=== PATIENT | female | born 1975 | race Caucasian/White ===

== ENCOUNTER 2017-07-26 05:29 | Inpatient (IN) | payer OTHER ==
[2017-07-16 10:21] VITALS: BMI 42.0
--- NOTE | 2017-07-16 11:17 | PAT Medication Instructions ---
Service Date Jul 16, 2017. Current Home Medication List Alprazolam (Xanax), 0.5 MG PO PRN Bupropion Hcl (Wellbutrin Sr), 150 MG PO BID Dicyclomine HCl (Dicyclomine HCl), 10 MG PO QID PRN for prn Gabapentin (Neurontin), 600 MG PO BID Hydrocodone/Acetaminophen 5MG/325MG ([place] 5MG/325MG), 1-2 TABLET PO Q6H PRN for Pain Infliximab (Remicade), 1 DOSE INJ Q8WK Insulin Aspart (novoLOG INSULIN PUMP ), 1 EA N/A UD Lactulose (Lactulose), 30-60 MG PO DAILY PRN for Constipation Levothyroxine Sodium (Synthroid), 300 MCG PO QAM Lisinopril (Prinivil), 5 MG PO QAM Medroxyprogesterone Acetate (C (Depo-Provera Contraceptiv), 150 MG PO Q3MO Metformin Hcl (Glucophage Ext Rel), 1,000 MG PO QAM Omeprazole (Prilosec), 40 MG PO QAM Ondansetron Hcl (Zofran), 8 MG PO PRN Quetiapine Fumarate (Seroquel), 200 MG PO BID Trazodone Hcl (Trazodone), 300 MG PO HS Verapamil Sust Rel (Calan Sr Ext Rel), 240 MG PO QAM Medication Instructions For Your Scheduled Surgery - Check with surgeon/stabilizer operator for instructions: Infliximab (Remicade), 1 DOSE INJ Q8WK - Hold the following medications 48 hours prior to surgery: Metformin Hcl (Glucophage Ext Rel), 1,000 MG PO QAM - Hold the following medications the morning of surgery: Lisinopril (Prinivil), 5 MG PO QAM Lactulose (Lactulose), 30-60 MG PO DAILY PRN for Constipation Dicyclomine HCl (Dicyclomine HCl), 10 MG PO QID PRN for prn - Take the following medications the morning of surgery with a sip of water: Verapamil Sust Rel (Calan Sr Ext Rel), 240 MG PO QAM Ondansetron Hcl (Zofran), 8 MG PO PRN Quetiapine Fumarate (Seroquel), 200 MG PO BID Omeprazole (Prilosec), 40 MG PO QAM Levothyroxine Sodium (Synthroid), 300 MCG PO QAM Hydrocodone/Acetaminophen 5MG/325MG ([place] 5MG/325MG), 1-2 TABLET PO Q6H PRN for Pain (okay to take up to 4 hours prior to surgery if needed) Gabapentin (Neurontin), 600 MG PO BID Bupropion Hcl (Wellbutrin Sr), 150 MG PO BID Alprazolam (Xanax), 0.5 MG PO PRN (if needed) - Take the following medications as scheduled the night before surgery: Trazodone Hcl (Trazodone), 300 MG PO HS Ondansetron Hcl (Zofran), 8 MG PO PRN (if needed) Quetiapine Fumarate (Seroquel), 200 MG PO BID Lactulose (Lactulose), 30-60 MG PO DAILY PRN for Constipation (if needed) Hydrocodone/Acetaminophen 5MG/325MG ([place] 5MG/325MG), 1-2 TABLET PO Q6H PRN for Pain (if needed) Gabapentin (Neurontin), 600 MG PO BID Dicyclomine HCl (Dicyclomine HCl), 10 MG PO QID PRN for prn (if needed) Bupropion Hcl (Wellbutrin Sr), 150 MG PO BID Alprazolam (Xanax), 0.5 MG PO PRN (if needed) - For Insulin Dependent Diabetic patients: Test blood sugar A.M. of surgery. - Insulin Aspart (novoLOG INSULIN PUMP ), set to basal setting for AM day of surgery If you have any questions please call us at [phone] or [phone] or [phone]
--- NOTE | 2017-07-16 11:46 | DIAGNOSTIC IMAGING REPORT ---
CHEST 2 VIEWS ROUTINE CLINICAL HISTORY: Preoperative evaluation. COMPARISON STUDY: Chest radiograph and chest CT January 15, 2015. FINDINGS: Lung volumes are normal. No pneumothorax or pleural effusion is present. No consolidation is identified. Cardiomediastinal silhouette is normal. There is no evidence of pulmonary edema. IMPRESSION: No acute cardiopulmonary findings. Electronically signed by: Rk Mccauley M.D. 07/16/2017 11:45 AM Dictated Date/Time: 07/16/2017 11:45 AM
[2017-07-16 12:12] LABS: BASO % 0.3 %; BASO ABS # 0.01 K/uL (0-0.2); COMPLETE YES; EOS % 1.8 %; HEMATOCRIT 41.1 % (37-47); LYMPH % 32.1 %; LYMPH ABS # 1.25 K/uL (1.2-3.4); MEAN CELL VOLUME 96.9 fL (80-100); MEAN CORPUSCULAR HEMOGLOBIN 32.5 pg (25-34); MEAN CORPUSCULAR HGB CONC 33.6 g/dl (32-36); MEAN PLATELET VOLUME 10.4 fL (7.4-10.4); MONO % 6.7 %; NEUT % 59.1 %; PLATELET COUNT 104 K/uL (130-400); RED BLOOD COUNT 4.24 M/uL (4.2-5.4); URINE APPEARANCE CLEAR (CLEAR); URINE BILIRUBIN NEG (NEG); URINE COLOR DK YELLOW; URINE NITRITE NEG (NEG); URINE SPECIFIC GRAVITY 1.019 (1.000-1.030); UROBILINOGEN NEG (NEG)
[2017-07-16 12:15] LABS: MANUAL MICROSCOPIC REQUIRED? NO; REVIEW REQ? NO
[2017-07-16 12:26] LABS: PROTHROMBIN TIME (PATIENT) 10.7 SECONDS (9.0-12.0)
[2017-07-16 13:28] LABS: CALCIUM 9.3 mg/dl (8.5-10.1); CREATININE 0.9 mg/dl (0.60-1.20); POTASSIUM 4.5 mmol/L (3.5-5.1)
--- NOTE | 2017-07-25 13:38 | HISTORY & PHYSICAL EXAMINATION ---
DATE OF ADMISSION: 07/26/2017 CHIEF COMPLAINT: Back pain, lower extremity difficulty. Working diagnosis of disc herniation lumbar spine. HISTORY OF PRESENT ILLNESS: Lacey is delightful. She has done her best. She had a recurrent disc herniation lumbar spine L4-L5. I state recurrent, she had a fusion at L5-S1 and did well for a period of time, unfortunate had a fall injury leading to the painful process and disc protrusion. We are also worried about the instability pattern up in the L4-L5 region. PAST MEDICAL HISTORY: Positive for hypertension, obesity, anxiety, diabetes on insulin and an insulin pump, spine low back difficulties, acid reflux and cirrhosis. SOCIAL HISTORY: Smoking is also positive. No alcohol intake. PAST SURGICAL HISTORY: Includes small bowel resection, cholecystectomy, hysterectomy, fusion. ALLERGIES: KEFLEX, SULFA, HUMIRA. MEDICATIONS: NovoLog, metformin, Prilosec, Wellbutrin, Neurontin, Prinivil, Synthroid, Calan, Microzide. REVIEW OF SYSTEMS: She denies any blurred vision, double vision, tinnitus or vertigo, no chest pain, angina. No shortness of breath. No nausea, vomiting, urgency, frequency, dysuria. Her pain is mostly back and lower extremity, sciatica and associated weakness. OBJECTIVE: GENERAL: She is 5'6. She is 260 pounds. VITAL SIGNS: Blood pressure 130/80, pulse of 80, respiration rate 16, temperature 97.4, afebrile. HEAD, EYES, EARS, NOSE, AND THROAT: Pupils react to light and accommodation. Ear, nose and throat clear. ABDOMEN: Soft, nontender, bowel sounds present. HEART: Normal S1, S2, no S3. LUNGS: Clear to auscultation. NEUROLOGIC: Weak in dorsiflexion and plantarflexion right foot, profound pain with straight leg raising, marked gait abnormality. IMPRESSION: Disc herniation, lumbar spine L4-L5 above a prior fusion. DISPOSITION: Includes surgery, at the very least a posterior lumbar decompression, laminectomy L4-L5 and possible Globus instrumentation and interbody fusion L4-L5.
[~2017-07-26] VITALS: Ht 170.2 cm; Wt 121.8 kg
[2017-07-26] VITALS (10 sets, daily range): BP systolic 106–143; BP diastolic 60–82; PULSE 70–101; TEMP 36.2–37.7; O2SAT 94–100; Ht 170.2 cm; Wt 121.8 kg
[~2017-07-26 05:29] MED LIST: ALPR-411 PO; BNT/10 PO; GABA-113 PO; HYDR-5688 PO; INSPMPNVLG; LCTL45 PO; LEVO300T2 PO; LISI-729 PO; METF1TAB53 PO; OMEP40CA PO; ONDA4TAB65 PO; QUET-205 PO; RMCI INJ; TRAZ100T29 PO; VERA240T20 PO; WLLSR/150 PO
[2017-07-26] MEDS ORDERED: CLINDAMYCIN 600 MG/54 ML D5W 54 ML IV SCH (06:00)
[2017-07-26] MEDS ORDERED: LACTATED RINGER'S 1000ML IV SCH (06:00)
[2017-07-26] MEDS ORDERED: THROMBIN FOR SOLN 20000 UNIT KIT ONE (06:54)
[2017-07-26] MEDS ORDERED: GELATIN SPONGE SZ 100 ONE (06:54)
[2017-07-26] MEDS ORDERED: VANCOMYCIN HCL 1000MG/20ML VIAL ONE (06:55)
[2017-07-26] MEDS ORDERED: BACITRACIN 50000 UNIT VIAL ONE (06:55)
[2017-07-26] MEDS ORDERED: BUPIVACAINE/EPINEPHRINE 0.5% MPF 1:200,000 10 ML VIAL ONE ×2 (06:55→07:03)
[2017-07-26] MEDS ORDERED: FENTANYL CITRATE INJ 50 MCG/1 ML 2 ML VIAL ONE (06:56)
[2017-07-26] MEDS ORDERED: MIDAZOLAM HCL 1 MG/ML 2ML VIAL ONE (06:56)
--- NOTE | 2017-07-26 07:15 | History & Physical Bridge Note ---
H&P Re-Evaluation Bridge Note: I have examined the patient, reviewed the History & Physical and in the interval since the performance of the History & Physical I have noted the following changes of clinical significance: No changes noted
[2017-07-26] MEDS ORDERED: PHENYLEPHRINE 100MCG/ML 5ML SYR IV PRN (08:00)
[2017-07-26] MEDS ORDERED: EpHEDrine SULFATE INJ 50 MG/ML AMP IV PRN (08:00)
[2017-07-26] MEDS ORDERED: ATROPINE SULFATE 0.1 MG/ML 5ML SYR IV PRN (08:00)
[2017-07-26] MEDS ORDERED: ONDANSETRON INJ 2 MG/ML 2 ML VIAL IV PRN ×2 (08:00→10:15)
[2017-07-26] MEDS ORDERED: PROPOFOL IV EMULSION 10 MG/ML 20 ML VIAL IV ONE (08:07)
[2017-07-26] MEDS ORDERED: LIDOCAINE HCL 2% 2 ML VIAL (20MG/ML) ONE (08:07)
[2017-07-26] MEDS ORDERED: GLYCOPYRROLATE INJ 0.2 MG/ML VIAL ONE (08:07)
[2017-07-26] MEDS ORDERED: ONDANSETRON INJ 2 MG/ML 2 ML VIAL ONE (08:07)
[2017-07-26] MEDS ORDERED: LARYING-O-JET KIT (LTA) ONE ×2 (08:07)
[2017-07-26] MEDS ORDERED: NEOSTIGMINE METHYLSULFATE 5 MG/5 ML SYR ONE (08:07)
[2017-07-26] MEDS ORDERED: ROCURONIUM BROMIDE 10 MG/ML 5 ML VIAL IV ONE (08:07)
[2017-07-26] MEDS ORDERED: HYDROmorphone INJ 2 MG/ML SYR/VIAL ONE (08:08)
[2017-07-26] MEDS: SODIUM CHLORIDE 0.9% 1000ML 1,000 ML IV SCH (10:13)
[2017-07-26] MEDS ORDERED: NovoLOG INSULIN PUMP SCH (10:15)
[2017-07-26] MEDS ORDERED: LORAZEPAM INJ 1 MG in SYRINGE 0 ML IV PRN (10:15)
[2017-07-26] MEDS ORDERED: PROMETHAZINE HCL INJ 12.5 MG in SODIUM CHLORIDE 0.9% 50ML 50 ML IV PRN (10:15)
[2017-07-26] MEDS ORDERED: NALOXONE HCL 0.4 MG/1 ML VIAL/CARP IV PRN (10:15)
[2017-07-26] MEDS ORDERED: ALPRAZOLAM 0.5 MG TAB PO SCH (10:15)
[2017-07-26] MEDS ORDERED: DICYCLOMINE HCL 10 MG CAP PO PRN (10:15)
[2017-07-26] MEDS ORDERED: MAGNESIUM HYDROXIDE SUSP 30 ML UDC PO PRN (10:15)
[2017-07-26] MEDS ORDERED: DC PCA PRN (10:15)
[2017-07-26] MEDS ORDERED: LORAZEPAM 1 MG TAB PO PRN (10:15)
[2017-07-26] MEDS ORDERED: METOCLOPRAMIDE HCL INJ 5 MG/ML 2 ML VIAL IV PRN (10:15)
[2017-07-26] MEDS ORDERED: ACETAMINOPHEN 325 MG TAB PO PRN (10:15)
--- NOTE | 2017-07-26 10:18 | [facility] Operative Report ---
Operative Report Operative Date Jul 26, 2017. Pre-Operative Diagnosis Disc herniation, lumbar spine L4-L5 above a prior fusion Post-Operative Diagnosis Disc herniation, lumbar spine L4-L5 above a prior fusion Procedure(s) Performed L4-L5 Discectomy; L4-L5 Posterior Lumbar Interbody Fusion; L5-S1 Hardware Removal Surgeon Dr. Emory Byrd Senior [employer] Soa Developer Surgeon(s) Mario Pond PA-C Estimated Blood Loss 200ML Findings Disc herniation and instability lumbar 4-5 of the spine Specimens A. Explanted Hardware - back Complication(s) None Disposition Recovery Room / PACU Indications Disc herniation lumbar 4-lumbar 5 and instability lumbar 4-5 Description of Procedure Description of procedure She was taken to the operating room a general intubated anesthetic provided the patient is prone prepped draped sterile. A skin incision fascial incision dissected out over the old fusion area put in a deep self-retaining retractor. Dissected the neural elements L4 5 foraminotomies partial facetectomies. He discectomy on the left side and the right side. And also remove the old implants which was a wanted to know tamara L5 to the sacrum. We are able to safely Jolly interbody device L4 5 bilaterally. This is by the Veebeam and locked down the construct with a longitudinal tamara. Bone grafted out over the transverse processes L4 5 lumbar spine. This completed the 360 fusion. We then irrigated thoroughly with approximately 5-600 mL of fluid post fascia fascia over Hemovac drain and vancomycin powder. This was closed with 1 Vicryl suture. He subcuticular layer closed with 2-0 Vicryl suture. Skin closed with 3-0 nylon suture dressings applied. She returned to recovery room satisfactory and stable no apparent complications thank you I attest to the content of the Intraoperative Record and any orders documented therein. Any exceptions are noted below.
[2017-07-26] MEDS ORDERED: HYDROmorphone HCL 0.5MG/ML 50 ML CASSETTE ONE (10:25)
--- NOTE | 2017-07-26 10:33 | DIAGNOSTIC IMAGING REPORT ---
SPINE ONE VIEW, ANY LEVEL CLINICAL HISTORY: L4-L5 discectomy. Possible fusion. COMPARISON STUDY: Lumbar spine CT July 02, 2017. Fluoroscopy time: 7.4 seconds. FINDINGS: These 2 fluoroscopic images demonstrate an interval L4-L5 discectomy with interbody spacer placement. There has been interval placement of 2 pedicle screws at the L4 level. Preexisting L5-S1 discectomy fusion is noted. IMPRESSION: Interval L4-L5 discectomy and pedicle screw fusion. Electronically signed by: Rk Mccauley M.D. 07/26/2017 10:32 AM Dictated Date/Time: 07/26/2017 10:31 AM
[2017-07-26] MEDS: HYDROmorphone INJ 2 MG/ML SYR/VIAL IV PRN ×2 (10:37→10:53)
--- NOTE | 2017-07-26 11:26 | Anesthesiology Progress Note ---
Anesthesia Post Op Note Date & Time Jul 26, 2017 at 11:26 Vital Signs Pain Intensity: 5 Vital Signs Past 12 Hours Date Time Temp Pulse Resp B/P (MAP) Pulse Ox O2 Delivery O2 Flow Rate FiO2 07/26/17 10:56 36.4 75 16 112/73 (78) 96 Mask 4 07/26/17 10:43 74 13 07/26/17 10:43 73 13 99 07/26/17 10:42 92/63 07/26/17 10:41 77/55 07/26/17 10:38 79 16 07/26/17 10:38 79 16 98 07/26/17 10:36 102/66 07/26/17 10:33 86 12 07/26/17 10:33 84 12 95 07/26/17 10:31 110/61 07/26/17 10:28 79 20 07/26/17 10:28 79 20 96 07/26/17 10:26 104/83 07/26/17 10:23 77 16 94 07/26/17 10:23 77 16 07/26/17 10:20 90/56 07/26/17 10:18 77 10 07/26/17 10:18 36.2 79 12 90/56 95 Mask 10 07/26/17 10:18 77 10 95 07/26/17 06:10 37.2 83 20 129/77 95 Room Air Notes Mental Status: alert / awake / arousable, participated in evaluation Pt Amnestic to Procedure: Yes Nausea / Vomiting: adequately controlled Pain: adequately controlled Airway Patency, RR, SpO2: stable & adequate BP & HR: stable & adequate Hydration State: stable & adequate Anesthetic Complications: no major complications apparent
[2017-07-26] MEDS ORDERED: SODIUM CHLORIDE 0.9% 1000ML 1,000 ML IV SCH (12:00)
[2017-07-26] MEDS ORDERED: GLUCOSE 40% GEL 15 GM TUBE PO PRN (12:15)
[2017-07-26] MEDS ORDERED: DEXTROSE 50% 50 ML SYR IV PRN (12:15)
[2017-07-26] MEDS ORDERED: GLUCOSE 10 TABS/TUBE PO PRN (12:15)
[2017-07-26] MEDS ORDERED: GLUCAGON FOR INJ 1 MG VIAL SQ PRN (12:15)
[2017-07-26] MEDS ORDERED: INSULIN ASPART 100 UNITS/ML VIAL SC PRN (12:15)
[2017-07-26 13:19] LABS: HEMATOCRIT 40.1 % (37-47)
[2017-07-26] MEDS: LACTOBACILLUS ACIDOPHILUS (FLORANEX) TAB PO SCH ×2 (13:20→17:56)
[2017-07-26] MEDS ORDERED: LACTULOSE SYRUP 30 GM/45 ML UDP PO PRN (13:30)
--- NOTE | 2017-07-26 13:56 | Medical Consult ---
Consultation Date of Consultation: Jul 26, 2017. Attending Physician: Emory Byrd DO Reason for Consultation: Medical Management History of Present Illness Ms. Christianson is a 41 y/o female with PMHx of HTN, T2DM, Cirrhosis, Hypothyroidism , Crohn's S/P Resection, Obesity, and Tobacco Use who is S/P L4-L5 Discectomy and Fusion by Dr. Byrd on 07/26. Patient is currently complaining of back pain but is utilizing Dilaudid POSITION CLASSIFICATION MANAGER pump. Patient is drowsy and intermittently closes her eyes during exam. She is easily awoken and answers questions and follows commands appropriately. She reports minimal flairs with her Crohns since starting Remicade. She does report some looser stools over the past few days that she relates to her irritable bowel and anxiety. She maintains her own insulin pump with basal rates and boluses as necessary. Following are her basals : midnight-3 AM is 2 units; 3AM-10AM is 2.4 units; and 10AM-Midnight is 2.3 units. She also utilizes metformin. Past Medical/Surgical History 1. T2DM 2. HTN 3. Anxiety 4. GERD 5. Cirrhosis 6. Hypothyroidism 7. Crohn's Disease S/P Bowel Resection Family History Gallbladder disease Seizures Social History Smoking Status: Current Every Day Smoker Drug Use: none Marital Status: Housing Status: lives with family Occupation Status: employed Allergies Coded Allergies: Cephalexin (Verified Allergy, Severe, SWELLING OF LIPS,EYES,FACE, 07/26/17) Sulfa Antibiotics (Verified Allergy, Severe, N/V, SWELLING OF FACE AND LIPS, 07/26/17) Vedolizumab (Verified Allergy, Severe, SHORTNESS OF BREATH AND CHEST PAIN , 07/26/17) Adalimumab (Verified Allergy, Unknown, drug induced lupus SYMPTOMS, ) Current Inpatient Medications Current Inpatient Medications Medications (Trade) Dose Ordered Sig/Mio Route Start Time Stop Time Status Last Admin Dose Admin Lactated Ringer's 1,000 ml @ 60 mls/hr [id number] IV 07/26/17 06:00 07/26/17 22:39 Clindamycin Phosphate 54 ml @ 100 mls/hr PREOP IV 07/26/17 06:00 07/26/17 18:00 07/26/17 07:35 100 MLS/HR Diphenhydramine HCl (Benadryl Cap) 25 mg Q6H PRN PO 07/26/17 10:15 08/25/17 10:14 Magnesium Hydroxide (Milk Of Magnesia Susp) 30 ml DAILY PRN PO 07/26/17 10:15 08/25/17 10:14 Bisacodyl (Dulcolax Supp) 10 mg DAILY PRN CO 07/27/17 06:00 08/26/17 05:59 Bisacodyl (Dulcolax Tab) 5 mg DAILY PRN PO 07/27/17 06:00 08/26/17 05:59 Polyethylene (Miralax Powder Packet) 17 gm DAILY PO 07/27/17 09:00 08/26/17 08:59 Lorazepam 1 mg/ Syringe 0.5 ml @ 1 mls/min Q6H PRN IV 07/26/17 10:15 08/25/17 10:14 Lorazepam (Ativan Tab) 1 mg Q6H PRN PO 07/26/17 10:15 08/25/17 10:14 Metoclopramide HCl (Reglan Inj) 10 mg Q6H PRN IV 07/26/17 10:15 08/25/17 10:14 Ondansetron HCl (Zofran Inj) 4 mg Q6H PRN IV 07/26/17 10:15 08/25/17 10:14 Promethazine HCl 12.5 mg/Sodium Chloride 50.5 ml @ 202 mls/hr Q6H PRN IV 07/26/17 10:15 08/25/17 10:14 Hydromorphone HCl (Dilaudid Inj) 1.5 mg Q3H PRN IV 07/27/17 08:00 08/10/17 07:59 Oxycodone/ Acetaminophen (Percocet 5-325mg Tab) 2 tab Q4H PRN PO 07/27/17 08:00 08/10/17 07:59 Hydromorphone HCl (Dilaudid Inj) 1 mg Q3H PRN IV 07/27/17 08:00 08/10/17 07:59 Oxycodone/ Acetaminophen (Percocet 5-325mg Tab) 1 tab Q4H PRN PO 07/27/17 08:00 08/10/17 07:59 Miscellaneous Information (Discontinue POSITION CLASSIFICATION MANAGER) 1 ea DIRECTED PRN N/A 07/26/17 10:15 07/27/17 08:00 Acetaminophen (Tylenol Tab) 650 mg Q6H PRN PO 07/26/17 10:15 08/25/17 10:14 Clindamycin Phosphate 600 mg/ Dextrose 54 ml @ 100 mls/hr Q8H IV 07/26/17 18:00 07/27/17 02:33 Bupropion HCl (Wellbutrin-Sr Tab) 150 mg BID PO 07/26/17 21:00 08/25/17 20:59 Dicyclomine HCl (Bentyl Cap) 10 mg QID PRN PO 07/26/17 10:15 08/25/17 10:14 Gabapentin (Neurontin Cap) 600 mg BID PO 07/26/17 21:00 08/25/17 20:59 Levothyroxine Sodium (Synthroid Tab) 300 mcg DAILYBB PO 07/27/17 06:00 08/26/17 05:59 Lisinopril (Zestril Tab) 5 mg QAM PO 07/27/17 09:00 08/26/17 08:59 Metformin HCl (Glucophage Extended Rel Tab) 1,000 mg QDB PO 07/27/17 08:30 08/26/17 08:29 Quetiapine Fumarate (seroQUEL TAB) 200 mg BID PO 07/26/17 21:00 08/25/17 20:59 Trazodone HCl (Desyrel Tab) 300 mg HS PO 07/26/17 21:00 08/25/17 20:59 Verapamil HCl (Calan-Sr Tab) 240 mg QAM PO 07/27/17 09:00 08/26/17 08:59 Pantoprazole Sodium (Protonix Tab) 40 mg QAM PO 07/27/17 09:00 08/26/17 08:59 Naloxone HCl (Narcan Inj) 0.1 mg Q5M PRN IV 07/26/17 10:15 07/27/17 08:00 Hydromorphone HCl (Dilaudid Kindergarten Instructional Assistant) 0.25 mg PRN PRN IV 07/26/17 10:15 07/27/17 08:00 Sodium Chloride 1,000 ml @ 15 mls/hr Q24H IV 07/26/17 10:13 07/27/17 08:00 Lactobacillus Acidophilus (Floranex Tab) 4 tab TIDM PO 07/26/17 12:30 08/25/17 12:29 07/26/17 13:20 4 TAB Insulin Aspart (novoLOG INSULIN PUMP) 1 ea ACHS N/A 07/26/17 17:15 08/25/17 17:14 Insulin Aspart (novoLOG ASPART) SLIDING SCALE PRN PRN SC 07/26/17 12:15 08/25/17 12:14 Glucose (Glucose 40% Gel) UD PRN PO 07/26/17 12:15 08/25/17 12:14 Glucose (Glucose Chew Tab) 1 tabs UD PRN PO 07/26/17 12:15 08/25/17 12:14 Glucagon (Glucagon Inj) 1 mg UD PRN SQ 07/26/17 12:15 08/25/17 12:14 Dextrose (Dextrose 50% 50ML Syringe) 50 ml UD PRN IV 07/26/17 12:15 08/25/17 12:14 Lactulose (Chronulac Syrup) 30 gm DAILY PRN PO 07/26/17 13:30 08/25/17 13:29 Review of Systems Constitutional: No fever, No chills ENT: No nasal symptoms, No sore throat, No trouble swallowing Respiratory: No cough, No shortness of breath Cardiovascular: No chest pain, No palpitations Abdomen: + diarrhea, No pain, No nausea, No vomiting, No constipation Musculoskeletal: + problem reported (back pain), No swelling, No calf pain Genitourinary - Female: No dysuria Neurologic: No numbness/tingling Psychiatric: + anxiety Hematologic / Lymphatic: No abnormal bleeding/bruising, No clotting problems Integumentary: No rash Physical Exam Date Time Temp Pulse Resp B/P (MAP) Pulse Ox O2 Delivery O2 Flow Rate FiO2 07/26/17 12:43 36.4 72 18 113/73 (86) 99 Room Air 4.0 07/26/17 12:14 36.4 70 19 111/69 (83) 99 Nasal Cannula 4.0 07/26/17 12:01 99 Nasal Cannula 4.0 07/26/17 12:00 Nasal Cannula 4.0 07/26/17 11:40 36.6 75 18 106/60 (75) 97 Nasal Cannula 4.0 07/26/17 10:56 36.4 75 16 112/73 (78) 96 Mask 4 07/26/17 10:43 74 13 07/26/17 10:43 73 13 99 07/26/17 10:42 92/63 07/26/17 10:41 77/55 07/26/17 10:38 79 16 07/26/17 10:38 79 16 98 07/26/17 10:36 102/66 07/26/17 10:33 86 12 07/26/17 10:33 84 12 95 07/26/17 10:31 110/61 07/26/17 10:28 79 20 07/26/17 10:28 79 20 96 07/26/17 10:26 104/83 07/26/17 10:23 77 16 94 07/26/17 10:23 77 16 07/26/17 10:20 90/56 07/26/17 10:18 77 10 07/26/17 10:18 36.2 79 12 90/56 95 Mask 10 07/26/17 10:18 77 10 95 07/26/17 06:10 37.2 83 20 129/77 95 Room Air General Appearance: WD/WN, no apparent distress, + obese Head: normocephalic, atraumatic Eyes: sclerae normal ENT: hearing grossly normal Neck: supple, no JVD, trachea midline Respiratory/Chest: lungs clear, normal breath sounds, no respiratory distress, no accessory muscle use Cardiovascular: regular rate, rhythm, no gallop, no murmur Abdomen/GI: normal bowel sounds, non tender, soft Extremities/Musculoskelatal: no calf tenderness, no pedal edema Neurologic/Psych: alert, oriented x 3, + pertinent finding (drowsy) Skin: normal color, warm/dry Laboratory Results Last 24 Hours Test 07/26/17 06:02 07/26/17 09:10 07/26/17 10:18 07/26/17 12:17 Bedside Glucose 91 mg/dl 96 mg/dl 122 mg/dl 99 mg/dl Test 07/26/17 13:07 Hemoglobin 12.7 g/dL Hematocrit 40.1 % Assessment & Plan Ms. Christianson is a 41 y/o female with PMHx of HTN, T2DM, Cirrhosis, Hypothyroidism , Crohn's S/P Resection, Obesity, and Tobacco Use who is S/P L4-L5 Discectomy and Fusion by Dr. Byrd on 07/26. S/P L4-L5 Discectomy and Fusion on 07/26: - Pain Management, IVF, DVT Prophylaxis, PT/OT per primary T2DM with Neuropathy: - May continue self-management of insulin pump and Metformin XL 1000 mg daily - continue to monitor kidney function - Gabapentin 600 mg BID HTN: - Lisinopril 5 mg daily and Verapamil XL 240 mg daily Cirrhosis: - Drowsiness likely 2/2 Dilaudid but if continues an ammonia level could be warranted - Lactulose 30 g daily PRN Hypothyroidism: - Synthroid 300 mcg daily Anxiety/Insomnia: - Wellbutrin 150 mg BID and Ativan PRN - Seroquel 200 mg BID and Trazodone 300 mg daily Crohn's/IBD: STABLE - Remicade Q8W - reports good control with this medication - not due for dosing x 6 weeks - Bentyl 10 mg QID PRN Thank you for the consultation. Hospitalists will follow. Attending Addendum: I have physically seen and examined this patient, have directed the physician assistants medical activities, and agree with the H&P as noted above with the following exceptions as noted. The patient is awake, but drowsy, well-developed and well-nourished, normocephalic and atraumatic, lying in bed and in no acute distress. HEENT--PERRL, EOMI, mucous membranes and oropharynx dry. Neck--supple, no JVD or bruits, thyroid normal, trachea midline, no adenopathy. Heart--normal S1 and S2, no extra beats, no murmurs, rubs or gallops. Lungs--clear bilaterally with good air movement, no respiratory distress, no accessory muscle use. Abdomen--normal bowel sounds and soft, nontender and nondistended, no hernias or masses, no organomegaly, and obese. Extremities--no cyanosis, clubbing or edema. There are good distal pulses b/l. Dermatologic--normal skin turgor, normal color, warm and dry, no abnormal lymph nodes, no rash. Neurologic--cranial nerves II through XII grossly intact, motor and sensory examination normal. Rheumatologic--normal range of motion, nontender, muscles and joints. Psychiatric--drowsy Assessment and Plan: 1. Status post L4- 5 discectomy and fusion--the patient is seen postoperatively and is medically stable but drowsy. 2. Diabetes mellitus/GPN--continue self-management of insulin pump. Continue metformin XL 1000 mg by mouth daily. Continue gabapentin 600 mg by mouth twice a day. 3. Hypertension--continue lisinopril 5 mg by mouth daily and verapamil XL 240 mg by mouth daily. 4. Cirrhosis--continue lactulose 30 g daily when necessary. 5. Hypothyroidism--continue Synthroid 300 g by mouth daily. 6. Anxiety/insomnia--Wellbutrin 150 mg by mouth twice a day. Seroquel 200 mg by mouth twice a day. Trazodone 300 mg by mouth at bedtime. Ativan when necessary
[2017-07-26] MEDS: HYDROmorphone HCL 0.5MG/ML 50 ML CASSETTE IV PRN ×2 (14:56→22:59)
[2017-07-26] MEDS: NovoLOG INSULIN PUMP SCH ×2 (17:15→20:58)
[2017-07-26] MEDS: CLINDAMYCIN IV 600 MG in DEXTROSE 5% 50ML 50 ML IV SCH (17:56)
[2017-07-26] MEDS: GABAPENTIN 300 MG CAP PO SCH (21:00)
[2017-07-26] MEDS: BuPROPion SR 150 MG TABCR PO SCH (21:00)
[2017-07-26] MEDS: TRAZODONE HCL 100 MG TAB PO SCH (21:00)
[2017-07-26] MEDS: QUETIAPINE FUMARATE 200 MG TAB PO SCH (21:00)
[2017-07-27] MEDS: SODIUM CHLORIDE 0.9% 1000ML 1,000 ML IV SCH (00:33)
[2017-07-27] MEDS: CLINDAMYCIN IV 600 MG in DEXTROSE 5% 50ML 50 ML IV SCH (01:57)
[2017-07-27 03:13] VITALS: BP 134/66; PULSE 118; TEMP 37.3; O2SAT 91
[2017-07-27] MEDS: LEVOTHYROXINE 100 MCG TAB PO SCH (05:51)
[2017-07-27] MEDS ORDERED: BISACODYL 10 MG SUPP PR PRN (06:00)
[2017-07-27] MEDS ORDERED: BISACODYL 5 MG TABEC PO PRN (06:00)
[2017-07-27 06:27] LABS: BUN/CREATININE RATIO 6.6 (10-20); CALCIUM 8.6 mg/dl (8.5-10.1); POTASSIUM 4.1 mmol/L (3.5-5.1)
[2017-07-27] MEDS: HYDROmorphone HCL 0.5MG/ML 50 ML CASSETTE IV PRN (07:00)
[2017-07-27 07:29] VITALS: BP 103/71; PULSE 100; TEMP 38.4; O2SAT 92
--- NOTE | 2017-07-27 07:55 | Discharge Instructions ---
Discharge Instructions Date of Service Jul 27, 2017. Admission Reason for Admission: Lumbar Disc Herniation L4-L5 Discharge Discharge Diagnosis / Problem: above and instability l4-5 Discharge Goals Goal(s): Improve function Activity Recommendations Activity Limitations: as noted below Lifting Limitations: until after follow-up appointment Exercise/Sports Limitations: until after follow-up appointment May Resume Sexual Activity: after follow-up appointment Shower/Bathe: keep incision dry . Instructions / Follow-Up Instructions / Follow-Up MEDICATIONS: Please take your prescriptions as instructed at your pre-op appointment. SPECIAL CARE: The following information is intended to answer some of the common questions and concerns regarding your surgery. Each patient is an individual and receives individual counselling throughout the course of treatment, from diagnosis to surgery all the way through recovery. What follows is not an exhaustive list, but should be a useful guide to some of the common questions and concerns patients have regarding their surgeries. These are not provided to keep you from calling us; rather, they give you something accurate and concrete to reference as you recover from your procedure. If you need us, we are available to you. As always, if you are not sure about something, call us at [phone]. MEDICAL EMERGENCIES: For these conditions, call 911 or go to your local hospital-based Emergency Department - not [facility] or equivalent. * Paralysis * Severe chest pain or difficulty breathing * Swelling or redness of either leg Spine procedures can be rather complex and though complications are rare, they do occur. In such cases, effective advice regarding emergency situations cannot always be addressed over the telephone. You may be referred to the emergency department for more effective management of your problem. Activity Limitations: It is important to give your body time to heal, so please limit your activities : * In general, don't do anything that moves your spine too much. You should avoid contact sports, twisting or heavy lifting while you recover. * 5-10 pounds is all you should attempt to lift. * You should not plan on driving for approximately 3 weeks and you should avoid traveling more than 30-45 minutes at a time. Longer trips should be broken down with walking breaks spaced appropriately. * Physical therapy is not usually required. * Walking and good posture practices will help you recover and regain your function. * Avoid straining or sudden changes in position. * In general, the goal is to take it easy and recover. Don't cause any new problems. Just relax. Showers: * Do not take a bath, use a Jacuzzi or hot tub or otherwise submerge your incision. * It is usually safe to take a shower 4-5 days after your surgery. * Your incision does not require any special creams or ointments. * Simply clean it with soap and water, dry and re-dress with a clean bandage afterwards. Incision: * Keep incision clean, dry and protected until your first follow-up appointment. * Some amount of drainage and redness is normal. Any drainage should be fairly clear and not have a foul odor. * If you feel anything is wrong or you have excessive drainage, please call us. * Your stitches and ragini will be removed 10-14 days after your surgery. At the time of your first post-op visit. * Neck surgeries are typically closed with a suture underneath the skin. The steri-strips over the incision should be maintained until we see you in the office. Bracing: * You may be provided with a back or neck brace to encourage good posture and prevent injury. It will remind you not to do too much as you heal and will alert others to the fact that you have had a surgery. * Back braces may be removed for showers and when you are resting at home. They must be worn when you are walking around for any period of time or for travel. * For neck surgery, you will likely be provided with two cervical collars. The soft collar (Horseheads or foam rubber) is worn most commonly throughout the day and while sleeping. The plastic collar (provided at the hospital) is for showering/bathing. * Except while eating, collars should remain in place. More specifically, bracing is provided for a purpose and should be worn. * Please obtain your brace or collars prior to your operation and bring them to the hospital with you on the day of surgery. * You should also bring your collars to your post-op appointment with Dr. Byrd. You should always take good care of your body and practice healthy habits, especially following surgery. You should: * Follow your doctor's treatment plan * Sit and stand properly with good posture (ears over shoulders, shoulders over hips) Don't slouch * Learn to lift correctly * Exercise regularly (low-impact aerobic exercise is especially good, but check with your doctor first) * Generally, be up and walking for 5-10 minutes at a time at least 3-4 times per day from the day you get home * Increasing walking to tolerance until you can walk for 20-30 minutes at a time * Attain and maintain a healthy body weight * Eat healthy foods ( a well-balanced, low-fat diet rich in fruits and vegetables) and get enough calcium * Avoid excessive use of alcohol When to call our office - If you notice any of the following: * Increased pain not relieve by pain medicine * Fevers greater then 100 degrees F, chills or flu symptoms * Increased redness around incision * Drainage from the incision that is not clear * Any foul smelling drainage * Swelling or fluid collection beneath the skin Miscellaneous: * In the hospital, you may be given a walker or cane for support while walking. These are temporary needs and are intended to prevent injuries due to falls. You may discontinue them when you feel strong and steady enough on your feet. * Sleep in a comfortable position. We find that many patients find a lounge chair or recliner with several pillows to be beneficial in the early post-operative period. * The support stockings should be used for 7-10 days and may be discontinued when you are back to walking more and conducting usual household activities. No problem is insignificant. We are here to help you and get you well. Contact us at [phone]. Definitions: Foraminotomy: If part of the disc or a bone spur (osteophyte) is pressing on a nerve as it leaves the vertebra (through an exit called the foramen), a foraminotomy may be done. Otomy means "to make an opening." A foraminotomy is making the opening of the foramen larger, so the nerve can exit without being compressed. Laminotomy: Similar to the foraminotomy, a laminotomy makes a larger opening, this time in your bony plate protecting your spinal canal and spinal cord (the lamina). The lamina may be pressing on your nerve, so the surgeon may make more room for the nerves using a laminotomy. Laminectomy: Sometimes, a laminotomy is not sufficient. The surgeon may need to remove all or part of the lamina. This procedure is called a laminectomy. This can often be done at many levels without any harmful effects. Current Hospital Diet Patient's current hospital diet: Diabetes Type 2 Diet Discharge Diet Recommended Diet: Diabetes Type 2 Diet Procedures Procedures Performed: L4-L5 Discectomy; L4-L5 Posterior Lumbar Interbody Fusion; L5-S1 Hardware Removal Pending Studies Studies pending at discharge: no Medical Emergencies . Who to Call and When: Medical Emergencies: If at any time you feel your situation is an emergency, please call 911 immediately. . Non-Emergent Contact Non-Emergency issues call your: Surgeon . "Provider Documentation" section prepared by Emory Byrd. . VTE Core Measure Inpt VTE Proph given/why not?: Treatment not indicated
--- NOTE | 2017-07-27 07:59 | PROGRESS NOTE ---
DATE: 07/27/2017 SUBJECTIVE: She is improved, stable, able to sit, minimal standing. No nausea or vomiting, no shortness of breath. OBJECTIVE: Vital signs stable. 37.3 temperature. White count 3.9, glucose 108. ASSESSMENT: Status post major reconstructive spine surgery and fusion L4-L5. DISPOSITION: Have her ambulatory today. Come off with IV fluids. Pain control. Jaime catheter will be discontinued. Hopefully, discharge home within 24 hours.
[2017-07-27] MEDS ORDERED: OXYCODONE/ACETAMINOPHEN 5-325 TAB PO PRN (08:00)
[2017-07-27] MEDS ORDERED: HYDROmorphone INJ 1 MG/ML SYR IV PRN (08:00)
[2017-07-27] MEDS: QUETIAPINE FUMARATE 200 MG TAB PO SCH ×2 (08:12→20:17)
[2017-07-27] MEDS: OXYCODONE/ACETAMINOPHEN 5-325 TAB PO PRN ×4 (08:12→22:32)
[2017-07-27] MEDS: LACTOBACILLUS ACIDOPHILUS (FLORANEX) TAB PO SCH ×3 (08:12→18:17)
[2017-07-27] MEDS: VERAPAMIL HCL 240 MG TABCR PO SCH (08:13)
[2017-07-27] MEDS: GABAPENTIN 300 MG CAP PO SCH ×2 (08:13→20:16)
[2017-07-27] MEDS: BuPROPion SR 150 MG TABCR PO SCH ×2 (08:13→20:17)
[2017-07-27] MEDS: PANTOprazole SOD 40 MG TAB PO SCH (08:14)
[2017-07-27] MEDS: LISINOPRIL 5 MG TAB PO SCH (08:14)
[2017-07-27] MEDS: METFORMIN HCL 500 MG TABCR PO SCH (08:15)
[2017-07-27] MEDS: POLYETHYLENE (MIRALAX) 17 GM PACK PO SCH (08:15)
--- NOTE | 2017-07-27 08:42 | Anesthesiology Progress Note ---
Anesthesia Post Op Note Date & Time Jul 27, 2017 at 08:42 Vital Signs Vital Signs Past 12 Hours Date Time Temp Pulse Resp B/P (MAP) Pulse Ox O2 Delivery O2 Flow Rate FiO2 07/27/17 07:29 38.4 100 18 103/71 (82) 92 Room Air 07/27/17 03:13 37.3 118 16 134/66 (88) 91 Nasal Cannula 2.0 07/26/17 23:15 Room Air 07/26/17 22:50 37.4 101 16 110/68 (82) 96 Room Air Notes Mental Status: alert / awake / arousable, participated in evaluation Pt Amnestic to Procedure: Yes Nausea / Vomiting: adequately controlled Pain: adequately controlled Airway Patency, RR, SpO2: stable & adequate BP & HR: stable & adequate Hydration State: stable & adequate Anesthetic Complications: no major complications apparent
[2017-07-27] MEDS: HYDROmorphone INJ 1 MG/ML SYR IV PRN ×3 (09:22→20:11)
[2017-07-27] MEDS: NovoLOG INSULIN PUMP SCH ×4 (09:30→21:00)
[2017-07-27 10:00] VITALS: TEMP 37
--- NOTE | 2017-07-27 10:15 | Hospitalist Progress Note ---
Hospitalist Progress Note Date of Service Jul 27, 2017. (Symone Kelly PA-C) Subjective Pt evaluation today including: conversation w/ patient, physical exam, chart review, lab review, review of studies Pain: Low back soreness PO Intake: Good Voiding: underwood catheter in place The patient was seen and examined this morning. Pt reports doing fairly well. She was up ambulating this morning but feels she may have overdone it currently as her pain is slightly worse. She is not passing gas nor had a BM yet. Constitutional: No fever, No chills, No sweats ENT: No nasal symptoms, No trouble swallowing Respiratory: No shortness of breath, No dyspnea on exertion, No dyspnea at rest Cardiovascular: No chest pain, No edema Abdomen: No pain, No nausea, No vomiting, No diarrhea Musculoskeletal: No joint pain, No muscle pain Neurologic: No weakness, No numbness/tingling Skin: No rash, No itch (Symone Kelly PA-C) Objective Vital Signs Date Time Temp Pulse Resp B/P (MAP) Pulse Ox O2 Delivery O2 Flow Rate FiO2 07/27/17 07:29 38.4 100 18 103/71 (82) 92 Room Air 07/27/17 03:13 37.3 118 16 134/66 (88) 91 Nasal Cannula 2.0 07/26/17 23:15 Room Air 07/26/17 22:50 37.4 101 16 110/68 (82) 96 Room Air 07/26/17 19:18 37.7 98 17 108/69 (82) 94 Room Air 07/26/17 15:35 36.6 75 17 118/81 (93) 100 Room Air 07/26/17 15:15 Nasal Cannula 2.0 07/26/17 14:43 36.2 74 18 143/82 (102) 100 Nasal Cannula 4.0 07/26/17 13:44 36.6 79 19 116/76 (89) 100 Nasal Cannula 4.0 07/26/17 12:43 36.4 72 18 113/73 (86) 99 Room Air 4.0 07/26/17 12:14 36.4 70 19 111/69 (83) 99 Nasal Cannula 4.0 07/26/17 12:01 99 Nasal Cannula 4.0 07/26/17 12:00 Nasal Cannula 4.0 07/26/17 11:40 36.6 75 18 106/60 (75) 97 Nasal Cannula 4.0 07/26/17 10:56 36.4 75 16 112/73 (78) 96 Mask 4 07/26/17 10:43 74 13 07/26/17 10:43 73 13 99 07/26/17 10:42 92/63 07/26/17 10:41 77/55 07/26/17 10:38 79 16 07/26/17 10:38 79 16 98 07/26/17 10:36 102/66 07/26/17 10:33 86 12 07/26/17 10:33 84 12 95 07/26/17 10:31 110/61 07/26/17 10:28 79 20 07/26/17 10:28 79 20 96 07/26/17 10:26 104/83 07/26/17 10:23 77 16 94 07/26/17 10:23 77 16 07/26/17 10:20 90/56 07/26/17 10:18 77 10 07/26/17 10:18 36.2 79 12 90/56 95 Mask 10 07/26/17 10:18 77 10 95 (Symone Kelly PA-C) Physical Exam General Appearance: WD/WN, no apparent distress, + obese Eyes: PERRL, EOMI ENT: hearing grossly normal, pharynx normal Neck: no adenopathy, no JVD Respiratory/Chest: lungs clear, no respiratory distress, no accessory muscle use Cardiovascular: regular rate, rhythm, no murmur Abdomen: normal bowel sounds, soft, + pertinent finding Extremities: non-tender, no pedal edema Neurologic/Psychiatric: no motor/sensory deficits, alert, oriented x 3 ( slightly tender in lower abdomen, likely referred back pain) Skin: normal color, warm/dry (Symone Kelly PA-C) Laboratory Results Last 24 Hours Test 07/26/17 10:18 07/26/17 12:17 07/26/17 13:07 07/26/17 17:24 Bedside Glucose 122 mg/dl 99 mg/dl 107 mg/dl Hemoglobin 12.7 g/dL Hematocrit 40.1 % Test 07/26/17 20:57 07/27/17 05:38 07/27/17 08:12 Bedside Glucose 108 mg/dl 127 mg/dl Sodium Level 137 mmol/L Potassium Level 4.1 mmol/L Chloride Level 103 mmol/L Carbon Dioxide Level 28 mmol/L Anion Gap 6.0 mmol/L Blood Urea Nitrogen 7 mg/dl Creatinine 1.00 mg/dl Est Creatinine Clear Calc Drug Dose 100.1 ml/min Estimated GFR () 81.0 Estimated GFR (Non- 69.9 BUN/Creatinine Ratio 6.6 Random Glucose 101 mg/dl Calcium Level 8.6 mg/dl (Symone Kelly, SANDY) Assessment and Plan Ms. Christianson is a 41 y/o female with PMHx of HTN, T2DM, Cirrhosis, Hypothyroidism , Crohn's S/P Resection, Obesity, and Tobacco Use who is S/P L4-L5 Discectomy and Fusion by Dr. Byrd on 07/26. S/P L4-L5 Discectomy and Fusion on 07/26: - Pain Management, IVF, DVT Prophylaxis, PT/OT per primary T2DM with Neuropathy: - May continue self-management of insulin pump and Metformin XL 1000 mg daily - continue to monitor kidney function - Gabapentin 600 mg BID HTN: - Lisinopril 5 mg daily and Verapamil XL 240 mg daily Cirrhosis: - Drowsiness is improved today, she still is slightly drowsy but she is asking for more pain medication. Will not change current regimen. - Lactulose 30 g daily PRN, if develops AMS consider hepatic encephalopathy and check ammonia level. Hypothyroidism: - Synthroid 300 mcg daily Anxiety/Insomnia: - Wellbutrin 150 mg BID and Ativan PRN - Seroquel 200 mg BID and Trazodone 300 mg daily Crohn's/IBD: STABLE - Remicade Q8W - reports good control with this medication - not due for dosing x 6 weeks - Bentyl 10 mg QID PRN CODE STATUS: FULL CODE Disposition: From home, d/c per primary team likely within 1 day. (Symone Kelly PA-C) MICKEY Physician Supervision Note: I interviewed and examined the patient. Discussed with Symone Kelly PAC and agree with findings and plan as documented in the note. Any exceptions or clarifications are listed here: None Patient underwent an L4 5 discectomy she is doing fair postoperatively with pain control next Her medical problems are in reasonable condition with diabetes hypertension hypothyroidism. There is a listing of cirrhosis in her record which is cautious with the use of metformin for diabetes. We'll continue this cautiously with sliding scale. Her Crohn's has been stable Documented By: Donato Srivastava (Donato Srivastava M.D.)
[2017-07-27 16:00] VITALS: BP 105/71; PULSE 103; TEMP 37.4; O2SAT 95
[2017-07-27] MEDS: TRAZODONE HCL 100 MG TAB PO SCH (20:18)
[2017-07-27 22:59] VITALS: BP 105/70; PULSE 91; TEMP 37.1; O2SAT 90
[2017-07-28] MEDS: OXYCODONE/ACETAMINOPHEN 5-325 TAB PO PRN ×2 (04:44→10:00)
[2017-07-28] MEDS: LEVOTHYROXINE 100 MCG TAB PO SCH (06:00)
[2017-07-28 06:18] VITALS: BP 131/74; PULSE 112; TEMP 37.1; O2SAT 90
[2017-07-28] MEDS: HYDROmorphone INJ 1 MG/ML SYR IV PRN (07:34)
[2017-07-28] MEDS ORDERED: OXYC-106 PO (07:36)
[2017-07-28] MEDS: POLYETHYLENE (MIRALAX) 17 GM PACK PO SCH (07:41)
[2017-07-28] MEDS: QUETIAPINE FUMARATE 200 MG TAB PO SCH (07:43)
[2017-07-28] MEDS: LISINOPRIL 5 MG TAB PO SCH (07:43)
[2017-07-28] MEDS: BuPROPion SR 150 MG TABCR PO SCH (07:44)
[2017-07-28] MEDS: METFORMIN HCL 500 MG TABCR PO SCH (07:44)
[2017-07-28] MEDS: PANTOprazole SOD 40 MG TAB PO SCH (07:44)
[2017-07-28] MEDS: LACTOBACILLUS ACIDOPHILUS (FLORANEX) TAB PO SCH (07:45)
[2017-07-28] MEDS: GABAPENTIN 300 MG CAP PO SCH (07:45)
[2017-07-28] MEDS: VERAPAMIL HCL 240 MG TABCR PO SCH (07:46)
[2017-07-28 09:47] VITALS: BP 131/74; PULSE 112; TEMP 37.1; O2SAT 90
--- NOTE | 2017-07-28 10:53 | Hospitalist Progress Note ---
Hospitalist Progress Note Date of Service Jul 28, 2017. (Symone Kelly PA-C) unfortunately patient was discharged and left before I see her. I reviewed vitals and chart I agree with mentioned assessment and plan I did not meet the patient face to face and did not perform physical exam on the patient (Kendrick Noble MD) Subjective Pt evaluation today including: conversation w/ patient, physical exam, chart review, lab review, review of studies Pain: improving PO Intake: good Voiding: no voiding problems The patient was seen and examined this morning. Patient reports feeling well. She is anticipating going home today. She reports she has family coming in from out of town for the weekend, and they will be able to help her around the house. Patient states she is still slightly sore, but that she has been up walking with PT/OT this morning and did well. She is moving gas but has not yet had a bowel movement. Additional Comments: Constitutional: No fever, sweats or chills Eyes: No diplopia, no worsening or blurred vision ENT: normal hearing, no trouble swallowing Respiratory: No cough, sputum, dyspnea at rest or on exertion Cardiovascular: No chest pain, tightness or palpitations Abdomen: No pain, nausea, vomiting, diarrhea or constipation Musculoskeletal: No joint pain, calf pain, swelling Neurologic: No weakness, numbness/tingling, or balance problems Psychiatric: No anxiety or depression Skin: No rash or itch (Symone Kelly PA-C) Objective Vital Signs Date Time Temp Pulse Resp B/P (MAP) Pulse Ox O2 Delivery O2 Flow Rate FiO2 07/28/17 09:47 37.1 112 16 90 Room Air 07/28/17 07:52 Room Air 07/28/17 06:18 37.1 112 16 131/74 (93) 90 Room Air 07/27/17 23:45 Room Air 07/27/17 22:59 37.1 91 16 105/70 (82) 90 Room Air 07/27/17 16:00 37.4 103 18 105/71 (82) 95 Room Air (Symone Kelly PA-C) Physical Exam Notes: General Appearance: WD/WN, no apparent distress, + obese Eyes: PERRL, EOMI ENT: hearing grossly normal, pharynx normal Neck: no adenopathy, no JVD Respiratory/Chest: lungs clear, no respiratory distress, no accessory muscle use Cardiovascular: regular rate, rhythm, no murmur Abdomen: normal bowel sounds, soft, + pertinent finding Extremities: non-tender, no pedal edema Neurologic/Psychiatric: no motor/sensory deficits, alert, oriented x 3 ( slightly tender in lower abdomen, likely referred back pain) Skin: normal color, warm/dry (Symone Kelly PA-C) Laboratory Results Last 24 Hours Test 07/27/17 12:27 07/27/17 18:15 07/27/17 20:58 07/28/17 06:16 Bedside Glucose 105 mg/dl 123 mg/dl 109 mg/dl 113 mg/dl (Symone Kelly PA-C) Assessment and Plan Ms. Christianson is a 41 y/o female with PMHx of HTN, T2DM, Cirrhosis, Hypothyroidism , Crohn's S/P Resection, Obesity, and Tobacco Use who is S/P L4-L5 Discectomy and Fusion by Dr. Byrd on 07/26. S/P L4-L5 Discectomy and Fusion on 07/26: - Pain Management, IVF, DVT Prophylaxis, PT/OT per primary T2DM with Neuropathy: - May continue self-management of insulin pump and Metformin XL 1000 mg daily - continue to monitor kidney function - Gabapentin 600 mg BID HTN: - Lisinopril 5 mg daily and Verapamil XL 240 mg daily Cirrhosis: - Drowsiness is improved today, she still is slightly drowsy but she is asking for more pain medication. Will not change current regimen. - Lactulose 30 g daily PRN, if develops AMS consider hepatic encephalopathy and check ammonia level. Hypothyroidism: - Synthroid 300 mcg daily Anxiety/Insomnia: - Wellbutrin 150 mg BID and Ativan PRN - Seroquel 200 mg BID and Trazodone 300 mg daily Crohn's/IBD: STABLE - Remicade Q8W - reports good control with this medication - not due for dosing x 6 weeks - Bentyl 10 mg QID PRN CODE STATUS: FULL CODE Disposition: From home, d/c today per primary team (Symone Kelly, SANDY)
--- NOTE | 2017-07-29 06:27 | DISCHARGE SUMMARY ---
SUBJECTIVE: Moderate complaints of pain and soreness. No confusion, shortness of breath or chest pain. OBJECTIVE: Vital signs stable, afebrile. Moves all extremities. Neurologically intact. Wound clean. DISPOSITION: We will discharge her home later on this morning. She has a prescription for Percocet on her chart. She has basically home resting, recovering. She has appropriate equipment; a walker with wheels at home and followup examination in approximately 12 days. Careful with bending, stooping, and lifting. She really just home resting and recovering.
[2017-09-07] MEDS ORDERED: HYDR-4383 PO (19:03)
== END 2017-07-28 10:15 | disposition home or self-care (01) | DRG 460 ==
LOC: C.ACU 05:29 → C.3E 07:14 → ENRESERV 11:20
PROVIDERS: ADMIT Orthopaedic Surgery Orthopaedic Surgery of the Spine; ATTEND Orthopaedic Surgery Orthopaedic Surgery of the Spine
PROC: 0ST20ZZ Resection of Lumbar Vertebral Disc, Open Approach (ICD-10-PCS; principal; 2017-07-26 07:30)
PROC: 0SG00A1 (ICD-10-PCS; principal; 2017-07-26 07:30)
PROC: 0SP30JZ Removal of Synthetic Substitute from Lumbosacral Joint, Open Approach (ICD-10-PCS; principal; 2017-07-26 07:30)
DX: M51.26 Other intervertebral disc displacement, lumbar region (principal); Z68.41 Body mass index [BMI] 40.0-44.9, adult; I10 Essential (primary) hypertension; E66.9 Obesity, unspecified; F41.9 Anxiety disorder, unspecified; K21.9 Gastro-esophageal reflux disease without esophagitis; E03.9 Hypothyroidism, unspecified; K74.60 Unspecified cirrhosis of liver; G47.00 Insomnia, unspecified; E11.40 Type 2 diabetes mellitus with diabetic neuropathy, unspecified; Z79.4 Long term (current) use of insulin; Z79.84 Long term (current) use of oral hypoglycemic drugs; Z79.899 Other long term (current) drug therapy; Z98.1 Arthrodesis status; Z96.41 Presence of insulin pump (external) (internal)

== ENCOUNTER 2017-09-10 08:46 | Inpatient (IN) | payer OTHER ==
[2017-09-07 18:47] VITALS: BMI 41.0
[2017-09-10] VITALS (8 sets, daily range): BP systolic 91–138; BP diastolic 58–87; PULSE 98–112; TEMP 36.4–37; O2SAT 95–100; Ht 170.2 cm; Wt 119.4 kg
[~2017-09-10] VITALS: Ht 170.2 cm; Wt 119.4 kg
--- NOTE | 2017-09-10 08:10 | HISTORY & PHYSICAL EXAMINATION ---
DATE OF ADMISSION: 09/10/2017 She is being preoped for a revision posterior lumbar interbody fusion at L4-L5. She has back and lower extremity difficulty. Actually, she is doing fairly well. She had some posterior migration of the implant giving her some discomfort but not profound discomfort. I felt in the interest of her cauda equina that it was better to revise the implant versus to let it go and have a catastrophic event. So the decision with the patient was made to revise the implant. We will be either taking out or trying to get it further advanced. MEDICAL HISTORY: Positive for anxiety; diabetes, on insulin; positive stress test; arthritis; spine problems; upper back problems; cirrhosis; obesity; cigarette smoking. SURGICAL HISTORY: x2, fusions lumbar spine x2, small-bowel resection, cholecystectomy, hysterectomy. ALLERGIES: KEFLEX, SULFA, HUMIRA. MEDICATIONS: On her list. They are numerous. I have reviewed them. They are on her inquiry, I am not dictating those of the length of the amount of medications. REVIEW OF SYSTEMS: Denies any fevers, sweats, chills. Denies any ear, nose and throat complaints. No chest pain, angina, palpitations. No shortness of breath, no wheezing. PHYSICAL EXAMINATION: ABDOMEN: Soft, nontender, albeit obese. EXTREMITIES: Intact x4, appropriate length. No true weakness. Sensory intact. GENERAL: She is 5 feet 7 inches and she is 240 pounds. She is in no terrible distress. She is alert, oriented. Mentation normal. VITAL SIGNS: Blood pressure 130/80, pulse 80, respiratory rate 16, temperature 97.4. HEENT: Pupils react to light and accommodation. Ear, nose and throat clear. CARDIAC: Normal S1 and S2. No S3. LUNGS: Clear to auscultation. No rales, rhonchi or wheezing. NEUROLOGIC: Intact, 5/5 strength, good sensation and motor ability. IMAGES: Reviewed. IMPRESSION: Posterior migration of a spinal implant at L4-L5. DISPOSITION AND TREATMENT: Revision of the spinal implant, revision posterior lumbar interbody fusion at ____ L5-S1.
[~2017-09-10 08:46] MED LIST changes: +ATROPINE SULFATE 0.1 MG/ML 5ML SYR IV PRN; +CLINDAMYCIN 600 MG/54 ML D5W 54 ML IV SCH; +EpHEDrine SULFATE INJ 50 MG/ML AMP IV PRN; +FENTANYL CITRATE INJ 50 MCG/1 ML 2 ML VIAL IV PRN; +HYDR-4383 PO; -HYDR-5688 PO; +HYDROmorphone INJ 1 MG/ML SYR IV PRN; +LABETALOL HCL IV 5 MG/ML 20ML IV PRN; +NSS 1000ML IV SCH; +ONDANSETRON INJ 2 MG/ML 2 ML VIAL IV PRN; +PHENYLEPHRINE 100MCG/ML 5ML SYR IV PRN; +PROMETHAZINE HCL INJ 12.5 MG in SODIUM CHLORIDE 0.9% 50ML 50 ML IV PRN
[2017-09-10] MEDS ORDERED: MIDAZOLAM HCL 1 MG/ML 2ML VIAL ONE (09:40)
[2017-09-10] MEDS ORDERED: FENTANYL CITRATE INJ 50 MCG/1 ML 2 ML VIAL ONE ×3 (09:40→14:17)
--- NOTE | 2017-09-10 11:46 | History & Physical Bridge Note ---
H&P Re-Evaluation Bridge Note: I have examined the patient, reviewed the History & Physical and in the interval since the performance of the History & Physical I have noted the following changes of clinical significance: CHANGES; REVISION L4-5 RATHER THAN L5-1
[2017-09-10] MEDS ORDERED: GELATIN SPONGE SZ 100 ONE (11:47)
[2017-09-10] MEDS ORDERED: BACITRACIN 50000 UNIT VIAL ONE (11:47)
[2017-09-10] MEDS ORDERED: THROMBIN FOR SOLN 20000 UNIT KIT ONE (11:47)
[2017-09-10] MEDS ORDERED: VANCOMYCIN HCL 1000MG/20ML VIAL ONE (11:47)
[2017-09-10] MEDS ORDERED: BUPIVACAINE/EPINEPHRINE 0.5% MPF 1:200,000 30 ML VIAL ONE (11:48)
[2017-09-10] MEDS ORDERED: HYDROmorphone INJ 2 MG/ML SYR/VIAL ONE (12:25)
[2017-09-10] MEDS ORDERED: ONDANSETRON INJ 2 MG/ML 2 ML VIAL ONE (13:04)
[2017-09-10] MEDS ORDERED: ROCURONIUM BROMIDE 10 MG/ML 5 ML VIAL IV ONE (13:04)
[2017-09-10] MEDS ORDERED: PROPOFOL IV EMULSION 10 MG/ML 20 ML VIAL IV ONE (13:04)
[2017-09-10] MEDS ORDERED: LIDOCAINE HCL 2% 2 ML VIAL (20MG/ML) ONE (13:04)
[2017-09-10] MEDS ORDERED: DURASEAL DURAL SEALANT 5ML TOP ONE (14:00)
--- NOTE | 2017-09-10 14:02 | DIAGNOSTIC IMAGING REPORT ---
INTRAOPERATIVE LUMBAR SPINE SINGLE VIEW CLINICAL HISTORY: L4-5 fusion revision. COMPARISON STUDY: 07/26/2017 FINDINGS: There are postsurgical changes of discectomies and interbody fusions at the 4-5 and L5-S1 levels. There are L3, L4 and L5 pedicle screws with adjoining spinal rods. 2 fluoroscopic spot images were acquired. 15 seconds of fluoroscopic time was utilized. IMPRESSION: Intraoperative fluoroscopic spot images as described above. Electronically signed by: Varinder Quach M.D. 09/10/2017 2:01 PM Dictated Date/Time: 09/10/2017 1:59 PM
[2017-09-10] MEDS ORDERED: SODIUM CHLORIDE 0.9% 1000ML 1,000 ML IV SCH (14:29)
[2017-09-10] MEDS ORDERED: METOCLOPRAMIDE HCL INJ 5 MG/ML 2 ML VIAL IV PRN (14:30)
[2017-09-10] MEDS ORDERED: MAGNESIUM HYDROXIDE SUSP 30 ML UDC PO PRN (14:30)
[2017-09-10] MEDS ORDERED: DICYCLOMINE HCL 10 MG CAP PO PRN (14:30)
[2017-09-10] MEDS ORDERED: LORAZEPAM INJ 1 MG in SYRINGE 0 ML IV PRN (14:30)
[2017-09-10] MEDS ORDERED: LORAZEPAM 1 MG TAB PO PRN (14:30)
[2017-09-10] MEDS ORDERED: NALOXONE HCL 0.4 MG/1 ML VIAL/CARP IV PRN (14:30)
[2017-09-10] MEDS ORDERED: ONDANSETRON 4 MG TAB PO PRN (14:30)
[2017-09-10] MEDS ORDERED: PROMETHAZINE HCL INJ 12.5 MG in SODIUM CHLORIDE 0.9% 50ML 50 ML IV PRN (14:30)
[2017-09-10] MEDS ORDERED: ACETAMINOPHEN 325 MG TAB PO PRN (14:30)
[2017-09-10] MEDS ORDERED: ALPRAZOLAM 0.5 MG TAB PO SCH (14:30)
--- NOTE | 2017-09-10 14:32 | [facility] Post Operative Brief Note ---
Immediate Operative Summary Operative Date Sep 10, 2017. Pre-Operative Diagnosis Failure spinal implants, migration of cage L4-L5 Post-Operative Diagnosis Failure spinal implants, migration of cage L4-L5 Procedure(s) Performed Revision posterior lumbar interbody fusion L4-L5, with application of duraseal Surgeon Dr. Byrd Surgery Consultant Surgeon(s) MICKEY Lipscomb Estimated Blood Loss 200ml Findings pull out of pedicle screw. posterior cage migration Specimens A) Explanted Lumbar Hardware Complication(s) None Disposition Recovery Room / PACU
[2017-09-10] MEDS ORDERED: HYDROmorphone HCL 0.5MG/ML 50 ML CASSETTE ONE (14:48)
[2017-09-10 15:31] LABS: HEMATOCRIT 35.9 % (37-47)
--- NOTE | 2017-09-10 15:35 | Anesthesiology Progress Note ---
Anesthesia Post Op Note Date & Time Sep 10, 2017 at 15:35 Vital Signs Pain Intensity: 0 Vital Signs Past 12 Hours Date Time Temp Pulse Resp B/P (MAP) Pulse Ox O2 Delivery O2 Flow Rate FiO2 09/10/17 15:25 36.2 95 16 126/66 98 Nasal Cannula 4 09/10/17 15:15 99 16 134/91 98 Nasal Cannula 4 09/10/17 15:05 108 16 150/76 98 Nasal Cannula 4 09/10/17 14:55 93 16 132/79 95 Oxymask 10 09/10/17 14:45 91 16 162/96 96 Oxymask 10 09/10/17 14:38 36.4 98 12 137/80 98 Oxymask 10 09/10/17 09:03 36.7 98 20 114/82 98 Room Air Notes Mental Status: alert / awake / arousable, participated in evaluation Pt Amnestic to Procedure: Yes Nausea / Vomiting: adequately controlled Pain: adequately controlled Airway Patency, RR, SpO2: stable & adequate BP & HR: stable & adequate Hydration State: stable & adequate Anesthetic Complications: no major complications apparent
[2017-09-10] MEDS: HYDROmorphone HCL 0.5MG/ML 50 ML CASSETTE IV PRN ×2 (15:49→23:05)
[2017-09-10] MEDS: SODIUM CHLORIDE 0.9% 1000ML 1,000 ML IV SCH (15:58)
[2017-09-10] MEDS ORDERED: GLUCOSE 10 TABS/TUBE PO PRN (16:15)
[2017-09-10] MEDS ORDERED: GLUCAGON FOR INJ 1 MG VIAL SQ PRN (16:15)
[2017-09-10] MEDS ORDERED: GLUCOSE 40% GEL 15 GM TUBE PO PRN (16:15)
[2017-09-10] MEDS ORDERED: DEXTROSE 50% 50 ML SYR IV PRN (16:15)
--- NOTE | 2017-09-10 16:16 | OPERATIVE REPORT ---
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 POSTOPERATIVE DIAGNOSES: Posterior migration of interbody cage at L4-L5, dislodgement and/or loosening of the L4 pedicle screw. PROCEDURE: 1. Revision transforaminal lumbar interbody fusion procedure, L5-S1. 2. Specifically, removal of the posterior migration of the cage at L4-L5. 3. Repositioning of an L4 pedicle screw. INDICATIONS: Potential cauda equina syndrome. My opinion was that the patient had significant migration of the one interbody device placed approximately 5 weeks ago. The irony was she was asymptomatic. We were to apple picker on the posterior migration in the area of the cauda equina on a routine postop radiograph, again relatively asymptomatic, the patient making a good recovery. I felt that if the cage migrate any further posteriorly, she would knock out her cauda equina and nerve roots to bowel, bladder and associated leg function. We agreed for the revision. At surgery, it seemed to me that the L4 pedicle screw, possibly because of the fall when the patient had a small fall a few weeks earlier. She might have actually broken out the pedicle screw at the very least loosened it out. This may have led to the posterior migration of the interbody device, I am not absolutely sure that this is the sequence but it made some sense to me at time of surgery. DESCRIPTION OF PROCEDURE: The patient was taken to the operating room, a general intubated anesthetic provided to the patient. She is placed prone on the Salo table, scrubbed with Betadine, prepped with ChloraPrep. We made a skin incision essentially using her old incision, dissecting the soft tissue, the same plane, putting a deep self-retaining retractor. She was fairly obese individual. We were able to remove quite easily the prior bolts and nuts from the pedicle screw construct. We actually left all the screws intact except for the 4 screws on the left hand side. This had become loose possibly because of her fall. This screw was removed. We then had difficulty finding which side the implant had backed out into. We were able to apple picker the fact it was on the left hand side. We carefully retracted the dura in a medial direction. The nerve root was exposed, the dura technically not torn, but eroded. I believe eroded from the implant. We also worked on the right hand side as well, retracting the dura over and we were able to take the implant with an impactor and move it approximately 1 cm more anterior. We then were able to work hard on finding a new location of the L4 pedicle. I debated going up to the L3 pedicle, I did not see that would gave her any more stability. With relative to these, we were able to find the L4 pedicle very good fixation, I was pleased with that. We locked down the construct, placed it under some compression. X-rays were more than satisfactory. We then bone grafted out over the transverse processes from 4 and 5, irrigated thoroughly, placed some Gelfoam over the dural structures, preceded by DuraSeal. We also then closed fascia to fascia over vancomycin powder with #1 Vicryl suture, water tight fashion. Two was closed with 2-0 Vicryl suture water tight fashion. The skin was closed with 3-0 nylon. Sterile dressings applied. The patient returned supine. Jaime catheter administered. She was then brought safely to recovery room satisfactory and stable. No apparent interoperative complications. Estimated blood loss 200 mL. Sponge and needle count correct. I attest to the content of the Intraoperative Record and any orders documented therein. Any exception s are noted below.
[2017-09-10] MEDS ORDERED: INSULIN ASPART 100 UNITS/ML VIAL SC PRN (16:30)
--- NOTE | 2017-09-10 16:37 | Progress Note ---
Progress Note Date of Service Sep 10, 2017. Progress Note med consult dictated #[id number]
--- NOTE | 2017-09-10 17:10 | CONSULTATION REPORT ---
DATE OF CONSULTATION: 09/10/2017 REASON FOR CONSULTATION: Perioperative diabetic and hypertensive management. HISTORY OF PRESENT ILLNESS: Ms. Christianson is a 41-year-old female who was discharged from our facility on the 28 of July after she underwent lumbar spinal surgery. Since that time, she revisited with Dr. Byrd and he felt that she had some migration of her hardware with posterior migration of her implant with some increased discomfort. She returned to the operating room today to attempt to revise this. She is currently fairly sedated postoperatively. Her is at the bedside. She is wearing her insulin pump in her right abdomen. PAST MEDICAL HISTORY: For type 2 diabetes, now controlled with insulin; hypertension; previous history of cirrhosis; hypothyroidism; Crohn's, status post bowel resection; morbid obesity; previous tobacco use. SOCIAL HISTORY: The patient previously has been an everyday smoker. She is and lives with her spouse. FAMILY HISTORY: For gallbladder disease and seizures. MEDICATIONS: On presentation is her insulin pump as mentioned. She also takes Remicade, which has been held, lactulose as needed for constipation, Wellbutrin-SR 150 b.i.d., trazodone 300 at bedtime, Seroquel 200 b.i.d. For her hypertension, lisinopril 5, verapamil 240, gabapentin 600 b.i.d. Bentyl p.r.n., Synthroid 200 mcg a day, omeprazole 40 a day, Zofran as needed. REVIEW OF SYSTEMS: Unable to obtain due to the patient's postoperative sedation. PHYSICAL EXAMINATION: GENERAL: The patient does arouse to voice and speaks. VITAL SIGNS: Temperature is 36.7, pulse is 98, respiration rate 16, BP 125/58. O2 sat 98 on 4 liters. HEENT: Pupils are small but reactive. Her extraocular muscles are intact. HEART: Regular with a systolic murmur at the left sternal border. LUNGS: Have decreased breath sounds bilaterally with good air movement when she is awake. ABDOMEN: With hypoactive bowel sounds, soft. There is an insulin pump in the right lower abdomen. EXTREMITIES: Her distal extremities are warm to touch. Good capillary refill. She can wiggle her toes bilaterally. LABORATORY DATA: H&H of 11 and 35, glucose of 91. ASSESSMENT: A 41-year-old female with migration of hardware with revision of her lumbar spinal fusion. PLAN: Dr. Byrd is managing her in the perioperative period with regard to pain control and ambulation. With regard to her insulin requiring diabetes with neuropathy, we will continue her insulin pump at basal rate metformin 1000 mg a day; however, we will use insulin sliding scale until she is awake enough to augment her pump. We will then record the augmentation, pharmacy has been notified of this. With regard to her hypertension, we will maintain her verapamil 240; hold her lisinopril and restart this on the lisinopril may be for diabetic renal protective effects. Regarding her history of cirrhosis, we will use her lactulose if she becomes constipated or check ammonia if she remains overly drowsy. With regard to her hypothyroidism, it is difficult to assess clinically at this point in time, we will maintain her Synthroid at 100 mcg b.i.d. Regarding her anxiety and insomnia, Wellbutrin 150 b.i.d. will be continued, her Seroquel and trazodone will be used; however, these will be held if she is drowsy. Regarding her Crohn's disease, her Remicade is only done as an outpatient every 8 weeks. This is currently on hold. Her Bentyl will be used for symptom relief. For DVT prevention given her recent back surgery, we will use mechanical means at this time.
[2017-09-10] MEDS: NovoLOG INSULIN PUMP SCH ×2 (17:15→21:00)
[2017-09-10] MEDS: INSULIN ASPART 100 UNITS/ML 3 ML PEN SC SCH ×2 (17:15→21:00)
[2017-09-10] MEDS: ONDANSETRON INJ 2 MG/ML 2 ML VIAL IV PRN (17:40)
[2017-09-10] MEDS: CLINDAMYCIN IV 600 MG in DEXTROSE 5% 50ML 50 ML IV SCH (19:57)
[2017-09-10] MEDS: BuPROPion SR 150 MG TABCR PO SCH (21:02)
[2017-09-10] MEDS: TRAZODONE HCL 100 MG TAB PO SCH (21:02)
[2017-09-10] MEDS: QUETIAPINE FUMARATE 200 MG TAB PO SCH (21:02)
[2017-09-10] MEDS: GABAPENTIN 300 MG CAP PO SCH (21:02)
[2017-09-10] MEDS: ACETAMINOPHEN IV 1,000 MG in EMPTY BAG 0 ML IV SCH (21:37)
[2017-09-11 03:08] VITALS: BP 111/74; PULSE 98; TEMP 36.8; O2SAT 99
[2017-09-11] MEDS: SODIUM CHLORIDE 0.9% 1000ML 1,000 ML IV SCH (03:21)
[2017-09-11] MEDS: CLINDAMYCIN IV 600 MG in DEXTROSE 5% 50ML 50 ML IV SCH (03:22)
[2017-09-11] MEDS: ONDANSETRON INJ 2 MG/ML 2 ML VIAL IV PRN ×2 (03:34→19:23)
[2017-09-11] MEDS: LEVOTHYROXINE 100 MCG TAB PO SCH (05:39)
[2017-09-11] MEDS: ACETAMINOPHEN IV 1,000 MG in EMPTY BAG 0 ML IV SCH ×3 (05:39→21:51)
[2017-09-11] MEDS ORDERED: BISACODYL 5 MG TABEC PO PRN (06:00)
[2017-09-11] MEDS ORDERED: BISACODYL 10 MG SUPP PR PRN (06:00)
[2017-09-11 07:08] VITALS: BP 124/74; PULSE 91; TEMP 36.5; O2SAT 93
[2017-09-11] MEDS: HYDROmorphone HCL 0.5MG/ML 50 ML CASSETTE IV PRN (07:09)
[2017-09-11] MEDS: NovoLOG INSULIN PUMP SCH ×4 (08:00→21:00)
[2017-09-11] MEDS: INSULIN ASPART 100 UNITS/ML 3 ML PEN SC SCH ×4 (08:00→21:00)
[2017-09-11] MEDS ORDERED: HYDROmorphone INJ 1 MG/ML SYR IV PRN (08:00)
[2017-09-11] MEDS ORDERED: OXYCODONE/ACETAMINOPHEN 5-325 TAB PO PRN (08:00)
[2017-09-11] MEDS ORDERED: DC PCA ONE (08:00)
--- NOTE | 2017-09-11 08:27 | ORTHOPEDICS PROGRESS NOTE ---
DATE: 09/11/2017 DATE: 09/08/2017 SUBJECTIVE: Sleeping on rounds this morning, I did not arouse the patient. Blood pressure stable, vital signs stable. Moves all extremities. Has been up ambulatory, taking p.o. ASSESSMENT: Status post major reconstructive spine surgery and revision, doing well in the short run. DISPOSITION: Includes up and ambulatory slowly today. Tentative discharge home Sunday or .
[2017-09-11] MEDS: VERAPAMIL HCL 240 MG TABCR PO SCH (08:59)
[2017-09-11] MEDS: METFORMIN HCL 500 MG TABCR PO SCH (09:00)
[2017-09-11] MEDS: POLYETHYLENE (MIRALAX) 17 GM PACK PO SCH (09:00)
[2017-09-11] MEDS ORDERED: LISINOPRIL 5 MG TAB PO SCH (09:00)
[2017-09-11] MEDS: QUETIAPINE FUMARATE 200 MG TAB PO SCH ×2 (09:01→21:35)
[2017-09-11] MEDS: PANTOprazole SOD 40 MG TAB PO SCH (09:01)
[2017-09-11] MEDS: BuPROPion SR 150 MG TABCR PO SCH ×2 (09:01→21:35)
[2017-09-11] MEDS: GABAPENTIN 300 MG CAP PO SCH ×2 (09:01→21:35)
[2017-09-11] MEDS: OXYCODONE/ACETAMINOPHEN 5-325 TAB PO PRN ×2 (09:08→21:48)
[2017-09-11] MEDS ORDERED: HYDROmorphone INJ 0.5 MG/0.5 ML SYR ONE (11:26)
[2017-09-11] MEDS ORDERED: NURSING VERBAL MED ORDER ONE ×3 (11:30→16:15)
[2017-09-11 13:02] VITALS: BP 125/83; PULSE 96; TEMP 36.4; O2SAT 97
[2017-09-11] MEDS: HYDROmorphone INJ 2 MG/ML SYR/VIAL IV PRN ×4 (13:25→23:16)
--- NOTE | 2017-09-11 14:37 | Hospitalist Progress Note ---
Hospitalist Progress Note Date of Service Sep 11, 2017. (Prisca Price ., PA-C) Subjective Pt evaluation today including: conversation w/ patient, physical exam, lab review, review of studies, review of inpatient medication list Voiding: no voiding problems Patient sitting in bedside chair. States she is feeling OK today. Pain is currently 8/10- instructed RN to given additional 0.5 mg x1 of Dilaudid. Decreased appetite. No BM postop, passing flatus. +nausea- Zofran PRN available She has been up and ambulatory a minimal amount today. Using walker. Denies any bowel/bladder incontinence. Patient denies any fever, chills, sweats, lightheadedness, dizziness, vision changes, CP, palpitations, edema, SOB, wheezing, cough, abdominal pain, vomiting , diarrhea, urinary symptoms, melena, numbness/tingling, weakness, anxiety/ depression, active bleeding, or new skin discoloration/changes. (Prisca Price ., PA-C) Medications Current Inpatient Medications Medications (Trade) Dose Ordered Sig/Mio Route Start Time Stop Time Status Last Admin Dose Admin Diphenhydramine HCl (Benadryl Cap) 25 mg Q6H PRN PO 09/10/17 14:30 10/10/17 14:29 Magnesium Hydroxide (Milk Of Magnesia Susp) 30 ml DAILY PRN PO 09/10/17 14:30 10/10/17 14:29 Bisacodyl (Dulcolax Supp) 10 mg DAILY PRN VA 09/11/17 06:00 10/11/17 05:59 Bisacodyl (Dulcolax Tab) 5 mg DAILY PRN PO 09/11/17 06:00 10/11/17 05:59 Polyethylene (Miralax Powder Packet) 17 gm DAILY PO 09/11/17 09:00 10/11/17 08:59 09/11/17 09:00 17 GM Lorazepam 1 mg/ Syringe 0.5 ml @ 1 mls/min Q6H PRN IV 09/10/17 14:30 10/10/17 14:29 Lorazepam (Ativan Tab) 1 mg Q6H PRN PO 09/10/17 14:30 10/10/17 14:29 Metoclopramide HCl (Reglan Inj) 10 mg Q6H PRN IV 09/10/17 14:30 10/10/17 14:29 Ondansetron HCl (Zofran Inj) 4 mg Q6H PRN IV 09/10/17 14:30 10/10/17 14:29 09/11/17 03:34 4 MG Promethazine HCl 12.5 mg/Sodium Chloride 50.5 ml @ 202 mls/hr Q6H PRN IV 09/10/17 14:30 10/10/17 14:29 Hydromorphone HCl (Dilaudid Inj) 1.5 mg Q3H PRN IV 09/11/17 08:00 09/25/17 07:59 09/11/17 13:25 1.5 MG Oxycodone/ Acetaminophen (Percocet 5-325mg Tab) 2 tab Q4H PRN PO 09/11/17 08:00 09/25/17 07:59 09/11/17 09:08 2 TAB Hydromorphone HCl (Dilaudid Inj) 1 mg Q3H PRN IV 09/11/17 08:00 09/25/17 07:59 09/11/17 10:26 1 MG Oxycodone/ Acetaminophen (Percocet 5-325mg Tab) 1 tab Q4H PRN PO 09/11/17 08:00 09/25/17 07:59 Acetaminophen (Tylenol Tab) 650 mg Q6H PRN PO 09/10/17 14:30 10/10/17 14:29 Future Hold Bupropion HCl (Wellbutrin-Sr Tab) 150 mg BID PO 09/10/17 21:00 10/10/17 20:59 09/11/17 09:01 150 MG Dicyclomine HCl (Bentyl Cap) 10 mg QID PRN PO 09/10/17 14:30 10/10/17 14:29 Gabapentin (Neurontin Cap) 600 mg BID PO 09/10/17 21:00 10/10/17 20:59 09/11/17 09:01 600 MG Insulin Aspart (novoLOG INSULIN PUMP) 1 ea ACHS N/A 09/10/17 17:15 10/10/17 17:14 Levothyroxine Sodium (Synthroid Tab) 300 mcg DAILYBB PO 09/11/17 06:00 10/11/17 05:59 09/11/17 05:39 300 MCG Metformin HCl (Glucophage Extended Rel Tab) 1,000 mg QAM PO 09/11/17 09:00 10/11/17 08:59 09/11/17 09:00 1,000 MG Ondansetron HCl (Zofran Tab) 8 mg Q8H PRN PO 09/10/17 14:30 10/10/17 14:29 Quetiapine Fumarate (seroQUEL TAB) 200 mg BID PO 09/10/17 21:00 10/10/17 20:59 09/11/17 09:01 200 MG Trazodone HCl (Desyrel Tab) 300 mg HS PO 09/10/17 21:00 10/10/17 20:59 09/10/17 21:02 300 MG Verapamil HCl (Calan-Sr Tab) 240 mg QAM PO 09/11/17 09:00 10/11/17 08:59 09/11/17 08:59 240 MG Pantoprazole Sodium (Protonix Tab) 40 mg QAM PO 09/11/17 09:00 10/11/17 08:59 09/11/17 09:01 40 MG Glucose (Glucose 40% Gel) UD PRN PO 09/10/17 16:15 10/10/17 16:14 Glucose (Glucose Chew Tab) 1 tabs UD PRN PO 09/10/17 16:15 10/10/17 16:14 Glucagon (Glucagon Inj) 1 mg UD PRN SQ 09/10/17 16:15 10/10/17 16:14 Dextrose (Dextrose 50% 50ML Syringe) 50 ml UD PRN IV 09/10/17 16:15 10/10/17 16:14 Lisinopril (Zestril Tab) 5 mg QAM PO 09/12/17 09:00 10/11/17 08:59 Insulin Aspart (novoLOG ASPART) SLIDING SCALE PARAMETER ACHS SC 09/10/17 17:15 10/10/17 17:14 Acetaminophen 1000 mg/Empty Bag 100 ml @ 400 mls/hr Q8 IV 09/10/17 22:00 10/10/17 21:59 09/11/17 13:26 400 MLS/HR (Prisca Price, MICKEY-C) Objective Vital Signs Date Time Temp Pulse Resp B/P (MAP) Pulse Ox O2 Delivery O2 Flow Rate FiO2 09/11/17 13:02 36.4 96 19 125/83 (97) 97 Room Air 09/11/17 10:18 Room Air 09/11/17 07:08 36.5 91 15 124/74 (91) 93 Room Air 09/11/17 03:08 36.8 98 16 111/74 (86) 99 Nasal Cannula 4.0 09/10/17 23:45 Nasal Cannula 4.0 09/10/17 22:59 37.0 103 15 99/65 (76) 99 Nasal Cannula 4.0 09/10/17 19:53 36.7 101 18 93/62 (72) 100 Nasal Cannula 4.0 09/10/17 19:26 112 106/74 (85) 09/10/17 18:50 36.6 105 16 91/63 (72) 97 Nasal Cannula 4.0 09/10/17 18:08 36.6 101 18 130/87 (101) 95 Nasal Cannula 4.0 09/10/17 17:50 Nasal Cannula 4.0 09/10/17 16:50 36.4 100 18 138/81 (100) 99 Nasal Cannula 4.0 09/10/17 16:20 36.7 98 16 125/58 (80) 98 Nasal Cannula 4.0 09/10/17 15:50 Nasal Cannula 4.0 09/10/17 15:25 36.2 95 16 126/66 98 Nasal Cannula 4 09/10/17 15:15 99 16 134/91 98 Nasal Cannula 4 09/10/17 15:05 108 16 150/76 98 Nasal Cannula 4 09/10/17 14:55 93 16 132/79 95 Oxymask 10 09/10/17 14:45 91 16 162/96 96 Oxymask 10 09/10/17 14:38 36.4 98 12 137/80 98 Oxymask 10 (Prisca Price, PA-C) Physical Exam General Appearance: no apparent distress, + obese Eyes: normal inspection, PERRL ENT: hearing grossly normal Neck: supple Respiratory/Chest: lungs clear, no respiratory distress, no accessory muscle use Cardiovascular: regular rate, rhythm Abdomen: normal bowel sounds, non tender, soft Extremities: no pedal edema, no calf tenderness, + pertinent finding (hemovac w / minimal bloody output ) Neurologic/Psychiatric: no motor/sensory deficits, alert, normal mood/affect, oriented x 3 Skin: normal color, warm/dry, no rash (Prisca Price, SANDY) Laboratory Results Last 24 Hours Test 09/10/17 14:42 09/10/17 14:52 09/10/17 17:18 09/10/17 20:22 Bedside Glucose 91 mg/dl 126 mg/dl 141 mg/dl Hemoglobin 11.6 g/dL Hematocrit 35.9 % Test 09/11/17 03:32 09/11/17 07:59 09/11/17 11:52 Bedside Glucose 101 mg/dl 121 mg/dl 187 mg/dl (Prisca Price PA-C) Assessment and Plan A 41-year-old female with migration of hardware with revision of her lumbar spinal fusion. s/p lumbar spinal surgery on 07/[address] 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 We will continue to follow. (Prisca Priec PA-C) Reviewed: Pt Seen/Exam by Me (Love De Paz MD) History Physician Supervision Note: I interviewed and examined the patient. Discussed with MICKEY Price and agree with findings and plan as documented in the note. Any exceptions or clarifications are listed here: No BM in 3 days, usually takes lactulose as has LING-induced cirrhosis,sees Hepatology. Is anxious about having ACE drain pulled out today because it caused a lot of pain last time. Last A1C 7.5% she thinks. I asked about her Synthroid and she states she takes it with all of her other pills at the same time. Was not aware she should take it on an empty stomach. Vitals reviewed Obese, NAD AAOx3 RRR no mgr CTAB no wcr Abd +BS soft NT ND obese Ext no edema Pt is a 41 yo female with a h/o DMII, obesity, LING-induced cirrhosis, Crohn's dz, hypothyroidism, depression and anxiety, here for revision of lumbar fusion and h/o cauda equina. -Give one dose lactulose now for constipation in setting of cirrhosis to prevent hepatic encephalopathy -Advised to start taking Synthroid first thing in AM on empty stomach and have TSH checked again 4-6 weeks -glucose controlled, continue metformin and insulin pump -SCDs Dispo- to home in 1-2 days Documented By: Love De Paz (Love De Paz MD)
[2017-09-11 16:12] VITALS: BP 125/81; PULSE 93; TEMP 37; O2SAT 95
[2017-09-11] MEDS ORDERED: LACTULOSE SYRUP 30 GM/45 ML UDP PO ONE (17:15)
[2017-09-11] MEDS: OXYCODONE HCL IR 5 MG TAB (IMMEDIATE RELEASE) PO PRN (18:19)
[2017-09-11] MEDS: TRAZODONE HCL 100 MG TAB PO SCH (21:48)
[2017-09-11 23:46] VITALS: BP 109/75; PULSE 92; TEMP 37; O2SAT 90
[2017-09-12] MEDS: HYDROmorphone INJ 2 MG/ML SYR/VIAL IV PRN ×4 (02:32→15:32)
[2017-09-12] MEDS: ACETAMINOPHEN IV 1,000 MG in EMPTY BAG 0 ML IV SCH ×2 (05:09→13:38)
[2017-09-12] MEDS: LEVOTHYROXINE 100 MCG TAB PO SCH (05:10)
[2017-09-12 05:40] LABS: HEMATOCRIT 35.3 % (37-47); MEAN CELL VOLUME 93.6 fL (80-100); MEAN CORPUSCULAR HEMOGLOBIN 29.7 pg (25-34); MEAN CORPUSCULAR HGB CONC 31.7 g/dl (32-36); RED BLOOD COUNT 3.77 M/uL (4.2-5.4); WHITE BLOOD COUNT 4.74 K/uL (4.8-10.8)
[2017-09-12 06:05] LABS: BUN/CREATININE RATIO 7.5 (10-20); CALCIUM 8.4 mg/dl (8.5-10.1); CREATININE 0.73 mg/dl (0.60-1.20); POTASSIUM 3.8 mmol/L (3.5-5.1)
[2017-09-12 06:24] LABS: MEAN PLATELET VOLUME 10.4 fL (7.4-10.4); PLATELET COUNT 93 K/uL (130-400)
[2017-09-12 06:26] LABS: PLT ESTIMATE DECREASED
[2017-09-12 07:06] VITALS: BP 95/64; PULSE 100; TEMP 37.1; O2SAT 90
[2017-09-12] MEDS: OXYCODONE/ACETAMINOPHEN 5-325 TAB PO PRN (07:30)
[2017-09-12] MEDS: INSULIN ASPART 100 UNITS/ML 3 ML PEN SC SCH ×2 (08:00→12:00)
[2017-09-12] MEDS: NovoLOG INSULIN PUMP SCH ×2 (08:00→12:00)
[2017-09-12] MEDS: VERAPAMIL HCL 240 MG TABCR PO SCH (08:22)
[2017-09-12] MEDS: METFORMIN HCL 500 MG TABCR PO SCH (08:23)
[2017-09-12] MEDS: POLYETHYLENE (MIRALAX) 17 GM PACK PO SCH (08:23)
[2017-09-12] MEDS: PANTOprazole SOD 40 MG TAB PO SCH (08:24)
[2017-09-12] MEDS: QUETIAPINE FUMARATE 200 MG TAB PO SCH (08:56)
[2017-09-12] MEDS: GABAPENTIN 300 MG CAP PO SCH (08:56)
[2017-09-12] MEDS: BuPROPion SR 150 MG TABCR PO SCH (08:56)
[2017-09-12] MEDS ORDERED: LISINOPRIL 5 MG TAB PO SCH (09:00)
--- NOTE | 2017-09-12 11:38 | Discharge Instructions ---
Discharge Instructions Date of Service Sep 12, 2017. Admission Reason for Admission: Hardware Failure Discharge Discharge Diagnosis / Problem: same Discharge Goals Goal(s): Improve function Activity Recommendations Activity Limitations: as noted below Lifting Limitations: until after follow-up appointment Exercise/Sports Limitations: until after follow-up appointment May Resume Sexual Activity: after follow-up appointment Shower/Bathe: keep incision dry Home, rest, recover. Home health to check on patient , check glucose very 48 hours. Suture removal 12 to 14 days after her surgery on Sunday . Instructions / Follow-Up Instructions / Follow-Up MEDICATIONS: Please take your prescriptions as instructed at your pre-op appointment. SPECIAL CARE: The following information is intended to answer some of the common questions and concerns regarding your surgery. Each patient is an individual and receives individual counselling throughout the course of treatment, from diagnosis to surgery all the way through recovery. What follows is not an exhaustive list, but should be a useful guide to some of the common questions and concerns patients have regarding their surgeries. These are not provided to keep you from calling us; rather, they give you something accurate and concrete to reference as you recover from your procedure. If you need us, we are available to you. As always, if you are not sure about something, call us at [phone]. MEDICAL EMERGENCIES: For these conditions, call 911 or go to your local hospital-based Emergency Department - not [facility] or equivalent. * Paralysis * Severe chest pain or difficulty breathing * Swelling or redness of either leg Spine procedures can be rather complex and though complications are rare, they do occur. In such cases, effective advice regarding emergency situations cannot always be addressed over the telephone. You may be referred to the emergency department for more effective management of your problem. Activity Limitations: It is important to give your body time to heal, so please limit your activities : * In general, don't do anything that moves your spine too much. You should avoid contact sports, twisting or heavy lifting while you recover. * 5-10 pounds is all you should attempt to lift. * You should not plan on driving for approximately 3 weeks and you should avoid traveling more than 30-45 minutes at a time. Longer trips should be broken down with walking breaks spaced appropriately. * Physical therapy is not usually required. * Walking and good posture practices will help you recover and regain your function. * Avoid straining or sudden changes in position. * In general, the goal is to take it easy and recover. Don't cause any new problems. Just relax. Showers: * Do not take a bath, use a Jacuzzi or hot tub or otherwise submerge your incision. * It is usually safe to take a shower 4-5 days after your surgery. * Your incision does not require any special creams or ointments. * Simply clean it with soap and water, dry and re-dress with a clean bandage afterwards. Incision: * Keep incision clean, dry and protected until your first follow-up appointment. * Some amount of drainage and redness is normal. Any drainage should be fairly clear and not have a foul odor. * If you feel anything is wrong or you have excessive drainage, please call us. * Your stitches and ragini will be removed 10-14 days after your surgery. At the time of your first post-op visit. * Neck surgeries are typically closed with a suture underneath the skin. The steri-strips over the incision should be maintained until we see you in the office. Bracing: * You may be provided with a back or neck brace to encourage good posture and prevent injury. It will remind you not to do too much as you heal and will alert others to the fact that you have had a surgery. * Back braces may be removed for showers and when you are resting at home. They must be worn when you are walking around for any period of time or for travel. * For neck surgery, you will likely be provided with two cervical collars. The soft collar (Lookout or foam rubber) is worn most commonly throughout the day and while sleeping. The plastic collar (provided at the hospital) is for showering/bathing. * Except while eating, collars should remain in place. More specifically, bracing is provided for a purpose and should be worn. * Please obtain your brace or collars prior to your operation and bring them to the hospital with you on the day of surgery. * You should also bring your collars to your post-op appointment with Dr. Byrd. You should always take good care of your body and practice healthy habits, especially following surgery. You should: * Follow your doctor's treatment plan * Sit and stand properly with good posture (ears over shoulders, shoulders over hips) Don't slouch * Learn to lift correctly * Exercise regularly (low-impact aerobic exercise is especially good, but check with your doctor first) * Generally, be up and walking for 5-10 minutes at a time at least 3-4 times per day from the day you get home * Increasing walking to tolerance until you can walk for 20-30 minutes at a time * Attain and maintain a healthy body weight * Eat healthy foods ( a well-balanced, low-fat diet rich in fruits and vegetables) and get enough calcium * Avoid excessive use of alcohol When to call our office - If you notice any of the following: * Increased pain not relieve by pain medicine * Fevers greater then 100 degrees F, chills or flu symptoms * Increased redness around incision * Drainage from the incision that is not clear * Any foul smelling drainage * Swelling or fluid collection beneath the skin Miscellaneous: * In the hospital, you may be given a walker or cane for support while walking. These are temporary needs and are intended to prevent injuries due to falls. You may discontinue them when you feel strong and steady enough on your feet. * Sleep in a comfortable position. We find that many patients find a lounge chair or recliner with several pillows to be beneficial in the early post-operative period. * The support stockings should be used for 7-10 days and may be discontinued when you are back to walking more and conducting usual household activities. No problem is insignificant. We are here to help you and get you well. Contact us at [phone]. Definitions: Foraminotomy: If part of the disc or a bone spur (osteophyte) is pressing on a nerve as it leaves the vertebra (through an exit called the foramen), a foraminotomy may be done. Otomy means "to make an opening." A foraminotomy is making the opening of the foramen larger, so the nerve can exit without being compressed. Laminotomy: Similar to the foraminotomy, a laminotomy makes a larger opening, this time in your bony plate protecting your spinal canal and spinal cord (the lamina). The lamina may be pressing on your nerve, so the surgeon may make more room for the nerves using a laminotomy. Laminectomy: Sometimes, a laminotomy is not sufficient. The surgeon may need to remove all or part of the lamina. This procedure is called a laminectomy. This can often be done at many levels without any harmful effects. Current Hospital Diet Patient's current hospital diet: Diabetes Type 2 Diet Discharge Diet Recommended Diet: Regular Diet, Diabetes Type 2 Diet Procedures Procedures Performed: Revision posterior lumbar interbody fusion L4-L5, with application of duraseal Pending Studies Studies pending at discharge: no Medical Emergencies . Who to Call and When: Medical Emergencies: If at any time you feel your situation is an emergency, please call 911 immediately. . Non-Emergent Contact Non-Emergency issues call your: Surgeon . "Provider Documentation" section prepared by Emory Byrd. . VTE Core Measure Inpt VTE Proph given/why not?: Treatment not indicated
--- NOTE | 2017-09-12 13:38 | Hospitalist Progress Note ---
Hospitalist Progress Note Date of Service Sep 12, 2017. (Prisca Price ., SARIC) Subjective Pt evaluation today including: conversation w/ patient, physical exam, lab review, review of studies, review of inpatient medication list Voiding: no voiding problems Patient states she is feeling well. Pain is well controlled. Eating and drinking OK. Nausea resolved. +Constipation- given Lactulose x1 dose yesterday, will give additional dose today. Passing flatus. Patient denies any fever, chills, sweats, lightheadedness, dizziness, vision changes, CP, palpitations, edema, SOB, wheezing, cough, abdominal pain, nausea, vomiting, diarrhea, urinary symptoms, melena, numbness/tingling, weakness, anxiety/depression, active bleeding, or new skin discoloration/changes. (Prisca Price ., MICKEY-C) Medications Current Inpatient Medications Medications (Trade) Dose Ordered Sig/Mio Route Start Time Stop Time Status Last Admin Dose Admin Diphenhydramine HCl (Benadryl Cap) 25 mg Q6H PRN PO 09/10/17 14:30 10/10/17 14:29 Magnesium Hydroxide (Milk Of Magnesia Susp) 30 ml DAILY PRN PO 09/10/17 14:30 10/10/17 14:29 Bisacodyl (Dulcolax Supp) 10 mg DAILY PRN HI 09/11/17 06:00 10/11/17 05:59 Bisacodyl (Dulcolax Tab) 5 mg DAILY PRN PO 09/11/17 06:00 10/11/17 05:59 Polyethylene (Miralax Powder Packet) 17 gm DAILY PO 09/11/17 09:00 10/11/17 08:59 09/11/17 09:00 17 GM Lorazepam 1 mg/ Syringe 0.5 ml @ 1 mls/min Q6H PRN IV 09/10/17 14:30 10/10/17 14:29 Lorazepam (Ativan Tab) 1 mg Q6H PRN PO 09/10/17 14:30 10/10/17 14:29 09/12/17 10:59 1 MG Metoclopramide HCl (Reglan Inj) 10 mg Q6H PRN IV 09/10/17 14:30 10/10/17 14:29 Ondansetron HCl (Zofran Inj) 4 mg Q6H PRN IV 09/10/17 14:30 10/10/17 14:29 09/11/17 19:23 4 MG Promethazine HCl 12.5 mg/Sodium Chloride 50.5 ml @ 202 mls/hr Q6H PRN IV 09/10/17 14:30 10/10/17 14:29 Hydromorphone HCl (Dilaudid Inj) 1.5 mg Q3H PRN IV 09/11/17 08:00 09/25/17 07:59 09/12/17 09:21 1.5 MG Oxycodone/ Acetaminophen (Percocet 5-325mg Tab) 2 tab Q4H PRN PO 09/11/17 08:00 09/25/17 07:59 09/12/17 07:30 2 TAB Hydromorphone HCl (Dilaudid Inj) 1 mg Q3H PRN IV 09/11/17 08:00 09/25/17 07:59 09/11/17 10:26 1 MG Oxycodone/ Acetaminophen (Percocet 5-325mg Tab) 1 tab Q4H PRN PO 09/11/17 08:00 09/25/17 07:59 Acetaminophen (Tylenol Tab) 650 mg Q6H PRN PO 09/10/17 14:30 10/10/17 14:29 Future Hold Bupropion HCl (Wellbutrin-Sr Tab) 150 mg BID PO 09/10/17 21:00 10/10/17 20:59 09/12/17 08:56 150 MG Dicyclomine HCl (Bentyl Cap) 10 mg QID PRN PO 09/10/17 14:30 10/10/17 14:29 Gabapentin (Neurontin Cap) 600 mg BID PO 09/10/17 21:00 10/10/17 20:59 09/12/17 08:56 600 MG Insulin Aspart (novoLOG INSULIN PUMP) 1 ea ACHS N/A 09/10/17 17:15 10/10/17 17:14 09/11/17 21:00 1 EA Levothyroxine Sodium (Synthroid Tab) 300 mcg DAILYBB PO 09/11/17 06:00 10/11/17 05:59 09/12/17 05:10 300 MCG Metformin HCl (Glucophage Extended Rel Tab) 1,000 mg QAM PO 09/11/17 09:00 10/11/17 08:59 09/12/17 08:23 1,000 MG Ondansetron HCl (Zofran Tab) 8 mg Q8H PRN PO 09/10/17 14:30 10/10/17 14:29 Quetiapine Fumarate (seroQUEL TAB) 200 mg BID PO 09/10/17 21:00 10/10/17 20:59 09/12/17 08:56 200 MG Trazodone HCl (Desyrel Tab) 300 mg HS PO 09/10/17 21:00 10/10/17 20:59 09/11/17 21:48 300 MG Verapamil HCl (Calan-Sr Tab) 240 mg QAM PO 09/11/17 09:00 10/11/17 08:59 09/11/17 08:59 240 MG Pantoprazole Sodium (Protonix Tab) 40 mg QAM PO 09/11/17 09:00 10/11/17 08:59 09/12/17 08:24 40 MG Glucose (Glucose 40% Gel) UD PRN PO 09/10/17 16:15 10/10/17 16:14 Glucose (Glucose Chew Tab) 1 tabs UD PRN PO 09/10/17 16:15 10/10/17 16:14 Glucagon (Glucagon Inj) 1 mg UD PRN SQ 09/10/17 16:15 10/10/17 16:14 Dextrose (Dextrose 50% 50ML Syringe) 50 ml UD PRN IV 09/10/17 16:15 10/10/17 16:14 Lisinopril (Zestril Tab) 5 mg QAM PO 09/12/17 09:00 10/11/17 08:59 Insulin Aspart (novoLOG ASPART) SLIDING SCALE PARAMETER ACHS SC 09/10/17 17:15 10/10/17 17:14 Acetaminophen 1000 mg/Empty Bag 100 ml @ 400 mls/hr Q8 IV 09/10/17 22:00 10/10/17 21:59 09/11/17 13:26 400 MLS/HR Oxycodone HCl (Roxicodone Immediate Rel Tab) `1-2 tabs for pain 1 tab ... Q6H PRN PO 09/11/17 16:30 09/25/17 16:29 09/11/17 18:19 10 MG (Prisca Price, SARIC) Objective Vital Signs Date Time Temp Pulse Resp B/P (MAP) Pulse Ox O2 Delivery O2 Flow Rate FiO2 09/12/17 09:03 Room Air 09/12/17 07:06 37.1 100 16 95/64 (74) 90 Room Air 09/11/17 23:46 37.0 92 17 109/75 (86) 90 Nasal Cannula 2.0 09/11/17 23:45 Room Air 09/11/17 16:12 37.0 93 16 125/81 (96) 95 Room Air 09/11/17 15:30 Room Air (Prisca Price, MICKEY-C) Physical Exam General Appearance: no apparent distress, + obese Eyes: normal inspection, PERRL ENT: hearing grossly normal Neck: supple Respiratory/Chest: lungs clear, no respiratory distress, no accessory muscle use Cardiovascular: regular rate, rhythm Abdomen: normal bowel sounds, non tender, soft Extremities: no pedal edema, no calf tenderness Neurologic/Psychiatric: alert, normal mood/affect, oriented x 3 Skin: normal color, warm/dry, no rash (Prisca Price, MICKEY-C) Laboratory Results Last 24 Hours Test 09/11/17 17:04 09/11/17 20:37 09/12/17 05:20 09/12/17 08:04 Bedside Glucose 107 mg/dl 94 mg/dl 104 mg/dl White Blood Count 4.74 K/uL Red Blood Count 3.77 M/uL Hemoglobin 11.2 g/dL Hematocrit 35.3 % Mean Corpuscular Volume 93.6 fL Mean Corpuscular Hemoglobin 29.7 pg Mean Corpuscular Hemoglobin Concent 31.7 g/dl RDW Standard Deviation 57.8 fL RDW Coefficient of Variation 16.8 % Platelet Count 93 K/uL Mean Platelet Volume 10.4 fL Platelet Estimate DECREASED Sodium Level 137 mmol/L Potassium Level 3.8 mmol/L Chloride Level 101 mmol/L Carbon Dioxide Level 29 mmol/L Anion Gap 7.0 mmol/L Blood Urea Nitrogen 5 mg/dl Creatinine 0.73 mg/dl Est Creatinine Clear Calc Drug Dose 135.7 ml/min Estimated GFR () 118.6 Estimated GFR (Non- 102.3 BUN/Creatinine Ratio 7.5 Random Glucose 93 mg/dl Calcium Level 8.4 mg/dl Test 09/12/17 11:48 Bedside Glucose 106 mg/dl (Prisca Price PA-C) Assessment and Plan A 41-year-old female with migration of hardware with revision of her lumbar spinal fusion. s/p lumbar spinal surgery on 07/[address] 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: - Lactulose PRN- given 1 dose on 09/11 and 1 dose on 09/12- recommend patient continue PRN daily use until constipation resolved Hypothyroidism: - Synthroid 300 mcg daily - Discuss compliance/proper medication administration w/ patient Anxiety, insomnia: Wellbutrin 150 BID, Seroquel 200 mg BID, Trazodone 300 mg HS Crohn's disease: - Remicade is only done as an outpatient every 8 weeks- currently on hold - Continue Bentyl 10 mg QID PRN GI prophylaxis: Protonix 40 mg daily DVT prophylaxis: As per surgical team Code Status: LEVEL I, FULL Dispo: As per primary team- stable for discharge from medical standpoint (Prisca Price PA-C) Reviewed: Pt Seen/Exam by Me (Love De Paz MD) History Physician Supervision Note: I interviewed and examined the patient. Discussed with MICKEY Price and agree with findings and plan as documented in the note. Any exceptions or clarifications are listed here: Still no BM, but pt declining lactulose and Miralax. Also declined her BP meds this AM but BPs have been low normal. Is being discharged today. Had drain pulled. Vitals reviewed Obese, NAD AAOx3 RRR no mgr CTAB no wcr Abd +BS soft NT ND obese Ext no edema Pt is a 41 yo female with a h/o DMII, obesity, LING-induced cirrhosis, Crohn's dz, hypothyroidism, depression and anxiety, here for revision of lumbar fusion and h/o cauda equina. -she will take lactulose at home for constipation in setting of cirrhosis to prevent hepatic encephalopathy -Advised to start taking Synthroid first thing in AM on empty stomach and have TSH checked again 4-6 weeks -glucose controlled, continue metformin and insulin pump -Thrombocytopenia-mild, secondary to cirrhosis, plts 93k on day of dc----> advised f/u CBC with PCP -SCDs Dispo- to home today Documented By: Love De Paz (Love De Paz MD)
[2017-09-12] MEDS: OXYCODONE HCL IR 5 MG TAB (IMMEDIATE RELEASE) PO PRN (13:39)
[2017-09-12] MEDS ORDERED: LACTULOSE SYRUP 30 GM/45 ML UDP PO ONE (14:00)
[2017-09-12 14:33] VITALS: BP 95/64; PULSE 100; TEMP 37.1; O2SAT 90
[2017-09-12 15:15] VITALS: BP 119/81; PULSE 96; TEMP 37.1; O2SAT 97
--- NOTE | 2017-09-12 16:09 | DISCHARGE SUMMARY ---
HISTORY AND HOSPITAL COURSE: She is alert and stable, had rigorous surgery just 48 hours ago. She has done well. PHYSICAL EXAMINATION: Wound clean, dry. Afebrile, alert, oriented and answers all questions. IMAGING DATA: Images not indicated. ASSESSMENT: Delightful young lady with revision lumbar spine surgery, doing well on the very short run. DISPOSITION: She has a back brace for support. We will let her go home. Instructions, precautions warnings. Careful with bending, stooping, lifting. We are arranging for suture removal at home to saber a trip back to the office which is 90 minutes away. I took prescription for [place] on her chart. We have given her instructions in the office and instructions in the hospital setting as well. She is to call if problems should arise.
== END 2017-09-12 16:00 | disposition home health service (06) | DRG 496 ==
LOC: C.ACU 08:46 → C.3E 11:30 → ENRESERV 15:29
PROVIDERS: ADMIT Orthopaedic Surgery Orthopaedic Surgery of the Spine; ATTEND Orthopaedic Surgery Orthopaedic Surgery of the Spine
PROC: 0QP004Z Removal of Internal Fixation Device from Lumbar Vertebra, Open Approach (ICD-10-PCS; principal; 2017-09-10 11:00)
PROC: 0QW004Z Revision of Internal Fixation Device in Lumbar Vertebra, Open Approach (ICD-10-PCS; principal; 2017-09-10 11:00)
DX: T84.428A Displacement of other internal orthopedic devices, implants and grafts, initial encounter (principal); G83.4 Cauda equina syndrome; K50.90 Crohn's disease, unspecified, without complications; G97.41 Accidental puncture or laceration of dura during a procedure; Z68.41 Body mass index [BMI] 40.0-44.9, adult; F17.210 Nicotine dependence, cigarettes, uncomplicated; F41.9 Anxiety disorder, unspecified; Z96.41 Presence of insulin pump (external) (internal); E11.40 Type 2 diabetes mellitus with diabetic neuropathy, unspecified; K74.60 Unspecified cirrhosis of liver; E03.9 Hypothyroidism, unspecified; I10 Essential (primary) hypertension; G47.00 Insomnia, unspecified; E66.9 Obesity, unspecified; Z90.49 Acquired absence of other specified parts of digestive tract; Z90.710 Acquired absence of both cervix and uterus; Z79.4 Long term (current) use of insulin

== ENCOUNTER 2017-09-17 20:54 | Inpatient (IN) | payer OTHER ==
[~2017-09-17] VITALS: Ht 170.2 cm; Wt 119.0 kg
[~2017-09-17 20:54] MED LIST changes: -ATROPINE SULFATE 0.1 MG/ML 5ML SYR IV PRN; -CLINDAMYCIN 600 MG/54 ML D5W 54 ML IV SCH; -EpHEDrine SULFATE INJ 50 MG/ML AMP IV PRN; -FENTANYL CITRATE INJ 50 MCG/1 ML 2 ML VIAL IV PRN; -HYDROmorphone INJ 1 MG/ML SYR IV PRN; -LABETALOL HCL IV 5 MG/ML 20ML IV PRN; -NSS 1000ML IV SCH; -ONDANSETRON INJ 2 MG/ML 2 ML VIAL IV PRN; -PHENYLEPHRINE 100MCG/ML 5ML SYR IV PRN; -PROMETHAZINE HCL INJ 12.5 MG in SODIUM CHLORIDE 0.9% 50ML 50 ML IV PRN
[2017-09-17] MEDS ORDERED: NURSING VERBAL MED ORDER ONE ×2 (23:00→23:45)
[2017-09-17 23:28] VITALS: BP 149/94; PULSE 81; TEMP 36.8; O2SAT 97; BMI 41.1
[2017-09-18] MEDS ORDERED: INSULIN GLARGINE SOLOSTAR 100 UNITS/ML 3 ML PEN SC ONE (00:15)
[2017-09-18] MEDS ORDERED: GLUCOSE 10 TABS/TUBE PO PRN (00:15)
[2017-09-18] MEDS ORDERED: DEXTROSE 50% 50 ML SYR IV PRN (00:15)
[2017-09-18] MEDS ORDERED: GLUCAGON FOR INJ 1 MG VIAL SQ PRN (00:15)
[2017-09-18] MEDS ORDERED: DEXAMETHASONE INJ 6 MG in SYRINGE 0 ML IV ONE (00:15)
[2017-09-18] MEDS ORDERED: GLUCOSE 40% GEL 15 GM TUBE PO PRN (00:15)
[2017-09-18] MEDS ORDERED: KETOROLAC TROMETHAMINE 15 MG/ML VIAL IV. ONE (00:30)
[2017-09-18] MEDS ORDERED: QUETIAPINE FUMARATE 200 MG TAB PO ONE (00:30)
[2017-09-18] MEDS ORDERED: TRAZODONE HCL 100 MG TAB PO ONE (00:30)
[2017-09-18] MEDS ORDERED: GABAPENTIN 600 MG TAB PO ONE (00:30)
[2017-09-18] MEDS ORDERED: BuPROPion SR 150 MG TABCR PO ONE (00:30)
[2017-09-18] MEDS ORDERED: PHARMACY GLYCEMIC MGMT CONSULT PRN (00:30)
[2017-09-18] MEDS: SODIUM CHLORIDE 0.9% 1000ML 1,000 ML IV SCH ×3 (00:37→18:47)
[2017-09-18] MEDS ORDERED: INFLUENZA VIRUS QUAD VACCINE 0.5 ML SYR IM. ONE (00:45)
[2017-09-18] MEDS ORDERED: INFLUENZA ADMINISTRATION CHARGE ONE (00:45)
[2017-09-18] MEDS ORDERED: ALPRAZOLAM 0.5 MG TAB PO PRN (01:00)
[2017-09-18] MEDS ORDERED: DICYCLOMINE HCL 10 MG CAP PO PRN (01:00)
[2017-09-18] MEDS ORDERED: LACTULOSE SYRUP 20 GM/30 ML UDC PO PRN (01:00)
[2017-09-18] MEDS ORDERED: ONDANSETRON 8 MG TAB PO PRN (01:15)
[2017-09-18] MEDS: HYDROmorphone INJ 2 MG/ML SYR/VIAL IV PRN ×5 (01:22→18:47)
--- NOTE | 2017-09-18 03:00 | Medical Consult ---
Consultation Date of Consultation: Sep 18, 2017. Attending Physician: Emory Byrd DO Reason for Consultation: headache History of Present Illness 41 y/o F DM II, HTN, Crohns, Hypothyroidism, anxiety. Pt had revision of lumbar fusion surgery 07/11 due to hardware movement. Since DC 07/13 she states she has had an intractable headache. She describes this as pounding at her occipital region which is improved by lying flat and worsens when she stands up. She is mildly photophobic, denies nausea and vomiting, has not had fevers. Past Medical/Surgical History 1) DM II 2) Lumbar stenosis - post lumbar fusion 3) HTN 4) Obese 5) Tobacco abuse 6) Hypothyroidism 7) Crohns disease 8) Anxiety disorder Family History Gallbladder disease Seizures Mother due to complicated cholecystitis Social History Smokes 1/2 pack daily Smoking Status: Current Every Day Smoker Drug Use: none Marital Status: Housing Status: lives with family Occupation Status: employed Allergies Coded Allergies: Cephalexin (Verified Allergy, Severe, SWELLING OF LIPS,EYES,FACE, 07/26/17) Sulfa Antibiotics (Verified Allergy, Severe, N/V, SWELLING OF FACE AND LIPS, 07/26/17) Vedolizumab (Verified Allergy, Severe, SHORTNESS OF BREATH AND CHEST PAIN , 07/26/17) Adalimumab (Verified Allergy, Unknown, drug induced lupus SYMPTOMS, ) Current Inpatient Medications Current Inpatient Medications Medications (Trade) Dose Ordered Sig/Mio Route Start Time Stop Time Status Last Admin Dose Admin Miscellaneous Information (Consult Glycemic Management Pharmacy) 1 ea UD PRN N/A 09/18/17 00:30 10/18/17 00:29 Glucose (Glucose 40% Gel) 15-30 GRAMS 15 GRAMS... UD PRN PO 09/18/17 00:15 10/18/17 00:14 Glucose (Glucose Chew Tab) 4-8 Tablets 4 Tabl... UD PRN PO 09/18/17 00:15 10/18/17 00:14 Dextrose (Dextrose 50% 50ML Syringe) 25-50ML OF 50% DW IV FOR... UD PRN IV 09/18/17 00:15 10/18/17 00:14 Glucagon (Glucagon Inj) 1 mg UD PRN SQ 09/18/17 00:15 10/18/17 00:14 Sodium Chloride 1,000 ml @ 100 mls/hr Q10H IV 09/18/17 00:15 10/18/17 00:14 09/18/17 00:37 100 MLS/HR Dexamethasone Sodium Phosphate 6 mg/Syringe 1.5 ml @ 1 mls/min Q6 IV 09/18/17 06:00 10/18/17 05:59 Ketorolac Tromethamine (Toradol Inj) 15 mg Q6 IV. 09/18/17 06:00 09/23/17 05:59 Hydromorphone HCl (Dilaudid Inj) 2 mg Q4H PRN IV 09/18/17 00:30 10/02/17 00:29 09/18/17 01:22 2 MG Bupropion HCl (Wellbutrin-Sr Tab) 150 mg BID PO 09/18/17 09:00 10/18/17 08:59 Gabapentin (Neurontin Tab) 600 mg BID PO 09/18/17 09:00 10/18/17 08:59 Quetiapine Fumarate (seroQUEL TAB) 200 mg BID PO 09/18/17 09:00 10/18/17 08:59 Trazodone HCl (Desyrel Tab) 300 mg HS PO 09/18/17 21:00 10/18/17 20:59 Alprazolam (Xanax Tab) 0.5 mg TID PRN PO 09/18/17 01:00 10/18/17 00:59 Dicyclomine HCl (Bentyl Cap) 10 mg QID PRN PO 09/18/17 01:00 10/18/17 00:59 Lactulose (Chronulac Syrup) 30 TO 60ML PRN FOR CONSTIPATION DAILY PRN PO 09/18/17 01:00 10/18/17 00:59 Levothyroxine Sodium (Synthroid Tab) 300 mcg DAILYBB PO 09/18/17 06:00 10/18/17 05:59 Lisinopril (Zestril Tab) 5 mg DAILY PO 09/18/17 09:00 10/18/17 08:59 Pantoprazole Sodium (Protonix Tab) 40 mg QAM PO 09/18/17 09:00 10/18/17 08:59 Ondansetron HCl (Zofran Tab) 8 mg Q8H PRN PO 09/18/17 01:15 10/18/17 01:14 Metformin HCl (Glucophage Tab) 1,000 mg QAM PO 09/18/17 09:00 10/18/17 08:59 Verapamil HCl (Calan-Sr Tab) 240 mg DAILY PO 09/18/17 09:00 10/18/17 08:59 Insulin Aspart (novoLOG ASPART) SLIDING SCALE ACHS SC 09/18/17 08:00 10/18/17 07:59 Review of Systems Constitutional: No fever, No chills, No sweats Eyes: No worsening of vision, No diplopia ENT: No hearing loss, No nasal symptoms Respiratory: No cough, No sputum, No wheezing Cardiovascular: No chest pain Abdomen: No pain, No nausea, No vomiting Musculoskeletal: + joint pain (Back pain) Genitourinary - Female: No dysuria, No urinary frequency, No urinary urgency Neurologic: + problem reported (Posterior headache as above), No memory loss, No paralysis, No weakness Psychiatric: No depression symptoms Endocrine: No fatigue Hematologic / Lymphatic: No abnormal bleeding/bruising Integumentary: No rash Allergic / Immunologic: No environmental allergies, No seasonal allergies Physical Exam Date Time Temp Pulse Resp B/P (MAP) Pulse Ox O2 Delivery O2 Flow Rate FiO2 09/17/17 23:28 36.8 81 18 149/94 97 Room Air General Appearance: WD/WN, no apparent distress Head: normocephalic Eyes: normal inspection, PERRL, EOMI ENT: normal ENT inspection, pharynx normal Neck: supple, no JVD Respiratory/Chest: chest non-tender, lungs clear, normal breath sounds, no respiratory distress, no accessory muscle use Cardiovascular: regular rate, rhythm, no edema, no gallop Abdomen/GI: normal bowel sounds, non tender, soft Back: normal inspection, no CVA tenderness, no muscle spasm, normal range of motion Extremities/Musculoskelatal: normal inspection, no calf tenderness, normal capillary refill Neurologic/Psych: mds rn II-XII nml as tested, no motor/sensory deficits, alert, normal mood/affect, normal reflexes, oriented x 3 Skin: normal color, warm/dry, no rash Assessment & Plan 41 y/o F DM II, HTN, Crohns, Hypothyroidism, anxiety. Pt had revision of lumbar fusion surgery 07/11 due to hardware movement. Since DC 08/18 she states she has had an intractable headache. She describes this as pounding at her occipital region which is improved by lying flat and worsens when she stands up. She is mildly photophobic, denies nausea and vomiting, has not had fevers. 1) Headache - post spinal surgery - Pt to be evaluated by orthopedist AM. IVF provided - Dexamethasone, Ketorolac, Dilaudid provided by orthopedics. 2) DM - normally wears a pump - held in favor of SS while in hospital 3) HTN - Cont Verapamil and Lisinopril AM - BP is well-controlled on admission and unlikely to be a contributing factor therefore. 4) Hypothyroidism - Cont Synthroid 5) Crohns - pt normally on Remicade - held due to recent procedure - does not c/ o active symptoms at present Total time for this consult including review of recent records, labs - discussion with pt - 31 min
[2017-09-18] MEDS: LEVOTHYROXINE 150 MCG TAB PO SCH (06:08)
[2017-09-18] MEDS: DEXAMETHASONE INJ 6 MG in SYRINGE 0 ML IV SCH ×3 (06:09→18:34)
[2017-09-18] MEDS: KETOROLAC TROMETHAMINE 15 MG/ML VIAL IV. SCH ×3 (06:09→18:34)
[2017-09-18 07:39] VITALS: BP 139/90; PULSE 72; TEMP 36.6; O2SAT 95
[2017-09-18] MEDS: BuPROPion SR 150 MG TABCR PO SCH ×2 (08:40→21:31)
[2017-09-18] MEDS: VERAPAMIL HCL 240 MG TABCR PO SCH (08:40)
[2017-09-18] MEDS: LISINOPRIL 5 MG TAB PO SCH (08:40)
[2017-09-18] MEDS: PANTOprazole SOD 40 MG TAB PO SCH (08:41)
[2017-09-18] MEDS: QUETIAPINE FUMARATE 200 MG TAB PO SCH ×2 (08:41→21:32)
[2017-09-18] MEDS: INSULIN ASPART 100 UNITS/ML 3 ML PEN SC SCH ×4 (08:47→21:35)
[2017-09-18 08:53] LABS: COMPLETE YES; EOS % 0.4 %; HEMATOCRIT 37.5 % (37-47); LYMPH ABS # 0.54 K/uL (1.2-3.4); MEAN CELL VOLUME 91.2 fL (80-100); MEAN CORPUSCULAR HEMOGLOBIN 30.2 pg (25-34); MEAN CORPUSCULAR HGB CONC 33.1 g/dl (32-36); MEAN PLATELET VOLUME 9.8 fL (7.4-10.4); NEUT % 77.6 %; PLATELET COUNT 137 K/uL (130-400); RED BLOOD COUNT 4.11 M/uL (4.2-5.4); WHITE BLOOD COUNT 2.46 K/uL (4.8-10.8)
[2017-09-18] MEDS ORDERED: GABAPENTIN 600 MG TAB PO SCH (09:00)
[2017-09-18] MEDS ORDERED: METFORMIN HCL 500 MG TAB PO SCH (09:00)
[2017-09-18] MEDS ORDERED: NURSING VERBAL MED ORDER ONE ×2 (09:00→13:15)
[2017-09-18 09:01] LABS: PARTIAL THROMBOPLASTIN RATIO 1.1; PROTHROMBIN TIME (PATIENT) 11.1 SECONDS (9.0-12.0)
[2017-09-18 09:19] LABS: BUN/CREATININE RATIO 9.6 (10-20); CALCIUM 9.3 mg/dl (8.5-10.1); CREATININE 1.02 mg/dl (0.60-1.20); MAGNESIUM 2.2 mg/dl (1.8-2.4); POTASSIUM 4.7 mmol/L (3.5-5.1)
--- NOTE | 2017-09-18 09:21 | Pharmacy Progress Note ---
Glycemic Control Intl Consult Date of Service Sep 18, 2017. Scope Glycemic Pharmacist consulted by Dr Byrd on 09/17/17 for glycemic control and to write orders per [facility] inpatient glycemic control protocol. Objective Weight (Kilograms): 119.000 Accuchecks BSG (last 24hrs): Test 09/18/17 07:50 09/18/17 08:42 Bedside Glucose 184 mg/dl (70-90) Laboratory Data (last 24hrs) Test 09/18/17 08:42 09/18/17 08:58 White Blood Count 2.46 K/uL Red Blood Count 4.11 M/uL Hemoglobin 12.4 g/dL Hematocrit 37.5 % Mean Corpuscular Volume 91.2 fL Mean Corpuscular Hemoglobin 30.2 pg Mean Corpuscular Hemoglobin Concent 33.1 g/dl Platelet Count 137 K/uL Mean Platelet Volume 9.8 fL Neutrophils (%) (Auto) 77.6 % Lymphocytes (%) (Auto) 22.0 % Monocytes (%) (Auto) 0.0 % Eosinophils (%) (Auto) 0.4 % Basophils (%) (Auto) 0.0 % Neutrophils # (Auto) 1.91 K/uL Lymphocytes # (Auto) 0.54 K/uL Monocytes # (Auto) 0.00 K/uL Eosinophils # (Auto) 0.01 K/uL Basophils # (Auto) 0.00 K/uL Recent Pertinent Medications Outpatient Anti-diabetic Regimen: * Metformin 1gm PO QAM * Novolog insulin pump, basal rate: * 2098-7438 --> 2 units/hr * 0287-6430 --> 2.4 units/hr * 6219-1250 --> 2.3 units/hr * 55 units/day * A1c = pending Risk Factors for Insulin Resistance: * Steroids: DXM 6mg IV q6h * IVF: NS @ 100mL/hr * Diet: Type 2 diabetic diet Assessment & Plan ASSESSMENT: * Ms Christianson is a 41yo Type 2 diabetic female who manages her diabetes w/ an insulin pump as an outpatient. * Patient is admitted for spinal headache s/p spinal surgery in June. * Due to the addition of high dose steroids on admission, the decision was made to hold her insulin pump and utilize basal/bolus insulin. * If BSGs become difficult to manage, would have a very low threshold for adding an IV insulin infusion. PLAN FOR INPATIENT GLYCEMIC CONTROL: * Holding outpatient oral diabetes medications * Will consider re-starting once ortho has evaluated patient and plan for admission is clear * Basal insulin with LANTUS 15 units SQ BID * Correctional Insulin with NOVOLOG / REGULAR per scale ACHS or Q6hrs while NPO * Goal Range: Low 110 mg/dL - High 140 mg/dL * Correction Factor: 20 mg/dL/unit * Nutritional / Prandial insulin per carb ratio of 1 unit per 7 grams CHO consumed * Please note that the plan above was derived based on current level of insulin resistance and hospital stress. These recommendations are appropriate for inpatient admission only. Plan of care upon discharge will need to be reassessed to avoid potential outpatient hypo/hyperglycemia. Thank you.
--- NOTE | 2017-09-18 09:59 | HISTORY & PHYSICAL EXAMINATION ---
DATE OF ADMISSION: 09/17/2017 CHIEF COMPLAINT: Headache. ADMITTING DIAGNOSIS: Spinal headache. HISTORY OF PRESENT ILLNESS: Lacey is a delightful patient. I have followed her for 2-3 years, performed fairly elaborate surgery on her just a few days ago. She had an interbody device that moved posteriorly on the L4-L5 area of the lumbar spine with a potential cauda equina. We are able to retrieve the cage that moved posteriorly. It was fairly uneventful surgery. I did not detect a spinal fluid leaking at this time. She actually did quite well early last week, went home and had increasing headaches upon discharge. I actually called her on Sunday and she seemed to be okay, asked to go to bed rest. As of Sunday, which was yesterday, the , she had some nausea. Evidently, the headache and nausea got out of control and then she went to [facility]. I got called on her about 8:30 last evening. I had her transferred to [facility] [address] for evaluation and treatment. Seeing her this morning, she's slightly better than she was late last night. She is in moderate distress with her headaches and nausea. She has no leg pain. Medical history is just dictated from a week ago and then surgical past history. PHYSICAL EXAMINATION: GENERAL: She is alert, oriented and communicates well. HEENT: Pupils react to light and accommodation. Grossly neurologically intact. The wound is clean and dry. IMPRESSION: Postoperative spinal headache, doubtful if any type of meningitis. She also has a white cell count of only 2.46. DISPOSITION: Right now, I ordered an MRI scan of the lumbar spine to look for any type of spinal fluid leak. I am sure there is going to be something to be found. We are going to hydrate her and keep her at bed rest. Commonly, these can resolve. Next step would possibly be a blood patch, which she was fearful of and I do not blame her. If we could actually explore her wound and re-patch the lumbar spine area at the L4-L5 interval, that would take approximately 60 minutes and probably the best course of action if her headache does not resolve. I am going to give this approximately 24-48 hours to resolve without surgical intervention. JAXSON
[2017-09-18] MEDS: INSULIN GLARGINE SOLOSTAR 100 UNITS/ML 3 ML PEN SC SCH ×2 (10:28→21:35)
[2017-09-18] MEDS ORDERED: HYDROmorphone INJ 1 MG/ML SYR IV SCH (10:30)
--- NOTE | 2017-09-18 10:40 | Hospitalist Progress Note ---
Hospitalist Progress Note Date of Service Sep 18, 2017. (Miri Alva CRNP) Subjective Pt evaluation today including: conversation w/ patient, physical exam, chart review, lab review, review of studies, review of inpatient medication list Pain: 8/10 stabbing headache with photophobia Voiding: no voiding problems (refused underwood catheter) Ms. Christianson is in quite a bit of pain today with her headache from which she had minor relief with dilaudid administered two hours ago. She otherwise has no other symptoms Constitutional: No fever, No chills Respiratory: No shortness of breath Abdomen: No nausea, No vomiting Female : No dysuria All Other Systems: Reviewed and Negative (Miri Alva CRNP) Medications Medications Administered Medications (Trade) Dose Ordered Sig/Mio Route Start Time Stop Time Status Last Admin Dose Admin Insulin Glargine (Lantus Solostar Pen) 10 units ONE ONCE SC 09/18/17 00:15 09/18/17 00:16 DC 09/18/17 00:57 10 UNITS Sodium Chloride 1,000 ml @ 120 mls/hr Q8H20M IV 09/18/17 00:15 10/18/17 00:14 09/18/17 08:41 100 MLS/HR Dexamethasone Sodium Phosphate 6 mg/Syringe 1.5 ml @ 1 mls/min Q6 IV 09/18/17 06:00 10/18/17 05:59 09/18/17 06:09 1 MLS/MIN Dexamethasone Sodium Phosphate 6 mg/Syringe 1.5 ml @ 1 mls/min ONE ONCE IV 09/18/17 00:15 09/18/17 00:16 DC 09/18/17 00:38 1 MLS/MIN Ketorolac Tromethamine (Toradol Inj) 15 mg Q6 IV. 09/18/17 06:00 09/23/17 05:59 09/18/17 06:09 15 MG Ketorolac Tromethamine (Toradol Inj) 15 mg ONE ONCE IV. 09/18/17 00:30 09/18/17 00:31 DC 09/18/17 00:38 15 MG Hydromorphone HCl (Dilaudid Inj) 2 mg Q4H PRN IV 09/18/17 00:30 10/02/17 00:29 09/18/17 08:33 2 MG Bupropion HCl (Wellbutrin-Sr Tab) 150 mg BID PO 09/18/17 09:00 10/18/17 08:59 09/18/17 08:40 150 MG Bupropion HCl (Wellbutrin-Sr Tab) 150 mg ONE ONCE PO 09/18/17 00:30 09/18/17 00:31 DC 09/18/17 01:00 150 MG Gabapentin (Neurontin Tab) 600 mg BID PO 09/18/17 09:00 09/18/17 09:07 DC 09/18/17 08:39 600 MG Quetiapine Fumarate (seroQUEL TAB) 200 mg BID PO 09/18/17 09:00 10/18/17 08:59 09/18/17 08:41 200 MG Quetiapine Fumarate (seroQUEL TAB) 200 mg ONE ONCE PO 09/18/17 00:30 09/18/17 00:31 DC 09/18/17 01:00 200 MG Levothyroxine Sodium (Synthroid Tab) 300 mcg DAILYBB PO 09/18/17 06:00 10/18/17 05:59 09/18/17 06:08 300 MCG Lisinopril (Zestril Tab) 5 mg DAILY PO 09/18/17 09:00 10/18/17 08:59 09/18/17 08:40 5 MG Pantoprazole Sodium (Protonix Tab) 40 mg QAM PO 09/18/17 09:00 10/18/17 08:59 09/18/17 08:41 40 MG Verapamil HCl (Calan-Sr Tab) 240 mg DAILY PO 09/18/17 09:00 10/18/17 08:59 09/18/17 08:40 240 MG Insulin Aspart (novoLOG ASPART) SLIDING SCALE ACHS SC 09/18/17 08:00 10/18/17 07:59 09/18/17 08:47 2 UNITS Insulin Glargine (Lantus Solostar Pen) 15 units BID SC 09/18/17 09:15 10/18/17 09:14 09/18/17 10:28 15 UNITS (Miri Alva CRNP) Objective Vital Signs Date Time Temp Pulse Resp B/P (MAP) Pulse Ox O2 Delivery O2 Flow Rate FiO2 09/18/17 08:05 Room Air 09/18/17 07:39 36.6 72 17 139/90 (106) 95 Room Air 09/18/17 00:35 Room Air 09/17/17 23:28 36.8 81 18 149/94 97 Room Air (Miri Alva CRNP) Physical Exam Notes: General: no distress Eyes: normal inspection, PERLL Respiratory: chest non tender, clear to auscultation, normal breath sounds, no respiratory distress, no accessory muscle use Cardiac: regular rate and rhythm, no rub or gallop, no murmur, no edema, no jvd GI/: active bowel sounds, no abd pain or tenderness, soft, non distended Extremities: normal range of motion, normal strength, non tender Neuro/Psych: alert and oriented x 3, normal mood and affect Skin: normal color, dry (Miri Alva CRNP) Laboratory Results Last 24 Hours Test 09/18/17 07:50 09/18/17 08:06 09/18/17 08:42 09/18/17 08:58 Bedside Glucose 184 mg/dl White Blood Count 2.46 K/uL Red Blood Count 4.11 M/uL Hemoglobin 12.4 g/dL Hematocrit 37.5 % Mean Corpuscular Volume 91.2 fL Mean Corpuscular Hemoglobin 30.2 pg Mean Corpuscular Hemoglobin Concent 33.1 g/dl Platelet Count 137 K/uL Mean Platelet Volume 9.8 fL Neutrophils (%) (Auto) 77.6 % Lymphocytes (%) (Auto) 22.0 % Monocytes (%) (Auto) 0.0 % Eosinophils (%) (Auto) 0.4 % Basophils (%) (Auto) 0.0 % Neutrophils # (Auto) 1.91 K/uL Lymphocytes # (Auto) 0.54 K/uL Monocytes # (Auto) 0.00 K/uL Eosinophils # (Auto) 0.01 K/uL Basophils # (Auto) 0.00 K/uL RDW Standard Deviation 55.6 fL RDW Coefficient of Variation 16.7 % Immature Granulocyte % (Auto) 0.0 % Immature Granulocyte # (Auto) 0.00 K/uL Prothrombin Time 11.1 SECONDS Prothromb Time International Ratio 1.0 Activated Partial Thromboplast Time 28.1 SECONDS Partial Thromboplastin Ratio 1.1 Sodium Level 135 mmol/L Potassium Level 4.7 mmol/L Chloride Level 102 mmol/L Carbon Dioxide Level 25 mmol/L Anion Gap 8.0 mmol/L Blood Urea Nitrogen 10 mg/dl Creatinine 1.02 mg/dl Est Creatinine Clear Calc Drug Dose 96.9 ml/min Estimated GFR () 79.1 Estimated GFR (Non- 68.3 BUN/Creatinine Ratio 9.6 Random Glucose 236 mg/dl Calcium Level 9.3 mg/dl Magnesium Level 2.2 mg/dl (Miri Alva CRNP) Assessment and Plan 41 y/o F DM II, HTN, Crohns, Hypothyroidism, anxiety. Pt had revision of lumbar fusion surgery 07/11 due to hardware movement. Since DC 07/13 she states she has had an intractable headache. 1) Headache - post spinal surgery - Pt to be evaluated by orthopedist AM. IVF provided - Dexamethasone, Ketorolac, Dilaudid provided by orthopedics. 1 mg Dilaudid x1 dose ordered for severe pain now. 2) DM - normally wears a pump - held in favor of SS while in hospital 3) HTN - Cont Verapamil and Lisinopril AM - BP stable. 4) Hypothyroidism - Cont Synthroid 5) Crohns - pt normally on Remicade - held due to recent procedure - does not c/ o active symptoms at present 6) DVT prophylaxis - added SCDs, anticoagulation per primary team (Miri Alva CRNP) Attending Attestation & Consult Note: Pt seen/examined, chart reviewed, care plan d/w CARLA Alva. I agree w/ the thrasher components of her documentation. During my visit the pt was comfortable. As long as she does not move her headache is controlled. She also complained of an uncontrollable movement in her "whole body" but worse in her legs. It interferes w/ sleep. no fever last few days but had low-grade temp of 100.4 on Sunday of this past weekend. VSS no fever gen - obese, NAD eyes - PERRL neck - no JVD heart - RRR lungs - CTA b/l abd - soft, NT, ND, BS+ ext - no edema neuro - strength x 4 extremities 5/5 cbc - mild leukopenia, mild thrombocytopenia bmp and mag - wnl coags normal A/P: 1. presumed spinal headache in setting of recent revision of lumbar fusion procedure - management per Dr. Byrd's team Await MRI of l-spine Pain control, bedrest (pt understands she should remain flat in the bed), etc 2. c/o restless legs - check iron studies as low Iron is associated with restless legs; treat as necessary with iron and mirapex 3. leukopenia/thrombocytopenia - uncertain cause - b12/folate levels 4. hypothyroidism - check TSH to ensure euthyroid state 5. crohn's disease - controlled 6. T2DM - glycemic consult has been requested by primary orthopedic team Anaid NICHOLSON MD (Jamil Nicholson MD)
[2017-09-18 11:11] VITALS: BP 147/93; PULSE 86; TEMP 36.6; O2SAT 95
[2017-09-18 13:38] LABS: ESTIMATED AVERAGE GLUCOSE 123 mg/dl; HA1C FLAG Normal (Normal)
[2017-09-18] MEDS: GABAPENTIN 300 MG CAP PO SCH ×2 (14:23→21:31)
[2017-09-18 14:57] VITALS: BP 101/68; PULSE 78; TEMP 36.6; O2SAT 93
[2017-09-18 15:03] VITALS: Ht 170.2 cm; Wt 119.0 kg
[2017-09-18 18:03] LABS: FERRITIN 14.6 ng/ml (8.0-388.0); THYROID STIMULATING HORMONE 0.329 uIu/ml (0.300-4.500)
[2017-09-18] MEDS: FERROUS SULFATE 325 MG TAB PO SCH (20:19)
[2017-09-18] MEDS: PRAMIPEXOLE DIHYDROCHLORIDE 0.5 MG TAB PO SCH (21:30)
[2017-09-18] MEDS: TRAZODONE HCL 100 MG TAB PO SCH (21:33)
--- NOTE | 2017-09-18 21:51 | DIAGNOSTIC IMAGING REPORT ---
LUMBAR SPINE MRI HISTORY: Lumbar back pain. SPINAL HEADACHE TECHNIQUE: Multiplanar multisequence MRI of the lumbar spine was performed without the use of contrast. COMPARISON: Outside hospital lumbar spine CT 07/02/2017. FINDINGS: For the purpose of the report the L5-S1 disc space will be located on axial image 34 of 42. Alignment and curvature are intact. No fractures or subluxation. The conus terminates at the L1-L2 disc space level. There is posterior decompression and fusion from L4 through S1 with pedicle screws and rods. There are disc spacers at L4-5 and L5-S1. Endplate edema at the L4-L5 level is nonspecific. Mild disc desiccation at L3-L4. Large fluid collection at the laminectomy sites which extends into the subcutaneous soft tissues. This measures approximately 13 x 9 x 7 cm. This results in mild mass effect along the thecal sac at the L4 and L5 levels. This surrounds the pedicle screw heads. The visualized retroperitoneal soft tissues are unremarkable. L1-L2: No significant central canal or neural foraminal narrowing. L2-L3: Tiny focal central disc protrusion without significant central canal or neural foraminal narrowing. L3-L4: Small focal central disc protrusion without significant central canal or neural foraminal narrowing. L4-L5: Moderate sized focal central disc protrusion with mild mass effect along the posterior thecal sac due to the large fluid collection. This results in mild central canal narrowing. No significant neural foraminal narrowing. L5-S1: Small broad-based posterior disc bulge without significant central canal narrowing. There is mild bilateral neural foraminal narrowing. IMPRESSION: 1. L4-S1 posterior decompression and fusion with pedicle screws and rods. There is a large fluid collection at the laminectomy sites which extends into the subcutaneous soft tissues. This measures approximately 13 x 9 x 7 cm. This is nonspecific and could be due to a postoperative seroma or possibly a pseudomeningocele. 2. There appears to be a persistent moderate size central disc protrusion at L4-L5. In conjunction with the mild mass effect from the large fluid collection there is mild central canal narrowing at this level. 3. Small focal central disc protrusions at L2-L3 and L3-L4 without significant central canal narrowing. 4. Nonspecific marrow edema at the L4-L5 endplates. This could be due to the recent postoperative change. There are no erosive changes at this time to suggest a discitis/osteomyelitis. Electronically signed by: Az Samuels M.D. 09/18/2017 9:50 PM Dictated Date/Time: 09/18/2017 9:30 PM
[2017-09-18 23:12] VITALS: BP 141/85; PULSE 86; TEMP 36.6; O2SAT 94
[2017-09-19] MEDS: KETOROLAC TROMETHAMINE 15 MG/ML VIAL IV. SCH ×3 (00:20→11:29)
[2017-09-19] MEDS: DEXAMETHASONE INJ 6 MG in SYRINGE 0 ML IV SCH ×4 (00:20→18:50)
[2017-09-19] MEDS: INSULIN ASPART 100 UNITS/ML 3 ML PEN SC SCH ×6 (00:22→20:56)
[2017-09-19] MEDS: HYDROmorphone INJ 2 MG/ML SYR/VIAL IV PRN ×6 (00:45→18:39)
[2017-09-19] MEDS: SODIUM CHLORIDE 0.9% 1000ML 1,000 ML IV SCH ×3 (02:30→19:21)
[2017-09-19] MEDS: LEVOTHYROXINE 150 MCG TAB PO SCH (05:49)
[2017-09-19 06:06] LABS: HEMATOCRIT 34.2 % (37-47); MEAN CELL VOLUME 91.2 fL (80-100); MEAN CORPUSCULAR HEMOGLOBIN 29.1 pg (25-34); MEAN CORPUSCULAR HGB CONC 31.9 g/dl (32-36); MEAN PLATELET VOLUME 9.8 fL (7.4-10.4); PLATELET COUNT 144 K/uL (130-400); RED BLOOD COUNT 3.75 M/uL (4.2-5.4); WHITE BLOOD COUNT 5.36 K/uL (4.8-10.8)
[2017-09-19 06:34] LABS: BUN/CREATININE RATIO 14.2 (10-20); CALCIUM 8.6 mg/dl (8.5-10.1); CREATININE 0.83 mg/dl (0.60-1.20); POTASSIUM 4.6 mmol/L (3.5-5.1)
[2017-09-19 08:12] VITALS: BP 152/87; PULSE 66; TEMP 36.4; O2SAT 95
--- NOTE | 2017-09-19 08:13 | ORTHOPEDICS PROGRESS NOTE ---
DATE: 09/19/2017 SUBJECTIVE: She is alert, oriented, still some headaches still some back pain, seems to be recovering. She is definitely healing from her admission date 30 hours ago. OBJECTIVE: Wound clean, dry. Neurologically intact. Taking p.o. Alert, oriented. ASSESSMENT: Status post postoperative spinal headache improving in the short run. DISPOSITION: We will keep her hydrated today, transition her from IV to p.o. meds, hopefully later on today we can discharge her home or would be appropriate as well.
[2017-09-19] MEDS: GABAPENTIN 300 MG CAP PO SCH ×3 (09:14→20:45)
[2017-09-19] MEDS: PANTOprazole SOD 40 MG TAB PO SCH (09:15)
[2017-09-19] MEDS: FERROUS SULFATE 325 MG TAB PO SCH ×2 (09:15→18:50)
[2017-09-19] MEDS: BuPROPion SR 150 MG TABCR PO SCH ×2 (09:15→20:45)
[2017-09-19] MEDS: QUETIAPINE FUMARATE 200 MG TAB PO SCH ×2 (09:15→20:46)
[2017-09-19] MEDS: VERAPAMIL HCL 240 MG TABCR PO SCH (09:16)
[2017-09-19] MEDS: LISINOPRIL 5 MG TAB PO SCH (09:16)
[2017-09-19] MEDS: INSULIN GLARGINE SOLOSTAR 100 UNITS/ML 3 ML PEN SC SCH ×2 (09:20→20:57)
--- NOTE | 2017-09-19 11:40 | Pharmacy Progress Note ---
Glycemic: Assessment & Plan Date of Service Sep 19, 2017. Assessment & Plan Outpatient Anti-diabetic Regimen: * Metformin 1gm PO QAM * Novolog insulin pump, basal rate: * 6524-4058 --> 2 units/hr * 5495-7937 --> 2.4 units/hr * 3827-0911 --> 2.3 units/hr * 55 units/day * A1c = 5.9% (09/18/17) ASSESSMENT: * Ms Christianson is a 41yo Type 2 diabetic female who manages her diabetes w/ an insulin pump as an outpatient. * Patient is admitted for spinal headache s/p spinal surgery in June. * Due to the addition of high dose steroids on admission, the decision was made to hold her insulin pump and utilize basal/bolus insulin. * BSGs remain elevated today. Will increase insulin regimen to provide additional coverage. Will resume Metformin, as pt is eating and it seems that there is no plan to take pt to OR. PLAN FOR INPATIENT GLYCEMIC CONTROL: * Resume outpatient oral diabetes medications * Increase basal insulin: LANTUS 20 units SQ BID * Correctional Insulin with NOVOLOG / REGULAR per scale ACHS or Q6hrs while NPO * Goal Range: Low 110 mg/dL - High 140 mg/dL * Correction Factor: 18 mg/dL/unit * Nutritional / Prandial insulin per carb ratio of 1 unit per 6 grams CHO consumed PLAN FOR DISCHARGE: * Given current A1c 5.9%, it appears that patient's current outpatient regimen is adequate and should be resumed on discharge. * If patient will be discharged on steroids (clotilde high-dose), she may require adjustments to provide additional insulin while on steroids. * Please note that the plan above was derived based on current level of insulin resistance and hospital stress. These recommendations are appropriate for inpatient admission only. Plan of care upon discharge will need to be reassessed to avoid potential outpatient hypo/hyperglycemia. Thank you.
--- NOTE | 2017-09-19 12:10 | Hospitalist Progress Note ---
Hospitalist Progress Note Date of Service Sep 19, 2017. (Miri Alva CRNP) Subjective Pt evaluation today including: conversation w/ patient, physical exam, chart review, lab review, review of studies, review of inpatient medication list Voiding: no voiding problems Ms. Christianson is feeling better today but is nervous about discharge fearing a return of her head pain. She did take a shower without too much pain whereas yesterday her headache was excruciating after getting out of bed. Constitutional: No fever, No chills Abdomen: No nausea, No vomiting Neurologic: + see HPI, No weakness All Other Systems: Reviewed and Negative (Miri Alva CRNP) Medications Medications Administered Medications (Trade) Dose Ordered Sig/Mio Route Start Time Stop Time Status Last Admin Dose Admin Insulin Glargine (Lantus Solostar Pen) 10 units ONE ONCE SC 09/18/17 00:15 09/18/17 00:16 DC 09/18/17 00:57 10 UNITS Sodium Chloride 1,000 ml @ 120 mls/hr Q8H20M IV 09/18/17 00:15 10/18/17 00:14 09/19/17 11:27 120 MLS/HR Dexamethasone Sodium Phosphate 6 mg/Syringe 1.5 ml @ 1 mls/min Q6 IV 09/18/17 06:00 10/18/17 05:59 09/19/17 11:28 1 MLS/MIN Dexamethasone Sodium Phosphate 6 mg/Syringe 1.5 ml @ 1 mls/min ONE ONCE IV 09/18/17 00:15 09/18/17 00:16 DC 09/18/17 00:38 1 MLS/MIN Ketorolac Tromethamine (Toradol Inj) 15 mg Q6 IV. 09/18/17 06:00 09/23/17 05:59 09/19/17 11:29 15 MG Ketorolac Tromethamine (Toradol Inj) 15 mg ONE ONCE IV. 09/18/17 00:30 09/18/17 00:31 DC 09/18/17 00:38 15 MG Hydromorphone HCl (Dilaudid Inj) 2 mg Q4H PRN IV 09/18/17 00:30 09/18/17 13:18 DC 09/18/17 08:33 2 MG Bupropion HCl (Wellbutrin-Sr Tab) 150 mg BID PO 09/18/17 09:00 10/18/17 08:59 09/19/17 09:15 150 MG Bupropion HCl (Wellbutrin-Sr Tab) 150 mg ONE ONCE PO 09/18/17 00:30 09/18/17 00:31 DC 09/18/17 01:00 150 MG Gabapentin (Neurontin Tab) 600 mg BID PO 09/18/17 09:00 09/18/17 09:07 DC 09/18/17 08:39 600 MG Quetiapine Fumarate (seroQUEL TAB) 200 mg BID PO 09/18/17 09:00 10/18/17 08:59 09/19/17 09:15 200 MG Quetiapine Fumarate (seroQUEL TAB) 200 mg ONE ONCE PO 09/18/17 00:30 09/18/17 00:31 DC 09/18/17 01:00 200 MG Trazodone HCl (Desyrel Tab) 300 mg HS PO 09/18/17 21:00 10/18/17 20:59 09/18/17 21:33 300 MG Influenza Virus Vaccine Quadrival (Flucelvax Quad Vaccine) 0.5 ml ONCE ONCE IM. 09/18/17 00:45 09/18/17 01:02 DC 09/18/17 10:36 0.5 ML Alprazolam (Xanax Tab) 0.5 mg TID PRN PO 09/18/17 01:00 10/18/17 00:59 09/18/17 19:54 0.5 MG Levothyroxine Sodium (Synthroid Tab) 300 mcg DAILYBB PO 09/18/17 06:00 10/18/17 05:59 09/19/17 05:49 300 MCG Lisinopril (Zestril Tab) 5 mg DAILY PO 09/18/17 09:00 10/18/17 08:59 09/19/17 09:16 5 MG Pantoprazole Sodium (Protonix Tab) 40 mg QAM PO 09/18/17 09:00 10/18/17 08:59 09/19/17 09:15 40 MG Ondansetron HCl (Zofran Tab) 8 mg Q8H PRN PO 09/18/17 01:15 10/18/17 01:14 09/18/17 14:20 8 MG Verapamil HCl (Calan-Sr Tab) 240 mg DAILY PO 09/18/17 09:00 10/18/17 08:59 09/19/17 09:16 240 MG Insulin Aspart (novoLOG ASPART) SLIDING SCALE ACHS SC 09/18/17 08:00 10/18/17 07:59 09/19/17 09:19 13 UNITS Insulin Glargine (Lantus Solostar Pen) 15 units BID SC 09/18/17 09:15 09/19/17 08:39 DC 09/18/17 21:35 15 UNITS Gabapentin (Neurontin Cap) 300 mg TID PO 09/18/17 14:00 10/18/17 13:59 09/19/17 09:14 300 MG Hydromorphone HCl (Dilaudid Inj) 1 mg TODAY@1030 IV 09/18/17 10:30 09/18/17 12:00 DC 09/18/17 10:55 1 MG Hydromorphone HCl (Dilaudid Inj) 2 mg Q2H PRN IV 09/18/17 13:30 10/02/17 00:29 09/19/17 10:53 2 MG Insulin Aspart (novoLOG ASPART) SLIDING SCALE 0000,0400 SC 09/19/17 00:00 10/19/17 00:00 09/19/17 04:09 3 UNITS Ferrous Sulfate (Feosol Tab) 325 mg BIDM PO 09/18/17 20:00 10/18/17 19:59 09/19/17 09:15 325 MG Pramipexole Dihydrochloride (miraPEX TAB) 0.5 mg HS PO 09/18/17 21:00 10/18/17 20:59 09/18/17 21:30 0.5 MG Insulin Glargine (Lantus Solostar Pen) 20 units BID SC 09/19/17 09:00 10/19/17 08:59 09/19/17 09:20 20 UNITS (Miri Alva, CARLA) Objective Vital Signs Date Time Temp Pulse Resp B/P (MAP) Pulse Ox O2 Delivery O2 Flow Rate FiO2 09/19/17 08:12 36.4 66 16 152/87 (108) 95 Room Air 09/19/17 07:45 Room Air 09/19/17 00:30 Room Air 09/18/17 23:12 36.6 86 16 141/85 (103) 94 Room Air 09/18/17 15:35 Room Air 09/18/17 14:57 36.6 78 18 101/68 (79) 93 Room Air (Miri Alva CRNP) Physical Exam Notes: General: no distress Eyes: normal inspection, PERLL Respiratory: chest non tender, clear to auscultation, normal breath sounds, no respiratory distress, no accessory muscle use Cardiac: regular rate and rhythm, no rub or gallop, no murmur, no edema, no jvd GI/: active bowel sounds, no abd pain or tenderness, soft, non distended Extremities: normal range of motion, normal strength, non tender Neuro/Psych: drowsy and oriented x 3, normal mood and affect Skin: normal color, dry (Miri Alva CRNP) Laboratory Results Last 24 Hours Test 09/18/17 16:51 09/18/17 16:56 09/18/17 20:31 09/19/17 00:00 Iron Level 33 mcg/dl Total Iron Binding Capacity 345 mcg/dl Transferrin 293 mg/dl Transferrin % Saturation 8 % Ferritin 14.6 ng/ml Vitamin B12 Level 659 pg/mL Folate > 24.00 ng/mL Thyroid Stimulating Hormone (TSH) 0.329 uIu/ml Bedside Glucose 195 mg/dl 231 mg/dl 208 mg/dl Test 09/19/17 04:04 09/19/17 05:33 09/19/17 08:12 Bedside Glucose 186 mg/dl 200 mg/dl White Blood Count 5.36 K/uL Red Blood Count 3.75 M/uL Hemoglobin 10.9 g/dL Hematocrit 34.2 % Mean Corpuscular Volume 91.2 fL Mean Corpuscular Hemoglobin 29.1 pg Mean Corpuscular Hemoglobin Concent 31.9 g/dl RDW Standard Deviation 54.9 fL RDW Coefficient of Variation 16.6 % Platelet Count 144 K/uL Mean Platelet Volume 9.8 fL Sodium Level 137 mmol/L Potassium Level 4.6 mmol/L Chloride Level 105 mmol/L Carbon Dioxide Level 24 mmol/L Anion Gap 8.0 mmol/L Blood Urea Nitrogen 12 mg/dl Creatinine 0.83 mg/dl Est Creatinine Clear Calc Drug Dose 119.1 ml/min Estimated GFR () 101.5 Estimated GFR (Non- 87.6 BUN/Creatinine Ratio 14.2 Random Glucose 192 mg/dl Calcium Level 8.6 mg/dl (Miri Alva CRNP) Assessment and Plan 41 y/o F DM II, HTN, Crohns, Hypothyroidism, anxiety. Pt had revision of lumbar fusion surgery 07/11 due to hardware movement. Since DC 07/13 she states she has had an intractable headache. 1) Headache - post spinal surgery - IVF provided - Dexamethasone, Ketorolac, Dilaudid provided by orthopedics. 2) DM - normally wears a pump - held in favor of SS while in hospital. Blood sugars running a little elevated in the low 200s likely due to dexamethasone administration. Lantus increased today per primary team. 3) HTN - Cont Verapamil and Lisinopril AM - BP stable. 4) Hypothyroidism - Cont Synthroid 5) Crohns - pt normally on Remicade - held due to recent procedure - does not c/ o active symptoms at present 6) DVT prophylaxis - added SCDs, anticoagulation per primary team (Miri Alva CRNP) [employer] Physician Supervision Note: I interviewed and examined the patient. Discussed with Miri Alva [employer] and agree with findings and plan as documented in the note. Any exceptions or clarifications are listed here: None Patient still has some headache no real back pain she is lying in bed with the room dark and she says she feels somewhat better although still requiring opiate pain control Vital signs are stable Neurologically she is awake alert appropriate cranial nerves are intact she has no focal loss of strength or sensation Possible spinal headache from orthopedic spine surgery. we'll continue with hydration rest and pain control anticipate discharge next few days Documented By: Donato Srivastava (Donato Srivastava M.D.)
[2017-09-19] MEDS: METFORMIN HCL 500 MG TABCR PO SCH (12:52)
[2017-09-19 15:08] VITALS: BP 132/85; PULSE 73; TEMP 36.5; O2SAT 96
[2017-09-19 15:15] VITALS: O2SAT 96
[2017-09-19] MEDS ORDERED: ALPRAZOLAM 0.5 MG TAB PO PRN (15:30)
[2017-09-19] MEDS: OXYCODONE HCL IR 5 MG TAB (IMMEDIATE RELEASE) PO PRN ×2 (15:34→22:13)
[2017-09-19] MEDS: PRAMIPEXOLE DIHYDROCHLORIDE 0.5 MG TAB PO SCH (20:45)
[2017-09-19] MEDS: TRAZODONE HCL 100 MG TAB PO SCH (20:45)
[2017-09-19] MEDS: ACETAMINOPHEN 500 MG TAB PO SCH (22:00)
[2017-09-19 22:51] VITALS: BP 150/89; PULSE 74; TEMP 36.7; O2SAT 96
[2017-09-20] MEDS: DEXAMETHASONE INJ 6 MG in SYRINGE 0 ML IV SCH ×3 (00:30→12:16)
[2017-09-20] MEDS: HYDROmorphone INJ 2 MG/ML SYR/VIAL IV PRN ×3 (00:30→08:57)
[2017-09-20] MEDS: INSULIN ASPART 100 UNITS/ML 3 ML PEN SC SCH ×4 (00:30→12:54)
[2017-09-20] MEDS: SODIUM CHLORIDE 0.9% 1000ML 1,000 ML IV SCH ×2 (03:54→12:16)
[2017-09-20] MEDS: OXYCODONE HCL IR 5 MG TAB (IMMEDIATE RELEASE) PO PRN ×2 (04:19→11:02)
[2017-09-20] MEDS: ACETAMINOPHEN 500 MG TAB PO SCH ×2 (05:45→13:46)
[2017-09-20] MEDS: LEVOTHYROXINE 150 MCG TAB PO SCH (05:46)
[2017-09-20 06:49] VITALS: BP 168/100; PULSE 96; TEMP 36.6; O2SAT 92
--- NOTE | 2017-09-20 08:11 | Discharge Instructions ---
Discharge Instructions Date of Service Sep 20, 2017. Admission Reason for Admission: Spinal Headache Discharge Discharge Diagnosis / Problem: same Discharge Goals Goal(s): Improve function Activity Recommendations Activity Limitations: as noted below home, rest, recover . Current Hospital Diet Patient's current hospital diet: Diabetes Type 2 Diet Discharge Diet Recommended Diet: Diabetes Type 2 Diet Pending Studies Studies pending at discharge: no Laboratory Results Hemoglobin A1c Test 09/18/17 08:42 Range/Units Estimated Average Glucose 123 mg/dl Hemoglobin A1c 5.9 H 4.5-5.6 % Medical Emergencies . Who to Call and When: Medical Emergencies: If at any time you feel your situation is an emergency, please call 911 immediately. . Non-Emergent Contact Non-Emergency issues call your: Surgeon Call Non-Emergent contact if: your pain is not controlled, you have any medication questions . "Provider Documentation" section prepared by Emory Byrd. . VTE Core Measure Inpt VTE Proph given/why not?: Treatment not indicated
[2017-09-20] MEDS: GABAPENTIN 300 MG CAP PO SCH ×2 (08:43→13:46)
[2017-09-20] MEDS: QUETIAPINE FUMARATE 200 MG TAB PO SCH (08:44)
[2017-09-20] MEDS: PANTOprazole SOD 40 MG TAB PO SCH (08:44)
[2017-09-20] MEDS: METFORMIN HCL 500 MG TABCR PO SCH (08:44)
[2017-09-20] MEDS: VERAPAMIL HCL 240 MG TABCR PO SCH (08:44)
[2017-09-20] MEDS: BuPROPion SR 150 MG TABCR PO SCH (08:45)
[2017-09-20] MEDS: LISINOPRIL 5 MG TAB PO SCH (08:45)
[2017-09-20] MEDS: FERROUS SULFATE 325 MG TAB PO SCH (08:46)
[2017-09-20] MEDS: INSULIN GLARGINE SOLOSTAR 100 UNITS/ML 3 ML PEN SC SCH (08:55)
[2017-09-20 11:21] VITALS: BP 162/94; PULSE 70; TEMP 36.8; O2SAT 96
[2017-09-20 13:35] VITALS: BP 162/94; PULSE 70; TEMP 36.8; O2SAT 96
--- NOTE | 2017-09-28 08:11 | DISCHARGE SUMMARY ---
SUBJECTIVE: Lacey is a delightful patient. She was discharged home in improved stable condition. Her wound was clean slight drainage, alert, oriented. No spinal headache. OBJECTIVE: Vital signs stable. Taking p.o., ambulatory. ASSESSMENT: Status post reconstructive spine surgery with spinal headache. DISPOSITION: We will get her up and ambulate at home. Discharge her home later today. Instructions and precautions provided. We will keep her sutures in place. We will see her back in the office in approximately 1 week and medication offered for pain and for headaches.
--- NOTE | 2017-10-26 06:07 | EDITING REQUIRED CODING QUERY ---
CODING QUERY To promote full compliance with coding requirements relating to patient care, provider participation is requested in all cases of ornament maker hand uncertainty. Please assist us with the question(s) below: Coding Question(s): Please clarify below, in your clinical opinion, regarding the status post reconstructive spine surgery with spinal headache. ( ) Spinal Headache is due to cerebrospinal fluid Leak from spinal puncture ( ) Spinal Headache is due to spinal fluid Loss (from puncture) ( ) Spinal Headache is due to other - Specify Physician's Response(s): Thank you Radha Quiroga Principal Diagnosis: "_that condition established after study, to be chiefly responsible for occasioning the admission of the patient to the hospital for care." Co-Existing Principal Diagnosis: "_when two or more diagnoses equally meet the criteria for principal diagnosis as determined by the circumstances of admission, diagnostic work up, and/or therapy provided, and the Alphabetic Index, Tabular List, or another coding guideline does not provide sequencing direction, any one of the diagnoses may be sequenced first." "When the physician has documented what appears to be a current diagnosis in the body of the record, but has not included the diagnosis in the final diagnostic statement, the physician should be asked whether the diagnosis should be added." (Source Coding [facility] 2 QTR90. p3-4)
--- NOTE | 2017-11-03 09:12 | HISTORY & PHYSICAL EXAMINATION ---
DATE OF ADMISSION: 09/17/2017 This is for the Radha cox, [facility] coding query. Clarifying her chart and medical record, her spinal headache was due to a cerebral spinal fluid leak from a small laceration in the dura.
== END 2017-09-20 15:10 | disposition home health service (06) | DRG 92 ==
LOC: C.3E 23:05
PROVIDERS: ADMIT Orthopaedic Surgery Orthopaedic Surgery of the Spine; ATTEND Orthopaedic Surgery Orthopaedic Surgery of the Spine
DX: G97.0 Cerebrospinal fluid leak from spinal puncture (principal); Z68.41 Body mass index [BMI] 40.0-44.9, adult; K50.90 Crohn's disease, unspecified, without complications; D69.6 Thrombocytopenia, unspecified; D72.819 Decreased white blood cell count, unspecified; E11.9 Type 2 diabetes mellitus without complications; I10 Essential (primary) hypertension; E03.9 Hypothyroidism, unspecified; F41.9 Anxiety disorder, unspecified; E66.9 Obesity, unspecified; F17.200 Nicotine dependence, unspecified, uncomplicated; Z79.899 Other long term (current) drug therapy; Z79.4 Long term (current) use of insulin; Z98.1 Arthrodesis status; Z87.19 Personal history of other diseases of the digestive system; Z83.79 Family history of other diseases of the digestive system; Y83.8 Other surgical procedures as the cause of abnormal reaction of the patient, or of later complication, without mention of misadventure at the time of the procedure

== ENCOUNTER 2017-09-24 15:02 | Inpatient (IN) | payer OTHER ==
[~2017-09-24] VITALS: Ht 170.2 cm; Wt 119.0 kg
[2017-09-24] MEDS ORDERED: HYDROmorphone INJ 2 MG/ML SYR/VIAL IV STA (16:29)
--- NOTE | 2017-09-24 16:30 | EMERGENCY ROOM VISIT NOTE ---
History First contact with patient: 15:45 Chief Complaint: INFECTION Stated Complaint: DRAINAGE FROM BACKSURGERY Nursing Triage Summary: area reddened. no active drainage noted at this time in triage through dressing. History of Present Illness The patient is a 41 year old female who presents to the Emergency Room with complaints of drainage from her previous back surgery incision. She had a fusion done in July for a herniated disk an then a revision on the [address] Byrd. She came to the emergency department today because her home nurse was meant to remove the stitches today, but she did not as she was concerned that the area was reddened, and draining. Ms. Christianson notes that she has been experiencing constant drainage, that has been worsening, especially on standing. She states the discharge is clear, and not bloody. She also notes that she has been feeling feverish, and has taken her temperature at home and found it to be elevated at 100.4. She is currently afebrile today. She denies chills, sweats, chest pain or shortness of breath. She was recently discharged from [facility] 4 days ago, and had been admitted due to a likely spinal leak. Upon discharge, she states she felt "alright." Review of Systems See HPI for pertinent positives & negatives. A total of 10 systems reviewed and were otherwise negative. Past Medical/Surgical History Medical Problems: (1) cerebral spinal fluid leak (2) Chronic Liver Dis Nec (3) Crohn's disease (4) Depression (5) Hyperlipidemia (6) Hypertension Nos (7) Hypothyroidism Nos (8) Lumbar stenosis (9) Ovarian Cyst Nec/Nos Family History Gallbladder disease Seizures Social History Smoking Status: Current Every Day Smoker Alcohol Use: none Drug Use: none Marital Status: Housing Status: lives with family Occupation Status: employed Current/Historical Medications Scheduled Bupropion Hcl (Wellbutrin Sr), 150 MG PO BID Gabapentin (Neurontin), 600 MG PO BID Infliximab (Remicade), 1 DOSE INJ Q8WK Insulin Aspart (novoLOG INSULIN PUMP ), 1 EA N/A UD Levothyroxine Sodium (Synthroid), 300 MCG PO QAM Lisinopril (Prinivil), 5 MG PO QAM Metformin Hcl (Glucophage Ext Rel), 1,000 MG PO QAM Omeprazole (Prilosec), 40 MG PO QAM Quetiapine Fumarate (Seroquel), 200 MG PO BID Trazodone Hcl (Trazodone), 300 MG PO HS Verapamil Sust Rel (Calan Sr Ext Rel), 240 MG PO QAM Scheduled PRN Alprazolam (Xanax), 0.5 MG PO TID PRN for Anxiety/Agitation Dicyclomine HCl (Dicyclomine HCl), 10 MG PO QID PRN for prn Lactulose (Lactulose), 30-60 MG PO DAILY PRN for Constipation Ondansetron Hcl (Zofran), 8 MG PO Q8 PRN for Nausea Miscellaneous Medications Hydrocodone/Acetaminophen (Kimberly 10/325 Tab), 1 TAB PO Physical Exam Vital Signs Date Time Temp Pulse Resp B/P (MAP) Pulse Ox O2 Delivery O2 Flow Rate FiO2 09/24/17 16:40 87 18 121/85 96 Room Air 09/24/17 15:15 37.3 105 22 118/82 98 Room Air Physical Exam General: The patient looks unwell and uncomfortable unless lying flat. HEENT: Head - normocephalic and atraumatic. Pupils are equal, round, and reactive to light. Extraocular eye muscles are intact and sclera are anicteric. Ears - bilaterally patent canals with noninjected tympanic membranes and no evidence of hemotympanum. Nose - moist nasal mucosa without discharge. Mouth - moist buccal mucosa. Oropharynx is nonerythematous and there is no tonsillar exudate or edema noted. Neck: Supple; no JVD, nuchal rigidity, cervical lymphadenopathy, or auscultated bruits. Heart: Regular rate and rhythm. There is a normal S1 and S2 with no murmurs, clicks, or gallops appreciated. Lungs: Clear to auscultation bilaterally with no wheezes, rales, or rhonchi. Abdomen: Soft, completely nontender, nondistended, with good bowel sounds. There are no palpable pulsatile masses or hepatosplenomegaly. There is no guarding, rigidity, or rebound noted. Back: Midline lesion over lumbar area, sutures in place. Area is erythematous, draining clear fluid, warm and tender to touch. Extremities: No evidence of cyanosis, clubbing, or edema. There are easily palpable peripheral pulses. Neuro:The patient is awake and alert, oriented to day, time, and place. Muscle strength is 5/5 in all 4 extremities. The patient has equal bell person strength and equal pedal push and pull. There are no cerebellar signs. Medical Decision & Procedures Laboratory Results Test 09/24/17 17:00 Medications Administered Medications (Trade) Dose Ordered Sig/Mio Route Start Time Stop Time Status Last Admin Dose Admin Hydromorphone HCl (Dilaudid Inj) 2 mg NOW STAT IV 09/24/17 16:29 09/24/17 16:30 DC 09/24/17 17:12 2 MG ED Course 15:48: The patient was seen and evaluated in room C7. 16:19: The case was discussed with Dr. Zhang and the patient was seen with him. Swab obtained of drainage and will be sent for culture. 16:30: 2mg of IV hydromorphone ordered for pain relief. 16:54: Discussed the case with Dr. Byrd, ortho spine who will evaluate her 17:15: Patient reassessed, states she is still in pain and requested more pain meds. 0.5mg IV hydromorphone ordered. 17:45: Discussed with Dr. Byrd who states that she will be admitted and will likely undergo surgery. Medical Decision The patient is a 41 year old female who presents to the Emergency Room with complaints of drainage from her previous back surgery incision. Differentials at this time include wound infection after surgery, sepsis/bacteremia, electrolyte imbalance. Dr. Byrd assessed the patient and stated that she needs to be admitted for infection and possible surgical intervention. Impression Primary Impression: Wound infection after surgery Departure Information Dispostion Admitted as an inpatient Referrals Tiburcio Ca M.D. (PCP) Patient Instructions My [facility] Resident Tracking Resident Involvement: Resident Care Provided Care Provided: Adult ED Problem Qualifiers Primary Impression: Wound infection after surgery Encounter type: initial encounter Qualified Codes: T81.4XXA - Infection following a procedure, initial encounter
[2017-09-24] MEDS ORDERED: HYDROmorphone INJ 0.5 MG/0.5 ML SYR IV STA (17:14)
[2017-09-24] MEDS ORDERED: DICYCLOMINE HCL 10 MG CAP PO PRN (17:15)
[2017-09-24] MEDS ORDERED: ACETAMINOPHEN 325 MG TAB PO PRN (17:15)
[2017-09-24] MEDS ORDERED: HYDROCODONE/ACETAMI 10/325 TAB PO PRN (17:15)
[2017-09-24] MEDS ORDERED: PROMETHAZINE HCL INJ 12.5 MG in SODIUM CHLORIDE 0.9% 50ML 50 ML IV PRN (17:15)
[2017-09-24] MEDS ORDERED: ONDANSETRON 4 MG TAB PO PRN (17:15)
[2017-09-24 17:55] LABS: COMPLETE YES; EOS % 4.4 %; HEMATOCRIT 39.3 % (37-47); IG% 0.1 %; LYMPH % 29.7 %; LYMPH ABS # 2.11 K/uL (1.2-3.4); MEAN CELL VOLUME 90.8 fL (80-100); MEAN CORPUSCULAR HEMOGLOBIN 29.1 pg (25-34); MEAN CORPUSCULAR HGB CONC 32.1 g/dl (32-36); MONO % 9.8 %; PLATELET COUNT 190 K/uL (130-400); RED BLOOD COUNT 4.33 M/uL (4.2-5.4); WHITE BLOOD COUNT 7.11 K/uL (4.8-10.8)
--- NOTE | 2017-09-24 18:01 | EMERGENCY ROOM VISIT NOTE ---
History Report prepared by Fede: Elpidio Caldwell Under the Supervision of: Dr. Donato Zhang M.D. First contact with patient: 15:44 Chief Complaint: INFECTION Stated Complaint: DRAINAGE FROM BACKSURGERY Nursing Triage Summary: area reddened. no active drainage noted at this time in triage through dressing. History of Present Illness The patient is a 41 year old female who presents to the Emergency Room with complaints of a worsening back infection detected earlier today at the site of previous back surgery that occurred last month. The patient states that she had back surgery done in July for a herniated disc, and was hospitalized on the 10 of September for a revision. The patient notes that she was then seen at [place] for worsened pain and a headache, and was then sent here to be hospitalized, which she was. She says that she is now here because her home nurse came in today to remove the stitches in her back, and the area was noted to be erythematous and was draining clear fluid. The patient was then told to come here for evaluation. The nurse has been checking up on the incision site regularly since the surgery. The patient notes that her back incision site has been draining fluid ever since the revision was done. She adds that she has been feeling feverish the past few days, and had a temperature of 100.4 yesterday. She denies any chills, urinary symptoms, sweats, or recent cold symptoms. The patient adds that her back pain is currently a 2 out of 10 in severity, and she says that her headaches have been slowly resolving. Source of History: patient Onset: After previous back surgery that occurred last month - worsened today Position: back Quality: other (surgical site noted to be erythematous and draining) Timing: worsening Associated Symptoms: + fevers, + headache, + back pain, No chills, No urinary symptoms Note: Associated symptoms: Denies sweats or recent cold symptoms. Review of Systems See HPI for pertinent positives & negatives. A total of 10 systems reviewed and were otherwise negative. Past Medical & Surgical Medical Problems: (1) cerebral spinal fluid leak (2) Chronic Liver Dis Nec (3) Crohn's disease (4) Depression (5) Hyperlipidemia (6) Hypertension Nos (7) Hypothyroidism Nos (8) Lumbar stenosis (9) Ovarian Cyst Nec/Nos Family History Gallbladder disease Seizures Social History Smoking Status: Current Every Day Smoker Alcohol Use: none Drug Use: none Marital Status: Housing Status: lives with family Occupation Status: employed Current/Historical Medications Scheduled Bupropion Hcl (Wellbutrin Sr), 150 MG PO BID Gabapentin (Neurontin), 600 MG PO BID Infliximab (Remicade), 1 DOSE INJ Q8WK Insulin Aspart (novoLOG INSULIN PUMP ), 1 EA N/A UD Levothyroxine Sodium (Synthroid), 300 MCG PO QAM Lisinopril (Prinivil), 5 MG PO QAM Metformin Hcl (Glucophage Ext Rel), 1,000 MG PO QAM Omeprazole (Prilosec), 40 MG PO QAM Quetiapine Fumarate (Seroquel), 200 MG PO BID Trazodone Hcl (Trazodone), 300 MG PO HS Verapamil Sust Rel (Calan Sr Ext Rel), 240 MG PO QAM Scheduled PRN Alprazolam (Xanax), 0.5 MG PO TID PRN for Anxiety/Agitation Dicyclomine HCl (Dicyclomine HCl), 10 MG PO QID PRN for prn Lactulose (Lactulose), 30-60 MG PO DAILY PRN for Constipation Ondansetron Hcl (Zofran), 8 MG PO Q8 PRN for Nausea Miscellaneous Medications Hydrocodone/Acetaminophen (Blaine 10/325 Tab), 1 TAB PO Allergies Coded Allergies: Cephalexin (Verified Allergy, Severe, SWELLING OF LIPS,EYES,FACE, 07/26/17) Sulfa Antibiotics (Verified Allergy, Severe, N/V, SWELLING OF FACE AND LIPS, 07/26/17) Vedolizumab (Verified Allergy, Severe, SHORTNESS OF BREATH AND CHEST PAIN , 07/26/17) Adalimumab (Verified Allergy, Unknown, drug induced lupus SYMPTOMS, ) Physical Exam Vital Signs Date Time Temp Pulse Resp B/P (MAP) Pulse Ox O2 Delivery O2 Flow Rate FiO2 09/24/17 16:40 87 18 121/85 96 Room Air 09/24/17 15:15 37.3 105 22 118/82 98 Room Air Physical Exam Constitutional: Vital signs reviewed. Eyes: Pupils are equal round reactive to light. Conjunctiva are noninjected. ENT: Pharynx is clear without erythema or exudate. Mucous membranes are moist. Neck supple without meningeal signs. Respiratory: Clear to auscultation bilaterally. Breath sounds are equal bilaterally. Cardiovascular: Regular rate and rhythm. No rubs or gallops. GI: Soft, nondistended and nontender. Bowel sounds are present. Musculoskeletal: There is a vertical incision over the lumbar spine without dehiscence. Sutures are in place. There is a clear drainage from the mid-wound with mild erythema extending a centimeter from the wound on both sides with some right lateral tenderness. Integumentary: As above. Neurological: The patient is awake and alert. No focal deficits. Psychiatric: Normal affect. Medical Decision & Procedures Laboratory Results 09/24/17 17:00 Red Blood Count 4.33, Mean Corpuscular Volume 90.8, Mean Corpuscular Hemoglobin 29.1, Mean Corpuscular Hemoglobin Concent 32.1, Mean Platelet Volume 10.0, Neutrophils (%) (Auto) 56.0, Lymphocytes (%) (Auto) 29.7, Monocytes (%) (Auto) 9.8, Eosinophils (%) (Auto) 4.4, Basophils (%) (Auto) 0.0, Neutrophils # (Auto) 3.98, Lymphocytes # (Auto) 2.11, Monocytes # (Auto) 0.70, Eosinophils # (Auto) 0.31, Basophils # (Auto) 0.00 Test 09/24/17 17:00 White Blood Count 7.11 K/uL (4.8-10.8) Red Blood Count 4.33 M/uL (4.2-5.4) Hemoglobin 12.6 g/dL (12.0-16.0) Hematocrit 39.3 % (37-47) Mean Corpuscular Volume 90.8 fL (80-100) Mean Corpuscular Hemoglobin 29.1 pg (25-34) Mean Corpuscular Hemoglobin Concent 32.1 g/dl (32-36) Platelet Count 190 K/uL (130-400) Mean Platelet Volume 10.0 fL (7.4-10.4) Neutrophils (%) (Auto) 56.0 % Lymphocytes (%) (Auto) 29.7 % Monocytes (%) (Auto) 9.8 % Eosinophils (%) (Auto) 4.4 % Basophils (%) (Auto) 0.0 % Neutrophils # (Auto) 3.98 K/uL (1.4-6.5) Lymphocytes # (Auto) 2.11 K/uL (1.2-3.4) Monocytes # (Auto) 0.70 K/uL (0.11-0.59) Eosinophils # (Auto) 0.31 K/uL (0-0.5) Basophils # (Auto) 0.00 K/uL (0-0.2) RDW Standard Deviation 57.2 fL (36.4-46.3) RDW Coefficient of Variation 17.2 % (11.5-14.5) Immature Granulocyte % (Auto) 0.1 % Immature Granulocyte # (Auto) 0.01 K/uL (0.00-0.02) Laboratory results as reviewed by me. Medications Administered Medications (Trade) Dose Ordered Sig/Mio Route Start Time Stop Time Status Last Admin Dose Admin Hydromorphone HCl (Dilaudid Inj) 2 mg NOW STAT IV 09/24/17 16:29 09/24/17 16:30 DC 09/24/17 17:12 2 MG ED Course 1548: The patient was evaluated in room C7 by the resident, Dr. Cunningham. A complete history and physical exam was performed. 1619: The patient was evaluated in room C7 by myself. A complete history and physical exam was performed. 1629: Ordered Dilaudid Inj 2 mg IV. 1630: Ordered NSS 1000 ml @ 100 mls/hr IV. 1657: The patient was discussed with Dr. Byrd - [facility] - he will come down to evaluate the patient. 1710: Dr. Byrd will evaluate the patient for further treatment. The patient is agreeable with the plan. Medical Decision This is a 41-year-old female presents with wound drainage. Differential diagnosis includes wound infection, seroma, abscess, discitis. I did perform a limited focused review of portions of the patient's old chart on the electronic medical record. The patient was admitted on September 10 for revision of spinal surgery. She was admitted again on the for a headache. I did evaluate the patient as noted above. IV access was established. Wound cultures were obtained. The patient was treated with Dilaudid IV. I did order and review the patient's blood work as noted in the electronic medical record. The case was discussed with Dr. Byrd who evaluated the patient in the emergency department. He did hospitalize the patient for further management and likely operative repair. Resident Physician Supervision Note: I did evaluate and examine this patient myself. I did guide management for the patient. I agree with the resident's (Dr. Cunningham) assessment as discussed. Please see the resident's dictation for further details. Medication Reconcilliation Current Medication List: was personally reviewed by me Blood Pressure Screening Patient's blood pressure: Normal blood pressure Consults Time Called: 1649 Consulting Physician: Dr. Rochel[facility] Returned Call: [phone] The patient was discussed with Dr. Rochel[facility] - he will come down to evaluate the patient. Impression Primary Impression: Wound infection after surgery Scribe Attestation The scribe's documentation has been prepared under my direct and personally reviewed by me in its entirety. I confirm that the note above accurately reflects all work, treatment, procedures, and medical decision making performed by me. Departure Information Dispostion Being Evaluated By Surgeon Referrals Tiburcio Ca M.D. (PCP) Patient Instructions My [facility] Problem Qualifiers Primary Impression: Wound infection after surgery Encounter type: initial encounter Qualified Codes: T81.4XXA - Infection following a procedure, initial encounter
[2017-09-24 18:10] LABS: BUN/CREATININE RATIO 7.2 (10-20); CALCIUM 9.2 mg/dl (8.5-10.1); CREATININE 0.85 mg/dl (0.60-1.20); POTASSIUM 3.5 mmol/L (3.5-5.1)
[2017-09-24 18:13] LABS: ALB/GLOB RATIO 0.6 (0.9-2)
[2017-09-24 18:40] VITALS: BP 101/70; PULSE 97; TEMP 36.9; O2SAT 96; BMI 41.1
--- NOTE | 2017-09-24 18:56 | Anesthesiology Progress Note ---
Anesthesia Progress Note Date of Service Sep 24, 2017. Progress Notes Ms. Christianson had a revision of a posterior lumbar fusion on 09/10/[address] Byrd and represents to [facility] leroy and is scheduled for I and D lumbar spine on 09/25/17. Allergies to cephalexin, sulfa, vedolizumab, adalimumab. Multiple previous surgeries without anesthesia complications. PMH significant for HTN, HLD, GERD, cirrhosis (2/2 LING/humira), back pain, peripheral neuropathy, IDDM, hypothyroidism, obesity and current smoker. With surgery on 09/10/17 had MAC 3 with grade 2 view and 7.0ETT). Labs WNL. EKG NSR with HR of 70. Airway exam notable for MP 3. No significant change in her health since last surgery. Consented for GETA. All questions answered. Patient appears to be optimized for surgery.
[2017-09-24] MEDS: SODIUM CHLORIDE 0.9% 1000ML 1,000 ML IV SCH (19:02)
--- NOTE | 2017-09-24 19:03 | HISTORY & PHYSICAL EXAMINATION ---
DATE OF ADMISSION: 09/24/2017 TIME OF DICTATION: 06:00 p.m. CHIEF COMPLAINT: Back and lower extremity difficulty and spinal headache. HISTORY OF PRESENT ILLNESS: Lacey is a delightful patient, I have known her for several years, have performed surgery on her. She had spinal headache that seemed to resolve. She went home Sunday, the 22 of September and then over Sunday, she got worse and we got a call on the , which is today since she was having drainage from her wound and the nurse who was taking care of her was reluctant to take out the sutures. I had her immediately come to the Emergency Room. I am seeing her in the evening of the with her . Her condition is guarded. OBJECTIVE: GENERAL: She is alert, oriented and communicates well and fortunately, when she lies flat, she has no spinal headache. BACK: Her wound shows some drainage, it looks like spinal fluid, could be serosanguineous as well. NEUROLOGICALLY: She is intact, alert, oriented. Mentation normal, but certainly down in the dumps with her problem. LABORATORY DATA: White cell count is 7.11, hemoglobin 12.6. Wound reddened, some drainage. IMPRESSION: Spinal headache, possible cellulitis, diabetic female. Her condition remains guarded. DISPOSITION: We will be admitting her to my service for hydrating her and place her on some antibiotics. I have discussed the plan with the patient and the family. I am putting on a schedule to explore her wound tomorrow morning, more than likely it will be a exploration and repair of the dural laceration. I remember her case from 2 weeks ago, I do not perceive any obvious spinal fluid leak at that point in time. She did have exposed nerve root. She had revision surgery, I remember it being quite tedious. JAXSON
[2017-09-24] MEDS: OXYCODONE/ACETAMINOPHEN 5-325 TAB PO PRN (19:12)
[2017-09-24] MEDS ORDERED: INSULIN ASPART 100 UNITS/ML VIAL SC PRN (19:15)
[2017-09-24] MEDS ORDERED: GLUCOSE 10 TABS/TUBE PO PRN (19:15)
[2017-09-24] MEDS ORDERED: GLUCOSE 40% GEL 15 GM TUBE PO PRN (19:15)
[2017-09-24] MEDS ORDERED: DEXTROSE 50% 50 ML SYR IV PRN (19:15)
[2017-09-24] MEDS ORDERED: GLUCAGON FOR INJ 1 MG VIAL SQ PRN (19:15)
[2017-09-24] MEDS: NovoLOG INSULIN PUMP SCH ×2 (19:48→20:53)
[2017-09-24] MEDS: ACETAMINOPHEN IV 1,000 MG in EMPTY BAG 0 ML IV SCH (20:39)
[2017-09-24] MEDS: BuPROPion SR 150 MG TABCR PO SCH (20:40)
[2017-09-24] MEDS: DOCUSATE SODIUM 100 MG CAP PO SCH (20:40)
[2017-09-24] MEDS: QUETIAPINE FUMARATE 200 MG TAB PO SCH (20:41)
[2017-09-24] MEDS: TRAZODONE HCL 100 MG TAB PO SCH (20:41)
[2017-09-24] MEDS: GABAPENTIN 600 MG TAB PO SCH (20:41)
[2017-09-24 22:50] VITALS: BP_SYST 103; BP_SYST 86; BP_DIAS 58; BP_DIAS 69; PULSE 66; PULSE 68; TEMP 36.8; O2SAT 96
[2017-09-24] MEDS ORDERED: INFLUENZA VIRUS QUAD VACCINE 0.5 ML SYR IM. ONE (23:15)
[2017-09-24] MEDS ORDERED: INFLUENZA ADMINISTRATION CHARGE ONE (23:15)
[2017-09-24 23:53] VITALS: BP 90/61; PULSE 79; O2SAT 96
[2017-09-25] VITALS (10 sets, daily range): BP systolic 100–147; BP diastolic 66–92; PULSE 72–104; TEMP 36.5–37.1; O2SAT 90–97; Ht 170.2 cm; Wt 119.0 kg
[2017-09-25] MEDS: SODIUM CHLORIDE 0.9% 1000ML 1,000 ML IV SCH ×3 (03:37→20:14)
[2017-09-25] MEDS: ACETAMINOPHEN IV 1,000 MG in EMPTY BAG 0 ML IV SCH ×3 (03:37→20:00)
[2017-09-25] MEDS: LEVOTHYROXINE 100 MCG TAB PO SCH (05:38)
[2017-09-25] MEDS ORDERED: CLINDAMYCIN IV 900 MG in DEXTROSE 5% 50ML 44 ML IV SCH (06:00)
[2017-09-25] MEDS ORDERED: PHARMACY GLYCEMIC MGMT CONSULT PRN (06:21)
[2017-09-25] MEDS: OXYCODONE/ACETAMINOPHEN 5-325 TAB PO PRN ×2 (06:28→20:49)
[2017-09-25] MEDS: NovoLOG INSULIN PUMP SCH ×3 (07:36→20:24)
--- NOTE | 2017-09-25 08:43 | HISTORY & PHYSICAL EXAMINATION ---
DATE OF ADMISSION: 09/24/2017 HISTORY OF PRESENT ILLNESS: Lacey is a delightful patient. She is 41 years of age. She had revision spinal surgery I performed approximately 15 days ago. She had backing out of her spinal implants, specifically an interbody device putting pressure on the cauda equina. We took her to surgery for revision of the construct. She had a fairly uneventful few-day course. She went home and came back in with a spinal headache a few days ago. That also resolved. She had increasing headaches over the weekend; spinal fluid leak over the last 48 hours. We admitted urgently and place her on the schedule urgently for a repair of the dural tear, patching of the dura now to be performed today on 09/25/2017. PAST MEDICAL HISTORY: Stenosis, Crohn's disease, chronic liver disease, hypertension, hypothyroid, diabetes mellitus. MEDICATIONS: Numerous; they are in the inquiry. There are approximately 20 different medications. Surgery from a spinal standpoint Includes lumbar surgery x2. I did a posterior lumbar interbody fusion on her a couple years ago and then revision surgery a month or so earlier. REVIEW OF SYSTEMS: She denies any blurred vision, double vision. Does have significant headaches. She also has a feeling fatigued I feel is related. Denies chest pain, shortness of breath. As far as her headache is concerned it does resolve when she becomes supine or with her head elevated about 10 degrees. Abdomen is soft, nontender. Extremities are intact with no gross neurological deficit. OBJECTIVE: VITAL SIGNS: 36.5 temperature, 122/80 blood pressure, pulse 72, pulse ox 95. HEENT: Pupils were reactive to light and accommodation. Ear, nose and throat clear. CARDIAC: Normal S1, S2. LUNGS: Clear to auscultation. ABDOMEN: Soft, nontender. Her wound was examined. She has a small amount of fluid. She has significant redness to the wound itself. No warmth or erythema and no foul discharge. ASSESSMENT: Spinal fluid leak, CSF leak more than likely at the L4-5 interspace secondary to the extraction of a prior spinal implant. DISPOSITION: She was admitted to our service last evening. We have kept her n.p.o. Keep her n.p.o. today. She has surgery coming up at approximately 3:30 or 4:00 this afternoon for patching of the spinal canal and hopefully resolution of the spinal fluid leak.
[2017-09-25] MEDS: VERAPAMIL HCL 240 MG TABCR PO SCH (09:55)
[2017-09-25] MEDS: METFORMIN HCL 500 MG TABCR PO SCH (09:55)
[2017-09-25] MEDS: DOCUSATE SODIUM 100 MG CAP PO SCH ×2 (09:55→20:50)
[2017-09-25] MEDS: BuPROPion SR 150 MG TABCR PO SCH ×2 (09:56→20:50)
[2017-09-25] MEDS: QUETIAPINE FUMARATE 200 MG TAB PO SCH ×2 (09:56→20:51)
[2017-09-25] MEDS: GABAPENTIN 600 MG TAB PO SCH ×2 (09:56→20:50)
[2017-09-25] MEDS: LISINOPRIL 5 MG TAB PO SCH (09:56)
[2017-09-25] MEDS: HYDROmorphone INJ 2 MG/ML SYR/VIAL IV PRN ×2 (10:28→14:19)
--- NOTE | 2017-09-25 10:55 | Pharmacy Progress Note ---
Glycemic Control Intl Consult Date of Service Sep 25, 2017. Scope Glycemic Pharmacist consulted by Dr Byrd on 09/25/17 for glycemic control and to write orders per [facility] inpatient glycemic control protocol Objective Weight (Kilograms): 119.000 Accuchecks BSG (last 24hrs): Test 09/24/17 17:00 09/24/17 19:01 09/24/17 20:44 09/25/17 00:43 Random Glucose 71 mg/dl (70-99) Bedside Glucose 71 mg/dl (70-90) 87 mg/dl (70-90) 71 mg/dl (70-90) Test 09/25/17 02:10 09/25/17 04:02 09/25/17 06:04 Bedside Glucose 72 mg/dl (70-90) 73 mg/dl (70-90) 81 mg/dl (70-90) Laboratory Data (last 24hrs) Test 09/24/17 17:00 Anion Gap 8.0 mmol/L BUN/Creatinine Ratio 7.2 Blood Urea Nitrogen 6 mg/dl Creatinine 0.85 mg/dl Potassium Level 3.5 mmol/L Sodium Level 139 mmol/L White Blood Count 7.11 K/uL Red Blood Count 4.33 M/uL Hemoglobin 12.6 g/dL Hematocrit 39.3 % Mean Corpuscular Volume 90.8 fL Mean Corpuscular Hemoglobin 29.1 pg Mean Corpuscular Hemoglobin Concent 32.1 g/dl Platelet Count 190 K/uL Mean Platelet Volume 10.0 fL Neutrophils (%) (Auto) 56.0 % Lymphocytes (%) (Auto) 29.7 % Monocytes (%) (Auto) 9.8 % Eosinophils (%) (Auto) 4.4 % Basophils (%) (Auto) 0.0 % Neutrophils # (Auto) 3.98 K/uL Lymphocytes # (Auto) 2.11 K/uL Monocytes # (Auto) 0.70 K/uL Eosinophils # (Auto) 0.31 K/uL Basophils # (Auto) 0.00 K/uL Recent Pertinent Medications Outpatient Anti-diabetic Regimen: * Metformin 1gm PO QAM * Novolog insulin pump, basal rate: * 9730-4043 --> 2 units/hr * 9158-1072 --> 2.4 units/hr * 8244-0692 --> 2.3 units/hr * 55 units/day * A1c = 5.9% (09/18/17) Assessment & Plan ASSESSMENT: * 41yo T2DM female admitted for CSF leak. * She is managed on Novolog insulin pump as an outpatient. Good control evidenced by A1c of 5.9% * Patient's insulin pump was placed on hold overnight due to NPO status with BSG 's ranging from 71 - 87 mg/dL. * Taken to OR today for . * * Due to the addition of high dose steroids on admission, the decision was made to hold her insulin pump and utilize basal/bolus insulin. PLAN FOR INPATIENT GLYCEMIC CONTROL: * Holding Novolog pump and metformin * Basal insulin with LANTUS [] units SQ BID * Correctional Insulin with NOVOLOG per scale ACHS * Goal Range: Low [] mg/dL - High [] mg/dL * Correction Factor: [] mg/dL/unit * Nutritional / Prandial insulin per carb ratio of 1 unit per [] grams CHO consumed PLAN FOR DISCHARGE: * Adequate glycemic control evidenced by recent A1c of 5.9% (09/18/17). * Patient can likely resume Novolog pump at home settings on discharge. * Please note that the plan above was derived based on current level of insulin resistance and hospital stress. These recommendations are appropriate for inpatient admission only. Plan of care upon discharge will need to be reassessed to avoid potential outpatient hypo/hyperglycemia. Thank you.
--- NOTE | 2017-09-25 13:07 | History & Physical Bridge Note ---
H&P Re-Evaluation Bridge Note: I have examined the patient, reviewed the History & Physical and in the interval since the performance of the History & Physical I have noted the following changes of clinical significance: No changes noted; repair spinal fluid leak Lumbar spine
--- NOTE | 2017-09-25 15:45 | Pharmacy Progress Note ---
Glycemic Control Intl Consult Date of Service Sep 25, 2017. Scope Glycemic Pharmacist consulted by Dr Ribera on 09/25/17 for glycemic control and to write orders per [facility] inpatient glycemic control protocol Objective Weight (Kilograms): 119.000 Accuchecks BSG (last 24hrs): Test 09/24/17 17:00 09/24/17 19:01 09/24/17 20:44 09/25/17 00:43 Random Glucose 71 mg/dl (70-99) Bedside Glucose 71 mg/dl (70-90) 87 mg/dl (70-90) 71 mg/dl (70-90) Test 09/25/17 02:10 09/25/17 04:02 09/25/17 06:04 09/25/17 08:05 Bedside Glucose 72 mg/dl (70-90) 73 mg/dl (70-90) 81 mg/dl (70-90) 81 mg/dl (70-90) Test 09/25/17 09:59 09/25/17 12:07 09/25/17 14:43 Bedside Glucose 90 mg/dl (70-90) 83 mg/dl (70-90) 80 mg/dl (70-90) Laboratory Data (last 24hrs) Test 09/24/17 17:00 Anion Gap 8.0 mmol/L BUN/Creatinine Ratio 7.2 Blood Urea Nitrogen 6 mg/dl Creatinine 0.85 mg/dl Potassium Level 3.5 mmol/L Sodium Level 139 mmol/L White Blood Count 7.11 K/uL Red Blood Count 4.33 M/uL Hemoglobin 12.6 g/dL Hematocrit 39.3 % Mean Corpuscular Volume 90.8 fL Mean Corpuscular Hemoglobin 29.1 pg Mean Corpuscular Hemoglobin Concent 32.1 g/dl Platelet Count 190 K/uL Mean Platelet Volume 10.0 fL Neutrophils (%) (Auto) 56.0 % Lymphocytes (%) (Auto) 29.7 % Monocytes (%) (Auto) 9.8 % Eosinophils (%) (Auto) 4.4 % Basophils (%) (Auto) 0.0 % Neutrophils # (Auto) 3.98 K/uL Lymphocytes # (Auto) 2.11 K/uL Monocytes # (Auto) 0.70 K/uL Eosinophils # (Auto) 0.31 K/uL Basophils # (Auto) 0.00 K/uL Recent Pertinent Medications Outpatient Anti-diabetic Regimen: * Metformin 1gm PO QAM * Novolog insulin pump, basal rate: * 5937-2993 --> 2 units/hr * 1683-3835 --> 2.4 units/hr * 0649-2389 --> 2.3 units/hr * 55 units/day * A1c = 5.9% (09/18/17) Assessment & Plan ASSESSMENT: * 41yo T2DM female admitted for CSF leak. Pt underwent lumbar spinal fusion on . She was recently admitted for severe headache s/p spinal surgery and was treated with Dexamethasone IV. * She is managed on Novolog insulin pump as an outpatient. Good control evidenced by A1c of 5.9% * Patient's insulin pump was placed on hold overnight due to NPO status with BSG 's ranging from 71 - 87 mg/dL. * Plan for OR today for repair of CSF leak * Plan for inpatient glycemic control will depend on post-op orders: * If patient is started on high dose IV steroids post-operatively, I recommend continuing to hold her insulin pump and utilize basal/bolus insulin. * If patient is NOT started on steroids, she can resume her insulin pump at home settings. PLAN FOR INPATIENT GLYCEMIC CONTROL: * Holding Novolog pump and metformin for surgery today * If patient is ordered IV steroids post-op, initiate: * Lantus 20 units SQ BID * NOVOLOG per scale ACHS * Goal Range: Low 110 mg/dL - High 140 mg/dL * Correction Factor: 18 mg/dL/unit * Nutritional / Prandial insulin per carb ratio of 1 unit per 6 grams CHO consumed * If patient is NOT ordered IV steroids post-op, initiate: * Resume Novolog insulin pump at home settings * RN will have patient read and sign agreement [id number] Insulin Pump Therapy Patient Agreement. * RN will provide and explain form [id number] Flowsheet for Patient * Patient will document their insulin dose given on [id number] which is kept at the bedside, available to caregivers upon request, and which becomes part of the permanent medical record. PLAN FOR DISCHARGE: * Adequate glycemic control evidenced by recent A1c of 5.9% (09/18/17). * Patient can likely resume Novolog pump at home settings on discharge. * Please note that the plan above was derived based on current level of insulin resistance and hospital stress. These recommendations are appropriate for inpatient admission only. Plan of care upon discharge will need to be reassessed to avoid potential outpatient hypo/hyperglycemia. Thank you.
[2017-09-25] MEDS ORDERED: PROPOFOL IV EMULSION 10 MG/ML 20 ML VIAL IV ONE (16:26)
[2017-09-25] MEDS ORDERED: GLYCOPYRROLATE INJ 0.2 MG/ML VIAL ONE (16:26)
[2017-09-25] MEDS ORDERED: LARYING-O-JET KIT (LTA) ONE ×2 (16:26)
[2017-09-25] MEDS ORDERED: NEOSTIGMINE METHYLSULFATE 1 MG/ML 10ML VIAL ONE (16:26)
[2017-09-25] MEDS ORDERED: LIDOCAINE HCL 2% 2 ML VIAL (20MG/ML) ONE (16:26)
[2017-09-25] MEDS ORDERED: CISATRACURIUM BESYLATE IV SOLN 2 MG/ML 10 ML VIAL ONE (16:26)
[2017-09-25] MEDS ORDERED: ONDANSETRON INJ 2 MG/ML 2 ML VIAL ONE (16:26)
[2017-09-25] MEDS ORDERED: MIDAZOLAM HCL 1 MG/ML 2ML VIAL ONE (16:27)
[2017-09-25] MEDS ORDERED: FENTANYL CITRATE INJ 50 MCG/1 ML 2 ML VIAL ONE ×2 (16:27→17:52)
[2017-09-25] MEDS ORDERED: VANCOMYCIN HCL 1000MG/20ML VIAL ONE ×2 (16:37→18:03)
[2017-09-25] MEDS ORDERED: BACITRACIN 50000 UNIT VIAL ONE ×2 (16:37→17:24)
[2017-09-25] MEDS ORDERED: BUPIVACAINE/EPINEPHRINE 0.5% MPF 1:200,000 30 ML VIAL ONE ×2 (16:37→16:38)
[2017-09-25] MEDS ORDERED: GELATIN SPONGE SZ 100 ONE (16:38)
[2017-09-25] MEDS ORDERED: THROMBIN FOR SOLN 20000 UNIT KIT ONE (16:55)
[2017-09-25] MEDS ORDERED: FLUMAZENIL 0.1 MG/1 ML 10 ML VIAL IV PRN (17:30)
[2017-09-25] MEDS ORDERED: ATROPINE SULFATE 0.1 MG/ML 5ML SYR IV PRN (17:30)
[2017-09-25] MEDS ORDERED: ONDANSETRON INJ 2 MG/ML 2 ML VIAL IV PRN ×2 (17:30→18:45)
[2017-09-25] MEDS ORDERED: EpHEDrine SULFATE INJ 50 MG/ML AMP IV PRN (17:30)
[2017-09-25] MEDS ORDERED: NALOXONE HCL 0.4 MG/1 ML VIAL/CARP IV PRN (17:30)
[2017-09-25] MEDS ORDERED: LABETALOL HCL IV 5 MG/ML 20ML IV PRN (17:30)
[2017-09-25] MEDS ORDERED: HYDROmorphone INJ 2 MG/ML SYR/VIAL ONE (18:33)
--- NOTE | 2017-09-25 18:35 | [facility] Post Operative Brief Note ---
Immediate Operative Summary Operative Date Sep 25, 2017. Pre-Operative Diagnosis Spinal fluid leak Post-Operative Diagnosis Spinal fluid leak Procedure(s) Performed Lumbar Dural Tear Repair Surgeon Dr. Emory Byrd Museum Exhibit Technician Surgeon(s) Mario AREVALO Estimated Blood Loss 10ML Findings dural leak Specimens none per surgeon Complication(s) None Disposition Recovery Room / PACU
[2017-09-25] MEDS ORDERED: LORAZEPAM INJ 1 MG in SYRINGE 0 ML IV PRN (18:45)
[2017-09-25] MEDS ORDERED: LORAZEPAM 1 MG TAB PO PRN (18:45)
[2017-09-25] MEDS ORDERED: MAGNESIUM HYDROXIDE SUSP 30 ML UDC PO PRN (18:45)
[2017-09-25] MEDS ORDERED: PROMETHAZINE HCL INJ 12.5 MG in SODIUM CHLORIDE 0.9% 50ML 50 ML IV PRN ×2 (18:45→19:15)
[2017-09-25] MEDS ORDERED: HYDROmorphone INJ 1 MG/ML SYR IV PRN (18:45)
[2017-09-25] MEDS ORDERED: ACETAMINOPHEN 325 MG TAB PO PRN (18:45)
[2017-09-25] MEDS ORDERED: OXYCODONE/ACETAMINOPHEN 5-325 TAB PO PRN ×2 (18:45)
[2017-09-25] MEDS: HYDROmorphone INJ 1 MG/ML SYR IV PRN ×5 (18:48→19:18)
--- NOTE | 2017-09-25 18:55 | OPERATIVE REPORT ---
DATE OF OPERATION: 09/25/2017 PREOPERATIVE DIAGNOSIS: Spinal fluid leak lumbar spine. POSTOPERATIVE DIAGNOSIS: Same. PROCEDURES: Included irrigation of wound, surgical repair of dural laceration, and patching the dura with DuraSeal. SURGEON: Emory Byrd DO [employer] SALES MANAGER: Mario Pond PA-C. COMPLICATIONS: No apparent complications. ESTIMATED BLOOD LOSS: Less than 50. DESCRIPTION OF PROCEDURE: The patient had persistence spinal headache, had obvious spinal fluid leaking from her wound. We remember her index surgery quite nicely from about 2 weeks ago. I knew she had some thinning of the dura around the L5 nerve root on the left hand side. At that point in time, she was not leaking and we did not feel it needed repair and obviously incorrect judgment. At this time, we got to the dural tear. There is still almost no dura to repair, was at the shoulder aspect of the nerve root. I was fearful but I had put a suture into the nerve and precipitated significant radiculopathy. The patient was taken to the operating room, a general intubated anesthetic provided, Jaime catheter provided, placed prone, scrubbed, prepped and draped sterile. We made a Jeffery skin through her old skin incision dissecting the soft tissue, putting in deep self-retaining retractor. We were able to evacuate the hematoma and the Gelfoam in the old DuraSeal quite readily. We came down on to the dural leak quite readily. There really was minimal dura to repair. It had thinned out from her prior surgery, reminding each other that she had a migration posterior of one of the spinal implants which possibly injured the dura at that point in time as well. We irrigated thoroughly. I was able to put 2 sutures into the dura. I did slow down the amount of flow. We then used 3 containers of DuraSeal patching off the dura with a combination DuraSeal-Gelfoam in 3-layered fashion. I then went irrigated and then went right to #1 Vicryl suture closing over vancomycin powder watertight fashion. I used 2 packs of interrupted #1 Vicryl. I used a running #1 Vicryl suture, a 2-0 in the subcuticular layer, with #1 Prolene used on the skin. I felt that the wound approximated quite nicely. We irrigated, closed. Sterile dressings were applied. The patient then returned supine, extubated to PACU stable. No apparent complications as stated. Sponge and needle count correct at the close. I attest to the content of the Intraoperative Record and any orders documented therein. Any exception s are noted below.
[2017-09-25] MEDS ORDERED: PROMETHAZINE HCL INJ 12.5 MG in SODIUM CHLORIDE 0.9% 50ML 50 ML IV ONE (19:15)
--- NOTE | 2017-09-25 19:37 | Anesthesiology Progress Note ---
Anesthesia Post Op Note Date & Time Sep 25, 2017 at 19:36 Vital Signs Pain Intensity: 5 Vital Signs Past 12 Hours Date Time Temp Pulse Resp B/P (MAP) Pulse Ox O2 Delivery O2 Flow Rate FiO2 09/25/17 19:34 36.9 09/25/17 19:31 102 16 96 09/25/17 19:31 101 16 09/25/17 19:26 99 16 09/25/17 19:26 100 16 116/70 97 09/25/17 19:21 98 16 116/72 95 09/25/17 19:21 98 16 09/25/17 19:20 95 16 09/25/17 19:20 95 16 97 09/25/17 19:16 122/65 09/25/17 19:15 98 16 98 09/25/17 19:15 98 16 09/25/17 19:11 119/72 09/25/17 19:10 101 16 95 09/25/17 19:10 101 16 09/25/17 19:09 101 16 95 09/25/17 19:09 102 16 09/25/17 19:07 118/79 09/25/17 19:04 98 16 97 09/25/17 19:04 98 16 09/25/17 19:01 119/76 09/25/17 18:59 97 16 95 09/25/17 18:59 97 16 09/25/17 18:58 98 14 97 09/25/17 18:58 99 14 09/25/17 18:56 108/74 09/25/17 18:53 104 11 09/25/17 18:53 104 11 121/51 93 09/25/17 18:48 93 15 94 09/25/17 18:48 94 15 09/25/17 18:46 138/87 09/25/17 18:44 122/84 09/25/17 18:43 37.7 97 16 122/84 96 Oxymask 10 09/25/17 18:43 95 16 96 09/25/17 18:43 95 16 09/25/17 15:36 Room Air 09/25/17 15:28 36.9 80 18 116/78 (91) 95 Room Air 09/25/17 11:29 36.6 77 14 147/92 (110) 93 Room Air 09/25/17 08:05 Room Air 09/25/17 07:42 36.5 72 14 122/88 (99) 95 Room Air 09/25/17 07:40 95 Room Air Notes Mental Status: alert / awake / arousable, participated in evaluation Pt Amnestic to Procedure: Yes Nausea / Vomiting: adequately controlled Pain: adequately controlled Airway Patency, RR, SpO2: stable & adequate BP & HR: stable & adequate Hydration State: stable & adequate Anesthetic Complications: no major complications apparent
[2017-09-25] MEDS: DEXAMETHASONE INJ 10 MG in SYRINGE 0 ML IV SCH (20:16)
[2017-09-25] MEDS: TRAZODONE HCL 100 MG TAB PO SCH (20:50)
[2017-09-25] MEDS: INSULIN ASPART 100 UNITS/ML 3 ML PEN SC SCH (21:00)
[2017-09-25] MEDS: INSULIN GLARGINE SOLOSTAR 100 UNITS/ML 3 ML PEN SC SCH (21:14)
[2017-09-25] MEDS: CLINDAMYCIN IV 600 MG in DEXTROSE 5% 50ML 50 ML IV SCH (22:01)
[2017-09-25] MEDS: KETOROLAC TROMETHAMINE 30 MG/ML VIAL IV SCH (22:01)
--- NOTE | 2017-09-25 22:04 | Progress Note ---
Subjective Date of Service: Sep 25, 2017. Subjective Pt evaluation today including: conversation w/ patient, physical exam, chart review, lab review, review of inpatient medication list having pain - would like pain medication. discussed that she's confused about pain meds -- reviewed concept of using different meds for different severity/ acuity of pain. she also noted that she feels like meds don't always last as "long as they should" and notes that she was taking 2 norco q6 scheduled at home -- wonders why we can't do that here. discussed rationale for not scheduling sedating medications to mitigate sedation risk, but that multiple meds would be available. she noted that she was in pain and wanted something IV but didnt' think anything was available - i discussed with nursing and reviewed chart - toradol and dilauded both available - nursing noted that they would be getting patient dose of toradol no other acute complaints pharmacy consulted for glycemic control Problem List Medical Problems: (1) Wound infection after surgery Status: Acute Review of Systems all other ROS otherwise negative except for as above Objective Vital Signs Date Time Temp Pulse Resp B/P (MAP) Pulse Ox O2 Delivery O2 Flow Rate FiO2 09/25/17 21:06 36.9 85 18 100/67 (78) 96 Nasal Cannula 2.0 09/25/17 20:30 36.8 104 18 108/73 (85) 90 Nasal Cannula 2.0 09/25/17 20:00 37.1 100 14 102/66 (78) 93 Room Air 2.0 09/25/17 20:00 93 Nasal Cannula 2.0 09/25/17 19:47 99 16 09/25/17 19:47 99 16 96 09/25/17 19:46 128/74 09/25/17 19:42 98 16 95 09/25/17 19:42 99 16 09/25/17 19:41 124/79 09/25/17 19:37 103 16 09/25/17 19:37 103 16 109/71 94 09/25/17 19:34 36.9 09/25/17 19:32 101 16 09/25/17 19:32 101 16 95 09/25/17 19:31 102 16 96 09/25/17 19:31 101 16 09/25/17 19:26 99 16 09/25/17 19:26 100 16 116/70 97 09/25/17 19:21 98 16 116/72 95 09/25/17 19:21 98 16 09/25/17 19:20 95 16 09/25/17 19:20 95 16 97 09/25/17 19:16 122/65 09/25/17 19:15 98 16 98 09/25/17 19:15 98 16 09/25/17 19:11 119/72 09/25/17 19:10 101 16 95 09/25/17 19:10 101 16 09/25/17 19:09 101 16 95 09/25/17 19:09 102 16 09/25/17 19:07 118/79 09/25/17 19:04 98 16 97 09/25/17 19:04 98 16 09/25/17 19:01 119/76 09/25/17 18:59 97 16 95 09/25/17 18:59 97 16 09/25/17 18:58 98 14 97 09/25/17 18:58 99 14 09/25/17 18:56 108/74 09/25/17 18:53 104 11 09/25/17 18:53 104 11 121/51 93 09/25/17 18:48 93 15 94 09/25/17 18:48 94 15 09/25/17 18:46 138/87 09/25/17 18:44 122/84 09/25/17 18:43 37.7 97 16 122/84 96 Oxymask 10 09/25/17 18:43 95 16 96 09/25/17 18:43 95 16 09/25/17 15:36 Room Air 09/25/17 15:28 36.9 80 18 116/78 (91) 95 Room Air 09/25/17 11:29 36.6 77 14 147/92 (110) 93 Room Air 09/25/17 08:05 Room Air 09/25/17 07:42 36.5 72 14 122/88 (99) 95 Room Air 09/25/17 07:40 95 Room Air 09/25/17 07:32 36.5 72 14 122/88 (99) 95 Room Air 09/24/17 23:53 79 90/61 (71) 96 Room Air 09/24/17 23:45 Room Air 09/24/17 22:50 36.8 66 16 86/58 (67) 96 Room Air 68 103/69 (80) Physical Exam General Appearance: no apparent distress (fatigued and laying in bed, no severe distress) Eyes: EOMI ENT: hearing grossly normal Neck: trachea midline Respiratory/Chest: no respiratory distress, no accessory muscle use Neurologic/Psychiatric: gravel weigher II-XII nml as tested Skin: normal color Laboratory Results Last 24 Hours Test 09/25/17 00:43 09/25/17 02:10 09/25/17 04:02 09/25/17 06:04 Bedside Glucose 71 mg/dl 72 mg/dl 73 mg/dl 81 mg/dl Test 09/25/17 08:05 09/25/17 09:59 09/25/17 12:07 09/25/17 14:43 Bedside Glucose 81 mg/dl 90 mg/dl 83 mg/dl 80 mg/dl Test 09/25/17 16:01 09/25/17 16:21 09/25/17 18:46 09/25/17 20:36 Bedside Glucose 73 mg/dl 83 mg/dl 84 mg/dl 94 mg/dl Assessment and Plan back pain - meds ordered, multiple available, discussed with nursing. will be giving toradol shortly. added norco to her prn list - 5/325 moderate, 10/325 moderate/severe since she noted this was helping at home DM - glycemic control for insulin management HTN - Cont Verapamil and Lisinopril - follow BPs Hypothyroidism - Cont Synthroid Crohns - pt normally on Remicade - outpt f/u DVT prophylaxis - per ortho/spine
[2017-09-25] MEDS ORDERED: HYDROCODONE/ACETAMOPHEN 5/325MG TAB PO PRN (22:15)
[2017-09-26 01:04] VITALS: PULSE 72; O2SAT 94
[2017-09-26] MEDS: HYDROmorphone INJ 1 MG/ML SYR IV PRN ×6 (02:17→20:58)
[2017-09-26 03:16] VITALS: BP 130/84; PULSE 69; TEMP 36.6; O2SAT 92
[2017-09-26] MEDS: ACETAMINOPHEN IV 1,000 MG in EMPTY BAG 0 ML IV SCH ×3 (04:24→19:54)
[2017-09-26] MEDS: DEXAMETHASONE INJ 10 MG in SYRINGE 0 ML IV SCH ×3 (04:24→19:55)
[2017-09-26] MEDS: KETOROLAC TROMETHAMINE 30 MG/ML VIAL IV SCH ×4 (04:25→21:48)
[2017-09-26] MEDS ORDERED: BISACODYL 10 MG SUPP PR PRN (06:00)
[2017-09-26] MEDS: NovoLOG INSULIN PUMP SCH ×2 (06:00)
[2017-09-26] MEDS ORDERED: BISACODYL 5 MG TABEC PO PRN (06:00)
[2017-09-26] MEDS: LEVOTHYROXINE 100 MCG TAB PO SCH (06:12)
[2017-09-26] MEDS: CLINDAMYCIN IV 600 MG in DEXTROSE 5% 50ML 50 ML IV SCH (06:14)
[2017-09-26] MEDS: SODIUM CHLORIDE 0.9% 1000ML 1,000 ML IV SCH (07:11)
[2017-09-26] MEDS: QUETIAPINE FUMARATE 200 MG TAB PO SCH ×2 (07:25→21:40)
[2017-09-26] MEDS: VERAPAMIL HCL 240 MG TABCR PO SCH (07:26)
[2017-09-26] MEDS: LISINOPRIL 5 MG TAB PO SCH (07:26)
[2017-09-26] MEDS: BuPROPion SR 150 MG TABCR PO SCH ×2 (07:26→21:40)
[2017-09-26 07:27] VITALS: BP 153/93; PULSE 64; TEMP 36.7; O2SAT 94
[2017-09-26] MEDS: INSULIN ASPART 100 UNITS/ML 3 ML PEN SC SCH ×4 (09:16→21:45)
[2017-09-26] MEDS: POLYETHYLENE (MIRALAX) 17 GM PACK PO SCH (09:17)
[2017-09-26] MEDS: INSULIN GLARGINE SOLOSTAR 100 UNITS/ML 3 ML PEN SC SCH ×2 (09:17→21:44)
[2017-09-26] MEDS: PANTOprazole SOD 40 MG TAB PO SCH (09:17)
[2017-09-26] MEDS: GABAPENTIN 600 MG TAB PO SCH ×2 (09:18→21:41)
[2017-09-26] MEDS: DOCUSATE SODIUM 100 MG CAP PO SCH ×2 (09:18→21:39)
[2017-09-26] MEDS: METFORMIN HCL 500 MG TABCR PO SCH (09:18)
--- NOTE | 2017-09-26 09:19 | Anesthesiology Progress Note ---
Anesthesia Post Op Note Date & Time Sep 26, 2017 at 09:18 Vital Signs Pain Intensity: 10.0 Vital Signs Past 12 Hours Date Time Temp Pulse Resp B/P (MAP) Pulse Ox O2 Delivery O2 Flow Rate FiO2 09/26/17 07:27 36.7 64 16 153/93 (113) 94 Room Air 09/26/17 07:25 Room Air 09/26/17 03:16 36.6 69 16 130/84 (99) 92 Room Air 09/26/17 01:04 72 94 Room Air 09/26/17 00:55 Room Air 09/25/17 22:59 36.9 86 18 141/84 (103) 93 Nasal Cannula 2.0 09/25/17 22:03 37.1 86 18 130/82 (98) 97 Nasal Cannula 2.0 Notes Mental Status: alert / awake / arousable, participated in evaluation Pt Amnestic to Procedure: Yes Nausea / Vomiting: adequately controlled Pain: adequately controlled Airway Patency, RR, SpO2: stable & adequate BP & HR: stable & adequate Hydration State: stable & adequate Anesthetic Complications: no major complications apparent
[2017-09-26] MEDS: OXYCODONE/ACETAMINOPHEN 5-325 TAB PO PRN ×3 (11:46→18:39)
--- NOTE | 2017-09-26 12:19 | Hospitalist Progress Note ---
Hospitalist Progress Note Date of Service Sep 26, 2017. (Miri Alva, CARLA) Objective Vital Signs Date Time Temp Pulse Resp B/P (MAP) Pulse Ox O2 Delivery O2 Flow Rate FiO2 09/26/17 07:27 36.7 64 16 153/93 (113) 94 Room Air 09/26/17 07:25 Room Air 09/26/17 03:16 36.6 69 16 130/84 (99) 92 Room Air 09/26/17 01:04 72 94 Room Air 09/26/17 00:55 Room Air 09/25/17 22:59 36.9 86 18 141/84 (103) 93 Nasal Cannula 2.0 09/25/17 22:03 37.1 86 18 130/82 (98) 97 Nasal Cannula 2.0 09/25/17 21:06 36.9 85 18 100/67 (78) 96 Nasal Cannula 2.0 09/25/17 20:30 36.8 104 18 108/73 (85) 90 Nasal Cannula 2.0 09/25/17 20:00 37.1 100 14 102/66 (78) 93 Room Air 2.0 09/25/17 20:00 93 Nasal Cannula 2.0 09/25/17 19:47 99 16 09/25/17 19:47 99 16 96 09/25/17 19:46 128/74 09/25/17 19:42 98 16 95 09/25/17 19:42 99 16 09/25/17 19:41 124/79 09/25/17 19:37 103 16 09/25/17 19:37 103 16 109/71 94 09/25/17 19:34 36.9 09/25/17 19:32 101 16 09/25/17 19:32 101 16 95 09/25/17 19:31 102 16 96 09/25/17 19:31 101 16 09/25/17 19:26 99 16 09/25/17 19:26 100 16 116/70 97 09/25/17 19:21 98 16 116/72 95 09/25/17 19:21 98 16 09/25/17 19:20 95 16 09/25/17 19:20 95 16 97 09/25/17 19:16 122/65 09/25/17 19:15 98 16 98 09/25/17 19:15 98 16 09/25/17 19:11 119/72 09/25/17 19:10 101 16 95 09/25/17 19:10 101 16 09/25/17 19:09 101 16 95 09/25/17 19:09 102 16 09/25/17 19:07 118/79 09/25/17 19:04 98 16 97 09/25/17 19:04 98 16 09/25/17 19:01 119/76 09/25/17 18:59 97 16 95 09/25/17 18:59 97 16 09/25/17 18:58 98 14 97 09/25/17 18:58 99 14 09/25/17 18:56 108/74 09/25/17 18:53 104 11 09/25/17 18:53 104 11 121/51 93 09/25/17 18:48 93 15 94 09/25/17 18:48 94 15 09/25/17 18:46 138/87 09/25/17 18:44 122/84 09/25/17 18:43 37.7 97 16 122/84 96 Oxymask 10 09/25/17 18:43 95 16 96 09/25/17 18:43 95 16 09/25/17 15:36 Room Air 09/25/17 15:28 36.9 80 18 116/78 (91) 95 Room Air (Miri Alva CRNP) Laboratory Results Last 24 Hours Test 09/25/17 12:07 09/25/17 14:43 09/25/17 16:01 09/25/17 16:21 Bedside Glucose 83 mg/dl 80 mg/dl 73 mg/dl 83 mg/dl Test 09/25/17 18:46 09/25/17 20:36 Bedside Glucose 84 mg/dl 94 mg/dl (Miri Alva CRNP) Assessment and Plan 41 y/o F DM II, HTN, Crohns, Hypothyroidism, anxiety. Pt had revision of lumbar fusion surgery 07/11 due to hardware movement. Since DC 07/13 she states she has had an intractable headache. She was recently here for medical management of her CSF leak which resolved, however her headaches returned so she has returned for irrigation of lumbar surgical wound, surgical repair of dural laceration, and patching the dura with DuraSeal 09/24. Post surgical repair of CSF leak - pain management per ortho - cbc in the morning to monitor for blood loss Group B strep, corynebacteria positive lumbar drainage culture - Has a headache but otherwise does not have meningitis symptoms, afebrile - Vancomycin - cbc DM - normally uses insulin pump, off for now - ss insulin HTN - Cont Verapamil and Lisinopril - follow BPs Hypothyroidism - Cont Synthroid Crohns - pt normally on Remicade - outpt f/u DVT prophylaxis - per ortho/spine (Miri Alva ., [employer]IG[employer] ELASTIC ATTACHER)
[2017-09-26 12:24] VITALS: BP 94/63; PULSE 73; TEMP 36.9; O2SAT 95
[2017-09-26] MEDS ORDERED: VANCOMYCIN CONSULT ACTIVE PRN (12:30)
[2017-09-26] MEDS ORDERED: VANCOMYCIN INJ 2,500 MG in SODIUM CHLORIDE 0.9% 500ML 500 ML IV ONE (12:30)
--- NOTE | 2017-09-26 13:31 | Hospitalist Progress Note ---
Hospitalist Progress Note Date of Service Sep 26, 2017. (Miri Alva .CARLA) Subjective Pt evaluation today including: conversation w/ patient, conversation w/ family , physical exam, chart review, lab review, conversation w/ polymer materials consultant, review of inpatient medication list Voiding: no voiding problems Ms. Christianson continues to have an occipital headache and mild photophobia but feels that the headache has improved. ROS Constitutional: no chills, aches, sweats or fever Respiratory: no sob,cough, sputum, or wheezing Cardiac: no chest pain, palpitations, edema, orthopnea or lightheadedness GI: no abdominal pain, nausea, vomiting, diarrhea or constipation : no dysuria or hesitancy Extremities: no joint pain or weakness Skin: no rash (Miri Alva CRNP) Medications Medications (Trade) Dose Ordered Sig/Mio Route Start Time Stop Time Status Last Admin Dose Admin Bupivacaine HCl/ Epinephrine Bitart (Sensorcaine/ Epinephrine 0.5% Mpf 1:200,000) 30 ml STK-MED ONCE .ROUTE 09/25/17 16:37 09/25/17 16:38 DC 09/25/17 16:37 30 ML Vancomycin HCl (Vancomycin Inj) 50 mg STK-MED ONCE .ROUTE 09/25/17 16:37 09/25/17 16:38 DC 09/25/17 16:37 50 MG Bacitracin (Bacitracin Inj) 50,000 units STK-MED ONCE .ROUTE 09/25/17 16:37 09/25/17 16:38 DC 09/25/17 16:37 50,000 UNITS Gelatin (Surgifoam Sponge 100 (LARGE)) 1 ea STK-MED ONCE .ROUTE 09/25/17 16:38 09/25/17 16:39 DC 09/25/17 16:38 1 EA Bupivacaine HCl/ Epinephrine Bitart (Sensorcaine/ Epinephrine 0.5% Mpf 1:200,000) 30 ml STK-MED ONCE .ROUTE 09/25/17 16:38 09/25/17 16:39 DC 09/25/17 16:38 30 ML Thrombin (Recothrom Kit) 20,000 units STK-MED ONCE .ROUTE 09/25/17 16:55 09/25/17 16:56 DC 09/25/17 16:55 9,000 UNITS Hydromorphone HCl (Dilaudid Inj) 0.25 mg Q5M PRN IV 09/25/17 17:30 09/25/17 22:00 DC 09/25/17 19:18 0.25 MG Bacitracin (Bacitracin Inj) 50,000 units STK-MED ONCE .ROUTE 09/25/17 17:24 09/25/17 17:25 DC 09/25/17 17:24 50,000 UNITS Vancomycin HCl (Vancomycin Inj) 50 mg STK-MED ONCE .ROUTE 09/25/17 18:03 09/25/17 18:04 DC 09/25/17 18:06 25 MG Hydromorphone HCl (Dilaudid Inj) 1 mg Q3H PRN IV 09/25/17 18:45 10/09/17 18:44 09/26/17 10:31 1 MG Ketorolac Tromethamine (Toradol Inj) 30 mg Q6H IV 09/25/17 22:00 09/26/17 22:01 09/26/17 09:22 30 MG Polyethylene (Miralax Powder Packet) 17 gm DAILY PO 09/26/17 09:00 10/26/17 08:59 09/26/17 09:17 17 GM Clindamycin Phosphate 600 mg/ Dextrose 54 ml @ 100 mls/hr Q8H IV 09/25/17 22:00 09/26/17 06:33 DC 09/26/17 06:14 100 MLS/HR Dexamethasone Sodium Phosphate 10 mg/Syringe 2.5 ml @ 1 mls/min Q8H IV 09/25/17 20:00 09/27/17 04:03 09/26/17 11:45 1 MLS/MIN Sodium Chloride 1,000 ml @ 80 mls/hr [id number] IV 09/25/17 18:34 10/25/17 18:33 09/26/17 07:11 80 MLS/HR Pantoprazole Sodium (Protonix Tab) 40 mg QAM PO 09/26/17 09:00 10/26/17 08:59 09/26/17 09:17 40 MG Promethazine HCl 12.5 mg/Sodium Chloride 50.5 ml @ 202 mls/hr TODAY@1915 ONCE IV 09/25/17 19:15 09/25/17 19:29 DC 09/25/17 19:24 202 MLS/HR Insulin Glargine (Lantus Solostar Pen) 20 units BID SC 09/25/17 21:00 10/25/17 20:59 09/26/17 09:17 20 UNITS Insulin Aspart (novoLOG ASPART) SLIDING SCALE ACHS SC 09/25/17 21:00 10/25/17 20:59 09/26/17 13:01 12 UNITS Vancomycin HCl 2500 mg/Sodium Chloride 550 ml @ 200 mls/hr TODAY@1230 ONCE IV 09/26/17 12:30 09/26/17 15:14 09/26/17 12:57 200 MLS/HR (Miri Alva, CARLA) Objective Vital Signs Date Time Temp Pulse Resp B/P (MAP) Pulse Ox O2 Delivery O2 Flow Rate FiO2 09/26/17 12:24 36.9 73 16 94/63 (73) 95 Room Air 09/26/17 07:27 36.7 64 16 153/93 (113) 94 Room Air 09/26/17 07:25 Room Air 09/26/17 03:16 36.6 69 16 130/84 (99) 92 Room Air 09/26/17 01:04 72 94 Room Air 09/26/17 00:55 Room Air 09/25/17 22:59 36.9 86 18 141/84 (103) 93 Nasal Cannula 2.0 09/25/17 22:03 37.1 86 18 130/82 (98) 97 Nasal Cannula 2.0 09/25/17 21:06 36.9 85 18 100/67 (78) 96 Nasal Cannula 2.0 09/25/17 20:30 36.8 104 18 108/73 (85) 90 Nasal Cannula 2.0 09/25/17 20:00 37.1 100 14 102/66 (78) 93 Room Air 2.0 09/25/17 20:00 93 Nasal Cannula 2.0 09/25/17 19:47 99 16 09/25/17 19:47 99 16 96 09/25/17 19:46 128/74 09/25/17 19:42 98 16 95 09/25/17 19:42 99 16 09/25/17 19:41 124/79 09/25/17 19:37 103 16 09/25/17 19:37 103 16 109/71 94 09/25/17 19:34 36.9 09/25/17 19:32 101 16 09/25/17 19:32 101 16 95 09/25/17 19:31 102 16 96 09/25/17 19:31 101 16 09/25/17 19:26 99 16 09/25/17 19:26 100 16 116/70 97 09/25/17 19:21 98 16 116/72 95 09/25/17 19:21 98 16 09/25/17 19:20 95 16 09/25/17 19:20 95 16 97 09/25/17 19:16 122/65 09/25/17 19:15 98 16 98 09/25/17 19:15 98 16 09/25/17 19:11 119/72 09/25/17 19:10 101 16 95 09/25/17 19:10 101 16 09/25/17 19:09 101 16 95 09/25/17 19:09 102 16 09/25/17 19:07 118/79 09/25/17 19:04 98 16 97 09/25/17 19:04 98 16 09/25/17 19:01 119/76 09/25/17 18:59 97 16 95 09/25/17 18:59 97 16 09/25/17 18:58 98 14 97 09/25/17 18:58 99 14 09/25/17 18:56 108/74 09/25/17 18:53 104 11 09/25/17 18:53 104 11 121/51 93 09/25/17 18:48 93 15 94 09/25/17 18:48 94 15 09/25/17 18:46 138/87 09/25/17 18:44 122/84 09/25/17 18:43 37.7 97 16 122/84 96 Oxymask 10 09/25/17 18:43 95 16 96 09/25/17 18:43 95 16 09/25/17 15:36 Room Air 09/25/17 15:28 36.9 80 18 116/78 (91) 95 Room Air (Miri Alva CRNP) Physical Exam Notes: General: no distress Eyes: normal inspection, PERLL Respiratory: chest non tender, clear to auscultation, normal breath sounds, no respiratory distress, no accessory muscle use Cardiac: regular rate and rhythm, no rub or gallop, no murmur, no edema, no jvd GI/: active bowel sounds, no abd pain or tenderness, soft, non distended Extremities: normal range of motion, normal strength, non tender Neuro/Psych: alert and oriented x 3, normal mood and affect Skin: normal color, dry (Miri Alva CRNP) Laboratory Results Last 24 Hours Test 09/25/17 14:43 09/25/17 16:01 09/25/17 16:21 09/25/17 18:46 Bedside Glucose 80 mg/dl 73 mg/dl 83 mg/dl 84 mg/dl Test 09/25/17 20:36 Bedside Glucose 94 mg/dl (Miri Alva CRNP) Assessment and Plan 41 y/o F DM II, HTN, Crohns, Hypothyroidism, anxiety. Pt had revision of lumbar fusion surgery 07/11 due to hardware movement. Since DC 07/13 she states she has had an intractable headache. She was recently here for medical management of her CSF leak which resolved, however her headaches returned so she has returned for irrigation of lumbar surgical wound, surgical repair of dural laceration, and patching the dura with DuraSeal 09/24. Post surgical repair of CSF leak - pain management per ortho - cbc in the morning to monitor for blood loss Group B strep, corynebacteria positive lumbar drainage culture - Has a headache but otherwise does not have meningitis symptoms, afebrile - Vancomycin - cbc - consult ID DM - normally uses insulin pump, off for now - ss insulin HTN - Cont Verapamil and Lisinopril - follow BPs Hypothyroidism - Cont Synthroid Crohns - pt normally on Remicade - outpt f/u DVT prophylaxis - per ortho/spine (Miri Alva CRNP) Attending Note & Attestation: Pt seen/examined, chart reviewed, care plan d/w WAREHOUSE HANDLERJAMES Alva. I agree w/ the thrasher components of her documentation. Pt w/ ongoing headache and photophobia Also w/ ongoing restless legs type symptoms Very nervous about everything going on right now VSS no fever gen - nad, tearful mouth - MMM neck - no JVD heart - RRR lungs - CTA b/l abd - soft, NT ext - no edema A/P: 1. spinal headache 2nd to dural tear in midst of recent lumbar back surgery - s /p dural repair by Dr. Byrd 2. ongoing headache - migraine? tension? low-grade meningitis given the + culture with group B strep and corynebacterium? patient without fever, leukocytosis, or meningismus signs otherwise. 3. concern of infectious component in back - start IV vancomycin for GBS and corynebacterium; ID consult requested 4. RLS - mirapex; will need IV iron in future to correct iron deficiency ( ferritin level <30 last week) will follow Anaid NICHOLSON MD (Jamil Nicholson MD)
[2017-09-26] MEDS: ONDANSETRON INJ 2 MG/ML 2 ML VIAL IV PRN (13:53)
--- NOTE | 2017-09-26 14:06 | Pharmacy Progress Note ---
Pharmacy Antibiotic Consult Date of Service: Sep 26, 2017. Pharmacy Dosing Scope Pharmacy is consulted to initiate Vancomycin IV dosing therapy, order appropriate labs and adjust drug dose/frequency. Subjective The patient is a 41 year old female admitted on Sep 24, 2017 at 17:05. Objective Height (Feet): 5 Height (Inches): 7.00 Weight (Kilograms): 119.000 Lab Results (24hrs): Test 09/25/17 18:46 09/25/17 20:36 Bedside Glucose 84 mg/dl (70-90) 94 mg/dl (70-90) Micro Results: Item Value Date Time Blood Culture - Preliminary Resulted 09/24/17 1700 Blood NO GROWTH TO DATE. Blood Culture - Preliminary Resulted 09/24/17 1656 Blood NO GROWTH TO DATE. Gram Stain - Final Resulted 09/24/17 1630 Drainage - Surface Back Group B Beta Strep Corynebacterium sp. Assessment & Plan ASSESSMENT: * Ms Christianson is a 41yo patient admitted with spinal headache. * Pt had revision of lumbar fusion surgery in June 2016, d/t hardware mvmt. Pt complains of constant headache since discharge. * Recent admission for CSF leak. Patient is now s/p irrigation of lumbar surgical wound and repair of dural laceration w/ dural patching. * Lumbar drainage culture positive for Group B Strep and Corynebacterium sp. * Pt is afebrile and does not appear to have s/s of meningitis, other than NAJERA. * ID consult in place. * Vancomycin initiated. PLAN: Vancomycin * Loading dose: Vancomycin 2500 mg (~21mg/kg) IV x1 dose then: * Vanc 1750 mg (~14.7mg/kg) IV every 10 hours. * Dosed somewhat conservatively d/t the likelihood of vanc accumulation in the obese pt population (BMI 41.1 kg/m2) * Goal trough level estimate: between 15 - 20 mcg/mL. * Trough level has been ordered for: 09/28 @ 0330, prior to the 4th maintenance dose Pharmacy will continue to follow and will adjust dose/frequency as necessary. Thank you
--- NOTE | 2017-09-26 14:40 | Progress Note ---
Progress Note Date of Service Sep 26, 2017. Progress Note ID Consult Dictated #[id number] A/P: 1. CSF Leak post op -Continue vanco for now, follow final culture results -Will likely require intermediate abx -Will follow, thank you
--- NOTE | 2017-09-26 15:01 | Pharmacy Progress Note ---
Glycemic Control Progress Note Date of Service Sep 26, 2017. Scope Glycemic Pharmacist consulted for glycemic control to write orders per [facility] inpatient glycemic control protocol. Objective Accuchecks BSG (last 24hrs): Test 09/25/17 16:01 09/25/17 16:21 09/25/17 18:46 09/25/17 20:36 Bedside Glucose 73 mg/dl (70-90) 83 mg/dl (70-90) 84 mg/dl (70-90) 94 mg/dl (70-90) Recent Pertinent Medications The patient is currently receiving: * Basal insulin: Lantus 20 units every 12 hours * Correctional Insulin: Novolog Correction per scale ACHS Goal Range: Low 140 mg/dL - High 180 mg/dL Correction Factor: 18 mg/dL/unit * Prandial insulin: Per carb ratio of 1 unit per 6 grams CHO consumed Outpatient Anti-Diabetic Meds Metformin 1 gm PO BID + Novolog pump Assessment & Plan ASSESSMENT: * See progress note from 09/25/17 for more background info, in short: * Pt receiving SQ basal bolus insulin regimen for hyperglycemia secondary to baseline DM (outpatient regimen on hold), infection, POD 1 for lumbar dural tear repair, and currently receiving dexamethasone 10 mg IV q10 hours. * Patient has currently received 43 of insulin today * 20 units of basal insulin * 23 units of prandial/correctional insulin * BSGs ranging 249 - 250 mg/dl over the past 24hrs * Changes needed to insulin regimen: * AM Fasting BSG = 249 mg/dl. This is slightly above goal range for patient based on inpatient targets and co-morbidities. Will provide a sliding scale of Lantus this evening with weight based stress of 2 and 3 as options. This is comfortable has home basal rate is 55 units/day. * Post-prandial BSGs have remained steady yet elevated. Reduced goal range and tightened slightly to reflect more appropriate coverage * Total daily dose = ~80-90 units. Coverage has been adjusted to reflect this. PLAN FOR INPATIENT GLYCEMIC CONTROL: * STARTING Lantus 20-30 units SQ BID * TIGHTENING correction factor to 15 mg/dl/unit * TIGHTENING carb ratio to 1 unit per 5 grams CHO consumed * LOWERING goal range to Low 110 mg/dL - High 140 mg/dL RECOMMENDATIONS FOR DISCHARGE: * Can continue same regimen at home as long as no hypoglycemic Thank you.
--- NOTE | 2017-09-26 15:03 | INFECT. DISEASE CONSULTATION ---
DATE OF CONSULTATION: 09/26/2017 HISTORY OF PRESENT ILLNESS: This is a 41-year-old female who was admitted electively after she had worsening headache post-spinal surgery. She did have her initial surgery approximately 2 weeks ago. She did have some difficulty with her spinal implants putting pressure onto the cauda equina and she did have a reconstruction of this. She was again discharged home, but did suffer a complication of headache. She was seen and was admitted to the hospital as it was noted that there was evidence of spinal fluid leak. She did go to the operating room on the and underwent repair of this. Cultures were obtained surface wound culture, but appeared to be cerebrospinal fluid. This is growing corynebacterium and group B strep. Sensitivities are pending. She was placed initially on vancomycin and she remains on this. SHE DOES HAVE ALLERGIES TO BACTRIM AND KEFLEX, WHICH SHE STATES CAUSE SWELLING ALL OVER HER BODY. She appears tolerating vancomycin well. She continues to have headache, but overall feels it is improving. She has some pain at her incision site, but states this is controlled with pain medication. She does feel that she has continued leaking of fluid. She denies any visual changes. She has no nuchal rigidity. She denies any fevers or chills. She is eating well. She has no nausea, vomiting, diarrhea or abdominal pain. All remaining review of systems reviewed and are unremarkable. PAST MEDICAL HISTORY: Significant for Crohn's disease, history of liver disease, hypertension, hypothyroidism, and diabetes. PAST SURGICAL HISTORY: Significant for above-mentioned spinal surgeries. ALLERGIES: SHE HAS ALLERGIES TO SULFA AND KEFLEX. CURRENT MEDICATIONS: Include vancomycin, MiraLax, Protonix, Dulcolax, Percocet, Toradol, dexamethasone, Dilaudid, Reglan, lorazepam, milk of magnesia, Benadryl, metformin, lisinopril, verapamil, Synthroid, Wellbutrin, Colace, Neurontin, trazodone, Tylenol, Ativan, Xanax and Bentyl. FAMILY HISTORY: Noncontributory. PHYSICAL EXAMINATION: VITAL SIGNS: Current temperature is 36.9. She had a 1-time low grade temperature on the of 37.7, but otherwise has been afebrile. Pulse 73, respiratory rate 16, and blood pressure is 94/63, but was 153/93 this morning. She has had an oxygen saturation of 95% on room air. GENERAL: She is awake, alert and oriented x3. She is in no acute distress. HEENT: Mucous membranes are moist. Extraocular muscles are intact. There is no nuchal rigidity. HEART: Regular. LUNGS: Clear bilaterally. ABDOMEN: Soft and nondistended. EXTREMITIES: There is no edema. SKIN: Without rash. LABORATORY STUDIES: CBC on the reveals a white blood cell count of 7.1, hemoglobin 12.6, and platelets are 190. Chemistry panel on admission reveals a sodium of 139, potassium 3.5, chloride 105, bicarb 26, BUN 6, creatinine 0.8, and glucose was 71. LFTs are within normal limits. Her current glucose is 94. Blood cultures from the are no growth to date x2 sets. Her wound culture is growing group B strep. Sensitivities are pending. She has not had any imaging from this admission. ASSESSMENT AND PLAN: Spinal leak, status post lumbar surgery. She will remain on vancomycin pending the results of her cultures. Her final sensitivities are pending and antibiotics will be adjusted when available; however, SHE IS ALLERGIC TO CEPHALOSPORINS WELL SULFA and she may ultimately remain on vancomycin. She will likely need a prolonged course of antibiotics due to retained hardware. We will follow along with you. Thank you for this consultation. JAXSON
[2017-09-26 15:44] VITALS: BP 108/75; PULSE 76; TEMP 37; O2SAT 95
[2017-09-26] MEDS: METOCLOPRAMIDE HCL INJ 5 MG/ML 2 ML VIAL IV PRN (17:32)
[2017-09-26] MEDS: PRAMIPEXOLE DIHYDROCHLORIDE 0.5 MG TAB PO SCH (21:38)
[2017-09-26] MEDS: TRAZODONE HCL 100 MG TAB PO SCH (21:39)
[2017-09-26] MEDS: VANCOMYCIN INJ 1,750 MG in SODIUM CHLORIDE 0.9% 500ML 500 ML IV SCH (21:47)
[2017-09-26] MEDS ORDERED: NURSING VERBAL MED ORDER ONE (22:00)
[2017-09-26 22:55] VITALS: BP 145/80; PULSE 67; TEMP 36.7; O2SAT 97
[2017-09-27] MEDS: OXYCODONE/ACETAMINOPHEN 5-325 TAB PO PRN ×4 (00:04→19:53)
[2017-09-27] MEDS: METOCLOPRAMIDE HCL INJ 5 MG/ML 2 ML VIAL IV PRN (00:04)
[2017-09-27] MEDS: ACETAMINOPHEN IV 1,000 MG in EMPTY BAG 0 ML IV SCH ×3 (04:00→11:51)
[2017-09-27] MEDS: DEXAMETHASONE INJ 10 MG in SYRINGE 0 ML IV SCH (04:07)
[2017-09-27] MEDS: LEVOTHYROXINE 100 MCG TAB PO SCH (05:42)
[2017-09-27 07:31] VITALS: BP 159/84; PULSE 66; TEMP 36.8; O2SAT 96
[2017-09-27 07:34] LABS: CREATININE 0.88 mg/dl (0.60-1.20)
[2017-09-27] MEDS: VANCOMYCIN INJ 1,750 MG in SODIUM CHLORIDE 0.9% 500ML 500 ML IV SCH ×2 (08:35→18:31)
[2017-09-27] MEDS: HYDROmorphone INJ 1 MG/ML SYR IV PRN ×2 (08:36→17:40)
[2017-09-27 08:37] LABS: COMPLETE YES; HEMATOCRIT 34.9 % (37-47); IG% 0.2 %; LYMPH % 10.6 %; LYMPH ABS # 0.93 K/uL (1.2-3.4); MEAN CELL VOLUME 89.7 fL (80-100); MEAN CORPUSCULAR HGB CONC 32.4 g/dl (32-36); MONO % 4.3 %; NEUT % 84.9 %; PLATELET COUNT 190 K/uL (130-400); RED BLOOD COUNT 3.89 M/uL (4.2-5.4); WHITE BLOOD COUNT 8.81 K/uL (4.8-10.8)
--- NOTE | 2017-09-27 08:42 | Pharmacy Progress Note ---
Glycemic Control Progress Note Date of Service Sep 27, 2017. Scope Glycemic Pharmacist consulted for glycemic control to write orders per [facility] inpatient glycemic control protocol. Objective Accuchecks BSG (last 24hrs): Test 09/26/17 08:43 09/26/17 11:55 09/26/17 16:55 09/26/17 20:47 Bedside Glucose 249 mg/dl (70-90) 250 mg/dl (70-90) 221 mg/dl (70-90) 199 mg/dl (70-90) Test 09/27/17 08:04 Bedside Glucose 255 mg/dl (70-90) Recent Pertinent Medications The patient is currently receiving: * Basal insulin: Lantus 20 units every 12 hours * Correctional Insulin: Novolog Correction per scale ACHS Goal Range: Low 110 mg/dL - High 140 mg/dL Correction Factor: 15 mg/dL/unit * Prandial insulin: Per carb ratio of 1 unit per 5 grams CHO consumed Outpatient Anti-Diabetic Meds Metformin 1000 mg PO QAM plus Novolog pump (basal around 55 units/day) Assessment & Plan ASSESSMENT: * See progress note from 09/25/17 for more background info, in short: * Pt receiving SQ basal bolus insulin regimen for hyperglycemia secondary to baseline DM (outpatient regimen on hold), infection, POD 2 for lumbar dural tear repair, and currently receiving dexamethasone 10 mg IV q10 hours (last dose around 0400 this morning). * Patient has currently received 81 of insulin today * 40 units of basal insulin * 41 units of prandial/correctional insulin * BSGs ranging 199-250 mg/dl over the past 24hrs * Changes needed to insulin regimen: * AM Fasting BSG = 255 mg/dl. This is slightly above goal range for patient based on inpatient targets and co-morbidities. The patient's fasting blood sugar is similar to yesterday's fasting. Will increase Lantus to weight based stress of 3 this morning then provide scale for this evening. Expect dexamethasone effects to decrease by tomorrow morning. * Post-prandial BSGs have remained steady yet elevated. Continue tightened effects as this did trend downwards throughout the evening. * Total daily dose = ~80-90 units. Coverage has been adjusted to reflect this. PLAN FOR INPATIENT GLYCEMIC CONTROL: * STARTING Lantus 30 units SQ x 1 then LANTUS 20-30 units SQ BID * Continuing correction factor of 15 mg/dl/unit * Continuing carb ratio of 1 unit per 5 grams CHO consumed * Continuing goal range of Low 110 mg/dL - High 140 mg/dL RECOMMENDATIONS FOR DISCHARGE: * Can continue same regimen at home as long as no hypoglycemic Thank you.
[2017-09-27] MEDS: LISINOPRIL 5 MG TAB PO SCH (08:43)
[2017-09-27] MEDS: PANTOprazole SOD 40 MG TAB PO SCH (08:43)
[2017-09-27] MEDS: POLYETHYLENE (MIRALAX) 17 GM PACK PO SCH (08:44)
[2017-09-27] MEDS: METFORMIN HCL 500 MG TABCR PO SCH (08:44)
[2017-09-27] MEDS: QUETIAPINE FUMARATE 200 MG TAB PO SCH ×2 (08:44→21:27)
[2017-09-27] MEDS: DOCUSATE SODIUM 100 MG CAP PO SCH ×2 (08:44→21:27)
[2017-09-27] MEDS: VERAPAMIL HCL 240 MG TABCR PO SCH (08:44)
[2017-09-27] MEDS: BuPROPion SR 150 MG TABCR PO SCH ×2 (08:44→21:27)
[2017-09-27] MEDS: INSULIN ASPART 100 UNITS/ML 3 ML PEN SC SCH ×4 (08:51→21:29)
[2017-09-27] MEDS: GABAPENTIN 600 MG TAB PO SCH ×2 (08:51→21:27)
[2017-09-27] MEDS ORDERED: INSULIN GLARGINE SOLOSTAR 100 UNITS/ML 3 ML PEN SC SCH (09:00)
[2017-09-27] MEDS: ALPRAZOLAM 0.5 MG TAB PO PRN (09:41)
[2017-09-27] MEDS ORDERED: NURSING DECISION MEDICATION ORDER SCH (10:30)
--- NOTE | 2017-09-27 13:48 | Hospitalist Progress Note ---
Hospitalist Progress Note Date of Service Sep 27, 2017. (Miri Alva CRNP) Subjective Pt evaluation today including: conversation w/ patient, physical exam, chart review, lab review, review of inpatient medication list Voiding: underwood catheter in place Ms. Christianson continues to have a headache but she believes it is persistent today as she has been trying to sit the head of her bed up farther per Dr. Byrd's instructions. She is currently able to tolerate 30 degrees. She was able to eat breakfast and is not experiencing any nausea. She denies aches or chills, she is better able to tolerate light today than yesterday. She does feel that her face is warm and flushed ROS Constitutional:see HPI Respiratory: no sob,cough, sputum, or wheezing Cardiac: no chest pain, palpitations, edema, orthopnea or lightheadedness GI: no abdominal pain, nausea, vomiting, diarrhea or constipation : no dysuria or hesitancy Extremities: no joint pain or weakness Skin: no rash (Miri Alva CRNP) Medications Medications Administered Medications (Trade) Dose Ordered Sig/Mio Route Start Time Stop Time Status Last Admin Dose Admin Hydromorphone HCl (Dilaudid Inj) 2 mg NOW STAT IV 09/24/17 16:29 09/24/17 16:30 DC 09/24/17 17:12 2 MG Sodium Chloride 1,000 ml @ 100 mls/hr Q10H IV 09/24/17 16:30 09/25/17 18:44 DC 09/25/17 13:01 100 MLS/HR Docusate Sodium (coLACE CAP) 100 mg BID PO 09/24/17 21:00 10/24/17 20:59 09/27/17 08:44 100 MG Ondansetron HCl (Zofran Inj) 4 mg Q6H PRN IV 09/24/17 17:15 10/24/17 17:14 09/26/17 13:53 4 MG Oxycodone/ Acetaminophen (Percocet 5-325mg Tab) Moderate to Severe sarah... Q4H PRN PO 09/24/17 17:15 10/08/17 17:14 09/27/17 10:27 2 TAB Alprazolam (Xanax Tab) 0.5 mg TID PRN PO 09/24/17 17:15 10/24/17 17:14 09/27/17 09:41 0.5 MG Bupropion HCl (Wellbutrin-Sr Tab) 150 mg BID PO 09/24/17 21:00 10/24/17 20:59 09/27/17 08:44 150 MG Dicyclomine HCl (Bentyl Cap) 10 mg QID PRN PO 09/24/17 17:15 10/24/17 17:14 09/27/17 04:39 10 MG Gabapentin (Neurontin Tab) 600 mg BID PO 09/24/17 21:00 10/24/17 20:59 09/27/17 08:51 600 MG Insulin Aspart (novoLOG INSULIN PUMP) 1 ea ACHS N/A 09/24/17 17:15 09/25/17 02:23 DC 09/24/17 20:53 1 EA Levothyroxine Sodium (Synthroid Tab) 300 mcg DAILYBB PO 09/25/17 06:00 10/25/17 05:59 09/27/17 05:42 300 MCG Lisinopril (Zestril Tab) 5 mg QAM PO 09/25/17 09:00 10/25/17 08:59 09/27/17 08:43 5 MG Metformin HCl (Glucophage Extended Rel Tab) 1,000 mg QAM PO 09/25/17 09:00 10/25/17 08:59 09/27/17 08:44 1,000 MG Quetiapine Fumarate (seroQUEL TAB) 200 mg BID PO 09/24/17 21:00 10/24/17 20:59 09/27/17 08:44 200 MG Trazodone HCl (Desyrel Tab) 300 mg HS PO 09/24/17 21:00 10/24/17 20:59 09/26/17 21:39 300 MG Verapamil HCl (Calan-Sr Tab) 240 mg QAM PO 09/25/17 09:00 10/25/17 08:59 09/27/17 08:44 240 MG Acetaminophen 1000 mg/Empty Bag 100 ml @ 400 mls/hr Q8H IV 09/24/17 20:00 10/24/17 19:59 09/26/17 04:24 400 MLS/HR Hydromorphone HCl (Dilaudid Inj) 2 mg Q4H PRN IV 09/25/17 09:45 09/25/17 18:52 DC 09/25/17 14:19 2 MG Bupivacaine HCl/ Epinephrine Bitart (Sensorcaine/ Epinephrine 0.5% Mpf 1:200,000) 30 ml STK-MED ONCE .ROUTE 09/25/17 16:37 09/25/17 16:38 DC 09/25/17 16:37 30 ML Vancomycin HCl (Vancomycin Inj) 50 mg STK-MED ONCE .ROUTE 09/25/17 16:37 09/25/17 16:38 DC 09/25/17 16:37 50 MG Bacitracin (Bacitracin Inj) 50,000 units STK-MED ONCE .ROUTE 09/25/17 16:37 09/25/17 16:38 DC 09/25/17 16:37 50,000 UNITS Gelatin (Surgifoam Sponge 100 (LARGE)) 1 ea STK-MED ONCE .ROUTE 09/25/17 16:38 09/25/17 16:39 DC 09/25/17 16:38 1 EA Bupivacaine HCl/ Epinephrine Bitart (Sensorcaine/ Epinephrine 0.5% Mpf 1:200,000) 30 ml STK-MED ONCE .ROUTE 09/25/17 16:38 09/25/17 16:39 DC 09/25/17 16:38 30 ML Thrombin (Recothrom Kit) 20,000 units STK-MED ONCE .ROUTE 09/25/17 16:55 09/25/17 16:56 DC 09/25/17 16:55 9,000 UNITS Hydromorphone HCl (Dilaudid Inj) 0.25 mg Q5M PRN IV 09/25/17 17:30 09/25/17 22:00 DC 09/25/17 19:18 0.25 MG Bacitracin (Bacitracin Inj) 50,000 units STK-MED ONCE .ROUTE 09/25/17 17:24 09/25/17 17:25 DC 09/25/17 17:24 50,000 UNITS Vancomycin HCl (Vancomycin Inj) 50 mg STK-MED ONCE .ROUTE 09/25/17 18:03 09/25/17 18:04 DC 09/25/17 18:06 25 MG Hydromorphone HCl (Dilaudid Inj) 1 mg Q3H PRN IV 09/25/17 18:45 10/09/17 18:44 09/27/17 08:36 1 MG Ketorolac Tromethamine (Toradol Inj) 30 mg Q6H IV 09/25/17 22:00 09/26/17 22:01 DC 09/26/17 21:48 30 MG Metoclopramide HCl (Reglan Inj) 10 mg Q6H PRN IV 09/25/17 18:45 10/25/17 18:44 09/27/17 00:04 10 MG Polyethylene (Miralax Powder Packet) 17 gm DAILY PO 09/26/17 09:00 10/26/17 08:59 09/27/17 08:44 17 GM Clindamycin Phosphate 600 mg/ Dextrose 54 ml @ 100 mls/hr Q8H IV 09/25/17 22:00 09/26/17 06:33 DC 09/26/17 06:14 100 MLS/HR Dexamethasone Sodium Phosphate 10 mg/Syringe 2.5 ml @ 1 mls/min Q8H IV 09/25/17 20:00 09/27/17 04:03 DC 09/27/17 04:07 1 MLS/MIN Sodium Chloride 1,000 ml @ 80 mls/hr [id number] IV 09/25/17 18:34 09/26/17 22:03 DC 09/26/17 07:11 80 MLS/HR Pantoprazole Sodium (Protonix Tab) 40 mg QAM PO 09/26/17 09:00 10/26/17 08:59 09/27/17 08:43 40 MG Promethazine HCl 12.5 mg/Sodium Chloride 50.5 ml @ 202 mls/hr TODAY@1915 ONCE IV 09/25/17 19:15 09/25/17 19:29 DC 09/25/17 19:24 202 MLS/HR Insulin Glargine (Lantus Solostar Pen) 20 units BID SC 09/25/17 21:00 09/27/17 08:16 DC 09/26/17 21:44 20 UNITS Insulin Aspart (novoLOG ASPART) SLIDING SCALE ACHS SC 09/25/17 21:00 10/25/17 20:59 09/27/17 13:09 19 UNITS Vancomycin HCl 2500 mg/Sodium Chloride 550 ml @ 200 mls/hr TODAY@1230 ONCE IV 09/26/17 12:30 09/26/17 15:14 DC 09/26/17 12:57 200 MLS/HR Vancomycin HCl 1750 mg/Sodium Chloride 535 ml @ 100 mls/hr Q10H IV 09/26/17 22:00 10/06/17 21:59 09/27/17 08:35 200 MLS/HR Pramipexole Dihydrochloride (miraPEX TAB) 0.5 mg HS PO 09/26/17 21:00 10/26/17 20:59 09/26/17 21:38 0.5 MG Insulin Glargine (Lantus Solostar Pen) 30 units BID SC 09/27/17 09:00 09/27/17 12:00 DC 09/27/17 08:46 30 UNITS (Miri Alva CRNP) Objective Vital Signs Date Time Temp Pulse Resp B/P (MAP) Pulse Ox O2 Delivery O2 Flow Rate FiO2 09/27/17 07:31 36.8 66 18 159/84 (109) 96 Room Air 09/27/17 07:30 Room Air 09/26/17 23:50 Room Air 09/26/17 22:55 36.7 67 16 145/80 (101) 97 Room Air 09/26/17 16:20 Room Air 09/26/17 15:44 37.0 76 16 108/75 (86) 95 Room Air (Miri Alva CRNP) Physical Exam Notes: General: no distress Eyes: normal inspection, PERLL Respiratory: chest non tender, clear to auscultation, normal breath sounds, no respiratory distress, no accessory muscle use Cardiac: regular rate and rhythm, no rub or gallop, no murmur, no edema, no jvd GI/: active bowel sounds, no abd pain or tenderness, soft, non distended Extremities: normal range of motion, normal strength, non tender Neuro/Psych: alert and oriented x 3, normal mood and affect Skin: flushed face and neck, warm to touch (Miri Alva CRNP) Laboratory Results Last 24 Hours Test 09/26/17 16:55 09/26/17 20:47 09/27/17 06:36 09/27/17 08:04 Bedside Glucose 221 mg/dl 199 mg/dl 255 mg/dl White Blood Count 8.81 K/uL Red Blood Count 3.89 M/uL Hemoglobin 11.3 g/dL Hematocrit 34.9 % Mean Corpuscular Volume 89.7 fL Mean Corpuscular Hemoglobin 29.0 pg Mean Corpuscular Hemoglobin Concent 32.4 g/dl Platelet Count 190 K/uL Mean Platelet Volume 10.0 fL Neutrophils (%) (Auto) 84.9 % Lymphocytes (%) (Auto) 10.6 % Monocytes (%) (Auto) 4.3 % Eosinophils (%) (Auto) 0.0 % Basophils (%) (Auto) 0.0 % Neutrophils # (Auto) 7.48 K/uL Lymphocytes # (Auto) 0.93 K/uL Monocytes # (Auto) 0.38 K/uL Eosinophils # (Auto) 0.00 K/uL Basophils # (Auto) 0.00 K/uL RDW Standard Deviation 55.9 fL RDW Coefficient of Variation 16.9 % Immature Granulocyte % (Auto) 0.2 % Immature Granulocyte # (Auto) 0.02 K/uL Creatinine 0.88 mg/dl Est Creatinine Clear Calc Drug Dose 112.3 ml/min Estimated GFR () 94.6 Estimated GFR (Non- 81.6 Test 09/27/17 11:54 Bedside Glucose 260 mg/dl (Miri Alva, CARLA) Assessment and Plan 41 y/o F DM II, HTN, Crohns, Hypothyroidism, anxiety. Pt had revision of lumbar fusion surgery 07/11 due to hardware movement. Since MT 07/13 she states she has had an intractable headache. She was recently here for medical management of her CSF leak which resolved, however her headaches returned so she has returned for irrigation of lumbar surgical wound, surgical repair of dural laceration, and patching the dura with DuraSeal 09/[address] Byrd. Post surgical repair of CSF leak - pain management per ortho - cbc in the morning to monitor for blood loss Group B strep, corynebacteria positive lumbar drainage culture - Has a headache but otherwise does not have meningitis symptoms, afebrile - Vancomycin - cbc - consult ID - Red man syndrome developed - reduced infusion rate by half - patient did not show any signs of anaphylaxis, no sob, hives, stridor. ?Migraine - Patient has history of migraine and her headache may be from migraine rather than persisting from CSF leak - Phenergan and toradol - consider triptan if phenergan/toradol does not abort migraine DM - normally uses insulin pump, off for now - ss insulin HTN - Cont Verapamil and Lisinopril - follow BPs Hypothyroidism - Cont Synthroid Crohns - pt normally on Remicade - outpt f/u DVT prophylaxis - per ortho/spine (Miri Alva ., CARLA) Attending Note & Attestation: Pt seen/examined, chart reviewed, care plan d/w CARLA Alva. I agree w/ the thrasher components of her documentation. Continues with headache, photophobia, phonophobia. Has h/o migraines - in fact saw neurologist several years ago and took topamax prophylaxis for about 2 years. Pain is worst on occiput but also in frontal areas. Nausea at times. VSS no fever gen - nad eyes - PERRL, mild photophobia with penlight exam mouth - MMM neck - no JVD heart - RRR lungs - CTA b/l abd - soft, NT ext - no edema A/P: 1. spinal headache 2nd to dural tear in midst of recent lumbar back surgery - s /p dural repair by Dr. Byrd 2. ongoing headache - migraine? tension? low-grade meningitis given the + culture with group B strep and corynebacterium? patient without fever, leukocytosis, or meningismus signs otherwise to suggest meningitis, however could have status migraine given her migraine history try toradol with phenergan - if this does not abort her headache then try sumatriptan 50mg po x 1 (as long as BP is reasonably controlled) she had been on high-dose IV steroids without any benefit to her headache if triptan is not helpful then ask neuro to see in the AM 3. concern of infectious component in back - day #2 IV vancomycin for GBS and corynebacterium; ID consult requested and appreciated 4. RLS - mirapex; will need IV iron in future to correct iron deficiency ( ferritin level <30 last week) will continue to follow case d/w Dr. Byrd as well Anaid NICHOLSON MD (Jamil Nicholson MD)
[2017-09-27] MEDS ORDERED: KETOROLAC TROMETHAMINE 30 MG/ML VIAL IV STA (14:03)
[2017-09-27] MEDS ORDERED: PROMETHAZINE HCL INJ 25 MG in SODIUM CHLORIDE 0.9% 50ML 50 ML IV STA (14:03)
[2017-09-27] MEDS ORDERED: ONDANSETRON INJ 2 MG/ML 2 ML VIAL IV STA (14:33)
[2017-09-27 14:57] VITALS: BP 137/89; PULSE 86; TEMP 36.9; O2SAT 97
--- NOTE | 2017-09-27 15:11 | Progress Note ---
Subjective Date of Service: Sep 27, 2017. Subjective final cultures pending. had flushing with vanco, infusion rate reduced. afebrile. blood cultures remain negative. Problem List Medical Problems: (1) Wound infection after surgery Status: Acute Objective Vital Signs Date Time Temp Pulse Resp B/P (MAP) Pulse Ox O2 Delivery O2 Flow Rate FiO2 09/27/17 14:57 36.9 86 18 137/89 (105) 97 Room Air 09/27/17 07:31 36.8 66 18 159/84 (109) 96 Room Air 09/27/17 07:30 Room Air 09/26/17 23:50 Room Air 09/26/17 22:55 36.7 67 16 145/80 (101) 97 Room Air 09/26/17 16:20 Room Air 09/26/17 15:44 37.0 76 16 108/75 (86) 95 Room Air Laboratory Results Item Value Date Time Blood Culture - Preliminary Resulted 09/24/17 1700 Blood NO GROWTH TO DATE. Blood Culture - Preliminary Resulted 09/24/17 1656 Blood NO GROWTH TO DATE. Gram Stain - Final Resulted 09/24/17 1630 Drainage - Surface Back Last 24 Hours Test 09/26/17 16:55 09/26/17 20:47 09/27/17 06:36 09/27/17 08:04 Bedside Glucose 221 mg/dl 199 mg/dl 255 mg/dl White Blood Count 8.81 K/uL Red Blood Count 3.89 M/uL Hemoglobin 11.3 g/dL Hematocrit 34.9 % Mean Corpuscular Volume 89.7 fL Mean Corpuscular Hemoglobin 29.0 pg Mean Corpuscular Hemoglobin Concent 32.4 g/dl Platelet Count 190 K/uL Mean Platelet Volume 10.0 fL Neutrophils (%) (Auto) 84.9 % Lymphocytes (%) (Auto) 10.6 % Monocytes (%) (Auto) 4.3 % Eosinophils (%) (Auto) 0.0 % Basophils (%) (Auto) 0.0 % Neutrophils # (Auto) 7.48 K/uL Lymphocytes # (Auto) 0.93 K/uL Monocytes # (Auto) 0.38 K/uL Eosinophils # (Auto) 0.00 K/uL Basophils # (Auto) 0.00 K/uL RDW Standard Deviation 55.9 fL RDW Coefficient of Variation 16.9 % Immature Granulocyte % (Auto) 0.2 % Immature Granulocyte # (Auto) 0.02 K/uL Creatinine 0.88 mg/dl Est Creatinine Clear Calc Drug Dose 112.3 ml/min Estimated GFR () 94.6 Estimated GFR (Non- 81.6 Test 09/27/17 11:54 Bedside Glucose 260 mg/dl Assessment and Plan (1) Wound infection after surgery Assessment & Plan: continue vanco, agree with slowing rate. await final sensitivities, will likely remain on vanco if she tolerates due to cephalosporin allergy. Problem Qualifiers (1) Wound infection after surgery: Encounter type: initial encounter Qualified Codes: T81.4XXA - Infection following a procedure, initial encounter
[2017-09-27] MEDS: LORAZEPAM 1 MG TAB PO PRN (16:20)
[2017-09-27] MEDS ORDERED: SUMATRIPTAN SUCCINATE 50 MG TAB PO STA (18:21)
[2017-09-27] MEDS: MICONAZOLE NITRATE POWDER 43 GM EXT SCH (21:23)
[2017-09-27] MEDS: PRAMIPEXOLE DIHYDROCHLORIDE 0.5 MG TAB PO SCH (21:27)
[2017-09-27] MEDS: TRAZODONE HCL 100 MG TAB PO SCH (21:27)
[2017-09-27] MEDS: INSULIN GLARGINE SOLOSTAR 100 UNITS/ML 3 ML PEN SC SCH (21:30)
[2017-09-27 22:59] VITALS: BP 153/95; PULSE 80; TEMP 36.8; O2SAT 97
[2017-09-28] MEDS ORDERED: INSULIN ASPART 100 UNITS/ML 3 ML PEN SC SCH (02:00)
[2017-09-28] MEDS ORDERED: VANCOMYCIN TROUGH SCH (03:30)
[2017-09-28] MEDS: VANCOMYCIN INJ 1,750 MG in SODIUM CHLORIDE 0.9% 500ML 500 ML IV SCH (04:28)
[2017-09-28 04:44] LABS: CREATININE 0.85 mg/dl (0.60-1.20)
[2017-09-28] MEDS: LORAZEPAM 1 MG TAB PO PRN (05:06)
[2017-09-28] MEDS: OXYCODONE/ACETAMINOPHEN 5-325 TAB PO PRN ×3 (05:07→16:01)
[2017-09-28] MEDS: LEVOTHYROXINE 100 MCG TAB PO SCH (05:43)
[2017-09-28 07:47] VITALS: BP 168/88; PULSE 72; TEMP 37; O2SAT 99
--- NOTE | 2017-09-28 08:01 | ORTHOPEDICS PROGRESS NOTE ---
DATE: 09/28/2017 SUBJECTIVE: She is alert, oriented, minimal complaints, some headaches, minimal lower extremity difficulty. Taking p.o. OBJECTIVE: Afebrile, blood pressure stable, pulse stable. ASSESSMENT: 1. Status post reconstructive spine surgery. 2. Spinal fluid leak that was repaired 2-1/2 days ago. 3. All other comorbidities include diabetes mellitus. DISPOSITION: Try to get her progressing today from bed to chair, bathroom would be appropriate. No really walking at this point in time. Hopefully, she will resolve and heal. I informed her of this and may we can get her home later on this weekend. Still very tedious situation and that was emphasized.
[2017-09-28 08:03] VITALS: O2SAT 99
[2017-09-28] MEDS: HYDROmorphone INJ 1 MG/ML SYR IV PRN ×4 (08:31→21:01)
[2017-09-28] MEDS: MICONAZOLE NITRATE POWDER 43 GM EXT SCH ×2 (08:34→21:04)
[2017-09-28] MEDS: GABAPENTIN 600 MG TAB PO SCH ×2 (08:35→21:49)
[2017-09-28] MEDS: DOCUSATE SODIUM 100 MG CAP PO SCH ×2 (08:35→21:49)
[2017-09-28] MEDS: PANTOprazole SOD 40 MG TAB PO SCH (08:35)
[2017-09-28] MEDS: LISINOPRIL 5 MG TAB PO SCH (08:36)
[2017-09-28] MEDS: VERAPAMIL HCL 240 MG TABCR PO SCH (08:36)
[2017-09-28] MEDS: QUETIAPINE FUMARATE 200 MG TAB PO SCH ×2 (08:36→22:37)
[2017-09-28] MEDS: POLYETHYLENE (MIRALAX) 17 GM PACK PO SCH (08:37)
[2017-09-28] MEDS: METFORMIN HCL 500 MG TABCR PO SCH (08:37)
[2017-09-28] MEDS: BuPROPion SR 150 MG TABCR PO SCH ×2 (09:43→21:49)
[2017-09-28] MEDS: INSULIN ASPART 100 UNITS/ML 3 ML PEN SC SCH ×4 (09:49→21:00)
[2017-09-28] MEDS: INSULIN GLARGINE SOLOSTAR 100 UNITS/ML 3 ML PEN SC SCH (09:50)
[2017-09-28 09:52] VITALS: BP 119/81
--- NOTE | 2017-09-28 10:27 | Pharmacy Progress Note ---
Pharmacy Abx Dose Short Note Date of Service Sep 28, 2017. Assessment & Plan Assessment 41 year old female receiving vancomycin for treatment of spinal headache 2nd to dural tear in midst of recent lumbar back surgery - s/p dural repair. Back wound drainage positive for for GBS and corynebacterium. Day # 3/10 of antimicrobial therapy. Plan Vancomycin * Trough level of 28 mcg/mL is supratherapeutic. * Change to 1750 mg IV every 14 hours. Vanco running at 100ml/hr due to Red Man syndrome. * Goal trough level for good CSF penetration: 15 to 20 mcg/mL * Trough or random level ordered for: 09/30 prior to 0100 dose. Pharmacy will continue to follow and will adjust dose/frequency as necessary. Thank you.
[2017-09-28 11:48] VITALS: BP 118/78; PULSE 83; TEMP 36.8; O2SAT 95
--- NOTE | 2017-09-28 12:00 | Progress Note ---
Subjective Date of Service: Sep 28, 2017. Subjective Pt evaluation today including: conversation w/ patient, physical exam, chart review, lab review pt seen in followup, doing better overall, tried to sit up in bed twice today, unable to do so do to pressure at dressing site, asking to have dressing changed more frequently. no f/c. no mcgowan. not eating well but denies n/v/d. no visual change. blood cultures remain negative, wound culture with gbs, sensitive to vanco, has cephalosporin allergy. All remaining ros reviewed and are negative. Problem List Medical Problems: (1) Wound infection after surgery Status: Acute Objective Vital Signs Date Time Temp Pulse Resp B/P (MAP) Pulse Ox O2 Delivery O2 Flow Rate FiO2 09/28/17 11:48 36.8 83 24 118/78 (91) 95 Room Air 09/28/17 09:52 119/81 (94) 09/28/17 08:15 Room Air 09/28/17 08:03 99 Room Air 09/28/17 07:47 37.0 72 22 168/88 (114) 99 Room Air 09/27/17 23:35 Room Air 09/27/17 22:59 36.8 80 16 153/95 (114) 97 Room Air 09/27/17 15:40 Room Air 09/27/17 14:57 36.9 86 18 137/89 (105) 97 Room Air Physical Exam General Appearance: WD/WN, no apparent distress Eyes: EOMI ENT: pharynx normal Neck: supple Respiratory/Chest: lungs clear, normal breath sounds, no respiratory distress Cardiovascular: regular rate, rhythm, no edema Abdomen: soft Extremities: non-tender, no pedal edema Neurologic/Psychiatric: alert, oriented x 3 Skin: normal color Laboratory Results Item Value Date Time Gram Stain - Final Complete 09/24/17 1630 Drainage - Surface Back Blood Culture - Preliminary Resulted 09/24/17 1656 Blood NO GROWTH TO DATE. Blood Culture - Preliminary Resulted 09/24/17 1700 Blood NO GROWTH TO DATE. Last 24 Hours Test 09/27/17 17:00 09/27/17 20:32 09/28/17 01:56 09/28/17 03:49 Bedside Glucose 87 mg/dl 135 mg/dl 107 mg/dl Creatinine 0.85 mg/dl Est Creatinine Clear Calc Drug Dose 116.3 ml/min Estimated GFR () 98.6 Estimated GFR (Non- 85.1 Vancomycin Level Trough 28.0 mcg/ml Test 09/28/17 08:23 Bedside Glucose 74 mg/dl Assessment and Plan (1) Wound infection after surgery Assessment & Plan: due to allergy, will continue with vanco. will need min 6 weeks with picc line, blood cultures negative, tentative stop date 11/05, will need weekly cbc, cmp, esr, vanco trough while on abx (maintain 15-20) Ok for d/c when otherwise stable and pain controlled. Can follow with ID post d/ c in office. Problem Qualifiers (1) Wound infection after surgery: Encounter type: initial encounter Qualified Codes: T81.4XXA - Infection following a procedure, initial encounter
--- NOTE | 2017-09-28 13:58 | Neurology Consultation ---
Neurology Consultation Date of Consultation: Sep 28, 2017. Attending Physician: Emory Byrd DO Primary Care Physician: Tiburcio Ca M.D. Reason for Consultation: Consultation for intractable headache History of Present Illness Source: patient, hospital records This is a 41-year-old female who has had an intractable headache since June. Believed to be secondary to a spinal tear and leak from recent spinal surgery. Had revision of the spinal surgery 2-1/2 days ago. She does report that her headaches are so definitely improved compared to when she first came in. When she first came in she was rating her headache pain as an 8/10 and currently today is rating it anywhere from 4-5/10. She is having some occasional low back pain where the revision is. There appears to have been wound infection for which ID is following her for. She denies any fevers In the hospital she was tried on Toradol which did not do anything. She denies any improvement of the headaches with steroids. Dilaudid will briefly improved pain. She reports significant improvement with Imitrex 50 mg tab which took the headache down to 1/10. She describes his current headaches as mostly in the left back portion of her head. She will get light and sound sensitivity. She is nauseous. She denies any throbbing quality. He describes quality is more sharp and pressure-type sensation. Sitting up does seem to make it worse. Laying flat does not take it completely away. Patient has a history of migraine headaches in her 20s and early 30s. She describes his headaches as getting an aura of wavy lines in her vision. She would get light and sound sensitivity. She'll get nauseous. She reports that she was on Topamax prophylaxis for a period of time which did help. She reports a long time since she's had a typical migraine headache although she does admit to some of the quality to these current headaches are similar CBC was unremarkable Past Medical/Surgical History Medical Problems: (1) Wound infection after surgery Status: Acute Past medical history severe for Crohn's disease, diabetes type 2 with insulin pump, hypertension, anxiety, migraine headaches, hypertension, restless leg with low ferritin, hypothyroid Family History Noncontributory Social History Patient is normally independent in her activities of daily living. Smoking Status: Current every day smoker Drug Use: none Marital Status: Housing Status: lives with family Occupation Status: employed Allergies Coded Allergies: Cephalexin (Verified Allergy, Severe, SWELLING OF LIPS,EYES,FACE, 07/26/17) Sulfa Antibiotics (Verified Allergy, Severe, N/V, SWELLING OF FACE AND LIPS, 07/26/17) Vedolizumab (Verified Allergy, Severe, SHORTNESS OF BREATH AND CHEST PAIN , 07/26/17) Adalimumab (Verified Allergy, Unknown, drug induced lupus SYMPTOMS, ) Current Inpatient Medications Current Inpatient Medications Medications (Trade) Dose Ordered Sig/Mio Route Start Time Stop Time Status Last Admin Dose Admin Acetaminophen (Tylenol Tab) 650 mg Q6H PRN PO 09/24/17 17:15 10/24/17 17:14 Future hold Docusate Sodium (coLACE CAP) 100 mg BID PO 09/24/17 21:00 10/24/17 20:59 09/28/17 08:35 100 MG Promethazine HCl 12.5 mg/Sodium Chloride 50.5 ml @ 202 mls/hr Q6H PRN IV 09/24/17 17:15 10/24/17 17:14 Ondansetron HCl (Zofran Inj) 4 mg Q6H PRN IV 09/24/17 17:15 10/24/17 17:14 09/26/17 13:53 4 MG Lorazepam (Ativan Tab) 1 mg Q6H PRN PO 09/24/17 17:15 10/24/17 17:14 09/28/17 05:06 1 MG Oxycodone/ Acetaminophen (Percocet 5-325mg Tab) Moderate to Severe sarah... Q4H PRN PO 09/24/17 17:15 10/08/17 17:14 09/28/17 10:33 2 TAB Alprazolam (Xanax Tab) 0.5 mg TID PRN PO 09/24/17 17:15 10/24/17 17:14 09/27/17 09:41 0.5 MG Bupropion HCl (Wellbutrin-Sr Tab) 150 mg BID PO 09/24/17 21:00 10/24/17 20:59 09/28/17 09:43 150 MG Dicyclomine HCl (Bentyl Cap) 10 mg QID PRN PO 09/24/17 17:15 10/24/17 17:14 09/27/17 04:39 10 MG Gabapentin (Neurontin Tab) 600 mg BID PO 09/24/17 21:00 10/24/17 20:59 09/28/17 08:35 600 MG Levothyroxine Sodium (Synthroid Tab) 300 mcg DAILYBB PO 09/25/17 06:00 10/25/17 05:59 09/28/17 05:43 300 MCG Lisinopril (Zestril Tab) 5 mg QAM PO 09/25/17 09:00 10/25/17 08:59 09/28/17 08:36 5 MG Metformin HCl (Glucophage Extended Rel Tab) 1,000 mg QAM PO 09/25/17 09:00 10/25/17 08:59 09/28/17 08:37 1,000 MG Ondansetron HCl (Zofran Tab) 8 mg Q8 PRN PO 09/24/17 17:15 10/24/17 17:14 Quetiapine Fumarate (seroQUEL TAB) 200 mg BID PO 09/24/17 21:00 10/24/17 20:59 09/28/17 08:36 200 MG Trazodone HCl (Desyrel Tab) 300 mg HS PO 09/24/17 21:00 10/24/17 20:59 09/27/17 21:27 300 MG Verapamil HCl (Calan-Sr Tab) 240 mg QAM PO 09/25/17 09:00 10/25/17 08:59 09/28/17 08:36 240 MG Insulin Aspart (novoLOG ASPART) SLIDING SCALE PRN PRN SC 09/24/17 19:15 10/24/17 19:14 Future Hold Glucose (Glucose 40% Gel) UD PRN PO 09/24/17 19:15 10/24/17 19:14 Glucose (Glucose Chew Tab) 1 tabs UD PRN PO 09/24/17 19:15 10/24/17 19:14 Glucagon (Glucagon Inj) 1 mg UD PRN SQ 09/24/17 19:15 10/24/17 19:14 Dextrose (Dextrose 50% 50ML Syringe) 50 ml UD PRN IV 09/24/17 19:15 10/24/17 19:14 Insulin Aspart (novoLOG INSULIN PUMP) 1 ea Q6 N/A 09/25/17 06:00 10/25/17 05:59 Future Hold Miscellaneous Information (Consult Glycemic Management Pharmacy) 1 ea DAILY PRN N/A 09/25/17 06:21 10/25/17 06:20 Hydromorphone HCl (Dilaudid Inj) 1 mg Q3H PRN IV 09/25/17 18:45 10/09/17 18:44 09/28/17 08:31 1 MG Hydromorphone HCl (Dilaudid Inj) 1.5 mg Q3H PRN IV 09/25/17 18:45 10/09/17 18:44 Metoclopramide HCl (Reglan Inj) 10 mg Q6H PRN IV 09/25/17 18:45 10/25/17 18:44 09/27/17 00:04 10 MG Lorazepam 1 mg/ Syringe 0.5 ml @ 1 mls/min Q6H PRN IV 09/25/17 18:45 10/25/17 18:44 Polyethylene (Miralax Powder Packet) 17 gm DAILY PO 09/26/17 09:00 10/26/17 08:59 09/28/17 08:37 17 GM Bisacodyl (Dulcolax Tab) 5 mg DAILY PRN PO 09/26/17 06:00 10/26/17 05:59 Bisacodyl (Dulcolax Supp) 10 mg DAILY PRN MT 09/26/17 06:00 10/26/17 05:59 Magnesium Hydroxide (Milk Of Magnesia Susp) 30 ml DAILY PRN PO 09/25/17 18:45 10/25/17 18:44 Diphenhydramine HCl (Benadryl Cap) 25 mg Q6H PRN PO 09/25/17 18:45 10/25/17 18:44 Pantoprazole Sodium (Protonix Tab) 40 mg QAM PO 09/26/17 09:00 10/26/17 08:59 09/28/17 08:35 40 MG Insulin Aspart (novoLOG ASPART) SLIDING SCALE ACHS SC 09/25/17 21:00 10/25/17 20:59 09/28/17 13:26 7 UNITS Acetaminophen/ Hydrocodone Bitart ([place] 5/325 Tab) 1 tab Q6 PRN PO 09/25/17 22:15 10/09/17 22:14 Acetaminophen/ Hydrocodone Bitart ([place] 10/325 Tab) 1 tab Q6 PRN PO 09/25/17 22:15 10/09/17 22:14 Vancomycin HCl (Consult) 1 ea UD PRN N/A 09/26/17 12:30 10/26/17 12:29 Pramipexole Dihydrochloride (miraPEX TAB) 0.5 mg HS PO 09/26/17 21:00 10/26/17 20:59 09/27/17 21:27 0.5 MG Insulin Glargine (Lantus Solostar Pen) SEE PROTOCOL TEXT BID SC 09/27/17 21:00 10/27/17 20:59 09/28/17 09:50 20 UNITS Miconazole Nitrate (Desenex Powder) 1 appln BID EXT 09/27/17 21:00 10/27/17 20:59 09/28/17 08:34 1 APPLN Vancomycin HCl 1750 mg/Sodium Chloride 535 ml @ 100 mls/hr Q14H IV 09/28/17 20:00 10/06/17 19:59 Review of Systems Complete review systems otherwise negative except for the above noted in history of present illness. No changes with her vision. No new numbness or weakness. No fevers Physical Exam Vital Signs (Past 24 Hrs): Date Time Temp Pulse Resp B/P (MAP) Pulse Ox O2 Delivery O2 Flow Rate FiO2 09/28/17 11:48 36.8 83 24 118/78 (91) 95 Room Air 09/28/17 09:52 119/81 (94) 09/28/17 08:15 Room Air 09/28/17 08:03 99 Room Air 09/28/17 07:47 37.0 72 22 168/88 (114) 99 Room Air 09/27/17 23:35 Room Air 09/27/17 22:59 36.8 80 16 153/95 (114) 97 Room Air 09/27/17 15:40 Room Air 09/27/17 14:57 36.9 86 18 137/89 (105) 97 Room Air Gen.: Patient is alert and lying in bed with her eyes closed, appears uncomfortable. HEENT: Normocephalic /atraumatic, no scleral icterus Heart: Regular rate and rhythm Extremities: No gross deformities or rashes noted Neurological examination: Mental status: Patient is alert and oriented x3. Attention and concentration normal for the situation. Good fund of knowledge. Remote and recent memory intact. Speech is fluent without any dysarthria or aphasia noted Cranial nerve: Funduscopic examination was unremarkable. No papilledema. Pupils equally round and reactive to light. Extraocular muscles intact without nystagmus. No facial asymmetry noted. Facial sensation intact. Tongue is midline. Good palatal elevation. Good shoulder shrug bilaterally. Hearing grossly intact to voice. Strength: 5/5 both proximal and distally in all extremities. There is no arm drift. Tone is normal. Sensation: Grossly intact to light touch in all extremities. Deep tendon reflexes: +1 in bilateral biceps, brachioradialis and patellar. Coordination: Patient had good finger to nose without dysmetria Station within the bed was normal Laboratory Results Past 24 Hours: 09/28/17 03:49 Test 09/28/17 03:49 09/28/17 12:05 Est Creatinine Clear Calc Drug Dose 116.3 ml/min Estimated GFR () 98.6 Estimated GFR (Non- 85.1 Vancomycin Level Trough 28.0 mcg/ml (SEE COMMENT) Bedside Glucose 65 mg/dl (70-90) Impression This is a 41-year-old female with intractable headaches likely secondary to intracranial hypotension from spinal leak status post repair 2 half days ago. Symptoms do seem to slowly be improving. Had this would be consistent as he can take average of 3 days for CSF fluid to regenerate. In addition the patient does have a history of migraine headaches which could contribute to intractable headaches from a spinal leak. Could consider differential diagnosis of chronic migraine versus a occipital neuralgia with migrainous features, but I think this is less likely at this time. Plan Recommend Imitrex 100 mg by mouth as needed for headache, may repeat once after 2 hours, max 2 doses in 1 day and max 3 days in a week Recommend Depakote IV 500 mg twice a day for 1-2 days to help treat intractable headaches In addition recommend IV Phenergan 25 mg standing every 8 hours for treatment of intractable headaches. This will also help her nausea. Anticipate that the patient will improve over the next day or 2. If no significant improvement in the next couple of days could consider starting Topamax 25 mg at night and titrating up to 25 mg twice a day after a week with neurology follow-up as an outpatient Thank you for allowing me to participate in this patient's care. If there is any questions or concerns, feel free to call/page me.
--- NOTE | 2017-09-28 13:59 | Hospitalist Progress Note ---
Hospitalist Progress Note Date of Service Sep 28, 2017. (Miri Alva CRNP) Subjective Pt evaluation today including: conversation w/ patient, physical exam, chart review, lab review, review of inpatient medication list Voiding: no voiding problems Ms. Christianson is feeling better today. Her headache is much improved. She is having back pain at the surgical site when sitting or standing. ROS Constitutional: no chills, aches, sweats or fever Respiratory: no sob,cough, sputum, or wheezing Cardiac: no chest pain, palpitations, edema, orthopnea or lightheadedness GI: no abdominal pain, nausea, vomiting, diarrhea or constipation : no dysuria or hesitancy Extremities: see HPI Skin: no rash (Miri Alva CRNP) Medications Medications Administered Medications (Trade) Dose Ordered Sig/Mio Route Start Time Stop Time Status Last Admin Dose Admin Hydromorphone HCl (Dilaudid Inj) 2 mg NOW STAT IV 09/24/17 16:29 09/24/17 16:30 DC 09/24/17 17:12 2 MG Sodium Chloride 1,000 ml @ 100 mls/hr Q10H IV 09/24/17 16:30 09/25/17 18:44 DC 09/25/17 13:01 100 MLS/HR Docusate Sodium (coLACE CAP) 100 mg BID PO 09/24/17 21:00 10/24/17 20:59 09/28/17 08:35 100 MG Ondansetron HCl (Zofran Inj) 4 mg Q6H PRN IV 09/24/17 17:15 10/24/17 17:14 09/26/17 13:53 4 MG Lorazepam (Ativan Tab) 1 mg Q6H PRN PO 09/24/17 17:15 10/24/17 17:14 09/28/17 05:06 1 MG Oxycodone/ Acetaminophen (Percocet 5-325mg Tab) Moderate to Severe sarah... Q4H PRN PO 09/24/17 17:15 10/08/17 17:14 09/28/17 10:33 2 TAB Alprazolam (Xanax Tab) 0.5 mg TID PRN PO 09/24/17 17:15 10/24/17 17:14 09/27/17 09:41 0.5 MG Bupropion HCl (Wellbutrin-Sr Tab) 150 mg BID PO 09/24/17 21:00 10/24/17 20:59 09/28/17 09:43 150 MG Dicyclomine HCl (Bentyl Cap) 10 mg QID PRN PO 09/24/17 17:15 10/24/17 17:14 09/27/17 04:39 10 MG Gabapentin (Neurontin Tab) 600 mg BID PO 09/24/17 21:00 10/24/17 20:59 09/28/17 08:35 600 MG Insulin Aspart (novoLOG INSULIN PUMP) 1 ea ACHS N/A 09/24/17 17:15 09/25/17 02:23 DC 09/24/17 20:53 1 EA Levothyroxine Sodium (Synthroid Tab) 300 mcg DAILYBB PO 09/25/17 06:00 10/25/17 05:59 09/28/17 05:43 300 MCG Lisinopril (Zestril Tab) 5 mg QAM PO 09/25/17 09:00 10/25/17 08:59 09/28/17 08:36 5 MG Metformin HCl (Glucophage Extended Rel Tab) 1,000 mg QAM PO 09/25/17 09:00 10/25/17 08:59 09/28/17 08:37 1,000 MG Quetiapine Fumarate (seroQUEL TAB) 200 mg BID PO 09/24/17 21:00 10/24/17 20:59 09/28/17 08:36 200 MG Trazodone HCl (Desyrel Tab) 300 mg HS PO 09/24/17 21:00 10/24/17 20:59 09/27/17 21:27 300 MG Verapamil HCl (Calan-Sr Tab) 240 mg QAM PO 09/25/17 09:00 10/25/17 08:59 09/28/17 08:36 240 MG Acetaminophen 1000 mg/Empty Bag 100 ml @ 400 mls/hr Q8H IV 09/24/17 20:00 09/27/17 18:15 DC 09/26/17 04:24 400 MLS/HR Hydromorphone HCl (Dilaudid Inj) 2 mg Q4H PRN IV 09/25/17 09:45 09/25/17 18:52 DC 09/25/17 14:19 2 MG Bupivacaine HCl/ Epinephrine Bitart (Sensorcaine/ Epinephrine 0.5% Mpf 1:200,000) 30 ml STK-MED ONCE .ROUTE 09/25/17 16:37 09/25/17 16:38 DC 09/25/17 16:37 30 ML Vancomycin HCl (Vancomycin Inj) 50 mg STK-MED ONCE .ROUTE 09/25/17 16:37 09/25/17 16:38 DC 09/25/17 16:37 50 MG Bacitracin (Bacitracin Inj) 50,000 units STK-MED ONCE .ROUTE 09/25/17 16:37 09/25/17 16:38 DC 09/25/17 16:37 50,000 UNITS Gelatin (Surgifoam Sponge 100 (LARGE)) 1 ea STK-MED ONCE .ROUTE 09/25/17 16:38 09/25/17 16:39 DC 09/25/17 16:38 1 EA Bupivacaine HCl/ Epinephrine Bitart (Sensorcaine/ Epinephrine 0.5% Mpf 1:200,000) 30 ml STK-MED ONCE .ROUTE 09/25/17 16:38 09/25/17 16:39 DC 09/25/17 16:38 30 ML Thrombin (Recothrom Kit) 20,000 units STK-MED ONCE .ROUTE 09/25/17 16:55 09/25/17 16:56 DC 09/25/17 16:55 9,000 UNITS Hydromorphone HCl (Dilaudid Inj) 0.25 mg Q5M PRN IV 09/25/17 17:30 09/25/17 22:00 DC 09/25/17 19:18 0.25 MG Bacitracin (Bacitracin Inj) 50,000 units STK-MED ONCE .ROUTE 09/25/17 17:24 09/25/17 17:25 DC 09/25/17 17:24 50,000 UNITS Vancomycin HCl (Vancomycin Inj) 50 mg STK-MED ONCE .ROUTE 09/25/17 18:03 09/25/17 18:04 DC 09/25/17 18:06 25 MG Hydromorphone HCl (Dilaudid Inj) 1 mg Q3H PRN IV 09/25/17 18:45 10/09/17 18:44 09/28/17 08:31 1 MG Ketorolac Tromethamine (Toradol Inj) 30 mg Q6H IV 09/25/17 22:00 09/26/17 22:01 DC 09/26/17 21:48 30 MG Metoclopramide HCl (Reglan Inj) 10 mg Q6H PRN IV 09/25/17 18:45 10/25/17 18:44 09/27/17 00:04 10 MG Polyethylene (Miralax Powder Packet) 17 gm DAILY PO 09/26/17 09:00 10/26/17 08:59 09/28/17 08:37 17 GM Clindamycin Phosphate 600 mg/ Dextrose 54 ml @ 100 mls/hr Q8H IV 09/25/17 22:00 09/26/17 06:33 DC 09/26/17 06:14 100 MLS/HR Dexamethasone Sodium Phosphate 10 mg/Syringe 2.5 ml @ 1 mls/min Q8H IV 09/25/17 20:00 09/27/17 04:03 DC 09/27/17 04:07 1 MLS/MIN Sodium Chloride 1,000 ml @ 80 mls/hr [id number] IV 09/25/17 18:34 09/26/17 22:03 DC 09/26/17 07:11 80 MLS/HR Pantoprazole Sodium (Protonix Tab) 40 mg QAM PO 09/26/17 09:00 10/26/17 08:59 09/28/17 08:35 40 MG Promethazine HCl 12.5 mg/Sodium Chloride 50.5 ml @ 202 mls/hr TODAY@1915 ONCE IV 09/25/17 19:15 09/25/17 19:29 DC 09/25/17 19:24 202 MLS/HR Insulin Glargine (Lantus Solostar Pen) 20 units BID SC 09/25/17 21:00 09/27/17 08:16 DC 09/26/17 21:44 20 UNITS Insulin Aspart (novoLOG ASPART) SLIDING SCALE ACHS SC 09/25/17 21:00 10/25/17 20:59 09/28/17 09:49 7 UNITS Vancomycin HCl 2500 mg/Sodium Chloride 550 ml @ 200 mls/hr TODAY@1230 ONCE IV 09/26/17 12:30 09/26/17 15:14 DC 09/26/17 12:57 200 MLS/HR Vancomycin HCl 1750 mg/Sodium Chloride 535 ml @ 100 mls/hr Q10H IV 09/26/17 22:00 09/28/17 10:02 DC 09/28/17 04:28 100 MLS/HR Pramipexole Dihydrochloride (miraPEX TAB) 0.5 mg HS PO 09/26/17 21:00 10/26/17 20:59 09/27/17 21:27 0.5 MG Insulin Glargine (Lantus Solostar Pen) 30 units BID SC 09/27/17 09:00 09/27/17 12:00 DC 09/27/17 08:46 30 UNITS Insulin Glargine (Lantus Solostar Pen) SEE PROTOCOL TEXT BID SC 09/27/17 21:00 10/27/17 20:59 09/28/17 09:50 20 UNITS Miconazole Nitrate (Desenex Powder) 1 appln BID EXT 09/27/17 21:00 10/27/17 20:59 09/28/17 08:34 1 APPLN Ketorolac Tromethamine (Toradol Inj) 30 mg NOW STAT IV 09/27/17 14:03 09/27/17 14:18 DC 09/27/17 14:42 30 MG Ondansetron HCl (Zofran Inj) 4 mg NOW STAT IV 09/27/17 14:33 09/27/17 14:34 DC 09/27/17 14:42 4 MG Sumatriptan Succinate (Imitrex Tab) 50 mg NOW STAT PO 09/27/17 18:21 09/27/17 18:22 DC 09/27/17 20:14 50 MG (Miri Alva, CARLA) Objective Vital Signs Date Time Temp Pulse Resp B/P (MAP) Pulse Ox O2 Delivery O2 Flow Rate FiO2 09/28/17 11:48 36.8 83 24 118/78 (91) 95 Room Air 09/28/17 09:52 119/81 (94) 09/28/17 08:15 Room Air 09/28/17 08:03 99 Room Air 09/28/17 07:47 37.0 72 22 168/88 (114) 99 Room Air 09/27/17 23:35 Room Air 09/27/17 22:59 36.8 80 16 153/95 (114) 97 Room Air 09/27/17 15:40 Room Air 09/27/17 14:57 36.9 86 18 137/89 (105) 97 Room Air (Miri Alva CRNP) Physical Exam Notes: General: no distress Eyes: normal inspection, PERLL Respiratory: chest non tender, clear to auscultation, normal breath sounds, no respiratory distress, no accessory muscle use Cardiac: regular rate and rhythm, no rub or gallop, no murmur, no edema, no jvd GI/: active bowel sounds, no abd pain or tenderness, soft, non distended Extremities: normal range of motion, normal strength, non tender Neuro/Psych: alert and oriented x 3, normal mood and affect Skin: normal color, dry (Miri Alva CRNP) Laboratory Results Last 24 Hours Test 09/27/17 17:00 09/27/17 20:32 09/28/17 01:56 09/28/17 03:49 Bedside Glucose 87 mg/dl 135 mg/dl 107 mg/dl Creatinine 0.85 mg/dl Est Creatinine Clear Calc Drug Dose 116.3 ml/min Estimated GFR () 98.6 Estimated GFR (Non- 85.1 Vancomycin Level Trough 28.0 mcg/ml Test 09/28/17 08:23 09/28/17 12:05 Bedside Glucose 74 mg/dl 65 mg/dl (Miri Alva CRNP) Assessment and Plan 41 y/o F DM II, HTN, Crohns, Hypothyroidism, anxiety. Pt had revision of lumbar fusion surgery 07/11 due to hardware movement. Since TN 07/13 she states she has had an intractable headache. She was recently here for medical management of her CSF leak which resolved, however her headaches returned so she has returned for irrigation of lumbar surgical wound, surgical repair of dural laceration, and patching the dura with DuraSeal 09/[address] Byrd. Post surgical repair of CSF leak - pain management per ortho - cbc in the morning to monitor for blood loss Group B strep, corynebacteria positive lumbar drainage culture - Has a headache but otherwise does not have meningitis symptoms, afebrile - Vancomycin - cbc - consult ID - Red man syndrome developed - reduced infusion rate by half - patient did not show any signs of anaphylaxis, no sob, hives, stridor. ?Migraine - Patient has history of migraine and her headache may be from migraine rather than persisting from CSF leak - per neurology - two days of valproic acid, phenergan q8h, and immitrex prn DM - normally uses insulin pump, off for now - ss insulin HTN - Cont Verapamil and Lisinopril - follow BPs Hypothyroidism - Cont Synthroid Crohns - pt normally on Remicade - outpt f/u DVT prophylaxis - per ortho/spine (Miri Alva ., CARLA) Attending Note & Attestation: Pt seen/examined, chart reviewed, care plan d/w CARLA Alva. I agree w/ the thrasher components of her documentation. Headache improved but not fully resolved. Imitrex was helpful. Finally had bowel movement. Cont w/ back pain. VSS no fever gen - nad - looks better mouth - MMM neck - no JVD heart - RRR lungs - CTA b/l abd - soft, NT ext - no edema A/P: 1. spinal headache 2nd to dural tear in midst of recent lumbar back surgery - s /p dural repair by Dr. Byrd 2. ongoing headache - migraine component likely in addition to #1 - neuro consult requested; recs appreciated; increase imitrex to 100mg prn; depakote 500mg BID x 2 days; phenergan 25mg TID x 2 days. 3. concern of infectious component in back - day #3 IV vancomycin for GBS and corynebacterium; ID consult requested and appreciated; PICC line consent obtained; 6 week course of such. 4. RLS - mirapex; will need IV iron in future to correct iron deficiency ( ferritin level <30 last week) will continue to follow Anaid NICHOLSON MD (Jamil Nicholson MD)
--- NOTE | 2017-09-28 14:43 | Pharmacy Progress Note ---
Glycemic Control Progress Note Date of Service Sep 28, 2017. Scope Glycemic Pharmacist consulted for glycemic control to write orders per [facility] inpatient glycemic control protocol. Objective Accuchecks BSG (last 24hrs): Test 09/27/17 17:00 09/27/17 20:32 09/28/17 01:56 09/28/17 08:23 Bedside Glucose 87 mg/dl (70-90) 135 mg/dl (70-90) 107 mg/dl (70-90) 74 mg/dl (70-90) Test 09/28/17 12:05 09/28/17 12:26 Bedside Glucose 65 mg/dl (70-90) 75 mg/dl (70-90) HbA1c: 5.9% on 09/18/17 Recent Pertinent Medications The patient is currently receiving: * Basal insulin: Lantus 20-30 units every 12 hours * Correctional Insulin: Novolog Correction per scale ACHS Goal Range: Low 110 mg/dL - High 140 mg/dL Correction Factor: 15 mg/dL/unit * Prandial insulin: Per carb ratio of 1 unit per 4 grams CHO consumed * Oral Agents: Metformin ER 1,000 mg PO daily in AM Outpatient Anti-Diabetic Meds Metformin 1,000mg PO Daily in AM NovoLog Pump Assessment & Plan ASSESSMENT: * See progress note from 09/25/17 for more background info, in short: * Pt receiving SQ basal bolus insulin regimen for hyperglycemia secondary to baseline DM (outpatient regimen on hold),stress/infection, recent surgery. Steroids/Dexamethasone hyperglycemic effects likely minimal at this time. Last dose was 11 AM * Patient is currently receiving an average of 102 units of insulin per day * 50 units of basal insulin * 52 units of prandial/correctional insulin * BSGs over the past 24hrs: 255, 260, 87, 135, 107, 74, 75 * Changes needed to insulin regimen: * AM Fasting BSG = 74 mg/dl. This is slightly below goal range for patient based on inpatient targets and co-morbidities. Therefore Basal insulin needs decreased. Patient received 50 units of basal insulin on 09/27, will decrease by 20% and change to 40 units of basal insulin. Of note, patient takes 55 units of basal insulin as an outpatient, but A1c is quite low indicating that she may be having some hypo with 55 units/day. May need to increase basal insulin slightly tomorrow. * Post-prandial BSGs are trending downwards throughout the day (insulin stacking) therefore need to loosen CF/CR * Total daily dose = ~100 units. Expect total daily dose to decrease without steroid induced hyperglycemia. Will change to an estimated total daily dose of ~ 80 units/day. PLAN FOR INPATIENT GLYCEMIC CONTROL: * Oral Agents * Continue Metformin 1,000 mg PO daily in AM * Basal insulin: decrease dose * Lantus 20 units SQ BID * Bolus insulin: loosen parameters * NovoLog per scale ACHS or Q6hrs while NPO * Goal Range: Low 110 mg/dL - High 140 mg/dL * Correction Factor: 20 mg/dL/unit * Nutritional / Prandial insulin per carb ratio of 1 unit per 6 grams CHO consumed RECOMMENDATIONS FOR DISCHARGE: * A1c in goal range base on age/co-morbidities. Pt may be experiencing hypoglycemia since A1c is slightly low. May continue insulin pump at d/c. * Please note that the plan above was derived based on current level of insulin resistance and hospital stress. These recommendations are appropriate for inpatient admission only. Plan of care upon discharge will need to be reassessed to avoid potential outpatient hypo/hyperglycemia. Thank you.
[2017-09-28] MEDS ORDERED: SUMATRIPTAN SUCC TAB 100 MG TAB PO PRN (14:45)
[2017-09-28 15:13] VITALS: BP 122/79; PULSE 79; TEMP 36.8; O2SAT 97
[2017-09-28] MEDS: PROMETHAZINE HCL INJ 25 MG in SODIUM CHLORIDE 0.9% 50ML 50 ML IV SCH (16:32)
[2017-09-28] MEDS: VALPROATE SOD IV 500 MG in DEXTROSE 5% 50ML 50 ML IV SCH (21:00)
[2017-09-28] MEDS ORDERED: VANCOMYCIN INJ 1,750 MG in SODIUM CHLORIDE 0.9% 500ML 500 ML IV SCH (21:00)
[2017-09-28] MEDS: ALPRAZOLAM 0.5 MG TAB PO PRN (21:00)
[2017-09-28] MEDS ORDERED: INSULIN GLARGINE SOLOSTAR 100 UNITS/ML 3 ML PEN SC SCH (21:00)
[2017-09-28] MEDS: TRAZODONE HCL 100 MG TAB PO SCH (21:48)
[2017-09-28] MEDS: PRAMIPEXOLE DIHYDROCHLORIDE 0.5 MG TAB PO SCH (21:55)
[2017-09-29 00:05] VITALS: BP 159/98; PULSE 71; TEMP 37; O2SAT 97
[2017-09-29] MEDS: PROMETHAZINE HCL INJ 25 MG in SODIUM CHLORIDE 0.9% 50ML 50 ML IV SCH ×3 (00:41→16:29)
[2017-09-29] MEDS: HYDROmorphone INJ 1 MG/ML SYR IV PRN ×5 (00:48→18:17)
[2017-09-29] MEDS: VANCOMYCIN INJ 1,750 MG in SODIUM CHLORIDE 0.9% 500ML 500 ML IV SCH ×2 (01:14→11:15)
[2017-09-29] MEDS: LEVOTHYROXINE 100 MCG TAB PO SCH (05:57)
[2017-09-29 06:45] LABS: CREATININE 0.85 mg/dl (0.60-1.20)
[2017-09-29 07:33] VITALS: BP 166/100; PULSE 73; TEMP 36.8; O2SAT 95
[2017-09-29] MEDS: OXYCODONE/ACETAMINOPHEN 5-325 TAB PO PRN ×2 (08:05→13:34)
[2017-09-29 08:08] VITALS: BP 149/98
[2017-09-29] MEDS: MICONAZOLE NITRATE POWDER 43 GM EXT SCH ×2 (08:55→21:19)
[2017-09-29] MEDS: VALPROATE SOD IV 500 MG in DEXTROSE 5% 50ML 50 ML IV SCH ×2 (08:56→21:31)
[2017-09-29] MEDS: BuPROPion SR 150 MG TABCR PO SCH ×2 (08:56→21:19)
[2017-09-29] MEDS: PANTOprazole SOD 40 MG TAB PO SCH (08:56)
[2017-09-29] MEDS: LISINOPRIL 5 MG TAB PO SCH (08:57)
[2017-09-29] MEDS: GABAPENTIN 600 MG TAB PO SCH ×2 (08:57→21:19)
[2017-09-29] MEDS: DOCUSATE SODIUM 100 MG CAP PO SCH ×2 (08:57→21:19)
[2017-09-29] MEDS: POLYETHYLENE (MIRALAX) 17 GM PACK PO SCH (08:58)
[2017-09-29] MEDS: METFORMIN HCL 500 MG TABCR PO SCH (08:58)
[2017-09-29] MEDS: QUETIAPINE FUMARATE 200 MG TAB PO SCH ×2 (08:59→21:19)
[2017-09-29] MEDS: VERAPAMIL HCL 240 MG TABCR PO SCH (08:59)
--- NOTE | 2017-09-29 09:59 | ORTHOPEDICS PROGRESS NOTE ---
DATE: 09/29/2017 SUBJECTIVE: Alert, oriented, minimal complaints of pain. OBJECTIVE: Vital signs stable. Wound clean. ASSESSMENT: Status post reconstructive spinal surgery, spinal fluid leak and repair. DISPOSITION: I will keep her ambulatory here today. Careful with bending, stooping, lifting. I anticipate her being discharged home tomorrow.
[2017-09-29] MEDS: INSULIN GLARGINE SOLOSTAR 100 UNITS/ML 3 ML PEN SC SCH ×2 (10:07→21:00)
[2017-09-29] MEDS: INSULIN ASPART 100 UNITS/ML 3 ML PEN SC SCH ×4 (10:08→21:00)
--- NOTE | 2017-09-29 10:22 | Pharmacy Progress Note ---
Glycemic Control Progress Note Date of Service Sep 29, 2017. Scope Glycemic Pharmacist consulted for glycemic control to write orders per [facility] inpatient glycemic control protocol. Objective Accuchecks BSG (last 24hrs): Test 09/28/17 12:05 09/28/17 12:26 09/28/17 16:57 09/28/17 20:18 Bedside Glucose 65 mg/dl (70-90) 75 mg/dl (70-90) 81 mg/dl (70-90) 77 mg/dl (70-90) Test 09/29/17 08:03 Bedside Glucose 74 mg/dl (70-90) HbA1c: A1c = 5.9% (09/18/17) Recent Pertinent Medications The patient is currently receiving: * Basal insulin: Lantus 20 units every 12 hours * Correctional Insulin: Novolog Correction per scale ACHS Goal Range: Low 110 mg/dL - High 140 mg/dL Correction Factor: 20 mg/dL/unit * Prandial insulin: Per carb ratio of 1 unit per 6 grams CHO consumed * Oral Agents: Metformin ER 1,000 mg PO daily in AM Outpatient Anti-Diabetic Meds * Metformin 1gm PO QAM * Novolog insulin pump, basal rate: * 6298-1917 --> 2 units/hr * [id number] --> 2.4 units/hr * [id number] --> 2.3 units/hr * 55 units/day Assessment & Plan ASSESSMENT: * See progress note from 09/25/17 for more background info, in short: * Pt receiving SQ basal bolus insulin regimen for hyperglycemia secondary to baseline DM (outpatient regimen on hold), stress/infection, recent surgery. Steroid induced hyperglycemia resolved. * Patient is currently receiving an average of 54 units of insulin per day ( this is decreased from 102 units on 09/27 and is more similar to outpt needs) * 40 units of basal insulin * 14 units of prandial/correctional insulin * BSGs ranged from 65 - 107 mg/dl over the past 24 hours * Changes needed to insulin regimen: * AM Fasting BSG = 74 mg/dl. This is slightly below goal range for patient based on inpatient targets and co-morbidities. Basal insulin was decreased by 20 % yesterday. Will further decrease today. Of note, patient takes 55 units of basal insulin as an outpatient, but A1c is quite low indicating that she may be having some hypo with 55 units/day. * Post-prandial BSGs are below goal range. I suspect this may be due to basal insulin covering bolus needs. I anticipate this to improve with decrease in basal insulin. PLAN FOR INPATIENT GLYCEMIC CONTROL: * Oral Agents * Continue Metformin 1,000 mg PO daily in AM * Basal insulin: decrease * Lantus 18 units SQ BID * Bolus insulin: * NovoLog per scale ACHS or Q6hrs while NPO * Goal Range: Low 110 mg/dL - High 140 mg/dL * Correction Factor: 20 mg/dL/unit * Nutritional / Prandial insulin per carb ratio of 1 unit per 6 grams CHO consumed RECOMMENDATIONS FOR DISCHARGE: * A1c in goal range base on age/co-morbidities. Pt may be experiencing hypoglycemia since A1c is slightly low. May continue insulin pump at d/c. Thank you.
[2017-09-29] MEDS: METOCLOPRAMIDE HCL INJ 5 MG/ML 2 ML VIAL IV PRN (14:04)
[2017-09-29 14:57] VITALS: BP 120/77; PULSE 84; TEMP 37.1; O2SAT 95
[2017-09-29] MEDS: NYSTATIN SUSP 500,000 U/5 ML UDC PO SCH ×2 (18:13→21:19)
--- NOTE | 2017-09-29 19:33 | DIAGNOSTIC IMAGING REPORT ---
ULTRASOUND L VENOUS DOPP LOWER EXT UNILAT CLINICAL HISTORY: Left lower leg pain COMPARISON STUDY: August 17, 2015 FINDINGS: Real-time and color flow Doppler imaging were performed. Flow was seen within the femoral, popliteal and calf veins with no intraluminal thrombus demonstrated. The saphenous vein is patent. IMPRESSION: No evidence of left lower extremity DVT Electronically signed by: Varinder Quach M.D. 09/29/2017 7:32 PM Dictated Date/Time: 09/29/2017 7:31 PM
--- NOTE | 2017-09-29 20:59 | Progress Note ---
Subjective Date of Service: Sep 29, 2017. Subjective Pt evaluation today including: conversation w/ patient, physical exam, chart review, lab review, review of studies (LLE venous doppler), conversation w/ senior health consultant (Dr. Byrd, ortho), review of inpatient medication list Pain: mild left calf pain - started this afternoon; back - but improving PO Intake: fair - 50% meals Voiding: no voiding problems headaches resolved another bowel movement today photophobia gone no nausea today getting around the room more easily PICC line now in place Problem List Medical Problems: (1) Wound infection after surgery Status: Acute Review of Systems Constitutional: No fever Respiratory: No cough, No shortness of breath Cardiac: No chest pain Abdomen: No pain Objective Vital Signs Date Time Temp Pulse Resp B/P (MAP) Pulse Ox O2 Delivery O2 Flow Rate FiO2 09/29/17 15:20 Room Air 09/29/17 14:57 37.1 84 16 120/77 (91) 95 Room Air 09/29/17 08:08 149/98 (115) 09/29/17 08:00 Room Air 09/29/17 07:33 36.8 73 17 166/100 (122) 95 Room Air 09/29/17 00:30 Room Air 09/29/17 00:05 37.0 71 18 159/98 (118) 97 Room Air Physical Exam General Appearance: no apparent distress, + obese ENT: + pertinent finding (thrush on buccal mucosa) Neck: no JVD Respiratory/Chest: lungs clear, no respiratory distress, no accessory muscle use Cardiovascular: regular rate, rhythm, no gallop, no murmur Abdomen: normal bowel sounds, non tender, soft, no organomegaly Extremities: no pedal edema, + calf tenderness (left; but no palpable cords, erythema, swelling, etc) Neurologic/Psychiatric: alert, oriented x 3 Skin: + pertinent finding (PICC line in place, RUE) Laboratory Results Last 24 Hours Test 09/29/17 05:40 09/29/17 08:03 09/29/17 12:10 09/29/17 17:04 Creatinine 0.85 mg/dl Est Creatinine Clear Calc Drug Dose 116.3 ml/min Estimated GFR () 98.6 Estimated GFR (Non- 85.1 Bedside Glucose 74 mg/dl 95 mg/dl 101 mg/dl Assessment and Plan 41yo female with: 1. spinal headache 2nd to dural tear in midst of recent lumbar back surgery - s /p dural repair by Dr. Byrd earlier this week. Spinal headache resolved. 2. ongoing headache - likely migraine component in addition to #1 - neuro consult requested; recs appreciated; increased imitrex to 100mg prn; depakote 500mg BID x 2 days (ends tonight); phenergan 25mg TID x 2 days (ends tonight). Overall improved/resolved. 3. concern of infectious component in back - day #4 IV vancomycin for GBS and corynebacterium; ID consult requested and appreciated; PICC line placed; 6 week course of such. 4. RLS - mirapex with good results; will need IV iron in future to correct iron deficiency (ferritin level <30 last week). Send home with mirapex if desired by patient. 5. iron deficiency - recommend oral iron at discharge and possible IV iron as outpatient; she will need to speak with PCP or GI doctor about this. 6. left calf pain - doppler obtained; negative for DVT. Check bmp, mag in AM to ensure no hypokalemia/etc causing cramps. 7. T2DM - glycemic management per pharmacy with excellent control. At discharge transition back to insulin pump. 8. Crohn's disease - controlled. 9. HTN - control acceptable. 10. hypothyroidism - cont synthroid. 11. thrush - 10-day course of nystatin QID. likely d/c home on Sunday Continued [facility] stay due to: inadequate oral pain control Discharge planning: home with IV medication
[2017-09-29] MEDS: TRAZODONE HCL 100 MG TAB PO SCH (21:19)
[2017-09-29] MEDS: PRAMIPEXOLE DIHYDROCHLORIDE 0.5 MG TAB PO SCH (21:19)
[2017-09-29] MEDS: HYDROCODONE/ACETAMI 10/325 TAB PO PRN (21:58)
[2017-09-29 22:19] VITALS: TEMP 37.3
[2017-09-29] MEDS: ONDANSETRON INJ 2 MG/ML 2 ML VIAL IV PRN (22:22)
[2017-09-29 23:40] VITALS: BP 134/88; PULSE 83; TEMP 36.7; O2SAT 97
[2017-09-30] MEDS ORDERED: VANCOMYCIN TROUGH SCH (00:30)
[2017-09-30] MEDS: VANCOMYCIN INJ 1,750 MG in SODIUM CHLORIDE 0.9% 500ML 500 ML IV SCH (01:18)
[2017-09-30 05:49] LABS: HEMATOCRIT 35.4 % (37-47); MEAN CELL VOLUME 90.3 fL (80-100); MEAN CORPUSCULAR HEMOGLOBIN 28.6 pg (25-34); MEAN CORPUSCULAR HGB CONC 31.6 g/dl (32-36); MEAN PLATELET VOLUME 9.1 fL (7.4-10.4); PLATELET COUNT 147 K/uL (130-400); RED BLOOD COUNT 3.92 M/uL (4.2-5.4); WHITE BLOOD COUNT 5.69 K/uL (4.8-10.8)
[2017-09-30] MEDS: LEVOTHYROXINE 100 MCG TAB PO SCH (05:51)
[2017-09-30 06:23] LABS: BUN/CREATININE RATIO 7.7 (10-20); CALCIUM 8.8 mg/dl (8.5-10.1); CREATININE 0.89 mg/dl (0.60-1.20); MAGNESIUM 2.4 mg/dl (1.8-2.4); POTASSIUM 3.9 mmol/L (3.5-5.1)
[2017-09-30] MEDS: HYDROCODONE/ACETAMI 10/325 TAB PO PRN (06:31)
[2017-09-30 07:24] VITALS: BP 126/85; PULSE 75; TEMP 37; O2SAT 96
[2017-09-30] MEDS: NYSTATIN SUSP 500,000 U/5 ML UDC PO SCH ×2 (09:00→13:00)
[2017-09-30] MEDS ORDERED: INSULIN GLARGINE SOLOSTAR 100 UNITS/ML 3 ML PEN SC SCH (09:00)
[2017-09-30] MEDS: VALPROATE SOD IV 500 MG in DEXTROSE 5% 50ML 50 ML IV SCH (09:14)
[2017-09-30] MEDS: MICONAZOLE NITRATE POWDER 43 GM EXT SCH (09:14)
[2017-09-30] MEDS: BuPROPion SR 150 MG TABCR PO SCH (09:15)
[2017-09-30] MEDS: GABAPENTIN 600 MG TAB PO SCH (09:15)
[2017-09-30] MEDS: PANTOprazole SOD 40 MG TAB PO SCH (09:15)
--- NOTE | 2017-09-30 09:15 | Discharge Instructions ---
Discharge Instructions Date of Service Sep 30, 2017. Admission Reason for Admission: Cerebral Spinal Fluid Leak Discharge Discharge Diagnosis / Problem: same Discharge Goals Goal(s): Improve function Activity Recommendations Activity Limitations: as noted below Lifting Limitations: no more than 5 pounds Exercise/Sports Limitations: until after follow-up appointment Shower/Bathe: keep incision dry home ,rest recover . Current Hospital Diet Patient's current hospital diet: Diabetes Type 2 Diet Discharge Diet Recommended Diet: Diabetes Type 2 Diet Procedures Procedures Performed: Lumbar Dural Tear Repair Pending Studies Studies pending at discharge: no Laboratory Results Hemoglobin A1c Test 09/18/17 08:42 Range/Units Estimated Average Glucose 123 mg/dl Hemoglobin A1c 5.9 H 4.5-5.6 % Medical Emergencies . Who to Call and When: Medical Emergencies: If at any time you feel your situation is an emergency, please call 911 immediately. . Non-Emergent Contact Non-Emergency issues call your: Surgeon . "Provider Documentation" section prepared by Emory Byrd. . VTE Core Measure Inpt VTE Proph given/why not?: Scooter Oleary
[2017-09-30] MEDS: VERAPAMIL HCL 240 MG TABCR PO SCH (09:16)
[2017-09-30] MEDS: LISINOPRIL 5 MG TAB PO SCH (09:16)
[2017-09-30] MEDS: DOCUSATE SODIUM 100 MG CAP PO SCH (09:16)
[2017-09-30] MEDS: QUETIAPINE FUMARATE 200 MG TAB PO SCH (09:16)
[2017-09-30] MEDS: POLYETHYLENE (MIRALAX) 17 GM PACK PO SCH (09:17)
[2017-09-30] MEDS: METFORMIN HCL 500 MG TABCR PO SCH (09:17)
--- NOTE | 2017-09-30 09:20 | Pharmacy Progress Note ---
Pharmacy Abx Dose Progress Nt Date of Service Sep 30, 2017. Pharmacy Dosing Scope The patient is currently receiving the following antimicrobial agents per Pharmacy consult: Vancomycin 1750 mg (14.7 mg/kg) IV every 14 hours Objective Height (Feet): 5 Height (Inches): 7.00 Weight (Kilograms): 119.000 Vital Signs (Past 12Hrs) Vital Signs Past 12 Hours Date Time Temp Pulse Resp B/P (MAP) Pulse Ox O2 Delivery O2 Flow Rate FiO2 09/30/17 08:00 Room Air 09/30/17 07:24 37.0 75 16 126/85 (99) 96 Room Air 09/29/17 23:45 Room Air 09/29/17 23:40 36.7 83 16 134/88 (103) 97 Room Air 09/29/17 22:19 37.3 Lab Results (24Hrs) Laboratory Tests (24 Hours) Test 09/30/17 05:42 White Blood Count 5.69 K/uL (4.8-10.8) Item Value Date Time Vancomycin Level Trough 17.6 mcg/ml 09/30/17 0028 Micro Results Date/Time Source Procedure Growth Status 09/24/17 17:00 Blood Blood Culture - Final NO GROWTH Complete 09/24/17 16:56 Blood Blood Culture - Final NO GROWTH Complete 09/24/17 16:30 Drainage - Surface Back Gram Stain - Final Complete 09/24/17 16:30 Wound Culture - Final Group B Beta Strep Corynebacterium Species Complete Risk Factors for Resistance * Immunocompromised - patient with Crohn's Disease receiving Infliximab ( Remicade) maintenance therapy Assessment & Plan Assessment Ms Christianson is a 41yo patient admitted with spinal headache. Patient with DM II and Crohn's Disease on Remicade * Pt had revision of lumbar fusion surgery in June 2016, d/t hardware movement. Pt complains of constant headache since discharge. * Recent admission for CSF leak. Patient is now s/p irrigation of lumbar surgical wound and repair of dural laceration w/ dural patching. * Lumbar drainage culture positive for Group B Strep and Corynebacterium sp. 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 * Continue dose of 1750 mg IV every 14 hours * Goal trough level for skin and skin structure infection: 13 to 20 mcg/mL * Patient with Vancomycin elimination half-life of ~11-12 hours making her a difficult candidate for once daily dosing * Ideally patient should be transitioned to an alternate selection of antibiotics for home administration * If not feasible, Vancomycin 2500mg (21 mg/kg) IV every 24 hours infused over 4 -6 hours (Paulette symptoms more likely with 21 mg/kg dose) may be worth a trial with early assessment to ensure trough near the therapeutic range to minimize resistance/therapy failure developing * Drug accumulation anticipated due to BMI > 35 kg/m2 with ongoing dosing thus may enhance opportunity for once daily dosing being successful Pharmacy will continue to follow and will adjust dose/frequency as necessary. Thank you.
[2017-09-30] MEDS: INSULIN ASPART 100 UNITS/ML 3 ML PEN SC SCH ×2 (09:24→13:53)
--- NOTE | 2017-09-30 09:41 | DISCHARGE SUMMARY ---
She is alert, oriented here this morning. Vital signs stable, afebrile. She denies any shortness of breath, chest pain, calf tenderness. I think she is stable. Wound clean and dry. Afebrile. ASSESSMENT: Status post reconstructive surgery, diabetes mellitus, repair of dura. DISPOSITION: I think we can get her home today with home health. Instructions, precautions provided. Medication provided and she has medication at home. We will continue with antibiotics. I will see her back in approximately 10 days.
[2017-09-30] MEDS: ONDANSETRON INJ 2 MG/ML 2 ML VIAL IV PRN (10:33)
[2017-09-30] MEDS: OXYCODONE/ACETAMINOPHEN 5-325 TAB PO PRN (10:35)
[2017-09-30] MEDS: ALPRAZOLAM 0.5 MG TAB PO PRN (11:02)
[2017-09-30] MEDS ORDERED: NYSS5 PO (11:59)
[2017-09-30] MEDS ORDERED: VANCOMYCIN INJ 750 MG in SODIUM CHLORIDE 0.9% 250ML 250 ML IV STA (12:11)
[2017-09-30] MEDS ORDERED: VANC1INJ94 IV ×2 (12:12→12:15)
[2017-09-30] MEDS ORDERED: FLUC100T4 PO (12:32)
[2017-09-30 12:55] VITALS: BP 126/85; PULSE 75; TEMP 37; O2SAT 96
[2017-09-30] MEDS ORDERED: FLUCONAZOLE 100 MG TAB PO ONE (13:30)
[2017-09-30 14:52] VITALS: BP 113/70; PULSE 78; TEMP 36.9; O2SAT 97
--- NOTE | 2017-09-30 17:58 | Progress Note ---
Subjective Date of Service: Sep 30, 2017. Subjective Patient is doing well seen prior to discharge did receive her vancomycin dose today at the time of discharge I spoke to her outpatient pharmacy supplier and they feel that we may better use vancomycin on a every 12 hours dosing but will check with her benefits to see if that is per minute she'll either be on 2500 mg daily or 1500 mg every 12 Problem List Medical Problems: (1) Wound infection after surgery Status: Acute Review of Systems Constitutional: No fever, No chills, No weakness, No fatigue Respiratory: No cough, No sputum, No wheezing, No shortness of breath Objective Vital Signs Date Time Temp Pulse Resp B/P (MAP) Pulse Ox O2 Delivery O2 Flow Rate FiO2 09/30/17 07:24 37.0 75 16 126/85 (99) 96 Room Air 09/29/17 23:45 Room Air 09/29/17 23:40 36.7 83 16 134/88 (103) 97 Room Air 09/29/17 22:19 37.3 09/29/17 15:20 Room Air 09/29/17 14:57 37.1 84 16 120/77 (91) 95 Room Air Physical Exam General Appearance: WD/WN, + mild distress Eyes: PERRL, EOMI Respiratory/Chest: chest non-tender, lungs clear, normal breath sounds Cardiovascular: regular rate, rhythm, no murmur Abdomen: normal bowel sounds, non tender, soft Neurologic/Psychiatric: alert, oriented x 3 Laboratory Results Last 24 Hours Test 09/29/17 12:10 09/29/17 17:04 09/29/17 20:44 09/29/17 20:48 Bedside Glucose 95 mg/dl 101 mg/dl 58 mg/dl 61 mg/dl Test 09/29/17 21:09 09/30/17 00:28 09/30/17 05:42 09/30/17 07:28 Bedside Glucose 78 mg/dl 100 mg/dl Vancomycin Level Trough 17.6 mcg/ml White Blood Count 5.69 K/uL Red Blood Count 3.92 M/uL Hemoglobin 11.2 g/dL Hematocrit 35.4 % Mean Corpuscular Volume 90.3 fL Mean Corpuscular Hemoglobin 28.6 pg Mean Corpuscular Hemoglobin Concent 31.6 g/dl RDW Standard Deviation 59.5 fL RDW Coefficient of Variation 18.1 % Platelet Count 147 K/uL Mean Platelet Volume 9.1 fL Sodium Level 142 mmol/L Potassium Level 3.9 mmol/L Chloride Level 106 mmol/L Carbon Dioxide Level 31 mmol/L Anion Gap 5.0 mmol/L Blood Urea Nitrogen 7 mg/dl Creatinine 0.89 mg/dl Est Creatinine Clear Calc Drug Dose 111.0 ml/min Estimated GFR () 93.3 Estimated GFR (Non- 80.5 BUN/Creatinine Ratio 7.7 Random Glucose 78 mg/dl Calcium Level 8.8 mg/dl Magnesium Level 2.4 mg/dl Assessment and Plan 41yo female with: Spinal headache dural leak migraine headache concern for group beta strep surgical site infection Resolved spinal headache 2nd to dural tear in midst of recent lumbar back surgery - s/p dural repair by Dr. Byrd Resolved headache - likely migraine component in addition to #1 - neuro consult ; increased imitrex to 100mg prn; depakote 500mg BID x 2 days (ends tonight); phenergan 25mg TID x 2 days (ends11/4). Infection and back with ultra positive will complete. IV vancomycin per infectious disease recommendations given allergies. As per previous discussion will be on IV vancomycin dosing to be determined as best delivered an outpatient situation (2500 every 24 or 1500 every 12h) RLS - mirapex left calf pain - doppler negative for DVT. T2DM - At discharge transition back to insulin pump. hypothyroidism - cont synthroid. thrush -patient requests oral Diflucan Continued [facility] stay due to: inadequate oral pain control Discharge planning: home with IV medication
== END 2017-09-30 15:50 | disposition home health service (06) | DRG 857 ==
LOC: C.EDB 15:04 → C.MSN 17:05 → ENRESERV 17:45
PROVIDERS: ADMIT Orthopaedic Surgery Orthopaedic Surgery of the Spine; ATTEND Orthopaedic Surgery Orthopaedic Surgery of the Spine
PROC: 00QT0ZZ Repair Spinal Meninges, Open Approach (ICD-10-PCS; principal; 2017-09-25 07:00)
PROC: 02HV33Z Insertion of Infusion Device into Superior Vena Cava, Percutaneous Approach (ICD-10-PCS; 2017-09-28)
DX: T81.4XXA Infection following a procedure, initial encounter (principal); G97.41 Accidental puncture or laceration of dura during a procedure; K50.90 Crohn's disease, unspecified, without complications; B37.0 Candidal stomatitis; I10 Essential (primary) hypertension; E78.5 Hyperlipidemia, unspecified; E03.9 Hypothyroidism, unspecified; F17.200 Nicotine dependence, unspecified, uncomplicated; E11.9 Type 2 diabetes mellitus without complications; G97.1 Other reaction to spinal and lumbar puncture; G25.81 Restless legs syndrome; F41.9 Anxiety disorder, unspecified; B95.1 Streptococcus, group B, as the cause of diseases classified elsewhere; G43.909 Migraine, unspecified, not intractable, without status migrainosus; M79.662 Pain in left lower leg; Z79.4 Long term (current) use of insulin; Z79.84 Long term (current) use of oral hypoglycemic drugs; Z79.899 Other long term (current) drug therapy; Z88.1 Allergy status to other antibiotic agents; Z88.2 Allergy status to sulfonamides; Z98.1 Arthrodesis status; Y83.8 Other surgical procedures as the cause of abnormal reaction of the patient, or of later complication, without mention of misadventure at the time of the procedure

== ENCOUNTER 2018-01-10 14:18 | Inpatient (IN) | payer OTHER ==
[~2018-01-10] VITALS: Ht 170.2 cm; Wt 114.1 kg
[~2018-01-10 14:18] MED LIST changes: +VANC1INJ94 IV
[2018-01-10] MEDS ORDERED: ONDANSETRON INJ 2 MG/ML 2 ML VIAL IV PRN (15:00)
[2018-01-10 17:00] VITALS: BP 113/74; PULSE 108; TEMP 37.6; O2SAT 99; Ht 170.2 cm; Wt 114.1 kg
[2018-01-10 17:18] VITALS: BP 113/74; PULSE 108; TEMP 37.6; O2SAT 99
[2018-01-10 17:22] VITALS: O2SAT 99
[2018-01-10] MEDS: OXYCODONE/ACETAMINOPHEN 5-325 TAB PO PRN (17:41)
[2018-01-10] MEDS ORDERED: PHARMACY GLYCEMIC MGMT CONSULT SCH (18:40)
[2018-01-10 18:53] LABS: HEMATOCRIT 35.1 % (37-47); HEMOGLOBIN 11.5 g/dL (12.0-16.0); MEAN CELL VOLUME 89.1 fL (80-100); MEAN CORPUSCULAR HEMOGLOBIN 29.2 pg (25-34); MEAN CORPUSCULAR HGB CONC 32.8 g/dl (32-36); MEAN PLATELET VOLUME 9.7 fL (7.4-10.4); PLATELET COUNT 208 K/uL (130-400); RED CELL DISTRIBUTION WIDTH CV 17.1 % (11.5-14.5); RED CELL DISTRIBUTION WIDTH SD 56.4 fL (36.4-46.3); WHITE BLOOD COUNT 6.81 K/uL (4.8-10.8)
[2018-01-10] MEDS ORDERED: NURSING VERBAL MED ORDER ONE ×2 (19:30→19:45)
[2018-01-10] MEDS ORDERED: HYDROmorphone INJ 1 MG/ML SYR IV PRN (19:45)
[2018-01-10] MEDS: SODIUM CHLORIDE 0.9% 1000ML 1,000 ML IV SCH (19:52)
[2018-01-10] MEDS ORDERED: ALPRAZOLAM 0.5 MG TAB PO PRN (20:00)
[2018-01-10] MEDS ORDERED: ONDANSETRON 8 MG TAB PO PRN (20:00)
[2018-01-10] MEDS ORDERED: DICYCLOMINE HCL 10 MG CAP PO PRN (20:15)
--- NOTE | 2018-01-10 20:27 | Pharmacy Progress Note ---
Glycemic Control Intl Consult Date of Service Jan 10, 2018. Scope Glycemic Pharmacist consulted by Mario Pond PA-C on 01/10/18 for glycemic control and to write orders per [facility] inpatient glycemic control protocol Objective Weight (Kilograms): 114.100 Laboratory Data (last 24hrs) Test 01/10/18 18:30 White Blood Count 6.81 K/uL Recent Pertinent Medications Outpatient Anti-diabetic Regimen: * Metformin 1gm PO QAM * Novolog insulin pump, basal rate from admission in August: * 9794-8382 --> 2 units/hr * 2261-9265 --> 2.4 units/hr * [id number] --> 2.3 units/hr * 55 units/day * Carb ratio ~ 1 unit per 11 grams CHO * Correction factor unknown at this time * A1c = 5.9% (09/18/17) Risk Factors for Insulin Resistance: * Diet: Type 2 DM until midnight, then NPO Assessment & Plan ASSESSMENT: * 42yo T2DM female admitted with back pain. Pt underwent lumbar spinal fusion on 07/11/17 then was re-admitted on 09/25/17 for CSF leak. * Pharmacy managed glycemic control with admission in August. * She is managed on Novolog insulin pump as an outpatient. Likely good control evidenced by A1c of 5.9%, unless experiencing hypoglycemia. * Patient to continue insulin pump at this time, and hold if patient has surgery tomorrow, which will be determined tomorrow. PLAN FOR INPATIENT GLYCEMIC CONTROL: * Continue home novolog pump at home settings at this time, accuchecks ACHS until tonight, then Q6H while NPO * Plan for inpatient glycemic control will depend on possible OR tomorrow and post-op orders: * If patient goes to OR - hold insulin pump while in OR * If patient is started on high dose IV steroids post-operatively, I recommend continuing to hold her insulin pump and utilize basal/bolus insulin. * If patient is NOT started on steroids, she can resume her insulin pump at home settings. * Please note that the plan above was derived based on current level of insulin resistance and hospital stress. These recommendations are appropriate for inpatient admission only. Plan of care upon discharge will need to be reassessed to avoid potential outpatient hypo/hyperglycemia. Thank you.
[2018-01-10] MEDS ORDERED: GLUCOSE 40% GEL 15 GM TUBE PO PRN (20:45)
[2018-01-10] MEDS ORDERED: GLUCOSE 10 TABS/TUBE PO PRN (20:45)
[2018-01-10] MEDS ORDERED: GLUCAGON FOR INJ 1 MG VIAL SQ PRN (20:45)
[2018-01-10] MEDS ORDERED: INSULIN ASPART 100 UNITS/ML VIAL SC PRN (20:45)
[2018-01-10] MEDS ORDERED: DEXTROSE 50% 50 ML SYR IV PRN (20:45)
[2018-01-10] MEDS ORDERED: NovoLOG INSULIN PUMP SCH (21:00)
[2018-01-10] MEDS: BuPROPion SR 150 MG TABCR PO SCH (21:24)
[2018-01-10] MEDS: GABAPENTIN 600 MG TAB PO SCH (21:24)
[2018-01-10] MEDS: QUETIAPINE FUMARATE 200 MG TAB PO SCH (21:24)
[2018-01-10] MEDS: HYDROmorphone INJ 1 MG/ML SYR IV PRN (21:25)
[2018-01-10] MEDS: TRAZODONE HCL 100 MG TAB PO SCH (21:25)
[2018-01-10 22:26] VITALS: BP 97/59; PULSE 88; TEMP 37.1; O2SAT 96
[2018-01-11] VITALS (7 sets, daily range): BP systolic 94–137; BP diastolic 66–89; PULSE 73–81; TEMP 37–38.3; O2SAT 94–96
[2018-01-11] MEDS: NovoLOG INSULIN PUMP SCH ×6 (00:06→20:32)
[2018-01-11] MEDS: OXYCODONE/ACETAMINOPHEN 5-325 TAB PO PRN ×4 (02:01→23:51)
[2018-01-11] MEDS: HYDROmorphone INJ 1 MG/ML SYR IV PRN ×4 (02:05→16:43)
[2018-01-11] MEDS ORDERED: NURSING DECISION MEDICATION ORDER SCH (02:15)
[2018-01-11] MEDS: LEVOTHYROXINE 200 MCG TAB PO SCH (06:00)
[2018-01-11] MEDS: SODIUM CHLORIDE 0.9% 1000ML 1,000 ML IV SCH ×2 (08:01→20:32)
--- NOTE | 2018-01-11 08:45 | DIAGNOSTIC IMAGING REPORT ---
CHEST 2 VIEWS ROUTINE CLINICAL HISTORY: pre-op preoperative evaluation COMPARISON STUDY: 07/16/2017 FINDINGS: The bones soft tissues and hemidiaphragms are normal. The cardiomediastinal silhouette is normal. The lungs are clear. The pulmonary vasculature is normal. IMPRESSION: Negative chest. The above report was generated using voice recognition software. It may contain grammatical, syntax or spelling errors. Electronically signed by: Kleber Reid M.D. 01/11/2018 8:44 AM Dictated Date/Time: 01/11/2018 8:43 AM
--- NOTE | 2018-01-11 08:46 | DIAGNOSTIC IMAGING REPORT ---
LUMBAR SPINE 2 OR 3 VIEWS CLINICAL HISTORY: post op low back pain pain COMPARISON STUDY: None FINDINGS: Evidence for posterior laminectomy and fusion at L4-L5 and S1. Disc spaces are present at L4-L5 and L5-S1. Alignment is anatomic. IMPRESSION: Anatomic alignment post laminectomy and fusion from L4 through S1 The above report was generated using voice recognition software. It may contain grammatical, syntax or spelling errors. Electronically signed by: Kleber Reid M.D. 01/11/2018 8:45 AM Dictated Date/Time: 01/11/2018 8:44 AM
[2018-01-11 09:30] LABS: HEMOGLOBIN A1C 5.5 % (4.5-5.6)
[2018-01-11] MEDS: BuPROPion SR 150 MG TABCR PO SCH ×2 (09:38→20:33)
[2018-01-11] MEDS: QUETIAPINE FUMARATE 200 MG TAB PO SCH ×2 (09:38→20:33)
[2018-01-11] MEDS: GABAPENTIN 600 MG TAB PO SCH ×2 (09:38→20:33)
[2018-01-11] MEDS: VERAPAMIL HCL 240 MG TABCR PO SCH (09:39)
[2018-01-11] MEDS: LISINOPRIL 5 MG TAB PO SCH (09:39)
[2018-01-11] MEDS: PANTOprazole SOD 40 MG TAB PO SCH (09:39)
--- NOTE | 2018-01-11 10:00 | Pharmacy Progress Note ---
Pharmacy Glycemic Short Note 2 Date of Service Jan 11, 2018. OUTPATIENT ANTIDIABETIC REGIMEN: * Novolog insulin pump * Metformin 1 gm ER qAM * A1c 5.5% on 01/10/18 ASSESSMENT: * Patient admitted last evening for back pain * Continues on insulin pump with acceptable BSGs * I suspect patient is not going for surgery because her diet has been changed to a type 2 diabetes diet this AM * Will continue with insulin pump for now - need to obtain settings PLAN FOR INPATIENT GLYCEMIC CONTROL: * Hold outpatient oral diabetes medications * Continue on Novolog insulin pump with outpatient settings. Insulin pump agreement should have already been signed per policy.
[2018-01-11] MEDS ORDERED: TOPI25TA10 PO (14:18)
--- NOTE | 2018-01-11 14:37 | Medical Consult ---
Consultation Date of Consultation: Jan 11, 2018. Attending Physician: Emory Byrd DO Reason for Consultation: Medical management, diabetes management History of Present Illness This is a 42 y/o female with a history of HTN, DM II, hypothyroidism, Crohn's disease, cirrhosis, depression/anxiety, migraines, insomnia, neuropathy, and GERD who presents with post op complication for medical management consult. The patient initially had a back surgery several months ago and has since had 2 corrective surgeries. She did develop an infection at the surgical site that was managed by surgery and infectious disease. About a week ago, the patient developed worsening back pain and fevers. She had presented to [place] ED who did an MRI revealing a fluid collection at the surgical site. She was then transferred to [facility] for surgery; however, ultimately there was no surgical intervention, and the patient was released. She was called by [facility] following her discharge alerting her to a positive blood culture result. The patient presented to her local ED, then transferred to [facility]. The patient states she had fevers and chills prior to arrival. She currently complains of a 6/10 sharp lower back pain, L>R, that radiates to her left leg. She had complained o nausea [employer]SEL[employer] but denies any currently. She reports some lower abdominal discomfort and states she has not had a BM in 3 days. The patient denies sweats , chest pain, palpitations, claudication, cough, wheezing, shortness of breath, vomiting, dysuria, hematuria, urinary retention, paralysis, weakness, numbness and tingling. Past Medical/Surgical History Medical Problems: (1) Wound infection after surgery Status: Acute Family History Cancer Gallbladder disease Seizures Social History Smoking Status: Current Every Day Smoker (5-10 cigarettes/day) Smokeless Tobacco Use: No Alcohol Use: none Drug Use: none Marital Status: Housing Status: lives with family Occupation Status: unemployed Allergies Coded Allergies: Cephalexin (Verified Allergy, Severe, SWELLING OF LIPS,EYES,FACE, 07/26/17) Sulfa Antibiotics (Verified Allergy, Severe, N/V, SWELLING OF FACE AND LIPS, 07/26/17) Vedolizumab (Verified Allergy, Severe, SHORTNESS OF BREATH AND CHEST PAIN , 07/26/17) Adalimumab (Verified Allergy, Unknown, drug induced lupus SYMPTOMS, ) Current Inpatient Medications Current Inpatient Medications Medications (Trade) Dose Ordered Sig/Mio Route Start Time Stop Time Status Last Admin Dose Admin Oxycodone/ Acetaminophen (Percocet 5-325mg Tab) `1-2 TABS FOR PAIN `1 TAB... Q4H PRN PO 01/10/18 15:00 01/24/18 14:59 01/11/18 09:38 2 TAB Ondansetron HCl (Zofran Inj) 4 mg Q6H PRN IV 01/10/18 15:00 02/09/18 14:59 Sodium Chloride 1,000 ml @ 80 mls/hr [id number] IV 01/10/18 14:58 02/09/18 14:57 01/11/18 08:01 80 MLS/HR Miscellaneous Information (Consult Glycemic Management Pharmacy) 1 ea UD N/A 01/10/18 18:40 02/09/18 18:39 Hydromorphone HCl (Dilaudid Inj) 1 mg Q4H PRN IV 01/10/18 19:45 01/24/18 19:44 01/11/18 12:19 1 MG Alprazolam (Xanax Tab) 0.5 mg TID PRN PO 01/10/18 20:00 02/09/18 19:59 Gabapentin (Neurontin Tab) 600 mg BID PO 01/10/18 21:00 02/09/18 20:59 01/11/18 09:38 600 MG Levothyroxine Sodium (Synthroid Tab) 200 mcg DAILYBB PO 01/11/18 06:00 02/10/18 05:59 Lisinopril (Zestril Tab) 5 mg QAM PO 01/11/18 09:00 02/10/18 08:59 01/11/18 09:39 5 MG Ondansetron HCl (Zofran Tab) 8 mg Q8H PRN PO 01/10/18 20:00 02/09/18 19:59 Quetiapine Fumarate (seroQUEL TAB) 200 mg BID PO 01/10/18 21:00 02/09/18 20:59 01/11/18 09:38 200 MG Trazodone HCl (Desyrel Tab) 300 mg HS PO 01/10/18 21:00 02/09/18 20:59 2/15/18 21:25 300 MG Verapamil HCl (Calan-Sr Tab) 240 mg QAM PO 01/11/18 09:00 02/10/18 08:59 01/11/18 09:39 240 MG Bupropion HCl (Wellbutrin-Sr Tab) 150 mg BID PO 01/10/18 21:00 02/09/18 20:59 01/11/18 09:38 150 MG Dicyclomine HCl (Bentyl Cap) 10 mg QID PRN PO 01/10/18 20:15 02/09/18 20:14 Lactulose (Chronulac Syrup) 30-60 GM DAILY PRN PO 01/10/18 20:15 02/09/18 20:14 Pantoprazole Sodium (Protonix Tab) 40 mg QAM PO 01/11/18 09:00 02/10/18 08:59 01/11/18 09:39 40 MG Insulin Aspart (novoLOG ASPART) SLIDING SCALE PRN PRN SC 01/10/18 20:45 02/09/18 20:44 Glucose (Glucose 40% Gel) 15-30 GRAMS 15 GRAMS... UD PRN PO 01/10/18 20:45 02/09/18 20:44 Glucose (Glucose Chew Tab) 4-8 Tablets 4 Tabl... UD PRN PO 01/10/18 20:45 02/09/18 20:44 Glucagon (Glucagon Inj) 1 mg UD PRN SQ 01/10/18 20:45 02/09/18 20:44 Dextrose (Dextrose 50% 50ML Syringe) 25-50ML OF 50% DW IV FOR... UD PRN IV 01/10/18 20:45 02/09/18 20:44 Insulin Aspart (novoLOG INSULIN PUMP) 1 ea ACHS N/A 01/11/18 08:00 02/10/18 07:59 01/11/18 12:26 1 EA Topiramate (Topamax Tab) 25 mg BID PO 01/11/18 21:00 02/10/18 20:59 UNV Polyethylene (Miralax Powder Packet) 17 gm Q24H PO 01/11/18 17:00 02/10/18 16:59 UNV Docusate Sodium (coLACE CAP) 100 mg BID PO 01/11/18 21:00 02/10/18 20:59 UNV Insulin Aspart (novoLOG ASPART) SLIDING SCALE G... ACHS SC 01/11/18 17:15 02/10/18 17:14 UNV Review of Systems Constitutional: +Fever, chills. No sweats Eyes: No worsening of vision, No eye pain, No diplopia ENT: No hearing loss, No nasal symptoms, No trouble swallowing Respiratory: No cough, No wheezing, No shortness of breath Cardiovascular: No chest pain, No claudication, No palpitations Abdomen: +Lower abdominal pain, nausea. No vomiting Musculoskeletal: +Low back pain greater on left side radiating to left leg. No muscle pain, No swelling Genitourinary - Female: No dysuria, No urinary retention, No hematuria Neurologic: No paralysis, No weakness, No numbness/tingling Integumentary: No rash, No itch, No color change Physical Exam Date Time Temp Pulse Resp B/P (MAP) Pulse Ox O2 Delivery O2 Flow Rate FiO2 01/11/18 08:59 94 Room Air 01/11/18 08:08 37.2 73 18 137/89 (105) 94 Room Air 01/11/18 08:00 Room Air 01/11/18 00:10 Room Air 01/10/18 22:26 37.1 88 17 97/59 (72) 96 Room Air 01/10/18 17:22 99 Room Air 01/10/18 17:18 37.6 108 16 113/74 (87) 99 Room Air 01/10/18 17:00 37.6 108 16 113/74 99 Room Air General appearance: +Obese. Fatigued. Well-developed, well-nourished, no apparent distress Head: Normocephalic, atraumatic Eyes: Normal inspection, PERRL, EOMI ENT: Normal ENT inspection, hearing grossly normal, pharynx normal Neck: Supple, no JVD, trachea midline Respiratory/Chest: Lungs clear to auscultation, normal breath sounds, no respiratory distress Cardiovascular: Regular rate & rhythm, no gallop, no murmur Abdomen/GI: +Mild diffuse tenderness. Normal bowel sounds, soft Extremities/Musculoskeletal: +Healed surgical scar lower back, TTP. No calf tenderness, no pedal edema Neurological/Psych: Alert, normal mood/affect, oriented x 3 Skin: Normal color, warm/dry, no rash Laboratory Results Last 24 Hours Test 01/10/18 18:12 01/10/18 18:30 01/11/18 00:01 01/11/18 05:56 Bedside Glucose 92 mg/dl 120 mg/dl 86 mg/dl White Blood Count 6.81 K/uL Red Blood Count 3.94 M/uL Hemoglobin 11.5 g/dL Hematocrit 35.1 % Mean Corpuscular Volume 89.1 fL Mean Corpuscular Hemoglobin 29.2 pg Mean Corpuscular Hemoglobin Concent 32.8 g/dl RDW Standard Deviation 56.4 fL RDW Coefficient of Variation 17.1 % Platelet Count 208 K/uL Mean Platelet Volume 9.7 fL Test 01/11/18 07:25 01/11/18 08:44 01/11/18 14:18 Estimated Average Glucose 111 mg/dl Hemoglobin A1c 5.5 % Bedside Glucose 94 mg/dl Assessment & Plan [facility] 42 y/o female with a history of HTN, DM II, hypothyroidism, Crohn's disease, cirrhosis, depression/anxiety, migraines, insomnia, neuropathy, and GERD who presents with post op complication for medical management consult. Post op fluid collection at L4 -Surgery managing -Pain control per primary team -AVSS -Labs pending HTN--stable -Continue lisinopril 5 mg PO qd, verapamil 240 mg PO qd DM II--HgbA1c 5.5 on 01/11 -Hold metformin -Consult pharmacy for glycemic control -Continue home insulin pump as BSGs well controlled -Check BSGs q ac and qhs Hypothyroidism -Continue Synthroid 200 mcg PO qd Crohn's disease--currently no medications. Remicade infusions stopped after initial back surgery and have not been restarted, currently off Asacol Depression, anxiety, insomnia -Continue Wellbutrin 150 mg PO BID, Xanax 0.5 mg PO TID prn anxiety, Seroquel 200 mg PO BID, trazodone 300 mg PO hs Migraines -Continue Topamax 25 mg PO BID Neuropathy -Continue gabapentin 600 mg PO BID DVT prophylaxis -Hold chemical prophylaxis for possible surgery -JAD butcher and SCDs Code Status -Level I, FULL RESUSCITATION STATUS Thank you for this consultation. We will continue to follow. I personally interviewed and examined the patient. I agree with history of present illness and physical exam mentioned above, I also performed my own history taking and examination. Past medical history and review of system has been obtained by myself I reviewed all pertinent labs and studies Reviewed current medications I discussed and formulated of the assessment and plan mentioned above. Please refer to the Summary mentioned below. 42-year-old female with past medical history of diabetes mellitus, hypertension , Crohn's disease, depression and anxiety status post back surgery, presented with fluid collection fever. Patient recently was discharged from [facility], had a coagulase-negative staph blood culture positive. General Appearance: not in acute distress Eyes: normal Sclerae, extraocular muscle intact ENT: hearing grossly normal Neck: supple Respiratory/Chest: normal air entry bilateral ,no respiratory distress, no accessory muscle use Cardiovascular: regular rate, rhythm, no murmur Abdomen: non tender, soft, no masses Extremities: no edema Lower back pain decreased range of motion and tenderness Neurologic/Psychiatric: Awake alert oriented times place and person moves all extremities sensation intact cranial nerves II-12 appear to be intact Skin: normal color, warm/dry, no rash Kendrick Morales MD, [facility] hospitalist group
[2018-01-11 14:47] LABS: HEMATOCRIT 33.6 % (37-47); HEMOGLOBIN 11.1 g/dL (12.0-16.0); MEAN CELL VOLUME 89.8 fL (80-100); MEAN CORPUSCULAR HEMOGLOBIN 29.7 pg (25-34); MEAN PLATELET VOLUME 9.5 fL (7.4-10.4); PLATELET COUNT 182 K/uL (130-400); RED CELL DISTRIBUTION WIDTH CV 16.9 % (11.5-14.5); RED CELL DISTRIBUTION WIDTH SD 56.2 fL (36.4-46.3); WHITE BLOOD COUNT 5.22 K/uL (4.8-10.8)
--- NOTE | 2018-01-11 15:07 | Medical Consult ---
Consultation Date of Consultation: Jan 11, 2018. Attending Physician: Emory Byrd DO Reason for Consultation: Positive blood culture from [facility] History of Present Illness 42-year-old female with history of diabetes mellitus, cirrhosis of the liver, history of previous back surgery complicated by wound infection, who recently developed progressively worsening back pain with fever, and was seen at a local emergency room and transferred to [facility] for further management. MRI scan was obtained which showed significant fluid collection in the lumbar area. Patient was not admitted to the hospital, blood cultures were were drawn, and now single set has returned positive for coagulase negative Staph. Patient was called and advised to come to the hospital for further management. She is now waiting repeat MRI scanning.Back pain rated 6/10 in intensity, radiating down left leg. Repeat blood cultures are pending. Past Medical/Surgical History Medical Problems: (1) Wound infection after surgery Status: Acute Medical Problems: (1) cerebral spinal fluid leak (2) Chronic Liver Dis Nec (3) Crohn's disease (4) Depression (5) Hyperlipidemia (6) Hypertension Nos (7) Hypothyroidism Nos (8) Lumbar stenosis (9) Ovarian Cyst Nec/Nos Family History Cancer Gallbladder disease Seizures Social History Smoking Status: Current Every Day Smoker (5-10 cigarettes/day) Smokeless Tobacco Use: No Alcohol Use: none Drug Use: none Marital Status: Housing Status: lives with family Occupation Status: unemployed Allergies Coded Allergies: Cephalexin (Verified Allergy, Severe, SWELLING OF LIPS,EYES,FACE, 07/26/17) Sulfa Antibiotics (Verified Allergy, Severe, N/V, SWELLING OF FACE AND LIPS, 07/26/17) Vedolizumab (Verified Allergy, Severe, SHORTNESS OF BREATH AND CHEST PAIN , 07/26/17) Adalimumab (Verified Allergy, Unknown, drug induced lupus SYMPTOMS, ) Current Inpatient Medications Current Inpatient Medications Medications (Trade) Dose Ordered Sig/Mio Route Start Time Stop Time Status Last Admin Dose Admin Oxycodone/ Acetaminophen (Percocet 5-325mg Tab) `1-2 TABS FOR PAIN `1 TAB... Q4H PRN PO 01/10/18 15:00 01/24/18 14:59 01/11/18 09:38 2 TAB Ondansetron HCl (Zofran Inj) 4 mg Q6H PRN IV 01/10/18 15:00 02/09/18 14:59 Sodium Chloride 1,000 ml @ 80 mls/hr [id number] IV 01/10/18 14:58 02/09/18 14:57 01/11/18 08:01 80 MLS/HR Miscellaneous Information (Consult Glycemic Management Pharmacy) 1 ea UD N/A 01/10/18 18:40 02/09/18 18:39 Hydromorphone HCl (Dilaudid Inj) 1 mg Q4H PRN IV 01/10/18 19:45 01/24/18 19:44 01/11/18 12:19 1 MG Alprazolam (Xanax Tab) 0.5 mg TID PRN PO 01/10/18 20:00 02/09/18 19:59 Gabapentin (Neurontin Tab) 600 mg BID PO 01/10/18 21:00 02/09/18 20:59 01/11/18 09:38 600 MG Levothyroxine Sodium (Synthroid Tab) 200 mcg DAILYBB PO 01/11/18 06:00 02/10/18 05:59 Lisinopril (Zestril Tab) 5 mg QAM PO 01/11/18 09:00 02/10/18 08:59 01/11/18 09:39 5 MG Ondansetron HCl (Zofran Tab) 8 mg Q8H PRN PO 01/10/18 20:00 02/09/18 19:59 Quetiapine Fumarate (seroQUEL TAB) 200 mg BID PO 01/10/18 21:00 02/09/18 20:59 01/11/18 09:38 200 MG Trazodone HCl (Desyrel Tab) 300 mg HS PO 01/10/18 21:00 02/09/18 20:59 01/10/18 21:25 300 MG Verapamil HCl (Calan-Sr Tab) 240 mg QAM PO 01/11/18 09:00 02/10/18 08:59 01/11/18 09:39 240 MG Bupropion HCl (Wellbutrin-Sr Tab) 150 mg BID PO 01/10/18 21:00 02/09/18 20:59 01/11/18 09:38 150 MG Dicyclomine HCl (Bentyl Cap) 10 mg QID PRN PO 01/10/18 20:15 02/09/18 20:14 Lactulose (Chronulac Syrup) 30-60 GM DAILY PRN PO 01/10/18 20:15 02/09/18 20:14 Pantoprazole Sodium (Protonix Tab) 40 mg QAM PO 01/11/18 09:00 02/10/18 08:59 01/11/18 09:39 40 MG Insulin Aspart (novoLOG ASPART) SLIDING SCALE PRN PRN SC 01/10/18 20:45 02/09/18 20:44 Glucose (Glucose 40% Gel) 15-30 GRAMS 15 GRAMS... UD PRN PO 01/10/18 20:45 02/09/18 20:44 Glucose (Glucose Chew Tab) 4-8 Tablets 4 Tabl... UD PRN PO 01/10/18 20:45 02/09/18 20:44 Glucagon (Glucagon Inj) 1 mg UD PRN SQ 01/10/18 20:45 02/09/18 20:44 Dextrose (Dextrose 50% 50ML Syringe) 25-50ML OF 50% DW IV FOR... UD PRN IV 01/10/18 20:45 02/09/18 20:44 Insulin Aspart (novoLOG INSULIN PUMP) 1 ea ACHS N/A 01/11/18 08:00 02/10/18 07:59 01/11/18 12:26 1 EA Topiramate (Topamax Tab) 25 mg BID PO 01/11/18 21:00 02/10/18 20:59 Polyethylene (Miralax Powder Packet) 17 gm Q24H PO 01/11/18 17:00 02/10/18 16:59 Docusate Sodium (coLACE CAP) 100 mg BID PO 01/11/18 21:00 02/10/18 20:59 Review of Systems Constitutional: + fever, + chills, + fatigue Eyes: No problem reported ENT: No problem reported Respiratory: No problem reported Cardiovascular: No problem reported Abdomen: + pain (lowr abdominal) Musculoskeletal: + problem reported (back pain) Genitourinary - Female: No problem reported Neurologic: No problem reported Psychiatric: No problem reported Endocrine: No problem reported Hematologic / Lymphatic: No problem reported Integumentary: No problem reported Allergic / Immunologic: No problem reported Physical Exam Date Time Temp Pulse Resp B/P (MAP) Pulse Ox O2 Delivery O2 Flow Rate FiO2 01/11/18 08:59 94 Room Air 01/11/18 08:08 37.2 73 18 137/89 (105) 94 Room Air 01/11/18 08:00 Room Air 01/11/18 00:10 Room Air 01/10/18 22:26 37.1 88 17 97/59 (72) 96 Room Air 01/10/18 17:22 99 Room Air 01/10/18 17:18 37.6 108 16 113/74 (87) 99 Room Air 01/10/18 17:00 37.6 108 16 113/74 99 Room Air General Appearance: WD/WN, no apparent distress, + obese Head: normocephalic, atraumatic Eyes: normal inspection, EOMI, sclerae normal ENT: normal ENT inspection, hearing grossly normal, pharynx normal Neck: supple, no adenopathy, thyroid normal, trachea midline Respiratory/Chest: chest non-tender, lungs clear, normal breath sounds, no respiratory distress Cardiovascular: regular rate, rhythm, no gallop, no murmur Abdomen/GI: normal bowel sounds, soft, no organomegaly, + tenderness Back: normal inspection, no CVA tenderness Extremities/Musculoskelatal: no calf tenderness, normal capillary refill, + pertinent finding (lumbar tenderness) Neurologic/Psych: alert, oriented x 3 Skin: normal color, warm/dry, no rash Lymphatic: no adenopathy Laboratory Results Date/Time Source Procedure Growth Status 01/11/18 12:43 Blood Blood Culture Pending Received 01/11/18 12:27 Blood Blood Culture Pending Received Last 24 Hours Test 01/10/18 18:12 01/10/18 18:30 01/11/18 00:01 01/11/18 05:56 Bedside Glucose 92 mg/dl 120 mg/dl 86 mg/dl White Blood Count 6.81 K/uL Red Blood Count 3.94 M/uL Hemoglobin 11.5 g/dL Hematocrit 35.1 % Mean Corpuscular Volume 89.1 fL Mean Corpuscular Hemoglobin 29.2 pg Mean Corpuscular Hemoglobin Concent 32.8 g/dl RDW Standard Deviation 56.4 fL RDW Coefficient of Variation 17.1 % Platelet Count 208 K/uL Mean Platelet Volume 9.7 fL Test 01/11/18 07:25 01/11/18 08:44 01/11/18 12:02 01/11/18 14:27 Estimated Average Glucose 111 mg/dl Hemoglobin A1c 5.5 % Bedside Glucose 94 mg/dl 90 mg/dl White Blood Count 5.22 K/uL Red Blood Count 3.74 M/uL Hemoglobin 11.1 g/dL Hematocrit 33.6 % Mean Corpuscular Volume 89.8 fL Mean Corpuscular Hemoglobin 29.7 pg Mean Corpuscular Hemoglobin Concent 33.0 g/dl RDW Standard Deviation 56.2 fL RDW Coefficient of Variation 16.9 % Platelet Count 182 K/uL Mean Platelet Volume 9.5 fL LUMBAR SPINE 2 OR 3 VIEWS CLINICAL HISTORY: post op low back pain pain COMPARISON STUDY: None FINDINGS: Evidence for posterior laminectomy and fusion at L4-L5 and S1. Disc spaces are present at L4-L5 and L5-S1. Alignment is anatomic. IMPRESSION: Anatomic alignment post laminectomy and fusion from L4 through S1 Assessment & Plan 42 yo female with prior lumbar surgery complicated by post op infection, dural tear requiring 2 subsequent infections, now with fever, worsening back pain, lumbar collection on MRI, and positive blood culture for coag-negative Staph. Single positive cultures suggests contaminant, but given clinical picture must be concerned about infected CSF leak/infected collection. Pending additional blood cultures, would treat with IV vancomycin. Await follow-up imaging. Will follow.
[2018-01-11 15:12] LABS: ALBUMIN 2.7 gm/dl (3.4-5.0); CREATININE 0.99 mg/dl (0.60-1.20); POTASSIUM 3.6 mmol/L (3.5-5.1)
[2018-01-11 15:15] LABS: TOTAL PROTEIN 7.1 gm/dl (6.4-8.2)
[2018-01-11] MEDS ORDERED: GADAVIST IV PRN (16:00)
--- NOTE | 2018-01-11 17:07 | DIAGNOSTIC IMAGING REPORT ---
MRI OF THE LUMBAR SPINE WITH AND WITHOUT CONTRAST CLINICAL HISTORY: Back pain. Evaluate for discitis/abscess. Previous lumbar spine surgery. Low back pain radiating into left lower extremity. COMPARISON STUDY: Lumbar spine MRI September 18, 2017. TECHNIQUE: Utilizing a 1.5 Dianne magnet and dedicated coil, multiplanar, multiecho imaging of the lumbar spine was performed before and after uneventful IV administration of 11 mL of Gadavist. FINDINGS: For purposes of numbering on this exam, the L5-S1 disc space is assigned to axial image 31 of 37. There are postoperative findings consistent with L4-L5 and L5-S1 discectomies with interbody spacer present. There is a laminectomy with bilateral pedicle screw fusion from L4 through S1. Conus terminates at the lower L1 level. Note is made of a 8.6 x 5.3 x 6.3 cm laminectomy bed fluid collection centered at the L4-L5 level. This has peripheral enhancement with minimal mass effect upon the central canal. No additional fluid collections are present. There is no evidence for discitis or osteomyelitis on this exam. L1-2: Central canal and neural foramen are patent. L2-3: There is disc bulge with tiny central disc protrusion. There is mild during of the central canal. Neural foramen are patent. L3-4: Central canal neural foramen are patent. L4-5: Central canal and neural foramen are patent. L5-S1: Central canal and neural foramen are patent. IMPRESSION: 1. Status post L4-L5 and L5-S1 discectomies with L4-S1 bilateral pedicle screw fusion. 8.6 x 5.3 x 6.3 cm peripherally enhancing laminectomy bed fluid collection with multiple internal septations. This fluid collection is nonspecific and differential considerations include a seroma, pseudomeningocele or resolving hematoma. Superimposed infection cannot be excluded by MRI. 2. No evidence of discitis or osteomyelitis within the lumbar spine. Electronically signed by: Rk Mccauley M.D. 01/11/2018 5:05 PM Dictated Date/Time: 01/11/2018 4:52 PM
[2018-01-11] MEDS ORDERED: INSULIN ASPART 100 UNITS/ML 3 ML PEN SC SCH (17:15)
[2018-01-11] MEDS ORDERED: POLYETHYLENE (MIRALAX) 17 GM PACK ONE (17:47)
[2018-01-11] MEDS: POLYETHYLENE (MIRALAX) 17 GM PACK PO SCH (17:49)
[2018-01-11] MEDS: LACTULOSE SYRUP 30 GM/45 ML UDP PO PRN (19:23)
[2018-01-11] MEDS ORDERED: VANCOMYCIN CONSULT ACTIVE PRN (20:00)
[2018-01-11] MEDS ORDERED: VANCOMYCIN IV 2,750 MG in SODIUM CHLORIDE 0.9% 500ML 500 ML IV ONE (20:30)
[2018-01-11] MEDS: DOCUSATE SODIUM 100 MG CAP PO SCH (20:32)
[2018-01-11] MEDS: TOPIRAMATE 25 MG TAB PO SCH (20:33)
[2018-01-11] MEDS: TRAZODONE HCL 100 MG TAB PO SCH (20:33)
--- NOTE | 2018-01-11 20:49 | Pharmacy Progress Note ---
Pharmacy Antibiotic Consult Date of Service: Jan 11, 2018. Pharmacy Dosing Scope Pharmacy is consulted to initiate vancomycin IV dosing therapy, order appropriate labs and adjust drug dose/frequency. Subjective The patient is a 42 year old female admitted on Jan 10, 2018 at 17:58. Objective Height (Feet): 5 Height (Inches): 7.00 Weight (Kilograms): 114.100 Lab Results (24hrs): Test 01/11/18 07:25 01/11/18 12:02 01/11/18 14:27 01/11/18 16:14 Estimated Average Glucose 111 mg/dl Hemoglobin A1c 5.5 % (4.5-5.6) Bedside Glucose 90 mg/dl (70-90) White Blood Count 5.22 K/uL (4.8-10.8) Red Blood Count 3.74 M/uL (4.2-5.4) Hemoglobin 11.1 g/dL (12.0-16.0) Hematocrit 33.6 % (37-47) Mean Corpuscular Volume 89.8 fL (80-100) Mean Corpuscular Hemoglobin 29.7 pg (25-34) Mean Corpuscular Hemoglobin Concent 33.0 g/dl (32-36) RDW Standard Deviation 56.2 fL (36.4-46.3) RDW Coefficient of Variation 16.9 % (11.5-14.5) Platelet Count 182 K/uL (130-400) Mean Platelet Volume 9.5 fL (7.4-10.4) Sodium Level 136 mmol/L (136-145) Potassium Level 3.6 mmol/L (3.5-5.1) Chloride Level 103 mmol/L (98-107) Carbon Dioxide Level 25 mmol/L (21-32) Anion Gap 8.0 mmol/L (3-11) Blood Urea Nitrogen 8 mg/dl (7-18) Creatinine 0.99 mg/dl (0.60-1.20) Est Creatinine Clear Calc Drug Dose 96.5 ml/min Estimated GFR () 81.5 Estimated GFR (Non- 70.3 BUN/Creatinine Ratio 7.9 (10-20) Random Glucose 119 mg/dl (70-99) Calcium Level 9.0 mg/dl (8.5-10.1) Total Bilirubin 0.5 mg/dl (0.2-1) Aspartate Amino Transf (AST/SGOT) 38 U/L (15-37) Alanine Aminotransferase (ALT/SGPT) 38 U/L (12-78) Alkaline Phosphatase 143 U/L (45-117) Total Protein 7.1 gm/dl (6.4-8.2) Albumin 2.7 gm/dl (3.4-5.0) Globulin 4.4 gm/dl (2.5-4.0) Albumin/Globulin Ratio 0.6 (0.9-2) Erythrocyte Sedimentation Rate 89 mm/hr (0-21) C-Reactive Protein 14.70 mg/dl (0-0.29) Procalcitonin 0.07 ng/ml (0-0.5) Test 01/11/18 17:29 Bedside Glucose 88 mg/dl (70-90) Micro Results: Item Value Date Time Blood Culture Received 01/11/18 1243 Blood Pending Blood Culture Received 01/11/18 1227 Blood Pending Assessment & Plan Patient started on vancomycin for positive blood culture coag-negative staph and concern for CSF infection. Patient s/p lumbar surgery with 2 subsequent post op infections. Now presenting with fever and concern for another infection. ID is consulted to follow the patient. BC x 2 are pending. Vancomycin: * 2750 mg x 1 given for loading dose (~24 mg/kg) * Will start maintenance dose of vancomycin 1750 mg (~15 mg/kg) iv q 14 hrs to achieve an estimated trough ~15-20 mcg/ml (goal for bacteremia) * Previous pharmacokinetic data suggests dosing regimen produce therapeutic levels; estimated kinetics: t1/2~11 hrs, ke~0.064 hr-1, CrCl 96 ml/min * Will order a trough prior to the 1400 dose on 01-13 to ensure therapeutic; note this will before before steady state, however patient at risk for drug accumulation since elevated BMI >35 kg/m2 Pharmacy will continue to follow and will adjust dose/frequency as necessary. Thank you
[2018-01-11] MEDS ORDERED: VANCOMYCIN IV 1,000 MG in SODIUM CHLORIDE 0.9% 250ML 250 ML IV SCH (21:00)
[2018-01-12] MEDS: OXYCODONE/ACETAMINOPHEN 5-325 TAB PO PRN ×5 (04:13→21:04)
[2018-01-12] MEDS: LEVOTHYROXINE 200 MCG TAB PO SCH (05:52)
[2018-01-12 06:28] LABS: BASO % 0.2 %; BASO ABS # 0.01 K/uL (0-0.2); EOS % 2.6 %; EOS ABS # 0.11 K/uL (0-0.5); HEMOGLOBIN 10.2 g/dL (12.0-16.0); IG# 0.01 K/uL (0.00-0.02); LYMPH % 24.2 %; LYMPH ABS # 1.02 K/uL (1.2-3.4); MEAN CELL VOLUME 91.7 fL (80-100); MEAN CORPUSCULAR HEMOGLOBIN 29.2 pg (25-34); MEAN CORPUSCULAR HGB CONC 31.9 g/dl (32-36); MEAN PLATELET VOLUME 9.7 fL (7.4-10.4); MONO % 11.4 %; MONO ABS # 0.48 K/uL (0.11-0.59); NEUT % 61.4 %; NEUT ABS # 2.58 K/uL (1.4-6.5); PLATELET COUNT 197 K/uL (130-400); RED CELL DISTRIBUTION WIDTH CV 16.9 % (11.5-14.5); RED CELL DISTRIBUTION WIDTH SD 56.6 fL (36.4-46.3); WHITE BLOOD COUNT 4.21 K/uL (4.8-10.8)
[2018-01-12 07:11] VITALS: BP 116/89; PULSE 76; TEMP 36.6; O2SAT 96
[2018-01-12 07:15] LABS: ALBUMIN 2.6 gm/dl (3.4-5.0); CALCIUM 8.9 mg/dl (8.5-10.1); CREATININE 0.84 mg/dl (0.60-1.20); POTASSIUM 3.8 mmol/L (3.5-5.1); TOTAL PROTEIN 6.9 gm/dl (6.4-8.2)
[2018-01-12] MEDS: NovoLOG INSULIN PUMP SCH ×4 (08:03→21:00)
[2018-01-12] MEDS: SODIUM CHLORIDE 0.9% 1000ML 1,000 ML IV SCH ×2 (08:10→22:02)
[2018-01-12] MEDS: LACTOBACILLUS ACIDOPHILUS (FLORANEX) TAB PO SCH ×3 (08:11→18:17)
[2018-01-12] MEDS: VERAPAMIL HCL 240 MG TABCR PO SCH (08:11)
[2018-01-12] MEDS: TOPIRAMATE 25 MG TAB PO SCH ×2 (08:11→21:02)
[2018-01-12] MEDS: PANTOprazole SOD 40 MG TAB PO SCH (08:11)
[2018-01-12] MEDS: LISINOPRIL 5 MG TAB PO SCH (08:13)
[2018-01-12] MEDS: QUETIAPINE FUMARATE 200 MG TAB PO SCH ×2 (08:13→21:02)
[2018-01-12] MEDS: GABAPENTIN 600 MG TAB PO SCH ×2 (08:13→21:02)
[2018-01-12] MEDS: DOCUSATE SODIUM 100 MG CAP PO SCH ×2 (08:13→21:01)
[2018-01-12] MEDS: BuPROPion SR 150 MG TABCR PO SCH ×2 (08:15→21:03)
[2018-01-12] MEDS: HYDROmorphone INJ 1 MG/ML SYR IV PRN ×4 (09:07→23:28)
[2018-01-12] MEDS: VANCOMYCIN IV 1,750 MG in SODIUM CHLORIDE 0.9% 500ML 500 ML IV SCH ×2 (10:34→23:28)
[2018-01-12] MEDS: LACTULOSE SYRUP 30 GM/45 ML UDP PO PRN (11:44)
[2018-01-12] MEDS ORDERED: FAMOTIDINE 20 MG TAB PO PRN (13:15)
[2018-01-12] MEDS ORDERED: HOME MED ADMINISTRATION ONE (13:15)
[2018-01-12] MEDS ORDERED: FAMOTIDINE 20 MG TAB PO ONE (13:15)
[2018-01-12 15:20] VITALS: BP 105/65; PULSE 71; TEMP 36.4; O2SAT 92
[2018-01-12] MEDS: POLYETHYLENE (MIRALAX) 17 GM PACK PO SCH (16:55)
--- NOTE | 2018-01-12 20:07 | Progress Note ---
Subjective Date of Service: Jan 12, 2018. Subjective Pt evaluation today including: conversation w/ patient, physical exam, chart review, lab review, review of inpatient medication list ID input noted pt notes ortho told her anticipated surgery sunday back pain reasonable at this point notes that she does better w her GERD w prilosec than protonix - can sub from home - but also notes that she's feelign GERD right now otherwise no new complaints Problem List Medical Problems: (1) Wound infection after surgery Status: Acute Review of Systems all other ROS otherwise negative except for as above Objective Vital Signs Date Time Temp Pulse Resp B/P (MAP) Pulse Ox O2 Delivery O2 Flow Rate FiO2 01/12/18 15:20 36.4 71 16 105/65 (78) 92 Room Air 01/12/18 08:00 Room Air 01/12/18 07:11 36.6 76 16 116/89 (98) 96 Room Air 01/11/18 23:00 Room Air 01/11/18 22:58 37.0 80 16 108/73 (85) 96 Room Air Physical Exam General Appearance: no apparent distress Eyes: EOMI ENT: hearing grossly normal Neck: trachea midline Respiratory/Chest: no respiratory distress, no accessory muscle use Extremities: normal range of motion 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 nml as tested, alert, normal mood/affect Skin: normal color, warm/dry Laboratory Results Last 24 Hours Test 01/11/18 21:08 01/12/18 05:59 01/12/18 08:03 01/12/18 12:13 Bedside Glucose 109 mg/dl 85 mg/dl 116 mg/dl White Blood Count 4.21 K/uL Red Blood Count 3.49 M/uL Hemoglobin 10.2 g/dL Hematocrit 32.0 % Mean Corpuscular Volume 91.7 fL Mean Corpuscular Hemoglobin 29.2 pg Mean Corpuscular Hemoglobin Concent 31.9 g/dl Platelet Count 197 K/uL Mean Platelet Volume 9.7 fL Neutrophils (%) (Auto) 61.4 % Lymphocytes (%) (Auto) 24.2 % Monocytes (%) (Auto) 11.4 % Eosinophils (%) (Auto) 2.6 % Basophils (%) (Auto) 0.2 % Neutrophils # (Auto) 2.58 K/uL Lymphocytes # (Auto) 1.02 K/uL Monocytes # (Auto) 0.48 K/uL Eosinophils # (Auto) 0.11 K/uL Basophils # (Auto) 0.01 K/uL RDW Standard Deviation 56.6 fL RDW Coefficient of Variation 16.9 % Immature Granulocyte % (Auto) 0.2 % Immature Granulocyte # (Auto) 0.01 K/uL Sodium Level 139 mmol/L Potassium Level 3.8 mmol/L Chloride Level 107 mmol/L Carbon Dioxide Level 23 mmol/L Anion Gap 9.0 mmol/L Blood Urea Nitrogen 5 mg/dl Creatinine 0.84 mg/dl Est Creatinine Clear Calc Drug Dose 113.8 ml/min Estimated GFR () 99.4 Estimated GFR (Non- 85.7 BUN/Creatinine Ratio 6.5 Random Glucose 75 mg/dl Calcium Level 8.9 mg/dl Total Bilirubin 0.6 mg/dl Aspartate Amino Transf (AST/SGOT) 48 U/L Alanine Aminotransferase (ALT/SGPT) 46 U/L Alkaline Phosphatase 144 U/L Total Protein 6.9 gm/dl Albumin 2.6 gm/dl Globulin 4.3 gm/dl Albumin/Globulin Ratio 0.6 Chemistry Specimen Hemolysis Test 01/12/18 16:58 Bedside Glucose 77 mg/dl Assessment and Plan Post op fluid collection at L4 -Surgery managing -Pain control per primary team (pain good at this point) -AVSS HTN--stable -Continue lisinopril 5 mg PO qd (would hold sunday morning preop, resume sunday once clearly hemodynamically stable), verapamil 240 mg PO qd, readings have been reasonable GERD -OK to sub prilosec from home for hospital protonix once it can be brought -until then since she's having breakthrough gerd - pepcid 20mg bid prn gerd DM II--HgbA1c 5.5 on 01/11 -Held metformin -Consulted pharmacy for glycemic control -Continue home insulin pump as BSGs well controlled -Check BSGs q ac and qhs Hypothyroidism -Continue Synthroid 200 mcg PO qd Crohn's disease--currently no medications. Remicade infusions stopped after initial back surgery and have not been restarted, currently off Asacol Depression, anxiety, insomnia -Continue Wellbutrin 150 mg PO BID, Xanax 0.5 mg PO TID prn anxiety, Seroquel 200 mg PO BID, trazodone 300 mg PO hs Migraines -Continue Topamax 25 mg PO BID Neuropathy -Continue gabapentin 600 mg PO BID DVT prophylaxis -Hold chemical prophylaxis for possible surgery -JAD butcher and FABIOs Code Status -Level I, FULL RESUSCITATION STATUS medically stable - will sign off for now - as above noted, main point of "dynamic" inpatient med management at this point would be holding lisinopril day of surgery until volume status clearly stable post op. please let me know if i can be of further assistance.
[2018-01-12] MEDS: TRAZODONE HCL 100 MG TAB PO SCH (21:03)
[2018-01-12 23:03] VITALS: BP 111/73; PULSE 79; TEMP 36.8; O2SAT 96
[2018-01-13] MEDS: HYDROmorphone INJ 1 MG/ML SYR IV PRN ×5 (03:37→20:41)
[2018-01-13 05:42] LABS: HEMATOCRIT 31.8 % (37-47); HEMOGLOBIN 9.9 g/dL (12.0-16.0); MEAN CELL VOLUME 91.9 fL (80-100); MEAN CORPUSCULAR HEMOGLOBIN 28.6 pg (25-34); MEAN CORPUSCULAR HGB CONC 31.1 g/dl (32-36); MEAN PLATELET VOLUME 9.4 fL (7.4-10.4); PLATELET COUNT 205 K/uL (130-400); RED CELL DISTRIBUTION WIDTH CV 16.8 % (11.5-14.5); RED CELL DISTRIBUTION WIDTH SD 56.1 fL (36.4-46.3); WHITE BLOOD COUNT 3.96 K/uL (4.8-10.8)
[2018-01-13] MEDS: LEVOTHYROXINE 200 MCG TAB PO SCH (05:58)
[2018-01-13 06:07] LABS: CALCIUM 9.1 mg/dl (8.5-10.1); CREATININE 0.9 mg/dl (0.60-1.20); POTASSIUM 3.7 mmol/L (3.5-5.1)
[2018-01-13 07:09] VITALS: BP 127/84; PULSE 97; TEMP 36.7; O2SAT 92
[2018-01-13] MEDS: DOCUSATE SODIUM 100 MG CAP PO SCH ×2 (07:51→20:42)
[2018-01-13] MEDS: VERAPAMIL HCL 240 MG TABCR PO SCH (07:51)
[2018-01-13] MEDS: LACTOBACILLUS ACIDOPHILUS (FLORANEX) TAB PO SCH ×3 (07:51→18:23)
[2018-01-13] MEDS: TOPIRAMATE 25 MG TAB PO SCH ×2 (07:52→20:42)
[2018-01-13] MEDS: PANTOprazole SOD 40 MG TAB PO SCH (07:52)
[2018-01-13] MEDS: GABAPENTIN 600 MG TAB PO SCH ×2 (07:52→20:44)
[2018-01-13] MEDS: QUETIAPINE FUMARATE 200 MG TAB PO SCH ×2 (07:53→20:43)
[2018-01-13] MEDS: BuPROPion SR 150 MG TABCR PO SCH ×2 (07:53→20:42)
[2018-01-13] MEDS: LISINOPRIL 5 MG TAB PO SCH (07:54)
[2018-01-13] MEDS: NovoLOG INSULIN PUMP SCH ×4 (08:00→20:44)
[2018-01-13] MEDS: OXYCODONE/ACETAMINOPHEN 5-325 TAB PO PRN ×4 (09:54→23:31)
[2018-01-13] MEDS: SODIUM CHLORIDE 0.9% 1000ML 1,000 ML IV SCH (09:55)
--- NOTE | 2018-01-13 10:15 | HISTORY & PHYSICAL EXAMINATION ---
DATE OF ADMISSION: 01/10/2018 CHIEF COMPLAINT: Back pain and left leg pain. HISTORY OF PRESENT ILLNESS: Lacey is a pleasant young lady. She is 42. I have known her for several years. I performed a fairly elaborate spinal surgery on her over the last 2 years. Her most recent surgery was about 4 months ago. She did well. She has spinal fluid leak that was repaired and even she came for postoperative visits and was responding well. She has had no events about over the last 2-3-4 weeks. She has had increasing back pain and lower extremity difficulty on the left hand side, significant for sciatica distribution. She has been into 1 or 2 Emergency Room and was actually sent to [facility], evaluated and treated and discharged. 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 PAST MEDICAL HISTORY: Significant for Crohn's, cirrhosis, depression, migraines, insomnia, hypothyroidism, diabetes 2, hypertension. FAMILY HISTORY: Carcinoma, gallbladder disease, seizure. SOCIAL HISTORY: She is a nonsmoker, no alcohol use, no drug use. She is , supportive . ALLERGIES: NUMEROUS. MEDICATIONS: Greater than 20. I have not dictated upon those. I have reviewed those. REVIEW OF SYSTEMS: She denies currently any fever, sweats, chills. Denies any ear, nose and throat complaints. No hearing loss, no diplopia. Constitutional as well, she feels pretty good this morning. She denies chest pain, palpitations. Denies wheezing, shortness of breath. Does have some lower abdominal pain, no vomiting. No dysuria, retention, or hematuria. No paralysis, weakness, does have some pain, but no numbness, tingling. PHYSICAL EXAMINATION: VITAL SIGNS: Blood pressure 130/80, pulse is regular at 80 beats per minute, respiration is 18, 37.6 temperature. She is obese, fatigued, well developed, no terrible distress. HEENT: Normal. NECK: Supple. RESPIRATORY: Clear. Normal breath sounds, no distress. CARDIAC: Normal, regular rate and rhythm. ABDOMEN: Soft with some tenderness. SKIN: She has a well-healed lumbar scar, lumbar spine. NEUROLOGIC: She is alert and oriented. Mood is appropriate. No associated weakness to the extremities. No hyperreflexia, no clonus. ASSESSMENT: A 42-year-old female with multiple medical problems as dictated, postoperative fluid collection, pain issues, hypertension and diabetes. PLAN: At this point in time, I do not think she has an infectious process. There is no urgency. This morning at approximately 9:00, Sunday morning, she was actually fairly comfortable sitting. The problem comes lying down and doing any activities. She does have pain in the lumbar area. I reviewed her images. 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 Other comorbidities again reviewed. DISPOSITION: At this point in time, we discussed options for her and there is nothing urgent. She is actually fairly well controlled pain-auguste. 1. To have our radiology department under CT guidance aspirate the fluid accumulation on her spine and that is the path, she would like to pursue. 2. For me to explored the wound and patch up the fluid, close down the pseudomeningocele, close this over some drains and hopefully get this to heal and mend for her. 3. To keep her secondary appointment and second opinion appointment in [facility]. I believe that is coming up in several weeks with a neurosurgery and orthopedic surgery collaboration that may be a good plan as well. There is no perfect solution to this delicate problem. In the short run, we are going to keep her n.p.o. after midnight in anticipation of possible surgery and/or aspiration tomorrow. JAXSON
[2018-01-13] MEDS ORDERED: VANCOMYCIN TROUGH ONE (13:30)
--- NOTE | 2018-01-13 14:30 | Pharmacy Progress Note ---
Pharmacy Glycemic Short Note 2 Date of Service Jan 13, 2018. OUTPATIENT ANTIDIABETIC REGIMEN: * Metformin 1gm PO QAM * Novolog insulin pump, basal rate from admission in August: (confirmed with patient today, 01/13) * 2809-1758 --> 2 units/hr * 4698-5367 --> 2.4 units/hr * 6194-5992 --> 2.3 units/hr * 55 units/day * Carb ratio ~ 1 unit per 11 grams CHO - (01/13: patient could not confirm today but reports this has not changed) * Correction factor unknown at this time * A1c 5.5% on 01/10/18 ASSESSMENT: 01/13/18 * Type 2 diabetec patient, remains on Novolog insulin pump with BSGs on the lower side but no episodes of hypoglycemia * I spoke with the patient over the phone today to confirm her pump settings and talk about the plan for possible surgery tomorrow * She reports that when having outpatient procedures done (ie. colonoscopy, etc) , she has always kept her pump on and just allowed the basal to run without any boluses. She reports this works well and she does not have issues with lows. PLAN FOR INPATIENT GLYCEMIC CONTROL: * Hold outpatient oral diabetes medications * Continue on Novolog insulin pump with outpatient settings. Plan for OR tomorrow will be to continue her insulin pump with basal only - should she become hypoglycemic, this could be temporarily suspended. If patient receives intraop/postop steroids, would be easier to transition to basal/bolus SQ injections that could be adjusted. This can be evaluated tomorrow.
[2018-01-13] MEDS: VANCOMYCIN IV 1,750 MG in SODIUM CHLORIDE 0.9% 500ML 500 ML IV SCH (14:33)
--- NOTE | 2018-01-13 15:01 | Pharmacy Progress Note ---
Pharmacy Abx Dose Short Note Date of Service Jan 13, 2018. Assessment & Plan Assessment 42 year old female receiving vancomycin for treatment of bacteremia Day # 3 of antimicrobial therapy. Plan Vancomycin * Trough level of 16.3 mcg/mL is therapeutic/subtherapeutic/supratherapeutic. * Continue dose of 1750 mg IV every 14 hours * Goal trough level : 15 to 20 mcg/mL * Trough or random level ordered for: Repeat as clinically indicated, preferably sooner to assess accumulation secondary to high BMI. Pharmacy will continue to follow and will adjust dose/frequency as necessary. Thank you.
[2018-01-13 15:11] VITALS: BP 98/62; PULSE 76; TEMP 37.3; O2SAT 92
[2018-01-13] MEDS: LACTULOSE SYRUP 30 GM/45 ML UDP PO PRN (16:11)
[2018-01-13] MEDS: POLYETHYLENE (MIRALAX) 17 GM PACK PO SCH (17:00)
[2018-01-13] MEDS: TRAZODONE HCL 100 MG TAB PO SCH (20:43)
[2018-01-13 23:30] VITALS: BP 118/79; PULSE 78; TEMP 36.8; O2SAT 96
[2018-01-14] MEDS: HYDROmorphone INJ 1 MG/ML SYR IV PRN ×5 (02:14→20:24)
[2018-01-14] MEDS: SODIUM CHLORIDE 0.9% 1000ML 1,000 ML IV SCH ×2 (02:34→22:07)
[2018-01-14] MEDS: VANCOMYCIN IV 1,750 MG in SODIUM CHLORIDE 0.9% 500ML 500 ML IV SCH ×2 (04:09→18:44)
[2018-01-14] MEDS: LEVOTHYROXINE 200 MCG TAB PO SCH (05:42)
[2018-01-14 06:46] LABS: HEMATOCRIT 30.8 % (37-47); HEMOGLOBIN 9.7 g/dL (12.0-16.0); MEAN CELL VOLUME 91.4 fL (80-100); MEAN CORPUSCULAR HEMOGLOBIN 28.8 pg (25-34); MEAN CORPUSCULAR HGB CONC 31.5 g/dl (32-36); PLATELET COUNT 199 K/uL (130-400); RED CELL DISTRIBUTION WIDTH CV 17.1 % (11.5-14.5); RED CELL DISTRIBUTION WIDTH SD 57.1 fL (36.4-46.3); WHITE BLOOD COUNT 3.77 K/uL (4.8-10.8)
[2018-01-14 07:18] LABS: CREATININE 0.89 mg/dl (0.60-1.20); POTASSIUM 3.5 mmol/L (3.5-5.1)
[2018-01-14 07:24] VITALS: BP 152/78; PULSE 75; TEMP 36.7; O2SAT 93
[2018-01-14] MEDS: NovoLOG INSULIN PUMP SCH ×4 (08:00→21:00)
[2018-01-14] MEDS: LACTOBACILLUS ACIDOPHILUS (FLORANEX) TAB PO SCH ×3 (08:30→18:44)
[2018-01-14] MEDS: QUETIAPINE FUMARATE 200 MG TAB PO SCH ×2 (09:00→22:09)
[2018-01-14] MEDS: TOPIRAMATE 25 MG TAB PO SCH ×2 (09:00→22:10)
[2018-01-14] MEDS: GABAPENTIN 600 MG TAB PO SCH ×2 (09:00→22:10)
[2018-01-14] MEDS: BuPROPion SR 150 MG TABCR PO SCH ×2 (09:00→22:09)
[2018-01-14] MEDS: DOCUSATE SODIUM 100 MG CAP PO SCH ×2 (09:00→22:09)
--- NOTE | 2018-01-14 10:53 | DIAGNOSTIC IMAGING REPORT ---
FLUOROSCOPICALLY GUIDED ASPIRATION OF LUMBAR FLUID COLLECTION CLINICAL HISTORY: Operative bed fluid collection. COMPARISON STUDY: MRI of the lumbar spine September 10, 2018. Fluoroscopy time: 0.3 minutes. Procedure: The procedure, risks and benefits were discussed with the patient including the risk of bleeding, infection and injury to adjacent structures. The patient agreed to the procedure and informed written consent was obtained. The procedure was performed by Dr. Mccauley following a timeout. Skin of the back at the L4-L5 level was prepped and draped in sterile fashion and local anesthesia was achieved with 1% lidocaine. Under intermittent fluoroscopic guidance, a 18-gauge 3 1/2 inch needle was directed into the fluid collection. There is immediate return of serous fluid which was slightly turbid. 26 cc of fluid was aspirated and sent to the laboratory for analysis. The needle was removed. The patient tolerated the procedure well and no immediate complications were evident. 2 fluoroscopic images were obtained. IMPRESSION: Fluoroscopically guided aspiration of operative bed fluid collection with aspiration of 26 cc of yellowish slightly turbid fluid which was sent to laboratory for analysis. Electronically signed by: Rk Mccauley M.D. 01/14/2018 10:52 AM Dictated Date/Time: 01/14/2018 10:49 AM
[2018-01-14] MEDS: OXYCODONE/ACETAMINOPHEN 5-325 TAB PO PRN ×3 (14:51→23:09)
--- NOTE | 2018-01-14 15:58 | Hospitalist Progress Note ---
Hospitalist Progress Note Date of Service Jan 14, 2018. (Erica Schofield ., PA-C) Subjective Pt evaluation today including: conversation w/ patient, conversation w/ family ( at bedside), physical exam, chart review, lab review, review of studies , review of inpatient medication list Pain: 8/10 back pain PO Intake: Tolerating PO diet Voiding: no voiding problems Patient complains of 8/10 pain in her lower back, L>R. She is otherwise feeling well and denies complaints. The patient denies fevers, chills, sweats, chest pain, palpitations, claudication, cough, wheezing, shortness of breath, nausea, vomiting, abdominal pain, dysuria, hematuria, urinary retention, paralysis, weakness, numbness and tingling. Additional Comments: See HPI for pertinent positives and negatives. All other systems reviewed and negative. (Erica Schofield ., PA-C) Objective Vital Signs Date Time Temp Pulse Resp B/P (MAP) Pulse Ox O2 Delivery O2 Flow Rate FiO2 01/14/18 08:08 Room Air 01/14/18 07:24 36.7 75 18 152/78 (102) 93 Room Air 01/13/18 23:30 36.8 78 16 118/79 (92) 96 Room Air 01/13/18 23:30 96 Room Air (Erica Schofield ., MICKEY-C) Physical Exam Notes: Constitutional: No fever, No chills, No sweats Eyes: No worsening of vision, No eye pain, No diplopia ENT: No hearing loss, No nasal symptoms, No trouble swallowing Respiratory: No cough, No wheezing, No shortness of breath Cardiovascular: No chest pain, No claudication, No palpitations Abdomen: No pain, No nausea, No vomiting Musculoskeletal: +Low back pain greater on left side. No muscle pain, No swelling Genitourinary - Female: No dysuria, No urinary retention, No hematuria Neurologic: No paralysis, No weakness, No numbness/tingling Integumentary: No rash, No itch, No color change (Erica Schofield ., PA-C) Laboratory Results Last 24 Hours Test 01/13/18 16:52 01/13/18 20:39 01/14/18 06:13 01/14/18 08:23 Bedside Glucose 87 mg/dl 88 mg/dl 76 mg/dl White Blood Count 3.77 K/uL Red Blood Count 3.37 M/uL Hemoglobin 9.7 g/dL Hematocrit 30.8 % Mean Corpuscular Volume 91.4 fL Mean Corpuscular Hemoglobin 28.8 pg Mean Corpuscular Hemoglobin Concent 31.5 g/dl RDW Standard Deviation 57.1 fL RDW Coefficient of Variation 17.1 % Platelet Count 199 K/uL Mean Platelet Volume 9.0 fL Sodium Level 142 mmol/L Potassium Level 3.5 mmol/L Chloride Level 108 mmol/L Carbon Dioxide Level 25 mmol/L Anion Gap 10.0 mmol/L Blood Urea Nitrogen 3 mg/dl Creatinine 0.89 mg/dl Est Creatinine Clear Calc Drug Dose 107.4 ml/min Estimated GFR () 92.7 Estimated GFR (Non- 79.9 BUN/Creatinine Ratio 3.6 Random Glucose 81 mg/dl Calcium Level 9.0 mg/dl Test 01/14/18 09:42 01/14/18 12:00 Body Fluid Source LUMBAR SEROMA Body Fluid Color YELLOW Body Fluid Appearance TURBID Body Fluid WBC 76943 /uL Body Fluid RBC 3200 /uL Body Fluid Polynuclear WBCs 99.0 % Body Fluid Mononuclear Cells 1.0 % Bedside Glucose 90 mg/dl (Erica Schofield, PA-C) Assessment and Plan 42 y/o female with a history of HTN, DM II, hypothyroidism, Crohn's disease, cirrhosis, depression/anxiety, migraines, insomnia, neuropathy, and GERD who presents with post op complication for medical management consult. Post op fluid collection at L4 -Surgery managing. S/p drainage 01/14. Fluid serous, no organisms seen on Gram stain -Pain control per primary team -AVSS -Infectious disease consulted, appreciate recs: Per Dr. Munson, no further abx required HTN--stable -Continue lisinopril 5 mg PO qd, verapamil 240 mg PO qd DM II--HgbA1c 5.5 on 01/11 -Hold metformin -Consult pharmacy for glycemic control -Continue home insulin pump as BSGs well controlled -Check BSGs q ac and qhs Hypothyroidism -Continue Synthroid 200 mcg PO qd Crohn's disease--currently no medications. Remicade infusions stopped after initial back surgery and have not been restarted, currently off Asacol Depression, anxiety, insomnia -Continue Wellbutrin 150 mg PO BID, Xanax 0.5 mg PO TID prn anxiety, Seroquel 200 mg PO BID, trazodone 300 mg PO hs Migraines -Continue Topamax 25 mg PO BID Neuropathy -Continue gabapentin 600 mg PO BID DVT prophylaxis -JAD hernandeze and SCDs Code Status -Level I, FULL RESUSCITATION STATUS Pt. is stable from a medical standpoint, we will sign off. Clear for discharge as per primary team. (Erica Schofield ., PA-C) PA Physician Supervision Note: I interviewed and examined the patient. Discussed with Erica Schofield PAC and agree with findings and plan as documented in the note. Any exceptions or clarifications are listed here: None Patient is seen post procedure where her seroma was drained by CT guidance she is doing well. Initial Gram stain is negative for any organisms and consideration for stopping antibiotics at time of discharge is being considered by infectious disease her vital signs are stable her physical exam finds her heart regular lungs clear her back pain is resolved Likely disposition the next day or so infectious disease will likely finalize their request for stopping antibiotics at time of discharge as long as her fluid analysis remains unrevealing Documented By: Donato Srivastava (Donato Srivastava M.D.)
[2018-01-14 16:12] VITALS: BP 147/84; PULSE 89; TEMP 37.3; O2SAT 93
[2018-01-14] MEDS: VERAPAMIL HCL 240 MG TABCR PO SCH (16:12)
[2018-01-14] MEDS: LISINOPRIL 5 MG TAB PO SCH (16:13)
[2018-01-14] MEDS: POLYETHYLENE (MIRALAX) 17 GM PACK PO SCH (16:14)
[2018-01-14] MEDS ORDERED: NURSING VERBAL MED ORDER ONE (16:30)
[2018-01-14] MEDS: PANTOprazole SOD 40 MG TAB PO SCH (18:43)
[2018-01-14] MEDS: LACTULOSE SYRUP 30 GM/45 ML UDP PO PRN (18:52)
[2018-01-14] MEDS: TRAZODONE HCL 100 MG TAB PO SCH (22:55)
[2018-01-14 23:10] VITALS: BP 108/57; PULSE 74; TEMP 36.7; O2SAT 98
[2018-01-15] MEDS: HYDROmorphone INJ 1 MG/ML SYR IV PRN (02:06)
[2018-01-15] MEDS: LEVOTHYROXINE 200 MCG TAB PO SCH (05:50)
[2018-01-15] MEDS ORDERED: OXYC-57 PO (07:57)
--- NOTE | 2018-01-15 07:58 | Discharge Instructions ---
Discharge Instructions Date of Service Jan 15, 2018. Admission Reason for Admission: Back Pain Discharge Discharge Diagnosis / Problem: same Discharge Goals Goal(s): Improve function Activity Recommendations Activity Limitations: as noted below Lifting Limitations: no more than 5 pounds Exercise/Sports Limitations: until after follow-up appointment Shower/Bathe: no limitations just rest and recover . Current Hospital Diet Patient's current hospital diet: Diabetes Type 2 Diet Discharge Diet Recommended Diet: Diabetes Type 2 Diet Procedures Procedures Performed: spine aspiration Pending Studies Studies pending at discharge: no Laboratory Results Hemoglobin A1c Test 01/11/18 07:25 Range/Units Estimated Average Glucose 111 mg/dl Hemoglobin A1c 5.5 4.5-5.6 % Medical Emergencies . Who to Call and When: Medical Emergencies: If at any time you feel your situation is an emergency, please call 911 immediately. . Non-Emergent Contact Non-Emergency issues call your: Primary Care Provider Call Non-Emergent contact if: you have any medication questions . "Provider Documentation" section prepared by Emory Byrd. . VTE Core Measure Inpt VTE Proph given/why not?: Treatment not indicated
[2018-01-15] MEDS: NovoLOG INSULIN PUMP SCH (08:00)
[2018-01-15] MEDS: VANCOMYCIN IV 1,750 MG in SODIUM CHLORIDE 0.9% 500ML 500 ML IV SCH (08:00)
[2018-01-15] MEDS: OXYCODONE/ACETAMINOPHEN 5-325 TAB PO PRN (08:06)
[2018-01-15 08:10] VITALS: BP 134/85; PULSE 72; TEMP 36.7; O2SAT 97
[2018-01-15] MEDS: PANTOprazole SOD 40 MG TAB PO SCH (09:00)
[2018-01-15] MEDS: VERAPAMIL HCL 240 MG TABCR PO SCH (09:00)
[2018-01-15] MEDS: LISINOPRIL 5 MG TAB PO SCH (09:00)
[2018-01-15] MEDS: TOPIRAMATE 25 MG TAB PO SCH (09:17)
[2018-01-15] MEDS: DOCUSATE SODIUM 100 MG CAP PO SCH (09:17)
[2018-01-15] MEDS: QUETIAPINE FUMARATE 200 MG TAB PO SCH (09:17)
[2018-01-15] MEDS: LACTOBACILLUS ACIDOPHILUS (FLORANEX) TAB PO SCH (09:17)
[2018-01-15] MEDS: BuPROPion SR 150 MG TABCR PO SCH (09:18)
[2018-01-15] MEDS: GABAPENTIN 600 MG TAB PO SCH (09:18)
[2018-01-15 10:54] VITALS: BP 134/85; PULSE 72; TEMP 36.7; O2SAT 97
--- NOTE | 2018-01-16 08:32 | DISCHARGE SUMMARY ---
SUBJECTIVE: She is alert and oriented this morning. Minimal complaints of pain. No chest pain or shortness of breath. Leg pain controlled. OBJECTIVE: Vital signs stable, afebrile. Wounds clean. Gram stain negative. No cultures positive. ASSESSMENT: Seroma versus meningocele, lumbar spine, improved, stable. DISPOSITION: I have instructed her on my opinion. I have gone through this rigorously. I researched the problem rigorously. I am trying to stick to a nonsurgical approach. I am optimistic this would resolve overtime. We will treat it with pain medication. Careful with bending, stooping, and lifting and we are more optimistic that this can go on to improve. She is to call if any problems arise.
[2018-01-16] MEDS ORDERED: VANCOMYCIN TROUGH ONE (11:30)
== END 2018-01-15 12:10 | disposition home or self-care (01) | DRG 920 ==
LOC: C.MSN 17:58
PROVIDERS: ADMIT Orthopaedic Surgery Orthopaedic Surgery of the Spine; ATTEND Orthopaedic Surgery Orthopaedic Surgery of the Spine
PROC: 009U3ZX Drainage of Spinal Canal, Percutaneous Approach, Diagnostic (ICD-10-PCS; principal; 2018-01-14)
DX: G97.64 Postprocedural seroma of a nervous system organ or structure following other procedure (principal); G97.82 Other postprocedural complications and disorders of nervous system; I10 Essential (primary) hypertension; E03.9 Hypothyroidism, unspecified; K21.9 Gastro-esophageal reflux disease without esophagitis; F32.9 Major depressive disorder, single episode, unspecified; F41.9 Anxiety disorder, unspecified; G47.00 Insomnia, unspecified; E11.40 Type 2 diabetes mellitus with diabetic neuropathy, unspecified; F17.210 Nicotine dependence, cigarettes, uncomplicated; Z79.899 Other long term (current) drug therapy; Z88.1 Allergy status to other antibiotic agents; Z88.2 Allergy status to sulfonamides